=== PATIENT | male | born 1950 | race African-American/Black ===

== ENCOUNTER 2020-04-18 11:19 | Outpatient (REF) | payer OTHER, SELFPAY ==
[2020-04-19 11:19] LABS: Urine Cytology See Pathology rpt
== END 2020-04-18 11:20 | disposition home or self-care (01) ==
LOC: HO.LNP 11:19
PROVIDERS: PCP Internal Medicine; Visit Provider Urology
DX: N40.1 Benign prostatic hyperplasia with lower urinary tract symptoms (principal); R31.0 Gross hematuria
CPT/HCPCS: 88112; 99214

== ENCOUNTER 2020-05-23 11:06 | Emergency (ER) | payer OTHER, SELFPAY ==
[2020-05-23 12:23] VITALS: BP 135/67; PULSE 57; RESP 18; TEMP 37.2; O2SAT 98; BMI 31.9
--- NOTE | 2020-05-23 13:52 | CT_ITS ---
EXAMINATION: CT ABDOMEN AND PELVIS WITHOUT CONTRAST CLINICAL INFORMATION: Hematuria COMPARISON: None TECHNIQUE: Multidetector volumetric imaging was performed from the superior aspect of the liver through the pubic symphysis. Sagittal and coronal reformatted images were obtained on the technologist's workstation. This CT examination was performed using dose optimization techniques as appropriate, variously including the following: *Automated exposure control *Adjustment of mA and/or kV according to patient size (this includes techniques or standardized protocols for targeted exams where dose is matched to indication/reason for exam; i.e. extremities or head) *Use of iterative reconstruction technique DLP: 822 mGy-cm FINDINGS: LUNG BASES: Minor subpleural scarring left lateral base adjacent to old posttraumatic rib changes. No airspace consolidation or effusion. LIVER, GALLBLADDER, AND BILIARY TREE: The liver is normal in size, shape, and attenuation. No focal hepatic lesion or biliary ductal dilatation is present. The gallbladder is unremarkable with no evidence of radiopaque gallstones, gallbladder wall thickening, or obvious pericholecystic inflammatory changes. PANCREAS: Unremarkable. SPLEEN: Unremarkable. ADRENAL GLANDS: Unremarkable. KIDNEYS AND URETERS: There is no right kidney demonstrated. No right ptotic or pelvic kidney. No surgical clips retroperitoneum. Clinically correlate. The left kidney measures approximately 13 cm in length and shows normal parenchymal thickness. There is no hydronephrosis, hydroureter, or perinephric stranding. No urinary tract calculi. BLADDER: Unremarkable. GASTROINTESTINAL TRACT: No bowel obstruction or inflammatory changes in the bowel mesentery. Normal appendix. No ascites or fluid collection. ABDOMINAL WALL: Small ringlike tacks lower anterior abdomen, with prior hernia repair. No ventral hernia. Small bilateral fat-containing inguinal hernias, slightly greater on left. LYMPH NODES: No lymphadenopathy. VASCULAR: Coronary artery atherosclerotic calcifications. 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 Remainder abdominal aorta unremarkable. PELVIC VISCERA: Mild prostatic enlargement. Seminal vesicles symmetric. OSSEOUS STRUCTURES: Old left rib fractures. Degenerative changes lower thoracic and lumbar spine. No visible acute bony abnormality. CT/CT abdomen pelvis wo con IMPRESSION: 1. Solitary left kidney. No hydronephrosis, calculi, or perinephric stranding. 2. 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 3. Mild prostatic enlargement. 4. No bowel obstruction or inflammatory changes. Normal appendix.
[2020-05-23 14:00] VITALS: BP 157/79; PULSE 54; RESP 15; TEMP 37.1; O2SAT 95
--- NOTE | 2020-05-23 14:01 | ED_ITS ---
HPI - Male Genitourinary General Chief complaint: Urogenital-Male Stated complaint: blood in urine Time Seen by Provider: 05/23/20 11:44 Source: patient Mode of arrival: ambulatory Limitations: no limitations History of Present Illness HPI Narrative: hematuria x 3 months, no AC therapy, on baby ASPIRIN Complaint: other (hematuria) Onset (ago): month(s) (3) Duration: intermittent Radiation: penis Severity: mild Relieving factors: none Exacerbating factors: urination Context: other (has been seen by Urology pending US and cystoscopy) Related Data Home Medications Medication Instructions Recorded Confirmed amlodipine 10 mg tablet 10 mg PO DAILY 04/18/20 04/18/20 aspirin 81 mg tablet,delayed 81 mg PO DAILY 04/18/20 04/18/20 release atorvastatin 80 mg tablet 80 mg PO DAILY 04/18/20 04/18/20 carvedilol 25 mg tablet 25 mg PO BID 04/18/20 04/18/20 insulin aspart U-100 100 unit/mL unit SUBCUT 04/18/20 04/18/20 (3 mL) subcutaneous pen insulin glargine 100 unit/mL (3 unit SUBCUT 04/18/20 04/18/20 mL) subcutaneous pen lisinopril 40 mg tablet 40 mg PO DAILY 04/18/20 04/18/20 omeprazole 20 mg capsule,delayed 20 mg PO DAILY 04/18/20 04/18/20 release pen needle, diabetic 31 gauge x #1200 ea 04/18/20 04/18/20 5/16 spironolactone 25 mg tablet 25 mg PO DAILY 04/18/20 04/18/20 tramadol 50 mg tablet 0 mg PO 04/18/20 04/18/20 Previous Rx's Medication Instructions Recorded cefuroxime axetil 250 mg PO BID 7 Days #14 tab 05/23/20 Allergies Allergy/AdvReac Type Severity Reaction Status Date / Time No Known Allergies Allergy Verified 05/23/20 11:08 Review of Systems Review of Systems: Constitutional : No Fever, No Chills ENT/Mouth : No sore throat Eyes: No Eye Pain, No Swelling, No Redness Cardiovascular : No Chest Pain, No SOB Respiratory : No Cough, No Sputum, No Wheezing Gastrointestinal : no Nausea, no Vomiting, No Diarrhea, no abdominal pain Genitourinary : no Dysuria, no urinary frequency, positive Hematuria, no Flank Pain, no hesitancy Musculoskeletal : No joint pain, No Myalgias Skin : No Skin Lesions, No rash Neuro : No Weakness, No Numbness, No Headache Psych : No Anxiety/Panic, No Depression Heme/Lymph: No Bruising, No Lymphadenopathy Endocrine : No Polyuria, No Polydipsia All other systems reviewed and are negative COUNT INCLUDES THE [facility] Past Medical History Attestation statement: The following information was validated with the patient. Social History Social History Alcohol intake: never Smoking Status: Never smoker Smoked in Last 30 Days: No Use of substances other than those prescribed or required for medical reasons: No Advance Directives: No Advance Directives Information Provided: Yes Physical Exam Vital Signs: Vital Signs: Last Vital Signs Temp 98.7 F 05/23/20 14:00 Pulse 54 05/23/20 14:00 Resp 15 05/23/20 14:00 BP 157/79 H 05/23/20 14:00 Pulse Ox 95 05/23/20 14:00 Body Mass Index 31.9 Appearance: Alert. Oriented X3. No acute distress. Eyes: Pupils equal, round and reactive to light. ENT: Pharynx normal. Neck: Normal inspection. Neck supple. CVS: Normal heart rate and rhythm. Pulses normal. Respiratory: No respiratory distress. Breath sounds normal. Abdomen: Soft and non-tender. Skin: Skin warm and dry. Normal skin color. Normal skin turgor. Extremities: No lower extremity edema. No calf ttp Neuro: Oriented X 3. No motor deficit. No sensory deficit. Course Course Course Narrative: discussed with Dr. Leiva - will follow up, has not had kidney function checked in years - no baseline, will have outpatient urology close follow up MDM - Male Genitourinary MDM Narrative Medical decision making narrative: 70 yo male with hematuria for 3 months who has seen Urology pending US and cystoscopy at this time will obtain labs, UA, CT scan dispo per results and findings, could be mass Lab Data Result diagrams: 05/23/20 14:23 05/23/20 14:23 Labs: Lab Results 05/23/20 05/23/20 05/23/20 Range/Units 14:23 14:23 14:23 WBC 7.9 (4.8-10.8) X10*3/uL RBC 4.70 (4.60-5.80) X10*6/uL Hgb 14.1 (14.0-18.0) g/dl Hct 42.9 (42-52) % MCV 91.3 (80-98) fL MCH 30.0 (27.0-33.0) pg MCHC 32.9 (31.0-36.0) g/dl RDW 12.5 (11.0-16.0) % Plt Count 206 (160-400) X10*3/uL MPV 10.4 (9.4-12.4) fL Immature Gran % (Auto) 0.4 (0.0-0.4) % Neut % (Auto) 52.0 (45-73) % Lymph % (Auto) 32.4 (20-40) % [place] % (Auto) 10.2 (2-11) % Eos % (Auto) 4.6 H (0-4) % Baso % (Auto) 0.4 (0-2) % Lymph # (Auto) 2.6 (1.2-4.9) X10*3/uL [place] # (Auto) 0.8 (0.1-1.2) X10*3/uL Eos # (Auto) 0.4 (0.0-0.4) X10*3/uL Baso # (Auto) 0.0 (0.0-0.2) X10*3/uL Abs Immat Gran (auto) 0.03 (0.00-0.03) X10*3/uL Absolute Neuts (auto) 4.1 (2.0-8.3) X10*3/uL Absolute Nucleated RBC 0.000 (0.0-0.012) X10*3/uL Nucleated RBC % (auto) 0.0 (0.0-0.2) /100WBC PT 11.6 (10.8-13.0) SEC INR 1.0 (0.9-1.1) APTT 34.9 (24.1-38.0) SEC Sodium 137 (135-145) mmol/L Potassium 4.4 (3.3-5.1) mmol/l Chloride 103 (96-108) mmol/L Carbon Dioxide 26 (22-29) mmol/L Anion Gap 12 (12-20) BUN 14 (9-16) mg/dL Creatinine 1.86 H (0.5-1.4) mg/dL Estim Creat Clear Calc 40.1 Estimated GFR 36 Random Glucose 318 H (60-115) mg/dL Calcium 9.0 (8.4-10.2) mg/dL Urine Color Urine Appearance Urine pH (5.0-8.0) Ur Specific [place] (1.005-1.025) Urine Protein (NEG-TRACE) MG/DL Urine Glucose (UA) (NEG) MG/DL Urine Ketones (NEG) MG/DL Urine Blood (NEG) Urine Nitrite (NEG) Ur Leukocyte Esterase (NEG) Urine RBC (0) /HPF Urine WBC (0-4) /HPF Ur Squamous Epith Cells /LPF Urine Bacteria /LPF 05/23/ Range/Units 14:25 WBC (4.8-10.8) X10*3/uL RBC (4.60-5.80) X10*6/uL Hgb (14.0-18.0) g/dl Hct (42-52) % MCV (80-98) fL MCH (27.0-33.0) pg MCHC (31.0-36.0) g/dl RDW (11.0-16.0) % Plt Count (160-400) X10*3/uL MPV (9.4-12.4) fL Immature Gran % (Auto) (0.0-0.4) % Neut % (Auto) (45-73) % Lymph % (Auto) (20-40) % [place] % (Auto) (2-11) % Eos % (Auto) (0-4) % Baso % (Auto) (0-2) % Lymph # (Auto) (1.2-4.9) X10*3/uL [place] # (Auto) (0.1-1.2) X10*3/uL Eos # (Auto) (0.0-0.4) X10*3/uL Baso # (Auto) (0.0-0.2) X10*3/uL Abs Immat Gran (auto) (0.00-0.03) X10*3/uL Absolute Neuts (auto) (2.0-8.3) X10*3/uL Absolute Nucleated RBC (0.0-0.012) X10*3/uL Nucleated RBC % (auto) (0.0-0.2) /100WBC PT (10.8-13.0) SEC INR (0.9-1.1) APTT (24.1-38.0) SEC Sodium (135-145) mmol/L Potassium (3.3-5.1) mmol/l Chloride (96-108) mmol/L Carbon Dioxide (22-29) mmol/L Anion Gap (12-20) BUN (9-16) mg/dL Creatinine (0.5-1.4) mg/dL Estim Creat Clear Calc Estimated GFR Random Glucose (60-115) mg/dL Calcium (8.4-10.2) mg/dL Urine Color YELLOW Urine Appearance HAZY Urine pH 6.0 (5.0-8.0) Ur Specific [place] 1.020 (1.005-1.025) Urine Protein TRACE (NEG-TRACE) MG/DL Urine Glucose (UA) >=1000 H (NEG) MG/DL Urine Ketones NEG (NEG) MG/DL Urine Blood 2+ H (NEG) Urine Nitrite NEG (NEG) Ur Leukocyte Esterase NEG (NEG) Urine RBC 76-150 H (0) /HPF Urine WBC 10-14 H (0-4) /HPF Ur Squamous Epith Cells NONE /LPF Urine Bacteria NONE /LPF Discharge Plan Discharge Clinical Impression: Gross hematuria Patient Disposition: Home, Self-Care Instructions: Hematuria (ED) Additional Instructions: return to ED for any worsening symptoms or concerns Dr. Leiva's office will see you soon, you need to have your kidney function rechecked in 5 days Prescriptions: New cefuroxime axetil 250 mg tablet 250 mg PO BID 7 Days Qty: 14 RF: 0 No Action (DME) pen needle, diabetic 31 gauge x 5/16 needle See Rx Instructions ea .ROUTE QID Qty: 1200 RF: 0 Lantus Solostar U-100 Insulin 100 unit/mL (3 mL) insulin pen subcut RF: 0 insulin aspart U-100 100 unit/mL (3 mL) insulin pen subcut RF: 0 omeprazole 20 mg capsule,delayed release(DR/EC) 20 mg PO DAILY RF: 0 tramadol 50 mg tablet 0 mg PO RF: 0 carvedilol 25 mg tablet 25 mg PO BID RF: 0 lisinopril 40 mg tablet 40 mg PO DAILY RF: 0 amlodipine 10 mg tablet 10 mg PO DAILY RF: 0 spironolactone 25 mg tablet 25 mg PO DAILY RF: 0 atorvastatin 80 mg tablet 80 mg PO DAILY RF: 0 aspirin 81 mg tablet,delayed release (DR/EC) 81 mg PO DAILY RF: 0 Referrals: Danny Leiva MD [Physician] - 2 days
[2020-05-23 14:36] LABS: MANUAL DIFF FLAG NO
[2020-05-23 14:38] LABS: Basophils Percent Auto 0.4 % (0-2); Eosinophils Absolute Auto 0.4 X10*3/uL (0.0-0.4); Eosinophils Percent Auto 4.6 % (0-4); Hematocrit 42.9 % (42-52); Hemoglobin 14.1 g/dl (14.0-18.0); Imm Gran Abs Auto 0.03 X10*3/uL (0.00-0.03); Imm Gran Pct Auto 0.4 % (0.0-0.4); Lymphocytes Absolute Auto 2.6 X10*3/uL (1.2-4.9); Lymphocytes Percent Auto 32.4 % (20-40); Mean Corpuscular HGB Conc 32.9 g/dl (31.0-36.0); Mean Corpuscular Volume 91.3 fL (80-98); Mean Platelet Volume 10.4 fL (9.4-12.4); Monocytes Absolute Auto 0.8 X10*3/uL (0.1-1.2); Monocytes Percent Auto 10.2 % (2-11); Neutrophils Absolute Auto 4.1 X10*3/uL (2.0-8.3); Platelet Count 206 X10*3/uL (160-400); Red Cell Distribution Width 12.5 % (11.0-16.0); White Blood Count 7.9 X10*3/uL (4.8-10.8)
[2020-05-23 14:44] LABS: Prothrombin Time 11.6 SEC (10.8-13.0)
[2020-05-23 14:45] LABS: Glucose Urine UA >=1000 MG/DL (NEG); Leukocyte Esterase Urine NEG (NEG); Nitrite Urine NEG (NEG); Urine Blood 2+ (NEG); Urine Ketones NEG (NEG); Urine Protein TRACE MG/DL (NEG-TRACE)
[2020-05-23 14:46] LABS: Partial Thromboplastin Time 34.9 SEC (24.1-38.0)
[2020-05-23 14:52] LABS: Appearance Urine HAZY; Color Urine YELLOW
[2020-05-23 15:06] LABS: Anion Gap 12 (12-20); Blood Urea Nitrogen 14 mg/dL (9-16); Carbon Dioxide 26 mmol/L (22-29); Chloride 103 mmol/L (96-108); Creatinine Clr Calc Pharmacy 40.1; Estimated Glomerular Filt Rate 36; Glucose Random 318 mg/dL (60-115); Potassium 4.4 mmol/l (3.3-5.1); Sodium 137 mmol/L (135-145)
[2020-05-23 15:08] LABS: UACC CULT YES
--- NOTE | 2020-05-23 15:39 | PC.NURSE ---
awaiting for [facility]. pt aware and agreeable
[2020-05-23 16:33] LABS: Alanine Aminotransferase 26 U/L (0-40); Albumin Level 4.2 g/dL (3.5-5.0); Alkaline Phosphatase 123 U/L (39-117); Aspartate Amino Transferase 16 U/L (5-37); Bilirubin Direct 0.3 mg/dL (0.0-0.5); Bilirubin Total 0.7 mg/dL (0.0-1.0); Magnesium 1.8 mg/dL (1.6-2.6); Total Protein 6.8 g/dL (6.5-8.0)
== END 2020-05-23 15:52 | disposition home or self-care (01) ==
PROVIDERS: Emergency Provider Emergency Medicine
DX: R31.0 Gross hematuria (principal); R10.9 Unspecified abdominal pain; Z79.899 Other long term (current) drug therapy
CPT/HCPCS: 36415; 74176; 80048; 80076; 81001; 83735; 85025; 85610; 85730; 87086; 99284

== ENCOUNTER → 2020-05-25 14:48 | Outpatient (BNVA) | payer OTHER, SELFPAY | PROVIDERS: Visit Provider Urology | DX: C67.9 Malignant neoplasm of bladder, unspecified (principal) | CPT/HCPCS: 52000; 81002; Q3014 ==

== ENCOUNTER 2020-05-30 11:06 | Inpatient (IN) | payer OTHER, SELFPAY ==
[2020-05-30] VITALS (7 sets, daily range): BP systolic 134–164; BP diastolic 73–89; PULSE 56–70; RESP 18–19; TEMP 36.1–37; O2SAT 93–99; BMI 33.4
--- NOTE | 2020-05-30 11:38 | CT_ITS ---
EXAMINATION: CT ABDOMEN AND PELVIS WITHOUT CONTRAST CLINICAL INFORMATION: Hematuria. One kidney. COMPARISON: Previous CT of the abdomen and pelvis 05/23/2020 TECHNIQUE: Multidetector volumetric imaging was performed from the superior aspect of the liver through the pubic symphysis. Sagittal and coronal reformatted images were obtained on the technologist's workstation. This CT examination was performed using dose optimization techniques as appropriate, variously including the following: *Automated exposure control *Adjustment of mA and/or kV according to patient size (this includes techniques or standardized protocols for targeted exams where dose is matched to indication/reason for exam; i.e. extremities or head) *Use of iterative reconstruction technique DLP: 855 mGy-cm FINDINGS: LUNG BASES: There is scarring or atelectasis at the left lung base. This is probably related to old left rib fractures. The lungs the heart may be enlarged. LIVER, GALLBLADDER, AND BILIARY TREE: The liver is normal in size, shape, and attenuation. No focal hepatic lesion or biliary ductal dilatation is present. The gallbladder is unremarkable with no evidence of radiopaque gallstones, gallbladder wall thickening, or obvious pericholecystic inflammatory changes. PANCREAS: Unremarkable. SPLEEN: Unremarkable. ADRENAL GLANDS: There is a slight nodular contour to the left adrenal gland. The right adrenal gland is unremarkable. KIDNEYS AND URETERS: The right kidney is not identified. The left kidney is normal appearing. BLADDER: The bladder is not optimally distended. There is increased seen at the base of the bladder questionable for a bladder mass. It is difficult to separate the base of the bladder from the prostate gland. There is also question shaped higher attenuation questionable for blood for example axial image 83 series 3 GASTROINTESTINAL TRACT: There is diverticulosis of the colon. Small and large bowel is otherwise unremarkable. The appendix is unremarkable. The stomach is unremarkable. ABDOMINAL WALL: There is a left internal hernia containing fat. There is evidence of old suprapubic hernia repair with mesh. LYMPH NODES: There are enlarged retroperitoneal lymph nodes in the pelvis measuring 1.6 cm adjacent to the left common iliac artery and vein axial image 63, 1.9 x 3.6 cm the right iliac bifurcation axial image 74 series 3, measuring 1.7 x 2.1 cm adjacent to the right pelvic sidewall axial image 79 series 3 and measuring 1 cm adjacent to the left iliac vessels axial image 80 series 3. These lymph nodes are similar to previous exam from 05/23/2020. VASCULAR: There is a small right-sided saccular aneurysm of the mid right abdominal aorta measuring 1.5 cm. Again, this is in the expected location of the right renal artery. There is evidence of atherosclerotic disease. PELVIC VISCERA: The prostate gland is enlarged and may protrude into the base of the bladder. OSSEOUS STRUCTURES: There are degenerative changes of the spine. There are degenerative changes at the hip joints, left greater than right. There are old left-sided rib fractures. CT/CT abdomen pelvis wo con IMPRESSION: Solitary left kidney. Abnormal soft tissue at the base of the bladder questionable for bladder mass versus prostate mass. The prostate gland is enlarged and may protrude into the base of the bladder. Correlation with urinalysis and urine cytology and PSA level and urology consultation recommended. There is new small crescent-shaped high attenuation in the bladder questionable for blood. Enlarged lymph nodes in the pelvis questionable for metastatic disease. 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 Diverticulosis.
[2020-05-30] MEDS: 0.9 % Sodium Chloride 1,000 ML 999 ML IVCONT ×2 (11:47→14:20)
--- NOTE | 2020-05-30 11:48 | PC.NURSE ---
patient a&ox3, iv inserted, labs drawn, urine obtained, pt now states that he has seen dr. fountain for past hematuria and that he was supposed to have surgery sometime next week-patient is unsure what kind of surgery he is supposed to be having. Pt states a few days ago he began calling dr. chappell office due to the hematuria but was unable to get ahold of anybody, this morning he patient went to dr. chappell office and they advised him to come to the ed.
[2020-05-30 11:49] LABS: Basophils Percent Auto 0.4 % (0-2); Eosinophils Absolute Auto 0.3 X10*3/uL (0.0-0.4); Eosinophils Percent Auto 4.1 % (0-4); Hemoglobin 15.1 g/dl (14.0-18.0); Imm Gran Abs Auto 0.04 X10*3/uL (0.00-0.03); Imm Gran Pct Auto 0.5 % (0.0-0.4); Lymphocytes Absolute Auto 3.1 X10*3/uL (1.2-4.9); Lymphocytes Percent Auto 38.1 % (20-40); MANUAL DIFF FLAG NO; Mean Corpuscular HGB Conc 34.3 g/dl (31.0-36.0); Mean Corpuscular Hemoglobin 30.6 pg (27.0-33.0); Mean Corpuscular Volume 89.2 fL (80-98); Mean Platelet Volume 10.4 fL (9.4-12.4); Monocytes Absolute Auto 0.8 X10*3/uL (0.1-1.2); Monocytes Percent Auto 10.3 % (2-11); Neutrophils Absolute Auto 3.8 X10*3/uL (2.0-8.3); Neutrophils Percent Auto 46.6 % (45-73); Platelet Count 223 X10*3/uL (160-400); Red Blood Count 4.93 X10*6/uL (4.60-5.80); Red Cell Distribution Width 12.8 % (11.0-16.0)
[2020-05-30 11:58] LABS: Glucose Urine UA 250 MG/DL (NEG); INTERNATIONAL NORM RATIO 0.9 (0.9-1.1); Nitrite Urine NEG (NEG); Prothrombin Time 11.2 SEC (10.8-13.0); Urine Blood 3+ (NEG); Urine Ketones NEG (NEG)
[2020-05-30 12:04] LABS: Appearance Urine TURBID; Color Urine RED
[2020-05-30 12:08] LABS: Leukocyte Esterase Urine NEG (NEG)
[2020-05-30 12:09] LABS: RBC Urine TNTC /HPF (0); WBC Urine 0-2 /HPF (0-4)
[2020-05-30 12:16] LABS: Alanine Aminotransferase 30 U/L (0-40); Albumin Level 4.2 g/dL (3.5-5.0); Alkaline Phosphatase 129 U/L (39-117); Anion Gap 13 (12-20); Aspartate Amino Transferase 17 U/L (5-37); Bilirubin Direct 0.3 mg/dL (0.0-0.5); Bilirubin Total 0.7 mg/dL (0.0-1.0); Blood Urea Nitrogen 29 mg/dL (9-16); Calcium 9.2 mg/dL (8.4-10.2); Carbon Dioxide 25 mmol/L (22-29); Chloride 101 mmol/L (96-108); Creatinine Clr Calc Pharmacy 33.2; Estimated Glomerular Filt Rate 28; Glucose Random 287 mg/dL (60-115); Potassium 4.3 mmol/l (3.3-5.1); Sodium 135 mmol/L (135-145)
--- NOTE | 2020-05-30 12:58 | ED_ITS ---
HPI - Male Genitourinary General Chief complaint: Urogenital-Male Stated complaint: blood in urine Time Seen by Provider: 05/30/20 11:37 Source: patient Mode of arrival: ambulatory Limitations: no limitations History of Present Illness HPI Narrative: 70yoM c PMHx of bladder cancer, BPH with urinary obstruction /LUTS, only 1 kidney on the left side, right-sided kidney was donated to son, HTN, HLD and DM presenting to the ED c c/o gross hematuria x 3 months worse within the past week was seen here on 05/23/2020 for same complaint had a CT scan of abd/pelvis then followed up c Dr. Leiva and had a cystoscope and has a scheduled Transurethral Resection of Bladder Tumor (TURBT) for Thursday due to a tumor was found on cystoscope Patient denies any fevers, nausea / vomiting, chest pain, shortness of breath, abdominal pain, dysuria, constipation or diarrhea or any other symptoms complaints or concerns at this time.. Related Data Home Medications Medication Instructions Recorded Confirmed amlodipine 10 mg tablet 10 mg PO DAILY 04/18/20 04/18/20 aspirin 81 mg tablet,delayed 81 mg PO DAILY 04/18/20 04/18/20 release atorvastatin 80 mg tablet 80 mg PO DAILY 04/18/20 04/18/20 carvedilol 25 mg tablet 25 mg PO BID 04/18/20 04/18/20 insulin aspart U-100 100 unit/mL unit SUBCUT 04/18/20 04/18/20 (3 mL) subcutaneous pen insulin glargine 100 unit/mL (3 unit SUBCUT 04/18/20 04/18/20 mL) subcutaneous pen lisinopril 40 mg tablet 40 mg PO DAILY 04/18/20 04/18/20 omeprazole 20 mg capsule,delayed 20 mg PO DAILY 04/18/20 04/18/20 release pen needle, diabetic 31 gauge x #1200 ea 04/18/20 04/18/2011/18 spironolactone 25 mg tablet 25 mg PO DAILY 04/18/20 04/18/20 tramadol 50 mg tablet 0 mg PO 04/18/20 04/18/20 Previous Rx's Medication Instructions Recorded cefuroxime axetil 250 mg PO BID 7 Days #14 tab 05/23/20 Allergies Allergy/AdvReac Type Severity Reaction Status Date / Time No Known Allergies Allergy Verified 05/23/20 11:08 Review of Systems Review of Systems: Constitutional : No Fever, No Chills Cardiovascular : No Chest Pain, No SOB Respiratory : No Cough, No Sputum Gastrointestinal : No Nausea, No Vomiting, No Diarrhea, No abdominal Pain, No Hematochezia, No Melena Genitourinary : No Dysuria, No Urinary Frequency, + Gross Hematuria, No Urinary Incontinence, No Urgency, No Flank Pain Musculoskeletal : No joint pain, No Myalgias, No Joint Swelling Skin : No Skin Lesions, No rash Neuro : No Weakness, No Numbness, No Paresthesias, No Dizziness, No Headache Heme/Lymph: No Lymphadenopathy Endocrine : No Polyuria, No Polydipsia Yes all other systems are reviewed and are negative [facility] Past Medical History Attestation statement: The following information was validated with the patient. Medical History Diabetes Hematuria High cholesterol HTN (hypertension) Kidney stone on right side Malignant neoplasm Surgical History H/O cystoscopy History of nephrectomy, left Social History Social History Alcohol intake: current Alcohol intake frequency: holidays/special occasions only Smoking Status: Never smoker Smoked in Last 30 Days: No Second Hand Smoke Exposure: No Use of substances other than those prescribed or required for medical reasons: No Advance Directives: No Advance Directives Information Provided: Yes Physical Exam Vital Signs: Vital Signs: Last Vital Signs Temp 98.6 F 05/30/20 11:15 Pulse 62 05/30/20 11:15 Resp 18 05/30/20 11:15 BP 140/82 H 05/30/20 11:15 Pulse Ox 93 05/30/20 11:15 Body Mass Index 33.4 vital signs have been reviewed as normal and appeared to be correct. Blood pressure normal. Heart rate normal. Respiration rate normal. Temperature normal. Oxygen saturation normal. Appearance: Alert. Oriented X3. No acute distress. Head: Normal external exam. Normocephalic. Atraumatic. Eyes: PERRLA. EOMI. Conjunctiva and sclera normal. Eyelids normal. ENT: Pharynx normal. Uvula midline. Moist mucous membranes. Neck: Normal inspection. Neck supple. FROM. No adenopathy. No meningeal signs. CVS: Normal heart rate and rhythm. Heart sound normal. No murmurs noted. Pulses normal throughout. Respiratory: No respiratory distress. Painless inspiration. Breath sounds normal. No wheezes/rales/rhonchi noted. Chest nontender. No accessory muscle usage noted or decreased air movement noted. Abdomen: Soft and nontender. Bowel sounds normal in all 4 quadrants. No organomegaly noted. No visible injury noted. Back: No CVA tenderness. Full range of motion noted. Skin: Skin warm and dry. Normal skin color. Normal skin turgor. No rashes/l esions/lacerations noted. Extremities: Extremities exhibit normal range of motion. Extremities nontender. Neuro: Oriented X 3. No motor deficit. No sensory deficit. Reflexes normal. Course Course Course Narrative: 11:40AM - 70yoM c PMHx of bladder cancer, BPH with urinary obstruction /LUTS, only one kidney on the left side, right-sided kidney was donated to son, HTN, HLD and DM presenting to the ED c c/o gross hematuria x 3 months worse within the past week was seen here on 05/23/2020 for same complaint had a CT scan of abd/pelvis then followed up c Dr. Leiva and had a cystoscope and has a scheduled Transurethral Resection of Bladder Tumor (TURBT) for Thursday due to a tumor was found on cystoscope - will obtain labs, UA and a CT scan without contrast due to the patient's kidney function provide 1 L of IV fluids and re-evaluate. Reevaluation(s) Reevaluation #1: - BUN/ creatinine at 29/2.3 on 05/23/2020 BUN was 14 creatinine was 1.86. Mild elevation and alkaline phosphate. Otherwise all other labs are WNL. CT scan of abdomen pelvis consistent with what was seen on cystoscope and similar when compared to prior CT scan although noted to have blood in the bladder. I consulted with Dr. Leiva who recommended continuous bladder irrigation. - therefore bladder irrigation ordered and started at this time. Another L of IV fluids ordered at this time. - Will plan to admit for gross hematuria with renal failure. Patient understands agrees with this plan. Time: 13:21 MDM - Male Genitourinary Medical Records Attestation: I reviewed the patient's medical records. Lab Data Attestation: I reviewed the patient's lab results. Result diagrams: 05/30/20 11:43 05/30/20 11:43 Labs: Lab Results 05/30/20 05/30/20 05/30/20 Range/Units 11:43 11:43 11:43 WBC 8.0 (4.8-10.8) X10*3/uL RBC 4.93 (4.60-5.80) X10*6/uL Hgb 15.1 (14.0-18.0) g/dl Hct 44.0 (42-52) % MCV 89.2 (80-98) fL MCH 30.6 (27.0-33.0) pg MCHC 34.3 (31.0-36.0) g/dl RDW 12.8 (11.0-16.0) % Plt Count 223 (160-400) X10*3/uL MPV 10.4 (9.4-12.4) fL Immature Gran % (Auto) 0.5 H (0.0-0.4) % Neut % (Auto) 46.6 (45-73) % Lymph % (Auto) 38.1 (20-40) % [place] % (Auto) 10.3 (2-11) % Eos % (Auto) 4.1 H (0-4) % Baso % (Auto) 0.4 (0-2) % Lymph # (Auto) 3.1 (1.2-4.9) X10*3/uL [place] # (Auto) 0.8 (0.1-1.2) X10*3/uL Eos # (Auto) 0.3 (0.0-0.4) X10*3/uL Baso # (Auto) 0.0 (0.0-0.2) X10*3/uL Abs Immat Gran (auto) 0.04 H (0.00-0.03) X10*3/uL Absolute Neuts (auto) 3.8 (2.0-8.3) X10*3/uL Absolute Nucleated RBC 0.000 (0.0-0.012) X10*3/uL Nucleated RBC % (auto) 0.0 (0.0-0.2) /100WBC Hold Purple Top PT 11.2 (10.8-13.0) SEC INR 0.9 (0.9-1.1) Sodium 135 (135-145) mmol/L Potassium 4.3 (3.3-5.1) mmol/l Chloride 101 (96-108) mmol/L Carbon Dioxide 25 (22-29) mmol/L Anion Gap 13 (12-20) BUN 29 H D (9-16) mg/dL Creatinine 2.30 H (0.5-1.4) mg/dL Estim Creat Clear Calc 33.2 Estimated GFR 28 Random Glucose 287 H (60-115) mg/dL Calcium 9.2 (8.4-10.2) mg/dL Magnesium 2.0 (1.6-2.6) mg/dL Total Bilirubin 0.7 (0.0-1.0) mg/dL Direct Bilirubin 0.3 (0.0-0.5) mg/dL AST 17 (5-37) U/L ALT 30 (0-40) U/L Alkaline Phosphatase 129 H (39-117) U/L Total Protein 7.0 (6.5-8.0) g/dL Albumin 4.2 (3.5-5.0) g/dL Urine Color Urine Appearance Urine pH (5.0-8.0) Ur Specific [place] (1.005-1.025) Urine Protein Urine Glucose (UA) (NEG) MG/DL Urine Ketones (NEG) MG/DL Urine Blood (NEG) Urine Nitrite (NEG) Ur Leukocyte Esterase (NEG) Urine RBC (0) /HPF Urine WBC (0-4) /HPF Ur Squamous Epith Cells /LPF Urine Bacteria /LPF 05/30/20 05/30/20 Range/Units 11:43 11:43 WBC (4.8-10.8) X10*3/uL RBC (4.60-5.80) X10*6/uL Hgb (14.0-18.0) g/dl Hct (42-52) % MCV (80-98) fL MCH (27.0-33.0) pg MCHC (31.0-36.0) g/dl RDW (11.0-16.0) % Plt Count (160-400) X10*3/uL MPV (9.4-12.4) fL Immature Gran % (Auto) (0.0-0.4) % Neut % (Auto) (45-73) % Lymph % (Auto) (20-40) % [place] % (Auto) (2-11) % Eos % (Auto) (0-4) % Baso % (Auto) (0-2) % Lymph # (Auto) (1.2-4.9) X10*3/uL [place] # (Auto) (0.1-1.2) X10*3/uL Eos # (Auto) (0.0-0.4) X10*3/uL Baso # (Auto) (0.0-0.2) X10*3/uL Abs Immat Gran (auto) (0.00-0.03) X10*3/uL Absolute Neuts (auto) (2.0-8.3) X10*3/uL Absolute Nucleated RBC (0.0-0.012) X10*3/uL Nucleated RBC % (auto) (0.0-0.2) /100WBC Hold Purple Top SEE NOTE PT (10.8-13.0) SEC INR (0.9-1.1) Sodium (135-145) mmol/L Potassium (3.3-5.1) mmol/l Chloride (96-108) mmol/L Carbon Dioxide (22-29) mmol/L Anion Gap (12-20) BUN (9-16) mg/dL Creatinine (0.5-1.4) mg/dL Estim Creat Clear Calc Estimated GFR Random Glucose (60-115) mg/dL Calcium (8.4-10.2) mg/dL Magnesium (1.6-2.6) mg/dL Total Bilirubin (0.0-1.0) mg/dL Direct Bilirubin (0.0-0.5) mg/dL AST (5-37) U/L ALT (0-40) U/L Alkaline Phosphatase (39-117) U/L Total Protein (6.5-8.0) g/dL Albumin (3.5-5.0) g/dL Urine Color RED Urine Appearance TURBID Urine pH 6.0 (5.0-8.0) Ur Specific [place] 1.020 (1.005-1.025) Urine Protein TNP Urine Glucose (UA) 250 H (NEG) MG/DL Urine Ketones NEG (NEG) MG/DL Urine Blood 3+ H (NEG) Urine Nitrite NEG (NEG) Ur Leukocyte Esterase NEG (NEG) Urine RBC TNTC H (0) /HPF Urine WBC 0-2 (0-4) /HPF Ur Squamous Epith Cells NONE /LPF Urine Bacteria NONE /LPF Imaging Data CT scan - abdomen: Attestation: I personally reviewed and interpreted this imaging study as follows: Radiologist's impression: IMPRESSION: Solitary left kidney. Abnormal soft tissue at the base of the bladder questionable for bladder mass versus prostate mass. The prostate gland is enlarged and may protrude into the base of the bladder. Correlation with urinalysis and urine cytology and PSA level and urology consultation recommended. There is new small crescent-shaped high attenuation in the bladder questionable for blood. Enlarged lymph nodes in the pelvis questionable for metastatic disease. 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 Diverticulosis. Critical Care Time Critical Care Time Critical Care Time: Yes Total Critical Care Time: 60 Attestation: I personally attest to this time spent taking care of the patient Discharge Plan Discharge Clinical Impression: Gross hematuria, BPH w urinary obs/LUTS, Bladder cancer, Renal failure Patient Disposition: Admitted As Inpatient Prescriptions: No Action cefuroxime axetil 250 mg tablet 250 mg PO BID 7 Days Qty: 14 RF: 0 (DME) pen needle, diabetic 31 gauge x 5/16 needle See Rx Instructions ea .ROUTE QID Qty: 1200 RF: 0 Lantus Solostar U-100 Insulin 100 unit/mL (3 mL) insulin pen subcut RF: 0 insulin aspart U-100 100 unit/mL (3 mL) insulin pen subcut RF: 0 omeprazole 20 mg capsule,delayed release(DR/EC) 20 mg PO DAILY RF: 0 tramadol 50 mg tablet 0 mg PO RF: 0 carvedilol 25 mg tablet 25 mg PO BID RF: 0 lisinopril 40 mg tablet 40 mg PO DAILY RF: 0 amlodipine 10 mg tablet 10 mg PO DAILY RF: 0 spironolactone 25 mg tablet 25 mg PO DAILY RF: 0 atorvastatin 80 mg tablet 80 mg PO DAILY RF: 0 aspirin 81 mg tablet,delayed release (DR/EC) 81 mg PO DAILY RF: 0
--- NOTE | 2020-05-30 14:11 | P.HPHOSP_ITS ---
History of Present Illness Date of Service: 05/30/20 Chief Complaint: Gross Hematuria 70 year male with BPH, Diabetes, HTN, HLD, s/p right nephrectomy 22 year ago as donnor for his son,CKD baseline Cr of 1.6. He comes with gross hematuria. He has been experiencing hematuria for nearly 3 months now and was last seen in ED on 05/23/[address] Leiva for cystoscopy and confirmed to have bladder cancer and is planned to have TURB on Thursday06/04/20. He has had hematuria for 3 days and associated right sided pain. He is noted to have mild renal insufficiency. A CBI is initiated with tea color urine. Review of Systems Review of Systems: Gen: no fever Resp: no sob, no cough CV: no chest, no BOATENG, no leg edema GI/: No n/v, no abd pain, blood in urine Neuro: No confusion Yes all other systems are reviewed and are negative [facility] Medical History (Updated 05/30/20 @ 14:16 by Ellis Huerta MD) BPH (benign prostatic hyperplasia) Bunion of great toe CKD (chronic kidney disease) stage 2, GFR 60-89 ml/min Diabetes Diabetic neuropathy Diabetic retinopathy GERD (gastroesophageal reflux disease) Hematuria High cholesterol History of nephrectomy, unilateral HTN (hypertension) Kidney stone on right side Malignant neoplasm JUAN MANUEL (obstructive sleep apnea) Plantar fasciitis, bilateral Surgical History H/O cystoscopy History of nephrectomy, left Social History Alcohol intake: current Alcohol intake frequency: holidays/special occasions only Smoking Status: Never smoker Smoked in Last 30 Days: No Second Hand Smoke Exposure: No Use of substances other than those prescribed or required for medical reasons: No Advance Directives: No Advance Directives Information Provided: Yes Meds Allergies Allergy/AdvReac Type Severity Reaction Status Date / Time No Known Allergies Allergy Verified 05/23/20 11:08 Home Medications Medication Instructions Recorded Confirmed Type amlodipine 10 mg tablet 10 mg PO DAILY 04/18/20 05/30/20 History atorvastatin 80 mg tablet 80 mg PO BEDTIME 04/18/20 05/30/20 History carvedilol 25 mg tablet 25 mg PO BID 04/18/20 05/30/20 History insulin glargine 100 unit/mL (3 86 unit SUBCUT DAILY 04/18/20 05/30/20 History mL) subcutaneous pen lisinopril 40 mg tablet 40 mg PO DAILY 04/18/20 05/30/20 History omeprazole 20 mg capsule,delayed 20 mg PO DAILY@0630 04/18/20 05/30/20 History release pen needle, diabetic 31 gauge x #1200 ea 04/18/20 04/18/20 History 5/16 spironolactone 25 mg tablet 25 mg PO DAILY 04/18/20 05/30/20 History tramadol 50 mg tablet 100 mg PO Q12H PRN 04/18/20 05/30/20 History insulin aspart U-100 [Novolog See Protocol SUBCUT TIDAC 05/30/20 05/30/20 History Flexpen U-100 Insulin] [id number]-lutein 1 tab PO DAILY 05/30/20 05/30/20 History [Centrum Silver Men] Physical Exam Vital Signs and Narrative: Vital Signs: Last Vital Signs Temp 98.6 F 05/30/20 11:15 Pulse 62 05/30/20 11:15 Resp 18 05/30/20 11:15 BP 140/82 H 05/30/20 11:15 Pulse Ox 93 05/30/20 11:15 Body Mass Index 33.4 General: AO X 3, no acute distress Resp: CTA bilateral CVS: S1,S2,RRR GI: +BS, NT, no distention Skin: No rash Neuro: motor grossly intact Psych: appropriate affect Results Labs CBC and Chem 7: 05/30/20 11:43 05/30/20 11:43 Imaging Radiologist's Impressions: Impressions Abdomen/Pelvis CT 05/30/20 11:38 IMPRESSION: Solitary left kidney. Abnormal soft tissue at the base of the bladder questionable for bladder mass versus prostate mass. The prostate gland is enlarged and may protrude into the base of the bladder. Correlation with urinalysis and urine cytology and PSA level and urology consultation recommended. There is new small crescent-shaped high attenuation in the bladder questionable for blood. Enlarged lymph nodes in the pelvis questionable for metastatic disease. 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 Diverticulosis. Assessment and Plan (1) Gross hematuria: Status: Acute (2) Renal failure: Qualifiers: Acute renal failure type: unspecified Renal failure chronicity: acute Qualified Code(s): N17.9 - Acute kidney failure, unspecified Status: Acute 70/m recently diagnosed with ballder cancer and awaiting TURB is here with hamturia and mild renal insuficiency 1. Heamturia d/t bladder cancer.. avoid ASA, anticoagulant -continue CBI -Urology consult -if bleeding resolves by tomorrow, he can go home and return on Thursday as scheduled for TURB 2. ADELA--there is no obstruction, hydrate and repeat lab in the [facility] 3. HTN--continue Norvasc, , Coreg and Aldactone. Hold Lisinopril 4. HLD--Lipitor 5. Diabetes--takes 86 units of lantus, reduce to 40 and monitor, SSI with meals, ADA diet 6. DVT prophylaxis--compression device, no heparin or ASA
--- NOTE | 2020-05-30 14:23 | PC.NURSE ---
white/continuous bladder inserted by caridad jaramillo not used during insertion.
[2020-05-30 14:36] LABS: COVID-19 Test Negative (Negative); IDNOW Serial# 9DD0AD1C
--- NOTE | 2020-05-30 15:07 | PC.NURSE ---
patient a&ox3, patient continuous bladder irrigation- hematuria noted, pt tolerating irrigation well, c/o pain will continue to monitor.
--- NOTE | 2020-05-30 16:08 | PC.NURSE ---
report called to floor
[2020-05-30 17:19] LABS: Glucose, Whole Blood 93 mg/dL (60-115)
[2020-05-30] MEDS: Dextrose 5 % and 0.45 % NaCl 1,000 ML 100 ML IVCONT (17:24)
[2020-05-30] MEDS: Atorvastatin Calcium 80 MG TABLET PO (20:31)
[2020-05-30] MEDS: carvediloL 25 MG TABLET PO (20:31)
[2020-05-30 21:20] LABS: Glucose, Whole Blood 163 mg/dL (60-115)
[2020-05-30] MEDS: Insulin Lispro 100 UNIT/ML 3 ML VIAL SUBCUT (21:42)
[2020-05-31] MEDS: Dextrose 5 % and 0.45 % NaCl 1,000 ML 100 ML IVCONT ×2 (03:59→12:35)
[2020-05-31 04:53] LABS: Glucose, Whole Blood 148 mg/dL (60-115)
[2020-05-31] MEDS: Omeprazole 20 MG CAPSULE.DR PO (05:24)
[2020-05-31] MEDS: Insulin Lispro 100 UNIT/ML 3 ML VIAL SUBCUT ×2 (05:25→12:34)
[2020-05-31 08:00] VITALS: BP 145/79; PULSE 56; RESP 18; TEMP 36.8; O2SAT 94
[2020-05-31 08:09] LABS: Hematocrit 43.6 % (42-52); Hemoglobin 14.4 g/dl (14.0-18.0); Mean Corpuscular Volume 90.8 fL (80-98); Mean Platelet Volume 10.6 fL (9.4-12.4); Platelet Count 202 X10*3/uL (160-400); Red Cell Distribution Width 12.8 % (11.0-16.0); White Blood Count 11.5 X10*3/uL (4.8-10.8)
[2020-05-31 08:38] LABS: Anion Gap 13 (12-20); Blood Urea Nitrogen 19 mg/dL (9-16); Carbon Dioxide 26 mmol/L (22-29); Chloride 105 mmol/L (96-108); Creatinine Clr Calc Pharmacy 47.7; Estimated Glomerular Filt Rate 43; Glucose Random 151 mg/dL (60-115); Potassium 4.5 mmol/l (3.3-5.1); Sodium 139 mmol/L (135-145)
[2020-05-31 08:51] LABS: Calcium 8.8 mg/dL (8.4-10.2)
[2020-05-31 08:56] VITALS: BP 145/79; PULSE 56
[2020-05-31] MEDS: amLODIPine Besylate 10 MG TABLET PO (08:56)
[2020-05-31 08:57] VITALS: BP 145/79; PULSE 56
[2020-05-31] MEDS: Spironolactone 25 MG TABLET PO (08:57)
[2020-05-31 08:58] VITALS: BP 145/79; PULSE 56
[2020-05-31] MEDS: Insulin Glargine,Hum.rec.anlog 100 UNIT/ML 10 ML VIAL 40 UNIT SUBCUT (08:58)
--- NOTE | 2020-05-31 11:05 | PM.UROCN ---
History of Present Illness Consult details Consult date: 05/31/20 Narrative: 70-year-old male solitary right kidney Initial evaluation for hematuria as outpatient in approximately 3 weeks ago Diagnosed with bladder cancer after cystoscopy in office Presents to hospital with hematuria Responding well to irrigation Has plan for TURBT upcoming in 3 days Review of Systems Review of Systems: Yes all other systems are reviewed and are negative PMFSH Past Medical History Medical History (Updated 05/30/20 @ 14:16 by Ellis Huerta MD) BPH (benign prostatic hyperplasia) Bunion of great toe CKD (chronic kidney disease) stage 2, GFR 60-89 ml/min Diabetes Diabetic neuropathy Diabetic retinopathy GERD (gastroesophageal reflux disease) Hematuria High cholesterol History of nephrectomy, unilateral HTN (hypertension) Kidney stone on right side Malignant neoplasm JUAN MANUEL (obstructive sleep apnea) Plantar fasciitis, bilateral Surgical History Surgical History H/O cystoscopy History of nephrectomy, left Social History Social History Household Members: None Housing: Apartment Do you presently have visiting nurse or other home services: No Alcohol intake: current Alcohol intake frequency: holidays/special occasions only Smoking Status: Never smoker Smoked in Last 30 Days: No Second Hand Smoke Exposure: No Use of substances other than those prescribed or required for medical reasons: No Substance Use Frequency: Monthly Currently Displaying Signs/Symptoms of Drug Intoxication Withdrawal: No Any prior treatment program specific to substance use: No Have you been hit, kicked, punched, or otherwise hurt by someone within the past year? If so, by whom?: No Do you feel safe in your current relationship?: No Current Relationship Is there a partner from a previous relationship who is making you feel unsafe now?: No Are you made to feel afraid or neglected: No Advance Directives: No Advance Directives Information Provided: Yes Do you have thoughts of harming others: None Do you have a plan to hurt others: No Plan Recently lost weight without trying: No Meds Allergies Allergy/AdvReac Type Severity Reaction Status Date / Time No Known Allergies Allergy Verified 05/23/20 11:08 Home Medications Medication Instructions Recorded Confirmed Type amlodipine 10 mg tablet 10 mg PO DAILY 04/18/20 05/30/20 History atorvastatin 80 mg tablet 80 mg PO BEDTIME 04/18/20 05/30/20 History carvedilol 25 mg tablet 25 mg PO BID 04/18/20 05/30/20 History insulin glargine 100 unit/mL (3 86 unit SUBCUT DAILY 04/18/20 05/30/20 History mL) subcutaneous pen lisinopril 40 mg tablet 40 mg PO DAILY 04/18/20 05/30/20 History omeprazole 20 mg capsule,delayed 20 mg PO DAILY@0630 04/18/20 05/30/20 History release pen needle, diabetic 31 gauge x #1200 ea 04/18/20 04/18/20 History 5/16 spironolactone 25 mg tablet 25 mg PO DAILY 04/18/20 05/30/20 History tramadol 50 mg tablet 100 mg PO Q12H PRN 04/18/20 05/30/20 History insulin aspart U-100 [Novolog See Protocol SUBCUT TIDAC 05/30/20 05/30/20 History Flexpen U-100 Insulin] [id number]-OH-lycopen-lutein 1 tab PO DAILY 05/30/20 05/30/20 History [Centrum Silver Men] Physical Exam Vital Signs: Vital Signs: Last Vital Signs Temp 98.2 F 05/31/20 08:00 Pulse 56 05/31/20 08:58 Resp 18 05/31/20 08:00 BP 145/79 H 05/31/20 08:58 Pulse Ox 94 05/31/20 08:00 Body Mass Index 33.4 Const: General: cooperative, healthy appearing, comfortable and no acute distress Nutritional Appearance: average body habitus Orientation/consciousness: oriented to person, oriented to place and oriented to time Eyes: General: appearance normal, both eyes and all related structures Chest: Chest palpation & inspection: normal inspection of the chest Resp: Effort & Inspection: normal respiratory effort Cardio: Rate: regular rate GI: Inspection: Yes normal to inspection Skin: Hair: normal Neuro: General: oriented to person, oriented to place and oriented to time Extrem: General: Yes normal to inspection Results Labs Result diagrams: 05/31/20 07:14 05/31/20 07:14 Labs: Abnormal lab results 05/30/20 05/30/20 05/30/20 Range/Units 11:43 11:43 11:43 WBC (4.8-10.8) X10*3/uL Immature Gran % (Auto) 0.5 H (0.0-0.4) % Eos % (Auto) 4.1 H (0-4) % Abs Immat Gran (auto) 0.04 H (0.00-0.03) X10*3/uL BUN 29 H D (9-16) mg/dL Creatinine 2.30 H (0.5-1.4) mg/dL POC Glucose (60-115) mg/dL Random Glucose 287 H (60-115) mg/dL Alkaline Phosphatase 129 H (39-117) U/L Urine Glucose (UA) 250 H (NEG) MG/DL Urine Blood 3+ H (NEG) Urine RBC TNTC H (0) /HPF 05/30/20 05/31/20 05/31/20 Range/Units 20:47 04:49 07:14 WBC (4.8-10.8) X10*3/uL Immature Gran % (Auto) (0.0-0.4) % Eos % (Auto) (0-4) % Abs Immat Gran (auto) (0.00-0.03) X10*3/uL BUN 19 H (9-16) mg/dL Creatinine 1.60 H (0.5-1.4) mg/dL POC Glucose 163 H 148 H (60-115) mg/dL Random Glucose 151 H D (60-115) mg/dL Alkaline Phosphatase (39-117) U/L Urine Glucose (UA) (NEG) MG/DL Urine Blood (NEG) Urine RBC (0) /HPF 05/31/20 Range/Units 07:14 WBC 11.5 H (4.8-10.8) X10*3/uL Immature Gran % (Auto) (0.0-0.4) % Eos % (Auto) (0-4) % Abs Immat Gran (auto) (0.00-0.03) X10*3/uL BUN (9-16) mg/dL Creatinine (0.5-1.4) mg/dL POC Glucose (60-115) mg/dL Random Glucose (60-115) mg/dL Alkaline Phosphatase (39-117) U/L Urine Glucose (UA) (NEG) MG/DL Urine Blood (NEG) Urine RBC (0) /HPF Short CBC 05/30/20 05/31/20 Range/Units 11:43 07:14 WBC 8.0 11.5 H (4.8-10.8) X10*3/uL Hgb 15.1 14.4 (14.0-18.0) g/dl Hct 44.0 43.6 (42-52) % Plt Count 223 202 (160-400) X10*3/uL BMP 05/30/20 05/31/20 11:43 07:14 Sodium 135 139 Potassium 4.3 4.5 Chloride 101 105 Carbon Dioxide 25 26 BUN 29 H D 19 H Creatinine 2.30 H 1.60 H Calcium 9.2 8.8 Liver Function 05/30/20 Range/Units 11:43 Total Bilirubin 0.7 (0.0-1.0) mg/dL Direct Bilirubin 0.3 (0.0-0.5) mg/dL AST 17 (5-37) U/L ALT 30 (0-40) U/L Alkaline Phosphatase 129 H (39-117) U/L Albumin 4.2 (3.5-5.0) g/dL Urine 05/30/20 Range/Units 11:43 Urine Color RED Urine Appearance TURBID Urine pH 6.0 (5.0-8.0) Ur Specific [place] 1.020 (1.005-1.025) Urine Protein TNP Urine Glucose (UA) 250 H (NEG) MG/DL All other labs normal. Assessment and Plan (1) Bladder cancer: Status: Acute (2) Gross hematuria: Status: Acute plan for TURBT in 3 days Responding well to CBI irrigation If CBI irrigation remains clear could be discharged
[2020-05-31 12:28] LABS: Glucose, Whole Blood 287 mg/dL (60-115)
--- NOTE | 2020-05-31 13:39 | MHC.CM.PN ---
PT REPORTS HE LIVES ALONE AND HAS NO SERVICES OR DME, PT IS FULLY INDEPENDENT. PT REPORTS HE HAS A HCP NAMING HIS DEMETRI KIRBY HIS AGENT AND SAYS HE DOES NOT KNOW THE NAME OF HIS PCP BUT GOES TO [facility]. PTS CURRENT DC PLAN IS HOME WITH NO SERVICES HIS CAR IS IN LOT
[2020-05-31 15:18] VITALS: BP 152/76; PULSE 59; RESP 18; TEMP 37.1; O2SAT 94
[2020-05-31 16:33] LABS: Glucose, Whole Blood 365 mg/dL (60-115)
--- NOTE | 2020-05-31 18:24 | P.PNIM_ITS ---
Subjective Subjective Date of Service: 05/31/20 Interval History: patient offers no complaints of abdominal pain , nausea, vomiting, no headache, CBI showing light pink urine, no acute issues overnight. Review of Systems General no headache, no dizziness, no fever chills. CVS no chest pain, no palpitation. Respiratory no cough, no shortness of breath. Gastrointestinal no nausea, no vomiting, no abdominal pain Physical Exam Vital Signs: Vital Signs: Last Vital Signs Temp 98.7 F 05/31/20 15:18 Pulse 59 05/31/20 15:18 Resp 18 05/31/20 15:18 BP 152/76 H 05/31/20 15:18 Pulse Ox 94 05/31/20 15:18 Body Mass Index 33.4 General no acute distress, very pleasant. Neck is supple no JVD. CVS regular rate rhythm, Respiratory lungs clear to auscultation, no respiratory distress, no wheeze, no rhonchi. Gastrointestinal abdomen soft, nontender, bowel sounds audible. Extremities no clubbing, cyanosis or edema. Neuro nonfocal Skin no rash CBI with light pink urine Objective Data Current Medications Generic Name Dose Route Start Last Admin Trade Name Freq PRN Reason Stop Dose Admin Amlodipine Besylate 10 mg 05/31/20 09:00 05/31/20 08:56 Amlodipine Besylate 10 Mg Tablet PO 10 mg DAILY BLAZE Administration Protocol Atorvastatin Calcium 80 mg 05/30/20 21:00 05/30/20 20:31 Atorvastatin Calcium 80 Mg Tablet PO 80 mg BEDTIME BLAZE Administration Carvedilol 25 mg 05/30/20 21:00 05/31/20 08:58 Carvedilol 25 Mg Tablet PO Not Given BID BLAZE Protocol Dextrose/Sodium Chloride 1,000 mls @ 100 mls/hr 05/30/20 16:53 05/31/20 12:35 D51/2ns IVCONT 100 mls/hr .Q10H BLAZE Administration Insulin Glargine 40 unit 05/31/20 09:00 05/31/20 08:58 Insulin Glargine,Hum.Rec.Anlog 100 Unit/Ml 10 Ml Vial SUBCUT 40 unit DAILY BLAZE Administration Multivitamins/Minerals 1 tab 05/31/20 09:00 05/31/20 08:57 Multivitamin With Minerals Tablet PO 1 tab DAILY BLAZE Administration Omeprazole 20 mg 05/31/20 06:30 05/31/20 05:24 Omeprazole 20 Mg Capsule. PO 20 mg DAILY@0630 [facility] Administration Pharmacy Consult 1 each 05/30/20 13:48 Consult Rx Perform Med Rec MISCELLANE ONCE PRN Consult order Sodium Chloride 3 ml 05/30/20 16:53 05/31/20 16:37 0.9 % Sodium Chloride Flush 3 Ml Syringe IVFLUSH Not Given QSHIFT [facility] Spironolactone 25 mg 05/31/20 09:00 05/31/20 08:57 Spironolactone 25 Mg Tablet PO 25 mg DAILY [facility] Administration Protocol Tramadol HCl 100 mg 05/30/20 17:01 Tramadol Hcl 50 Mg Tablet PO Q12H PRN Pain (Scale Score 4-6) Labs CBC & Chem 7: 05/31/20 07:14 05/31/20 07:14 Assessment and Plan (1) Gross hematuria: Status: Acute (2) BPH w urinary obs/LUTS: Status: Acute (3) Bladder cancer: Status: Acute (4) Renal failure: Status: Acute (5) HTN (hypertension): Status: Acute (6) High cholesterol: Status: Acute (7) Diabetes: Status: Acute Assessment and Plan: 70/m recently diagnosed with bladder cancer and awaiting TURBT is scheduled for Thursday, presented to emergency room with hamturia and mild renal insu ficiency 1. Heamturia d/t bladder cancer. patient placed on CBI this am noticed to have clear urine evaluated by Dr. Leiva he clamped the CBI after clamping urine remained clear therefore Elizabeth catheter removed and plan was for patient to be discharged home but after removing Elizabeth, patient noted to passing clots and blood again, therefore patient will be monitored for the next 24. avoid ASA, a nticoagulant, will resume CBI if hematuria persist, follow CBC,if bleeding resolves by tomorrow, he can go home and return on Thursday as scheduled for TURB otherwise will re-consult Urology. 2. ADELA-- Creatinine improved with IV hydration, will DC IV fluid patient is tolerating by mouth well, lisinopril held on admission creatinine 2.3 on admission improved to 1.6, most recent creatinine from 05/23 was 1.8 3. HTN--continue Norvasc, , Coreg and Aldactone. Hold Lisinopril BP borderline elevated will resume lisinopril if renal function remains stable 4. HLD--Lipitor 5. Diabetes--takes 86 units of lantus, reduce to 40 on admission but noted to have elevated blood sugar therefore will bump dose to 60 units and monitor, continue SSI with meals, ADA diet 6. DVT prophylaxis--compression device, no heparin or ASA
[2020-05-31] MEDS: Insulin Glargine,Hum.rec.anlog 100 UNIT/ML 10 ML VIAL 50 UNIT SUBCUT (19:11)
[2020-05-31 20:59] LABS: Glucose, Whole Blood 290 mg/dL (60-115)
[2020-05-31] MEDS: Atorvastatin Calcium 80 MG TABLET PO (22:20)
[2020-05-31] MEDS: carvediloL 25 MG TABLET PO (22:20)
[2020-05-31 23:22] VITALS: BP 156/84; PULSE 72; RESP 18; TEMP 37.1; O2SAT 95
[2020-06-01] MEDS: 0.9 % Sodium Chloride Flush 3 ML SYRINGE IVFLUSH ×2 (00:31→07:29)
[2020-06-01 04:15] LABS: Glucose, Whole Blood 189 mg/dL (60-115)
[2020-06-01 06:29] LABS: MANUAL DIFF FLAG NO
[2020-06-01] MEDS: Omeprazole 20 MG CAPSULE.DR PO (07:00)
[2020-06-01 07:18] LABS: Basophils Percent Auto 0.3 % (0-2); Eosinophils Absolute Auto 0.3 X10*3/uL (0.0-0.4); Eosinophils Percent Auto 3.8 % (0-4); Hematocrit 41.3 % (42-52); Hemoglobin 13.7 g/dl (14.0-18.0); Imm Gran Abs Auto 0.02 X10*3/uL (0.00-0.03); Imm Gran Pct Auto 0.2 % (0.0-0.4); Lymphocytes Absolute Auto 2.6 X10*3/uL (1.2-4.9); Lymphocytes Percent Auto 29.6 % (20-40); Mean Corpuscular HGB Conc 33.2 g/dl (31.0-36.0); Mean Corpuscular Volume 90.4 fL (80-98); Mean Platelet Volume 10.6 fL (9.4-12.4); Monocytes Absolute Auto 1.4 X10*3/uL (0.1-1.2); Monocytes Percent Auto 15.9 % (2-11); Neutrophils Absolute Auto 4.4 X10*3/uL (2.0-8.3); Neutrophils Percent Auto 50.2 % (45-73); Platelet Count 184 X10*3/uL (160-400); Red Blood Count 4.57 X10*6/uL (4.60-5.80); Red Cell Distribution Width 12.8 % (11.0-16.0); White Blood Count 8.7 X10*3/uL (4.8-10.8)
[2020-06-01 08:00] VITALS: BP 146/75; PULSE 64; RESP 18; TEMP 36.6; O2SAT 94
[2020-06-01 08:00] LABS: Anion Gap 13 (12-20); Blood Urea Nitrogen 17 mg/dL (9-16); Calcium 8.3 mg/dL (8.4-10.2); Carbon Dioxide 24 mmol/L (22-29); Chloride 104 mmol/L (96-108); Creatinine Clr Calc Pharmacy 48.7; Estimated Glomerular Filt Rate 44; Glucose Random 173 mg/dL (60-115); Potassium 4.2 mmol/l (3.3-5.1); Sodium 137 mmol/L (135-145)
[2020-06-01 08:20] LABS: Glucose, Whole Blood 187 mg/dL (60-115)
[2020-06-01] MEDS: amLODIPine Besylate 10 MG TABLET PO (08:30)
[2020-06-01] MEDS: Spironolactone 25 MG TABLET PO (08:31)
[2020-06-01] MEDS: carvediloL 25 MG TABLET PO (08:31)
[2020-06-01] MEDS: Insulin Glargine,Hum.rec.anlog 100 UNIT/ML 10 ML VIAL 50 UNIT SUBCUT (08:33)
--- NOTE | 2020-06-01 10:20 | P.DS_ITS ---
DS: Providers Provider Date of admission: 05/30/20 14:51 Primary care physician: Unknown Physician Consults: 05/30/20 16:53 Consult to Urology Routine Consulting Provider: Sherry Tobias Reason for consultation: Gross hematuria Has provider been notified: No DS: Diagnosis Discharge Diagnosis (1) Gross hematuria: Status: Resolved (2) BPH w urinary obs/LUTS: Status: Acute (3) Bladder cancer: Status: Acute (4) Renal failure: Status: Resolved (5) HTN (hypertension): (6) High cholesterol: (7) Diabetes: DS: Medications Discharge Medications Home Medications: Home Medications Medication Instructions Recorded Confirmed amlodipine 10 mg tablet 10 mg PO DAILY 04/18/20 05/30/20 atorvastatin 80 mg tablet 80 mg PO BEDTIME 04/18/20 05/30/20 carvedilol 25 mg tablet 25 mg PO BID 04/18/20 05/30/20 insulin glargine 100 unit/mL (3 86 unit SUBCUT DAILY 04/18/20 05/30/20 mL) subcutaneous pen lisinopril 40 mg tablet 40 mg PO DAILY 04/18/20 05/30/20 omeprazole 20 mg capsule,delayed 20 mg PO DAILY@0630 04/18/20 05/30/20 release pen needle, diabetic 31 gauge x #1200 ea 04/18/20 04/18/2011/18 spironolactone 25 mg tablet 25 mg PO DAILY 04/18/20 05/30/20 tramadol 50 mg tablet 100 mg PO Q12H PRN 04/18/20 05/30/20 insulin aspart U-100 [Novolog See Protocol SUBCUT TIDAC 05/30/20 05/30/20 Flexpen U-100 Insulin] [id number]-TL-lycopen-lutein 1 tab PO DAILY 05/30/20 05/30/20 [Centrum Silver Men] DS: Summary Hospital Course Hospital Course: 70 year male with BPH, Diabetes, HTN, HLD, s/p right nephrectomy 22 year ago as donnor for his son,CKD baseline Cr of 1.6. He comes with gross hematuria. He has been experiencing hematuria for nearly 3 months now and was last seen in ED on 05/23/[address] Leiva for cystoscopy and confirmed to have bladder cancer and is planned to have TURB on Thursday06/04/20. He has had hematuria for 3 days and associated right sided pain. He is noted to have mild renal insufficiency. A CBI is initiated with tea color urine. Hospital course: patient was admitted due to hematuria from known bladder cancer. Hematuria ultimately resolved with CBI and urine remains clear at this point. He was seen by Dr. Leiva and is planned to have TURB on Thursday06/04/2020, that is 3 days from now. Since there is no further bleeding and no significant drop in blood count, will discharge home per Uro advise and patient to have procedure as schedule on Thursday. Of note he had Mild ADELA which whcin has resolved. Creatinine was 2.3 and 1.5 which well within his baseline CKD, also we are advising that he reduces Lantus to 75 unis to prevent HypOglycemia. Preveiously was on 86 Time Spent with Patient Time attestation: Total time spent providing and/or coordinating discharge services: Discharge coordination time: Greater than 30 minutes Physical Exam Vital Signs: Vital Signs: Last Vital Signs Temp 97.8 F 06/01/20 08:00 Pulse 64 06/01/20 08:00 Resp 18 06/01/20 08:00 BP 146/75 H 06/01/20 08:00 Pulse Ox 94 06/01/20 08:00 Body Mass Index 33.4 General: AO X 3, no acute distress Resp: CTA bilateral CVS: S1,S2,RRR GI: +BS, NT, no distention : no hematuria Skin: No rash Neuro: motor grossly intact Psych: appropriate affect DS: Data Data Completed and Pending Labs on day of discharge: 05/30/20 11:37 0.9 % Sodium Chloride [Ns] 1,000 ml IVCONT 999 mls/hr 05/30/20 11:38 CT abdomen pelvis wo con Stat 05/30/20 11:43 Basic Metabolic Panel Stat Complete Blood Count Auto Diff Stat Hold Lav - Possible Hematology Stat Liver Panel Stat Magnesium Stat Prothrombin Time INR Stat 05/30/20 13:22 Lidocaine HCl 2 % Urojet [Xylocaine 2 % Urojet] 10 ml TOPICAL ONCE ONE 05/30/20 13:42 0.9 % Sodium Chloride [Ns] 1,000 ml IVCONT 999 mls/hr 05/30/20 14:07 COVID-19 ID NOW (Melchor) Stat 05/30/20 14:44 Transfer Order Routine 05/30/20 16:53 Dextrose 5 % and 0.45 % NaCl [D51/2Ns] 1,000 ml IVCONT 100 mls/hr 05/30/20 17:15 Glucose, Whole Blood Routine Insulin Lispro [Humalog] See Protocol SUBCUT Q6H 05/30/20 20:47 Glucose, Whole Blood Routine 05/31/20 04:49 Glucose, Whole Blood Routine 05/31/20 07:14 Basic Metabolic Panel DAILY@0600 Complete Blood Count no Diff DAILY@0600 05/31/20 09:00 Insulin Glargine,Hum.rec.anlog [Lantus] 40 unit SUBCUT DAILY 05/31/20 12:25 Glucose, Whole Blood Routine 05/31/20 16:25 Glucose, Whole Blood Routine 05/31/20 20:54 Glucose, Whole Blood Routine 06/01/20 04:11 Glucose, Whole Blood Routine 06/01/20 06:11 Basic Metabolic Panel Routine 06/01/20 06:12 Complete Blood Count Auto Diff Routine 06/01/20 08:06 Glucose, Whole Blood Routine Laboratory Last Values WBC 8.7 X10*3/uL (4.8-10.8) 06/01/20 06:12 RBC 4.57 X10*6/uL (4.60-5.80) L 06/01/20 06:12 Hgb 13.7 g/dl (14.0-18.0) L 06/01/20 06:12 Hct 41.3 % (42-52) L 06/01/20 06:12 MCV 90.4 fL (80-98) 06/01/20 06:12 MCH 30.0 pg (27.0-33.0) 06/01/20 06:12 MCHC 33.2 g/dl (31.0-36.0) 06/01/20 06:12 RDW 12.8 % (11.0-16.0) 06/01/20 06:12 Plt Count 184 X10*3/uL (160-400) 06/01/20 06:12 MPV 10.6 fL (9.4-12.4) 06/01/20 06:12 Immature Gran % (Auto) 0.2 % (0.0-0.4) 06/01/20 06:12 Neut % (Auto) 50.2 % (45-73) 06/01/20 06:12 Lymph % (Auto) 29.6 % (20-40) 06/01/20 06:12 [place] % (Auto) 15.9 % (2-11) H 06/01/20 06:12 Eos % (Auto) 3.8 % (0-4) 06/01/20 06:12 Baso % (Auto) 0.3 % (0-2) 06/01/20 06:12 Lymph # (Auto) 2.6 X10*3/uL (1.2-4.9) 06/01/20 06:12 [place] # (Auto) 1.4 X10*3/uL (0.1-1.2) H 06/01/20 06:12 Eos # (Auto) 0.3 X10*3/uL (0.0-0.4) 06/01/20 06:12 Baso # (Auto) 0.0 X10*3/uL (0.0-0.2) 06/01/20 06:12 Abs Immat Gran (auto) 0.02 X10*3/uL (0.00-0.03) 06/01/20 06:12 Absolute Neuts (auto) 4.4 X10*3/uL (2.0-8.3) 06/01/20 06:12 Absolute Nucleated RBC 0.000 X10*3/uL (0.0-0.012) 06/01/20 06:12 Nucleated RBC % (auto) 0.0 /100WBC (0.0-0.2) 06/01/20 06:12 Hold Purple Top SEE NOTE 05/30/20 11:43 PT 11.2 SEC (10.8-13.0) 05/30/20 11:43 INR 0.9 (0.9-1.1) 05/30/20 11:43 Sodium 137 mmol/L (135-145) 06/01/20 06:11 Potassium 4.2 mmol/l (3.3-5.1) 06/01/20 06:11 Chloride 104 mmol/L (96-108) 06/01/20 06:11 Carbon Dioxide 24 mmol/L (22-29) 06/01/20 06:11 Anion Gap 13 (12-20) 06/01/20 06:11 BUN 17 mg/dL (9-16) H 06/01/20 06:11 Creatinine 1.57 mg/dL (0.5-1.4) H 06/01/20 06:11 Estim Creat Clear Calc 48.7 06/01/20 06:11 Estimated GFR 44 06/01/20 06:11 POC Glucose 187 mg/dL (60-115) H 06/01/20 08:06 Random Glucose 173 mg/dL (60-115) H 06/01/20 06:11 Calcium 8.3 mg/dL (8.4-10.2) L 06/01/20 06:11 Magnesium 2.0 mg/dL (1.6-2.6) 05/30/20 11:43 Total Bilirubin 0.7 mg/dL (0.0-1.0) 05/30/20 11:43 Direct Bilirubin 0.3 mg/dL (0.0-0.5) 05/30/20 11:43 AST 17 U/L (5-37) 05/30/20 11:43 ALT 30 U/L (0-40) 05/30/20 11:43 Alkaline Phosphatase 129 U/L (39-117) H 05/30/20 11:43 Total Protein 7.0 g/dL (6.5-8.0) 05/30/20 11:43 Albumin 4.2 g/dL (3.5-5.0) 05/30/20 11:43 Urine Color RED 05/30/20 11:43 Urine Appearance TURBID 05/30/20 11:43 Urine pH 6.0 (5.0-8.0) 05/30/20 11:43 Ur Specific [place] 1.020 (1.005-1.025) 05/30/20 11:43 Urine Protein TNP 05/30/20 11:43 Urine Glucose (UA) 250 MG/DL (NEG) H 05/30/20 11:43 Urine Ketones NEG MG/DL (NEG) 05/30/20 11:43 Urine Blood 3+ (NEG) H 05/30/20 11:43 Urine Nitrite NEG (NEG) 05/30/20 11:43 Ur Leukocyte Esterase NEG (NEG) 05/30/20 11:43 Urine RBC TNTC /HPF (0) H 05/30/20 11:43 Urine WBC 0-2 /HPF (0-4) 05/30/20 11:43 Ur Squamous Epith Cells NONE /LPF 05/30/20 11:43 Urine Bacteria NONE /LPF 05/30/20 11:43 COVID-19 (LISHA) Negative (Negative) 05/30/20 14:07 COVID-19 Clin Com See Note 05/30/20 14:07 Discharge Plan Discharge Patient Disposition: Home, Self-Care Referrals: Physician,Unknown [Primary Care Provider] - Discharge Medications: Continued insulin aspart U-100 [Novolog Flexpen U-100 Insulin] 100 unit/mL (3 mL) Insulin Pen See Protocol unit SUBCUT TIDAC RF: 0 Centrum Silver Men 300-600-300 mcg Tablet 1 tab PO DAILY RF: 0 (DME) pen needle, diabetic 31 gauge x 5/16 needle See Rx Instructions ea .ROUTE QID Qty: 1200 RF: 0 omeprazole 20 mg capsule,delayed release(DR/EC) 20 mg PO DAILY@0630 RF: 0 tramadol 50 mg tablet 100 mg PO Q12H PRN (Reason: Pain (Scale Score 4-6)) RF: 0 carvedilol 25 mg tablet 25 mg PO BID RF: 0 lisinopril 40 mg tablet 40 mg PO DAILY RF: 0 amlodipine 10 mg tablet 10 mg PO DAILY RF: 0 spironolactone 25 mg tablet 25 mg PO DAILY RF: 0 atorvastatin 80 mg tablet 80 mg PO BEDTIME RF: 0 Changed insulin glargine 100 unit/mL (3 mL) insulin pen 75 unit subcut DAILY Qty: 0 RF: 0 Discharge Orders: Discharge Order (Routine); Ordered 06/01/20 Ordered By: Ellis Huerta Diet: diabetic diet and low fat, low cholesterol Activity on Discharge: As tolerated Discharge Date/Time: 06/01/20 11:53 Visit Report Forms: Patient Portal Discharge page Care Plan Goals: follow diabetic diet, dose of Lantus reduced to 75 units at night follow blood sugar closely. Health Concerns: Continue all home medications as prescribed. Plan of Treatment: Outpatient follow-up with Dr. Leiva and primary care keep schedule appointment with Dr. Leiva for Thursday procedure.
--- NOTE | 2020-06-01 10:42 | MHC.CM.PN ---
Addendum entered by Angélica Galicia 06/01/20 11:07: IMM 05/31 IN CHART. Original Note: PATIENT IS DISCHARGED HOME - SELF CARE. RN AWARE OF PLAN.
== END 2020-06-01 11:53 | disposition home or self-care (01) | DRG 687 ==
LOC: HO.ED 13:56 → HO.S3 15:54
PROVIDERS: Hospitalist; Physician Assistant Medical; Admitting Provider Internal Medicine; Emergency Provider Internal Medicine; Visit Provider Internal Medicine
DX: C67.9 Malignant neoplasm of bladder, unspecified (principal); N13.8 Other obstructive and reflux uropathy; N17.9 Acute kidney failure, unspecified; K21.9 Gastro-esophageal reflux disease without esophagitis; N40.1 Benign prostatic hyperplasia with lower urinary tract symptoms; I12.9 Hypertensive chronic kidney disease with stage 1 through stage 4 chronic kidney disease, or unspecified chronic kidney disease; E11.22 Type 2 diabetes mellitus with diabetic chronic kidney disease; N18.2 Chronic kidney disease, stage 2 (mild); E11.65 Type 2 diabetes mellitus with hyperglycemia; E78.5 Hyperlipidemia, unspecified; Z90.5 Acquired absence of kidney; Z20.828 Contact with and (suspected) exposure to other viral communicable diseases; Z79.4 Long term (current) use of insulin; Z79.891 Long term (current) use of opiate analgesic; Z79.899 Other long term (current) drug therapy
CPT/HCPCS: 36415; 74176; 80048; 80076; 81001; 81003; 82947; 83735; 85025; 85027; 85610; 87635; 96360; 96361; 99285; 99291

== ENCOUNTER 2020-06-04 16:21 | Inpatient (IN) | payer OTHER, SELFPAY ==
[2020-05-30 10:23] VITALS: BMI 31.9
[2020-06-04] VITALS (21 sets, daily range): BP systolic 129–212; BP diastolic 83–114; PULSE 55–90; RESP 14–20; TEMP 36.3–36.8; O2SAT 91–100
[2020-06-04] MEDS: levoFLOXacin 500 MG TABLET PO (08:49)
[2020-06-04 09:06] LABS: Glucose, Whole Blood 243 mg/dL (60-115)
--- NOTE | 2020-06-04 10:38 | HO.ANESPROP2 ---
[facility] Past Medical History Medical History BPH (benign prostatic hyperplasia) Bunion of great toe CKD (chronic kidney disease) stage 2, GFR 60-89 ml/min Diabetes Diabetic neuropathy Diabetic retinopathy GERD (gastroesophageal reflux disease) Hematuria High cholesterol History of nephrectomy, unilateral HTN (hypertension) Kidney stone on right side Malignant neoplasm JUAN MANUEL (obstructive sleep apnea) Plantar fasciitis, bilateral Surgical History Surgical History H/O cystoscopy History of nephrectomy, left Social History Social History Household Members: None Housing: Apartment Alcohol intake: current Alcohol intake frequency: holidays/special occasions only Smoking Status: Never smoker Second Hand Smoke Exposure: No Use of substances other than those prescribed or required for medical reasons: No Advance Directives: No Advance Directives Information Provided: No Advance Directives on File: No service: No Current occupational status: unemployed and disabled Meds Allergies Allergy/AdvReac Type Severity Reaction Status Date / Time No Known Allergies Allergy Verified 05/23/20 11:08 Home Medications Medication Instructions Recorded Confirmed Type amlodipine 10 mg tablet 10 mg PO DAILY 04/18/20 05/30/20 History atorvastatin 80 mg tablet 80 mg PO BEDTIME 04/18/20 05/30/20 History carvedilol 25 mg tablet 25 mg PO BID 04/18/20 05/30/20 History lisinopril 40 mg tablet 40 mg PO DAILY 04/18/20 05/30/20 History omeprazole 20 mg capsule,delayed 20 mg PO DAILY@0630 04/18/20 05/30/20 History release pen needle, diabetic 31 gauge x #1200 ea 04/18/20 04/18/20 History 5/16 spironolactone 25 mg tablet 25 mg PO DAILY 04/18/20 05/30/20 History tramadol 50 mg tablet 100 mg PO Q12H PRN 04/18/20 05/30/20 History Centrum Silver Men 1 tab PO DAILY 05/30/20 05/30/20 History insulin aspart U-100 [Novolog See Protocol SUBCUT TIDAC 05/30/20 05/30/20 History Flexpen U-100 Insulin] Exam Exam Date and Time: June 04, 2020 1038 Height,Weight and Vital Signs: Height 5 ft 8 in Weight 95.254 kg Last Vital Signs Temp 97.5 F 06/04/20 08:58 Pulse 57 06/04/20 08:58 Resp 16 06/04/20 08:58 BP 129/89 06/04/20 08:58 Pulse Ox 98 06/04/20 08:58 Pertinent Lab Results Pertinent Lab Results: Laboratory Tests 06/04/20 08:58 POC Glucose 243 H
--- NOTE | 2020-06-04 12:20 | MHC.SHP ---
Pre-Procedural Eval Section A The patient is an INPATIENT: No Changes since office visit: Yes New Medical Problems; No Cold of Flu in the past 2 weeks, No Changes in Medication and No Patient answered all questions The History & Physical has been completed within 30 days and I have reviewed it.: Yes Section B Chief Complaint: malignant neoplasm of bladder Allergies: Allergies Allergy/AdvReac Type Severity Reaction Status Date / Time No Known Allergies Allergy Verified 05/23/20 11:08 Plan Patient has been examined and remains a candidate for the planned procedure
--- NOTE | 2020-06-04 13:11 | P.CONAN_ITS ---
[facility] Past Medical History Medical History BPH (benign prostatic hyperplasia) Bunion of great toe CKD (chronic kidney disease) stage 2, GFR 60-89 ml/min Diabetes Diabetic neuropathy Diabetic retinopathy GERD (gastroesophageal reflux disease) Hematuria High cholesterol History of nephrectomy, unilateral HTN (hypertension) Kidney stone on right side Malignant neoplasm JUAN MANUEL (obstructive sleep apnea) Plantar fasciitis, bilateral Surgical History Surgical History H/O cystoscopy History of nephrectomy, left Social History Social History Household Members: None Housing: Apartment Alcohol intake: current Alcohol intake frequency: holidays/special occasions only Smoking Status: Never smoker Second Hand Smoke Exposure: No Use of substances other than those prescribed or required for medical reasons: No Advance Directives: No Advance Directives Information Provided: No Advance Directives on File: No service: No Current occupational status: unemployed and disabled Meds Allergies Allergy/AdvReac Type Severity Reaction Status Date / Time No Known Allergies Allergy Verified 05/23/20 11:08 Home Medications Medication Instructions Recorded Confirmed Type amlodipine 10 mg tablet 10 mg PO DAILY 04/18/20 05/30/20 History atorvastatin 80 mg tablet 80 mg PO BEDTIME 04/18/20 05/30/20 History carvedilol 25 mg tablet 25 mg PO BID 04/18/20 05/30/20 History lisinopril 40 mg tablet 40 mg PO DAILY 04/18/20 05/30/20 History omeprazole 20 mg capsule,delayed 20 mg PO DAILY@0630 04/18/20 05/30/20 History release pen needle, diabetic 31 gauge x #1200 ea 04/18/20 04/18/20 History 5/16 spironolactone 25 mg tablet 25 mg PO DAILY 04/18/20 05/30/20 History tramadol 50 mg tablet 100 mg PO Q12H PRN 04/18/20 05/30/20 History Centrum Silver Men 1 tab PO DAILY 05/30/20 05/30/20 History insulin aspart U-100 [Novolog See Protocol SUBCUT TIDAC 05/30/20 05/30/20 History Flexpen U-100 Insulin] Exam Exam Date and Time: June 04, 2020 1311 Height,Weight and Vital Signs: Height 5 ft 8 in Weight 95.254 kg Last Vital Signs Temp 97.5 F 06/04/20 08:58 Pulse 57 06/04/20 08:58 Resp 16 06/04/20 08:58 BP 129/89 06/04/20 08:58 Pulse Ox 98 06/04/20 08:58 Pertinent Lab Results Pertinent Lab Results: Laboratory Tests 06/04/20 08:58 POC Glucose 243 H Airway Mallampati Class: II TM Dist: >3cm Neck ROM: Limited Denture: Upper and Lower Assessment and Plan Assessment Anesthesia Assessment: Anesthesia Plan Discussed and Chart Reviewed Final Anesthetic Review NPO: Yes ASA Class: III Final Preanesthetic Review: No Changes in Pt Med Stat, Meds/Allgs Chart Reviewed, Consent Obtained/Reviewed and Anes Risks/Benef Reviewed Patient Risk: Intermediate Procedure Risk: Low Assessment/Block/Sedation in SS: Assess/Block/Sedation-SS Anesthetic Plan Anesthetic Plan: GA Disposition: Standard PACU
--- NOTE | 2020-06-04 13:34 | FL_ITS ---
EXAMINATION: XR FLUOROSCOPY WITH IMAGES CLINICAL INFORMATION: Hematuria, enlarged prostate. Adenopathy. COMPARISON: CT abdomen and pelvis 05/30/2020 TECHNIQUE: Fluoroscopy performed by Dr. Danny Leiva. Fluoroscopy time: 0.4 minutes DAP: 4.55 mGycm2 Images: 4 FINDINGS: There is contrast in the left collecting system and ureter. No hydronephrosis or hydroureter. Ureteral stent placed. FL/FL guidance in OR IMPRESSION: Fluoroscopy for urologic procedures.
--- NOTE | 2020-06-04 14:04 | PM.OP ---
Brief Operative Note Date of Service: 06/04/20 Pre-op diagnosis: bladder cancer Post-op diagnosis: same Procedure: transurethral incision of bladder tumor large left retrograde stent placement Implants: left stent 6 [place] by 24 cm double-J Surgeon: Danny Leiva MD Anesthesia: GLMA Estimated blood loss (mL): 0 Pathology: other ( bladder tumor and prostate) Condition: stable Disposition: same day
--- NOTE | 2020-06-04 14:06 | P.OP_ITS ---
Operative Note Operative Note Date of Service: 06/04/20 Narrative: PreOperative Diagnosis: bladder cancer Post Operative Diagnosis: 1. Bladder cancer locally advanced 2. left hydroureteronephrosis Procedure: 1. TURBT large, 2. resection of left ureteric orifice 3. left retrograde and left stent placement Surgeon: Dr Danny Leiva Anesthesia: general Indications for procedure: this is a 70-year-old male. Was evaluated in the office approximately 4 weeks ago for hematuria. Imaging was performed. Cystoscopy performed in the office showed a mass protruding into the prosthetic fossa. Was admitted with hematuria to the hospital approximately 4 days ago. Discharged home. Returns again for definitive procedure. Is aware the risks and benefits particularly related to infection, bleeding, need for secondary procedures. Procedure: After informed consent was verified the patient was brought to the operating room and placed in a supine position. Anesthesia was administered per protocol. Patient was placed in modified dorsal lithotomy position and prepped and draped in sterile fashion. Safety pause time-out was performed. Antib iotics being given. Twenty-three Swazi cystoscope inserted per urethra. No abnormality noted in the anterior posterior urethra. There was a bladder mass arising from the right prostatic fossa running across the right floor of the bladder. This obliterated the urethra distal to the anatomy. Was difficult to enter the bladder however we were able to enter. The large mass was off to mostly right-hand side. At this point the cystoscope was removed. A resectoscope was placed. We started to resect this mass running from the midline to the right side. Running from the bladder neck position across and then down into the urethra. He had appeared to have a previous TURP. This mass was arising from the sidewall at the junction between the prostatic fossa and the bladder on the right side. Was difficult to tell whether this was bladder or mucinous adenocarcinoma arising from the prostate. Due to the large amount of lesion within the bladder space this would be the likely origin. Once we had resected the floor free and resected within the TUR fossa we slowly started how way up the bladder neck sidewall. The mass riding around bladder neck opening. We are able to resect up to the 12 o'clock position from the 6 o'clock position on the right side. On the left side the bladder neck was involved with the mass however the left ureteric orifice had edema and appeared to be inflamed. This was resected back. The left ureteric orifice opening was resected and we continued our resection. We were unable to resect all of the mass that was in the anterior aspect of the bladder wall. Every time we tried to band the cystoscopic we would lose image as the coronal was too tight to navigate. At this point we removed all the tissue from the bladder. There was a significant volume in this was sent for pathology. We then tried find ureteric orifice on the left side. We were unable to get this with a regular cystoscope. Using the flexible cystoscope we were able to place a wire and an open-ended catheter into the left ureteric orifice. Retrograde examination was performed to confirm location. The wire was placed up to the level renal pelvis. The 4 Swazi ureteric catheter was removed. With the wire in place we were able to back load a regular cystoscope and a 6 Swazi by 24 cm double-J stent was placed with good coil seen in the renal pelvis and in the bladder. A 3 way Elizabeth catheter - 24 Swazi with a 30 cc catheter balloon was placed without difficulty. Good for efflux was obtained. Minimal hematuria. A belladonna and opiate suppository was placed for postprocedure pain management He tolerated the procedure well was extubated in the operating room transferred in stable condition to the recovery area. Pathology: Resected mass from junction bladder and prostate Drains: 1. 6 Swazi by 24 cm double-J ureteric catheter on left side. 2. three-way Elizabeth hematuria catheter
[2020-06-04] MEDS: Acetaminophen 325 MG TABLET 650 MG PO (14:15)
[2020-06-04] MEDS: oxyCODONE HCl Immed Release 5 MG TABLET PO (14:16)
[2020-06-04] MEDS: fentaNYL citrate/PF 100 MCG/2 ML VIAL 50 MCG IVPUSH ×2 (14:24→15:00)
[2020-06-04] MEDS: lisinopriL 40 MG TABLET PO (14:30)
[2020-06-04] MEDS: amLODIPine Besylate 10 MG TABLET PO (18:06)
[2020-06-04 18:31] LABS: Glucose, Whole Blood 219 mg/dL (60-115)
[2020-06-04 18:48] LABS: Prostate Specific Antigen 29.16 ng/mL (<0.05-4.0)
[2020-06-04] MEDS: Atorvastatin Calcium 80 MG TABLET PO (21:21)
[2020-06-04] MEDS: carvediloL 25 MG TABLET PO (21:21)
[2020-06-05 04:00] VITALS: BP 149/75; PULSE 94; RESP 20; TEMP 36.7; O2SAT 98
[2020-06-05] MEDS: traMADoL HCL 50 MG TABLET PO (05:17)
--- NOTE | 2020-06-05 05:49 | PC.NURSE ---
Addendum entered by Mirella Martell RN 06/05/20 08:32: nurses note wrote on wrong patient Original Note: patient is a 42 year old male being treated with antibiotics for left forearm abscess, and smaller one to right wrist. patient refuses to have ordered ivf as ordered, hospitalist on duty was made aware and stated keep trying and okay if patient unwilling as cannot force them. patient gets oob and randomly will be found in the shower, despite numerous conversations about safety, alerting staff to needs, and the need to cover his iv site, however, noncompliant. He also refused his lovenox, but did allow the antibiotics... only if you bring my pain meds too Will continue to attempt teaching and plan of care.
[2020-06-05] MEDS: Omeprazole 20 MG CAPSULE.DR PO (06:20)
[2020-06-05 07:15] VITALS: BP 149/85; PULSE 58; RESP 19; TEMP 36.4; O2SAT 95
--- NOTE | 2020-06-05 07:44 | HO.POSTANES ---
Post Anesthesia Evaluation Post Anesthesia Evaluation Vital Signs: Vital Signs Temp Pulse Resp BP Pulse Ox 06/05/20 07:15 97.6 F 58 19 149/85 H 95 06/05/20 04:00 98.0 F 94 20 149/75 H 98 06/04/20 23:24 98.3 F 78 19 153/84 H 98 06/04/20 21:21 65 163/86 H Anesthesia: General Mental Status: Awake Pain Control: Satisfactory Nausea/Vomiting: None Hydration: Adequate Anesthesia-Related Issues: No Anes. Related Issues
[2020-06-05 08:01] VITALS: BP 149/85; PULSE 58
[2020-06-05 08:01] LABS: Glucose, Whole Blood 270 mg/dL (60-115)
[2020-06-05] MEDS: amLODIPine Besylate 10 MG TABLET PO (08:01)
[2020-06-05] MEDS: lisinopriL 40 MG TABLET PO (08:01)
[2020-06-05] MEDS: Spironolactone 25 MG TABLET PO (08:01)
[2020-06-05] MEDS: carvediloL 25 MG TABLET PO (08:01)
[2020-06-05] MEDS: Insulin Lispro 100 UNIT/ML 3 ML VIAL 10 UNIT SUBCUT (08:02)
--- NOTE | 2020-06-05 09:01 | MHC.CM.PN ---
PATIENT IS INDEPENDENT WITH HIS ADLS. HE FEELS THATR HE DOES NOT NEED A VNA UPON DISCHARGE. ALTHOUGH [facility] OFFERS PATIENT ASSISTANCE IN THE HOME, HE DENIES THE NEED. PCP IS AT [facility] ([phone]). PATIENT BELIEVES MD NAME IS KAMALJIT THRASHER IMM 06/05 IN CHART.
[2020-06-05 11:15] VITALS: BP 126/70; PULSE 60; RESP 19; TEMP 36.4; O2SAT 94
--- NOTE | 2020-06-05 11:55 | PM.UROPN ---
Subjective Subjective Date of Service: 06/05/20 Interval history: TURBT performed yesterday Pain decrease hematuria decrease CBC stopped Can DC home with leg band in follow-up later this week for Elizabeth removal PSA came back at 30 Physical Exam Vital Signs: Vital Signs: Last Vital Signs Temp 97.5 F 06/05/20 11:15 Pulse 60 06/05/20 11:15 Resp 19 06/05/20 11:15 BP 126/70 06/05/20 11:15 Pulse Ox 94 06/05/20 11:15 Body Mass Index 31.9 Const: General: cooperative, healthy appearing, comfortable and no acute distress Nutritional Appearance: average body habitus Orientation/consciousness: oriented to person, oriented to place and oriented to time Eyes: General: appearance normal, both eyes and all related structures Chest: Chest palpation & inspection: normal inspection of the chest Resp: Effort & Inspection: normal respiratory effort Cardio: Rate: regular rate GI: Inspection: Yes normal to inspection Skin: Hair: normal Neuro: General: oriented to person, oriented to place and oriented to time Extrem: General: Yes normal to inspection Progress Note: A&P Assessment and plan (1) Bladder cancer: Status: Acute (2) Elevated PSA: Status: Acute (3) Prostate cancer: Status: Acute Assessment and Plan: Underwent TURBT yesterday. 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 PSA [address] Will remove later this week Fall Risk Details Current Medications: Current Medications Generic Name Dose Route Start Last Admin Trade Name Freq PRN Reason Stop Dose Admin Amlodipine Besylate 10 mg 06/04/20 17:45 06/05/20 08:01 Amlodipine Besylate 10 Mg Tablet PO 10 mg DAILY BLAZE Administration Protocol Atorvastatin Calcium 80 mg 06/04/20 21:00 06/04/20 21:21 Atorvastatin Calcium 80 Mg Tablet PO 80 mg BEDTIME BLAZE Administration Carvedilol 25 mg 06/04/20 21:00 06/05/20 08:01 Carvedilol 25 Mg Tablet PO 25 mg BID BLAZE Administration Protocol Insulin Human Lispro 10 unit 06/05/20 07:30 06/05/20 08:02 Insulin Lispro 100 Unit/Ml 3 Ml Vial SUBCUT 10 unit TIDAC BLAZE Administration Lisinopril 40 mg 06/04/20 18:00 06/05/20 08:01 Lisinopril 40 Mg Tablet PO 40 mg DAILY BLAZE Administration Protocol Multivitamins/Minerals 1 tab 06/05/20 09:00 06/05/20 08:01 Multivitamin With Minerals Tablet PO 1 tab DAILY BLAZE Administration Omeprazole 20 mg 06/05/20 06:30 06/05/20 06:20 Omeprazole 20 Mg Capsule. PO 20 mg DAILY@0630 BLAZE Administration Spironolactone 25 mg 06/05/20 09:00 06/05/20 08:01 Spironolactone 25 Mg Tablet PO 25 mg DAILY BLAZE Administration Protocol Time Spent With Patient Time: Total time spent is greater than 50% in coordination of care (as documented) at patient's floor/unit and/or counseling patient: Time with patient: 15 - 24 minutes
[2020-06-05 12:09] LABS: Glucose, Whole Blood 227 mg/dL (60-115)
--- NOTE | 2020-08-14 09:19 | PM.DS ---
DS: Providers Provider Date of Service: 08/14/20 Date of admission: 06/04/20 16:21 Primary care physician: Unknown Physician DS: Diagnosis Discharge Diagnosis (1) Bladder cancer: Status: Acute Problem details: Stable (2) Elevated PSA: Status: Acute Problem details: Stable (3) Prostate cancer: Status: Acute Problem details: Underwent TURBT and had bleeding postprocedure so kept overnight in hospital. DS: Medications Discharge Medications Home Medications: Home Medications Medication Instructions Recorded Confirmed amlodipine 10 mg tablet 10 mg PO DAILY 04/18/20 08/02/20 atorvastatin 80 mg tablet 80 mg PO BEDTIME 04/18/20 08/02/20 carvedilol 25 mg tablet 25 mg PO BID 04/18/20 08/02/20 lisinopril 40 mg tablet 40 mg PO DAILY 04/18/20 08/02/20 omeprazole 20 mg capsule,delayed 20 mg PO DAILY@0630 04/18/20 08/02/20 release pen needle, diabetic 31 gauge x #1200 ea 04/18/20 04/18/2011/18 spironolactone 25 mg tablet 25 mg PO DAILY 04/18/20 08/02/20 tramadol 50 mg tablet 100 mg PO Q12H PRN 04/18/20 08/02/20 Centrum Silver Men 1 tab PO DAILY 05/30/20 08/02/20 insulin aspart U-100 [Novolog See Protocol SUBCUT TIDAC 05/30/20 08/02/20 Flexpen U-100 Insulin] lancets 33 gauge #100 ea 06/08/20 insulin glargine 80 unit SUBCUT DAILY 08/02/20 08/02/20 Previous Rx's Medication Instructions Recorded bicalutamide 50 mg tablet 50 mg PO TID 30 Days #90 tab 06/08/20 ondansetron HCl [Zofran] 4 mg PO Q6H PRN #30 tab 07/17/20 dexamethasone 4 mg PO BID #60 tab 07/25/20 nystatin 500,000 unit PO QID #20 tab 08/05/20 DS: Summary Hospital Course Time spent discussing smoking cessation with patient: 3 to 10 minutes Status at Discharge Functional status at discharge: independent ambulation Time Spent with Patient Time attestation: Total time spent providing and/or coordinating discharge services: Discharge coordination time: Less than 30 minutes Quality: AMI Clinical Trial Participant: No Physical Exam Vital Signs: Vital Signs: Last Vital Signs Temp 97.5 F 06/05/20 11:15 Pulse 60 06/05/20 11:15 Resp 19 06/05/20 11:15 BP 126/70 06/05/20 11:15 Pulse Ox 94 06/05/20 11:15 Body Mass Index 31.9 DS: Data Data Completed and Pending Completed studies during hospitalization [Text1]: Pending at discharge 06/04/20 13:17 Surgical [PTH] Routine Procedures Dilation of Left Ureter with Intraluminal Device, Via Natural or Artificial Opening Endoscopic (06/04/20) Excision of Bladder, Via Natural or Artificial Opening Endoscopic (06/04/20) Fluoroscopy of Right Kidney, Ureter and Bladder (06/04/20) Labs on day of discharge: Laboratory Tests 06/04/20 06/04/20 06/04/20 08:58 17:11 18:23 POC Glucose 243 H 219 H Prostate Specific Ag 29.16 H 06/05/20 06/05/20 07:58 11:14 POC Glucose 270 H 227 H Prostate Specific Ag Discharge Plan Discharge Patient Disposition: Home, Self-Care Referrals: [facility] [Other] (PCP OFFICE) Danny Leiva MD [Physician] - 3-5 Days (Thursday for catheter removal) Physician,Unknown [Primary Care Provider] - Discharge Medications: Continued insulin aspart U-100 [Novolog Flexpen U-100 Insulin] 100 unit/mL (3 mL) Insulin Pen See Protocol unit SUBCUT TIDAC RF: 0 Centrum Silver Men 300-600-300 mcg Tablet 1 tab PO DAILY RF: 0 (DME) pen needle, diabetic 31 gauge x 5/16 needle See Rx Instructions ea .ROUTE QID Qty: 1200 RF: 0 omeprazole 20 mg capsule,delayed release(DR/EC) 20 mg PO DAILY@0630 RF: 0 tramadol 50 mg tablet 100 mg PO Q12H PRN (Reason: Pain (Scale Score 4-6)) RF: 0 carvedilol 25 mg tablet 25 mg PO BID RF: 0 lisinopril 40 mg tablet 40 mg PO DAILY RF: 0 Hold Instructions: Resume on 08/07/20. amlodipine 10 mg tablet 10 mg PO DAILY RF: 0 spironolactone 25 mg tablet 25 mg PO DAILY RF: 0 atorvastatin 80 mg tablet 80 mg PO BEDTIME RF: 0 No Action ondansetron HCl [Zofran] 4 mg Tablet 4 mg PO Q6H PRN (Reason: Nausea) Qty: 30 RF: 0 dexamethasone 4 mg Tablet 4 mg PO BID Qty: 60 RF: 3 insulin glargine 100 unit/mL (3 mL) insulin pen 80 unit subcut DAILY RF: 0 nystatin 500,000 unit tablet 500,000 unit PO QID Qty: 20 RF: 0 (DME) lancets 33 gauge misc See Rx Instructions ea Not Applicable TID Qty: 100 RF: 0 bicalutamide 50 mg tablet 50 mg PO TID 30 Days Qty: 90 RF: 0 Discharge Orders: Discharge Order (Routine); Ordered 06/04/20 Ordered By: Danny Leiva Diet: advance to usual diet Activity on Discharge: As tolerated Care Plan Goals: Bladder mass Health Concerns: Bladder mass Plan of Treatment: Follow-up for catheter a Patient Instructions: Transurethral Resection of Bladder Tumors (DC) Discharge Date/Time: 06/05/20 13:50
== END 2020-06-05 13:50 | disposition home or self-care (01) | DRG 657 ==
LOC: HO.S3 16:36
PROVIDERS: Admitting Provider Urology; Visit Provider Urology
PROC: 0TBB8ZZ Excision of Bladder, Via Natural or Artificial Opening Endoscopic (ICD-10-PCS; principal; 2020-06-04 10:00)
DX: C67.9 Malignant neoplasm of bladder, unspecified (principal); N13.1 Hydronephrosis with ureteral stricture, not elsewhere classified; N40.0 Benign prostatic hyperplasia without lower urinary tract symptoms; G47.33 Obstructive sleep apnea (adult) (pediatric); Z79.4 Long term (current) use of insulin; Z79.891 Long term (current) use of opiate analgesic; Z79.899 Other long term (current) drug therapy
CPT/HCPCS: 82947; 84153; 88307; 88341; 88342; C1758; C1769; C2617; J2405; J3010; Q9967

== ENCOUNTER → 2020-06-08 09:12 | Outpatient (BNVA) | payer OTHER, SELFPAY | PROVIDERS: Visit Provider Urology | DX: Z46.6 Encounter for fitting and adjustment of urinary device (principal) | CPT/HCPCS: 51700; 51798; 99212 ==

== ENCOUNTER → 2020-06-22 13:16 | Outpatient (BNVA) | payer OTHER, SELFPAY | PROVIDERS: PCP Internal Medicine; Visit Provider Urology | DX: N13.30 Unspecified hydronephrosis (principal); C61 Malignant neoplasm of prostate | CPT/HCPCS: 96402; 99212; J9217 ==

== ENCOUNTER 2020-06-25 10:00 | Outpatient (REF) | payer OTHER, SELFPAY ==
[2020-06-25 11:10] LABS: Blood Urea Nitrogen 13 mg/dL (9-16); Estimated Glomerular Filt Rate 38
[2020-06-25 11:36] LABS: Prostate Specific Antigen 10.26 ng/mL (<0.05-4.0)
== END 2020-06-25 10:01 | disposition home or self-care (01) ==
LOC: HO.LAB 10:00
PROVIDERS: Visit Provider Urology
DX: C61 Malignant neoplasm of prostate (principal); N26.1 Atrophy of kidney (terminal)
CPT/HCPCS: 82565; 84153; 84520

== ENCOUNTER → 2020-07-23 09:46 | Outpatient (REF) | payer OTHER, SELFPAY ==
--- NOTE | 2020-07-23 09:49 | NM_ITS ---
EXAMINATION: NM BONE SCAN OF THE WHOLE BODY CLINICAL INFORMATION: Malignant neoplasm of prostate. COMPARISON: CT abdomen and pelvis 05/30/2020. TECHNIQUE: Multiple gamma scintillation camera images of the whole body were performed 3 hours following the intravenous administration of 33 mCi Tc-99m MDP. FINDINGS: In the head, no abnormal activity. In the thoracic cage and upper extremities, there is punctate activity seen along the right anterior 8th costochondral junction and 12th anterior rib. In the spine, nonspecific mild activity seen along the mid dorsal spine. No abnormal activity seen in the cervical or lumbar spine. In the pelvis, no abnormal activity seen. In the lower extremities, moderate increased activity seen in the left midtarsal regions and likely tarsometatarsal joints related to arthritis. Milder activity seen in the right foot. No other definite bony abnormalities are noted. The urinary bladder and faint visualization of both kidneys are noted. NM/NM bone scan whole body IMPRESSION: No abnormal metabolic activity seen to suspect any evidence of metastatic disease. Focal activity right anterior 8th costal cartilage and right anterior 12th rib likely traumatic.
== END ==
LOC: HO.NUCMED 09:46
PROVIDERS: Visit Provider Urology
DX: C61 Malignant neoplasm of prostate (principal); C79.51 Secondary malignant neoplasm of bone
CPT/HCPCS: 78306; A9503

== ENCOUNTER 2020-07-31 09:45 | Outpatient (REF) | payer OTHER, SELFPAY | END 2020-07-31 09:46 | disposition home or self-care (01) | LOC: HO.PET 09:45 | PROVIDERS: Visit Provider Internal Medicine | DX: Z13.89 Encounter for screening for other disorder (principal) ==

== ENCOUNTER 2020-08-02 12:17 | Outpatient (REF) | payer OTHER, SELFPAY ==
[2020-08-02 12:59] LABS: Hematocrit 43.6 % (42-52); Hemoglobin 14.6 g/dl (14.0-18.0); Mean Corpuscular HGB Conc 33.5 g/dl (31.0-36.0); Mean Corpuscular Hemoglobin 29.9 pg (27.0-33.0); Mean Corpuscular Volume 89.2 fL (80-98); Platelet Count 145 X10*3/uL (160-400); Red Blood Count 4.89 X10*6/uL (4.60-5.80); Red Cell Distribution Width 13.1 % (11.0-16.0)
[2020-08-02 13:02] LABS: WBC ABN SCTR FOR CBC 1
[2020-08-02 13:12] LABS: White Blood Count 39.5 X10*3/uL (4.8-10.8)
[2020-08-02 13:51] LABS: Band Neutrophils Percent 4 % (3-5); Lymphocytes Absolute Manual 4.3 X10*3/uL (0.6-4.8); Lymphocytes Percent Manual 11 % (20-40); Metamyelocytes Absolute 0.8 X10*3/uL; Metamyelocytes Percent 2 %; Monocytes Absolute Manual 4.7 X10*3/uL (0.0-1.2); Monocytes Percent Manual 12 % (2-11); Myelocytes Absolute 1.6 X10*/uL; Myelocytes Percent 4 %; Neutrophils Absolute Manual 27.3 X10*3/uL (2.2-7.9); Neutrophils Percent Manual 65 % (45-73); Promyelocytes Absolute 0.8 X10*3/uL; Promyelocytes Percent 2 %
[2020-08-02 13:53] LABS: RBC Morphology NOTED
[2020-08-02 13:55] LABS: Ovalocytes 1+; Toxic Granulation PRESENT; Toxic Vacuolation PRESENT
[2020-08-02 13:56] LABS: Acanthocytes 1+; Platelet Estimate SLIGHTLY DECREASED (NORMAL); Platelet Morphology Comment NORMAL
[2020-08-02 14:10] LABS: Alanine Aminotransferase 30 U/L (0-40); Albumin Level 3.6 g/dL (3.5-5.0); Alkaline Phosphatase 180 U/L (39-117); Anion Gap 20 (12-20); Aspartate Amino Transferase 21 U/L (5-37); Bilirubin Total 0.9 mg/dL (0.0-1.0); Blood Urea Nitrogen 93 mg/dL (9-16); Calcium 8.3 mg/dL (8.4-10.2); Carbon Dioxide 23 mmol/L (22-29); Chloride 98 mmol/L (96-108); Estimated Glomerular Filt Rate 14; Glucose Random 219 mg/dL (60-115); Potassium 4.8 mmol/l (3.3-5.1); Sodium 136 mmol/L (135-145)
== END 2020-08-02 12:18 | disposition home or self-care (01) ==
LOC: HO.LAB 12:17
PROVIDERS: PCP Urology; Visit Provider Internal Medicine
DX: Z13.89 Encounter for screening for other disorder (principal)
CPT/HCPCS: 36415; 80053; 82550; 85007; 85025; 85027

== ENCOUNTER 2020-08-02 14:33 | Inpatient (IN) | payer OTHER, SELFPAY ==
[2020-08-02] VITALS (7 sets, daily range): BP systolic 87–114; BP diastolic 41–88; PULSE 62–68; RESP 16–20; TEMP 36.5–37.1; O2SAT 92–95; BMI 31.9
--- NOTE | 2020-08-02 15:18 | ECG_ITS ---
Test Reason : DIZZINESS Blood Pressure : / mmHG Vent. Rate : 064 BPM Atrial Rate : 064 BPM P-R Int : 144 ms QRS Dur : 076 ms QT Int : 408 ms P-R-T Axes : 048 062 -85 degrees QTc Int : 420 ms Sinus rhythm with Premature atrial complexes ST & T wave abnormality, consider inferolateral ischemia Abnormal ECG No previous ECGs available Referred By: Bharath Deluca Electronically Signed By:Chon Malloy
--- NOTE | 2020-08-02 15:18 | CT_ITS ---
EXAMINATION: CT CHEST WITHOUT CONTRAST CT ABDOMEN AND PELVIS WITHOUT CONTRAST CLINICAL INFORMATION: Weakness. Fall. Acute renal failure. Prostate cancer with metastatic disease. On chemotherapy. COMPARISON: Bone scan 07/23/2020. CT 05/30/2020. TECHNIQUE: Multidetector volumetric imaging was performed through the chest, abdomen and pelvis without contrast. Sagittal and coronal reformatted images were obtained on the technologist's workstation. Axial MIP volume rendering provided. This CT examination was performed using dose optimization techniques as appropriate, variously including the following: *Automated exposure control *Adjustment of mA and/or kV according to patient size (this includes techniques or standardized protocols for targeted exams where dose is matched to indication/reason for exam; i.e. extremities or head) *Use of iterative reconstruction technique DLP: 1238 mGy-cm. FINDINGS: CHEST: Lungs: The central airways are patent. There is bibasilar atelectasis. No dense consolidation. No pleural effusion or pneumothorax. No suspicious pulmonary nodule. Mediastinum: The heart is of normal size. There is no pericardial effusion. Coronary artery calcifications are present. No hilar or mediastinal lymphadenopathy. Chest Wall/Axilla: No lymphadenopathy. No chest wall mass. ABDOMEN/PELVIS: Liver, Gallbladder, Biliary Tree: The liver is normal in size, shape, and attenuation. No focal hepatic lesion or biliary ductal dilatation is present. The gallbladder is unremarkable with no evidence of radiopaque gallstones, gallbladder wall thickening, or pericholecystic inflammatory changes. Pancreas: Unremarkable. Spleen: Unremarkable. Adrenal Glands: Unremarkable. Kidneys and Ureters: Solitary left kidney. Mild left perinephric stranding is similar to prior. No renal mass. No hydronephrosis or nephrolithiasis. A ureteral stent is in place extending from the renal pelvis into the bladder. Bladder: The bladder is partially distended without wall thickening. Gastrointestinal Tract: The stomach is unremarkable. Normal caliber small bowel. There is no obstruction. No colonic wall thickening or acute inflammatory change. No free air. No free fluid. The appendix is unremarkable. Abdominal Wall: Fat-containing bilateral inguinal hernias, left greater than right. Lymphovascular Structures: Lymph nodes: There is a left iliac chain node which measures 1.3 cm on series 11 image 83. This is unchanged from prior. Significant decrease in prominence of multiple right pelvic nodes. For instance, there is a node measuring 1.6 cm on series 11 image 80 which previously measured decrease in size of a left iliac node, currently measuring 1.1 cm on image 67, previously measuring 1.7 cm. Vascular: Normal caliber aorta with moderate atherosclerotic calcification. 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 This extends to the right of midline and measures 1.5 cm, unchanged. This is at the expected location of the right renal artery. Pelvic Viscera: Normal size of the prostate with decreased prominence from prior. The seminal vesicles are unremarkable. OSSEOUS STRUCTURES: Multilevel degenerative changes are seen throughout the spine. Multilevel vacuum disc phenomenon. Vertebral body heights are maintained. The sternum is intact. No acute rib fracture. There are multiple healed posterior and lateral left-sided rib fractures noted. Chronic irregularity of the anterior right eighth costochondral junction. Partial fusion of the sacroiliac joints. No pelvic fracture. Degenerative changes noted in the hips. No suspicious osseous lesions. CT/CT chest wo con IMPRESSION: 1. No acute traumatic finding of the chest, abdomen, or pelvis. 2. Decreased prominence of the prostate when compared to prior. 3. Multiple pelvic lymph nodes are decreased in size when compared to prior. 4. Left ureteral stent in place. 5. No suspicious findings within the chest.
--- NOTE | 2020-08-02 15:21 | ED_ITS ---
HPI - General Adult General Chief complaint: Recheck/Abnormal Lab/Rx Stated complaint: abnormal labs Time Seen by Provider: 08/02/20 14:58 Source: patient Mode of arrival: ambulatory Limitations: no limitations History of Present Illness HPI narrative: Mr. Santa is a pleasant but unfortunate 70-year-old male who a pparently has history of prostate/bladder CA with Mets according to the patient to the gallbladder as well as history of BPH, diabetes, hypertension, hyperlipidemia whom has a single kidney because of right nephrectomy 22 years ago or so to donate to his son who has since , history of mild kidney disease at baseline and gross hematuria who has been seen by Oncology as well as Urology for his cancer he saw Dr. Leiva in late May had confirmed Ca subsequently started on chemo in mid June also Neulasta and over past 5 days or so has been feeling generalized weakness no energy mild GI symptoms of some nausea vomiting and loose stools. States he has had no energy and no appetite. He had labs done due to his symptoms on an outpatient basis this morning and was subsequently called to come to the emergency room for abnormalities in his blood test. He is not exactly sure what these abnormalities were. Upon review of the chart it looks like he has new leukocytosis of 39.5 his previous from July 25 was 7.9, his BUN creatinine at baseline are 1.8 and today 4.. He reports he is still making urine. Aside from the above symptoms no recent travel, cough or runny nose or congestion or fever. Again he reports overall generalized weakness but no pain or discomfort. Onset (ago): day(s) Severity: moderate Relieving factors: none Associated symptoms: denies other symptoms Treatments prior to arrival: none Related Data Home Medications Medication Instructions Recorded Confirmed amlodipine 10 mg tablet 10 mg PO DAILY 04/18/20 08/02/20 atorvastatin 80 mg tablet 80 mg PO BEDTIME 04/18/20 08/02/20 carvedilol 25 mg tablet 25 mg PO BID 04/18/20 08/02/20 lisinopril 40 mg tablet 40 mg PO DAILY 04/18/20 08/02/20 omeprazole 20 mg capsule,delayed 20 mg PO DAILY@0630 04/18/20 08/02/20 release pen needle, diabetic 31 gauge x #1200 ea 10/14/20 10/14/20 5/16 spironolactone 25 mg tablet 25 mg PO DAILY 04/18/20 08/02/20 tramadol 50 mg tablet 100 mg PO Q12H PRN 04/18/20 08/02/20 Centrum Silver Men 1 tab PO DAILY 05/30/20 08/02/20 insulin aspart U-100 [Novolog See Protocol SUBCUT TIDAC 05/30/20 08/02/20 Flexpen U-100 Insulin] lancets 33 gauge #100 ea 06/08/20 insulin glargine 80 unit SUBCUT DAILY 08/02/20 08/02/20 Previous Rx's Medication Instructions Recorded bicalutamide 50 mg tablet 50 mg PO TID 30 Days #90 tab 06/08/20 ondansetron HCl [Zofran] 4 mg PO Q6H PRN #30 tab 07/17/20 dexamethasone 4 mg PO BID #60 tab 07/25/20 Allergies Allergy/AdvReac Type Severity Reaction Status Date / Time No Known Allergies Allergy Verified 05/23/20 11:08 Review of Systems Review of Systems: Constitutional: No Weight loss, No Fever, No Chills, No Night Sweats ENT/Mouth: No Hearing loss, No Ear Pain, No Nasal Congestion, No Sinus Pain, No Hoarseness, No sore throat, No Rhinorrhea, No Swallowing Difficulty Eyes: No Eye Pain, No Swelling, No Redness, No Foreign Body, No Discharge, No Vision Changes Cardiovascular: No Chest Pain, No SOB, No Dyspnea on Exertion, No Orthopnea, No Edema, No Palpitations Respiratory: No Cough, No Sputum, No Wheezing, No Smoke Exposure, No Dyspnea Gastrointestinal: As noted in HPI, No abdominal Pain, No Hematochezia, No Melena Genitourinary:No Dysuria, No Urinary Frequency, No Hematuria, No Urinary Incontinence, No Urgency, No Flank Pain, No Urinary Flow Changes, No Hesitancy Musculoskeletal: No joint pain, No Myalgias, No Joint Swelling Skin: No Skin Lesions, No rash Neuro: + Weakness, No Numbness, No Paresthesias, No Loss of Consciousness, No Dizziness, No Headache Psych: No Anxiety/Panic, No Depression, No SI/HI/AH/VH, No Social Issues Heme/Lymph: No Bruising, No Bleeding,No Lymphadenopathy Endocrine: No Polyuria, No Polydipsia, No Temperature Intolerance Yes all other systems are reviewed and are negative [facility] Past Medical History Medical History BPH (benign prostatic hyperplasia) Bunion of great toe CKD (chronic kidney disease) stage 2, GFR 60-89 ml/min Diabetes Diabetic neuropathy Diabetic retinopathy GERD (gastroesophageal reflux disease) Hematuria High cholesterol History of nephrectomy, unilateral HTN (hypertension) Kidney stone on right side Malignant neoplasm JUAN MANUEL (obstructive sleep apnea) Plantar fasciitis, bilateral Prostate CA Surgical History H/O cystoscopy History of nephrectomy, left Family History Family History Mother Breast cancer Sister Breast cancer Father Prostate cancer Heart disease Sister Diabetes Brother Heart disease Brother Heart disease Social History Social History Household Members: None Housing: Apartment Alcohol intake: never Smoking Status: Never smoker Second Hand Smoke Exposure: No Substance Use Type: Crack/Cocaine and Former Substance User Advance Directives: No Advance Directives Information Provided: No service: No Current occupational status: unemployed and disabled Physical Exam Vital Signs: Vital Signs: Last Vital Signs Temp 98.7 F 08/03/20 06:13 Pulse 60 08/03/20 06:13 Resp 13 08/03/20 06:13 BP 112/58 L 08/03/20 06:13 Pulse Ox 91 L 08/03/20 06:13 Body Mass Index 31.9 Course Course Course Narrative: Confirmatory labs significant leukocytosis likely secondary to chemo drug/Neulasta CKD with super infuse ADELA secondary to poor p.o. intake/dehydration and as well as being on BASSEM-inhibitor and spironolactone. F oley catheter place with 100 cc urine output given 2.5 L of normal saline clinically very dry. Case discussed with oncology as well as hospitalist for admission/further management. Medical Decision Making Lab Data Result diagrams: 08/02/20 15:40 08/02/20 15:40 Labs: Lab Results 08/02/20 08/02/20 08/02/20 Range/Units 15:40 15:40 15:40 WBC 41.3 H* (4.8-10.8) X10*3/uL RBC 4.89 (4.60-5.80) X10*6/uL Hgb 14.6 (14.0-18.0) g/dl Hct 43.6 (42-52) % MCV 89.2 (80-98) fL MCH 29.9 (27.0-33.0) pg MCHC 33.5 (31.0-36.0) g/dl RDW 13.0 (11.0-16.0) % Plt Count 134 L (160-400) X10*3/uL MPV 12.2 (9.4-12.4) fL Immature Gran % (Auto) Cancelled Neut % (Auto) Cancelled Lymph % (Auto) Cancelled [place] % (Auto) Cancelled Eos % (Auto) Cancelled Baso % (Auto) Cancelled Lymph # (Auto) Cancelled [place] # (Auto) Cancelled Eos # (Auto) Cancelled Baso # (Auto) Cancelled Abs Immat Gran (auto) Cancelled Absolute Neuts (auto) Cancelled Absolute Nucleated RBC 0.000 (0.0-0.012) X10*3/uL Nucleated RBC % (auto) 0.0 (0.0-0.2) /100WBC Neutrophils % (Manual) 70 (45-73) % Band Neutrophils % 12 H (3-5) % Lymphocytes % (Manual) 7 L (20-40) % Monocytes % (Manual) 2 (2-11) % Metamyelocytes % 6 % Myelocytes % 2 % Promyelocytes % 1 % Abs Neuts (Manual) 33.9 H (2.2-7.9) X10*3/uL Lymphocytes # (Manual) 2.9 (0.6-4.8) X10*3/uL Monocytes # (Manual) 0.8 (0.0-1.2) X10*3/uL Metamyelocytes # 2.5 X10*3/uL Myelocytes # 0.8 X10*/uL Promyelocytes # 0.4 X10*3/uL Toxic Granulation PRESENT Toxic Vacuolation PRESENT Platelet Estimate SLIGHTLY DECREASED (NORMAL) Plt Morphology Comment NORMAL RBC Morphology NOTED Ovalocytes 1+ Acanthocytes (Spur) 1+ PT 11.8 (10.8-13.0) SEC INR 1.0 (0.9-1.1) APTT 26.8 D (24.1-38.0) SEC Sodium 134 L (135-145) mmol/L Potassium 5.1 (3.3-5.1) mmol/l Chloride 98 (96-108) mmol/L Carbon Dioxide 22 (22-29) mmol/L Anion Gap 19 (12-20) BUN 97 H* (9-16) mg/dL Creatinine 4.44 H* (0.5-1.4) mg/dL Estim Creat Clear Calc 16.8 Estimated GFR 13 Random Glucose 193 H (60-115) mg/dL Lactic Acid (0.5-2.0) mmol/L Calcium 8.2 L (8.4-10.2) mg/dL Total Bilirubin 1.0 (0.0-1.0) mg/dL AST 26 (5-37) U/L ALT 29 (0-40) U/L Alkaline Phosphatase 214 H (39-117) U/L Total Creatine Kinase 418 H (38-174) U/L Troponin I High Sens (<3.5-35.0) ng/L Total Protein 5.9 L (6.5-8.0) g/dL Albumin 3.6 (3.5-5.0) g/dL Urine Color Urine Appearance Urine pH (5.0-8.0) Ur Specific [place] (1.005-1.025) Urine Protein (NEG-TRACE) MG/DL Urine Glucose (UA) (NEG) MG/DL Urine Ketones (NEG) MG/DL Urine Blood (NEG) Urine Nitrite (NEG) Ur Leukocyte Esterase (NEG) Urine RBC (0) /HPF Urine WBC (0-4) /HPF Ur Squamous Epith Cells /LPF Urine Bacteria /LPF Urine Osmolality (373-1093) mosm/kg Ur Random Sodium mmol/L Urine Creatinine mg/dL 08/02/20 08/02/20 08/02/20 Range/Units 15:53 17:12 17:12 WBC (4.8-10.8) X10*3/uL RBC (4.60-5.80) X10*6/uL Hgb (14.0-18.0) g/dl Hct (42-52) % MCV (80-98) fL MCH (27.0-33.0) pg MCHC (31.0-36.0) g/dl RDW (11.0-16.0) % Plt Count (160-400) X10*3/uL MPV (9.4-12.4) fL Immature Gran % (Auto) Neut % (Auto) Lymph % (Auto) [place] % (Auto) Eos % (Auto) Baso % (Auto) Lymph # (Auto) [place] # (Auto) Eos # (Auto) Baso # (Auto) Abs Immat Gran (auto) Absolute Neuts (auto) Absolute Nucleated RBC (0.0-0.012) X10*3/uL Nucleated RBC % (auto) (0.0-0.2) /100WBC Neutrophils % (Manual) (45-73) % Band Neutrophils % (3-5) % Lymphocytes % (Manual) (20-40) % Monocytes % (Manual) (2-11) % Metamyelocytes % % Myelocytes % % Promyelocytes % % Abs Neuts (Manual) (2.2-7.9) X10*3/uL Lymphocytes # (Manual) (0.6-4.8) X10*3/uL Monocytes # (Manual) (0.0-1.2) X10*3/uL Metamyelocytes # X10*3/uL Myelocytes # X10*/uL Promyelocytes # X10*3/uL Toxic Granulation Toxic Vacuolation Platelet Estimate (NORMAL) Plt Morphology Comment RBC Morphology Ovalocytes Acanthocytes (Spur) PT (10.8-13.0) SEC INR (0.9-1.1) APTT (24.1-38.0) SEC Sodium (135-145) mmol/L Potassium (3.3-5.1) mmol/l Chloride (96-108) mmol/L Carbon Dioxide (22-29) mmol/L Anion Gap (12-20) BUN (9-16) mg/dL Creatinine (0.5-1.4) mg/dL Estim Creat Clear Calc Estimated GFR Random Glucose (60-115) mg/dL Lactic Acid 1.0 (0.5-2.0) mmol/L Calcium (8.4-10.2) mg/dL Total Bilirubin (0.0-1.0) mg/dL AST (5-37) U/L ALT (0-40) U/L Alkaline Phosphatase (39-117) U/L Total Creatine Kinase (38-174) U/L Troponin I High Sens 15.8 16.0 (<3.5-35.0) ng/L Total Protein (6.5-8.0) g/dL Albumin (3.5-5.0) g/dL Urine Color Urine Appearance Urine pH (5.0-8.0) Ur Specific [place] (1.005-1.025) Urine Protein (NEG-TRACE) MG/DL Urine Glucose (UA) (NEG) MG/DL Urine Ketones (NEG) MG/DL Urine Blood (NEG) Urine Nitrite (NEG) Ur Leukocyte Esterase (NEG) Urine RBC (0) /HPF Urine WBC (0-4) /HPF Ur Squamous Epith Cells /LPF Urine Bacteria /LPF Urine Osmolality (373-1093) mosm/kg Ur Random Sodium mmol/L Urine Creatinine mg/dL 08/02/20 08/02/20 08/02/20 Range/Units 18:01 18:01 18:01 WBC (4.8-10.8) X10*3/uL RBC (4.60-5.80) X10*6/uL Hgb (14.0-18.0) g/dl Hct (42-52) % MCV (80-98) fL MCH (27.0-33.0) pg MCHC (31.0-36.0) g/dl RDW (11.0-16.0) % Plt Count (160-400) X10*3/uL MPV (9.4-12.4) fL Immature Gran % (Auto) Neut % (Auto) Lymph % (Auto) [place] % (Auto) Eos % (Auto) Baso % (Auto) Lymph # (Auto) [place] # (Auto) Eos # (Auto) Baso # (Auto) Abs Immat Gran (auto) Absolute Neuts (auto) Absolute Nucleated RBC (0.0-0.012) X10*3/uL Nucleated RBC % (auto) (0.0-0.2) /100WBC Neutrophils % (Manual) (45-73) % Band Neutrophils % (3-5) % Lymphocytes % (Manual) (20-40) % Monocytes % (Manual) (2-11) % Metamyelocytes % % Myelocytes % % Promyelocytes % % Abs Neuts (Manual) (2.2-7.9) X10*3/uL Lymphocytes # (Manual) (0.6-4.8) X10*3/uL Monocytes # (Manual) (0.0-1.2) X10*3/uL Metamyelocytes # X10*3/uL Myelocytes # X10*/uL Promyelocytes # X10*3/uL Toxic Granulation Toxic Vacuolation Platelet Estimate (NORMAL) Plt Morphology Comment RBC Morphology Ovalocytes Acanthocytes (Spur) PT (10.8-13.0) SEC INR (0.9-1.1) APTT (24.1-38.0) SEC Sodium (135-145) mmol/L Potassium (3.3-5.1) mmol/l Chloride (96-108) mmol/L Carbon Dioxide (22-29) mmol/L Anion Gap (12-20) BUN (9-16) mg/dL Creatinine (0.5-1.4) mg/dL Estim Creat Clear Calc Estimated GFR Random Glucose (60-115) mg/dL Lactic Acid (0.5-2.0) mmol/L Calcium (8.4-10.2) mg/dL Total Bilirubin (0.0-1.0) mg/dL AST (5-37) U/L ALT (0-40) U/L Alkaline Phosphatase (39-117) U/L Total Creatine Kinase (38-174) U/L Troponin I High Sens (<3.5-35.0) ng/L Total Protein (6.5-8.0) g/dL Albumin (3.5-5.0) g/dL Urine Color YELLOW Urine Appearance CLEAR Urine pH 5.5 (5.0-8.0) Ur Specific [place] 1.020 (1.005-1.025) Urine Protein TRACE (NEG-TRACE) MG/DL Urine Glucose (UA) NEG (NEG) MG/DL Urine Ketones NEG (NEG) MG/DL Urine Blood 2+ H (NEG) Urine Nitrite NEG (NEG) Ur Leukocyte Esterase NEG (NEG) Urine RBC 1-4 (0) /HPF Urine WBC 1-4 (0-4) /HPF Ur Squamous Epith Cells TRACE /LPF Urine Bacteria NONE /LPF Urine Osmolality (373-1093) mosm/kg Ur Random Sodium 57.0 mmol/L Urine Creatinine 170.80 mg/dL 08/02/20 Range/Units 18:01 WBC (4.8-10.8) X10*3/uL RBC (4.60-5.80) X10*6/uL Hgb (14.0-18.0) g/dl Hct (42-52) % MCV (80-98) fL MCH (27.0-33.0) pg MCHC (31.0-36.0) g/dl RDW (11.0-16.0) % Plt Count (160-400) X10*3/uL MPV (9.4-12.4) fL Immature Gran % (Auto) Neut % (Auto) Lymph % (Auto) [place] % (Auto) Eos % (Auto) Baso % (Auto) Lymph # (Auto) [place] # (Auto) Eos # (Auto) Baso # (Auto) Abs Immat Gran (auto) Absolute Neuts (auto) Absolute Nucleated RBC (0.0-0.012) X10*3/uL Nucleated RBC % (auto) (0.0-0.2) /100WBC Neutrophils % (Manual) (45-73) % Band Neutrophils % (3-5) % Lymphocytes % (Manual) (20-40) % Monocytes % (Manual) (2-11) % Metamyelocytes % % Myelocytes % % Promyelocytes % % Abs Neuts (Manual) (2.2-7.9) X10*3/uL Lymphocytes # (Manual) (0.6-4.8) X10*3/uL Monocytes # (Manual) (0.0-1.2) X10*3/uL Metamyelocytes # X10*3/uL Myelocytes # X10*/uL Promyelocytes # X10*3/uL Toxic Granulation Toxic Vacuolation Platelet Estimate (NORMAL) Plt Morphology Comment RBC Morphology Ovalocytes Acanthocytes (Spur) PT (10.8-13.0) SEC INR (0.9-1.1) APTT (24.1-38.0) SEC Sodium (135-145) mmol/L Potassium (3.3-5.1) mmol/l Chloride (96-108) mmol/L Carbon Dioxide (22-29) mmol/L Anion Gap (12-20) BUN (9-16) mg/dL Creatinine (0.5-1.4) mg/dL Estim Creat Clear Calc Estimated GFR Random Glucose (60-115) mg/dL Lactic Acid (0.5-2.0) mmol/L Calcium (8.4-10.2) mg/dL Total Bilirubin (0.0-1.0) mg/dL AST (5-37) U/L ALT (0-40) U/L Alkaline Phosphatase (39-117) U/L Total Creatine Kinase (38-174) U/L Troponin I High Sens (<3.5-35.0) ng/L Total Protein (6.5-8.0) g/dL Albumin (3.5-5.0) g/dL Urine Color Urine Appearance Urine pH (5.0-8.0) Ur Specific [place] (1.005-1.025) Urine Protein (NEG-TRACE) MG/DL Urine Glucose (UA) (NEG) MG/DL Urine Ketones (NEG) MG/DL Urine Blood (NEG) Urine Nitrite (NEG) Ur Leukocyte Esterase (NEG) Urine RBC (0) /HPF Urine WBC (0-4) /HPF Ur Squamous Epith Cells /LPF Urine Bacteria /LPF Urine Osmolality 448 (373-1093) mosm/kg Ur Random Sodium mmol/L Urine Creatinine mg/dL Imaging Data Head CT: Radiologist's impression: [address] Scan ReportSigned Patient: Chong SantaMR#: [id number]: 8Acct:[id number]/Sex: 70 / MADM Date: 08/02/20Loc: [address] Dr: Ordering Physician: Bharath Deluca NP Date of Service: 08/02/20 Procedure(s): CT head/brain wo con Accession Number(s): [id number] cc: Bharath Deluca [employer]STRUCTOR~ EXAMINATION: CT HEAD WITHOUT CONTRAST CLINICAL INFORMATION: Weakness. History prostate cancer. Fall, trauma. COMPARISON: Radionuclide whole body bone scan 07/23/2020 TECHNIQUE: Contiguous axial imaging was performed from the skull base to vertex without intravenous administration of contrast. This CT examination was performed using dose optimization techniques as appropriate, variously including the following: *Automated exposure control *Adjustment of mA and/or kV according to patient size (this includes techniques or standardized protocols for targeted exams where dose is matched to indication/reason for exam; i.e. extremities or head) *Use of iterative reconstruction technique DLP: 770 mGy-cm FINDINGS: There is no intracranial hemorrhage, hematoma, or extra-axial fluid collection. The ventricles are normal in size. There is no hydrocephalus, edema, or mass effect. The blum-white matter differentiation appears symmetric. There is no visible acute territorial infarct or mass lesion. The calvarium appears intact. No calvarial sclerotic lesion or destructive process. There is no pneumocephalus or orbital emphysema. There are no air-fluid levels in the sinuses, middle ears, or pneumatized mastoid air cells. Small polyp or retention cyst present left maxillary sinus. CT/CT head/brain wo con IMPRESSION: No acute intracranial abnormality. Dictated By:WILBER MUNOZ MDSigned By:<Electronically signed by WILBER MUNOZ MD in [place]>08/02/20 1651 DD/ 1519TD/TT: Manager Language: CLUVER Chest/abdomen pelvis CT: Radiologist's impression: [address] [id number] Scan ReportSigned Patient: Chong SantaMR#: [id number]: 8Acct:[id number]/Sex: 70 / MADM Date: 08/02/20Loc: [facility].EDAttending Dr: Ordering Physician: Bharath Deluca NP Date of Service: 08/02/20 Procedure(s): CT abdomen pelvis wo con Accession Number(s): [id number] cc: Bharath Deluca [employer] BUSINESS [employer]STRUCTOR~ EXAMINATION: CT CHEST WITHOUT CONTRAST CT ABDOMEN AND PELVIS WITHOUT CONTRAST CLINICAL INFORMATION: Weakness. Fall. Acute renal failure. Prostate cancer with metastatic disease. On chemotherapy. COMPARISON: Bone scan 07/23/2020. CT 05/30/2020. TECHNIQUE: Multidetector volumetric imaging was performed through the chest, abdomen and pelvis without contrast. Sagittal and coronal reformatted images were obtained on the technologist's workstation. Axial MIP volume rendering provided. This CT examination was performed using dose optimization techniques as appropriate, variously including the following: *Automated exposure control *Adjustment of mA and/or kV according to patient size (this includes techniques or standardized protocols for targeted exams where dose is matched to indication/reason for exam; i.e. extremities or head) *Use of iterative reconstruction technique DLP: 1238 mGy-cm. FINDINGS: CHEST: Lungs: The central airways are patent. There is bibasilar atelectasis. No dense consolidation. No pleural effusion or pneumothorax. No suspicious pulmonary nodule. Mediastinum: The heart is of normal size. There is no pericardial effusion. Coronary artery calcifications are present. No hilar or mediastinal lymphadenopathy. Chest Wall/Axilla: No lymphadenopathy. No chest wall mass. ABDOMEN/PELVIS: Liver, Gallbladder, Biliary Tree: The liver is normal in size, shape, and attenuation. No focal hepatic lesion or biliary ductal dilatation is present. The gallbladder is unremarkable with no evidence of radiopaque gallstones, gallbladder wall thickening, or pericholecystic inflammatory changes. Pancreas: Unremarkable. Spleen: Unremarkable. Adrenal Glands: Unremarkable. Kidneys and Ureters: Solitary left kidney. Mild left perinephric stranding is similar to prior. No renal mass. No hydronephrosis or nephrolithiasis. A ureteral stent is in place extending from the renal pelvis into the bladder. Bladder: The bladder is partially distended without wall thickening. Gastrointestinal Tract: The stomach is unremarkable. Normal caliber small bowel. There is no obstruction. No colonic wall thickening or acute inflammatory change. No free air. No free fluid. The appendix is unremarkable. Abdominal Wall: Fat-containing bilateral inguinal hernias, left greater than right. Lymphovascular Structures: Lymph nodes: There is a left iliac chain node which measures 1.3 cm on series 11 image 83. This is unchanged from prior. Significant decrease in prominence of multiple right pelvic nodes. For instance, there is a node measuring 1.6 cm on series 11 image 80 which previously measured decrease in size of a left iliac node, currently measuring 1.1 cm on image 67, previously measuring 1.7 cm. Vascular: Normal caliber aorta with moderate atherosclerotic calcification. 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 This extends to the right of midline and measures 1.5 cm, unchanged. This is at the expected location of the right renal artery. Pelvic Viscera: Normal size of the prostate with decreased prominence from prior. The seminal vesicles are unremarkable. OSSEOUS STRUCTURES: Multilevel degenerative changes are seen throughout the spine. Multilevel vacuum disc phenomenon. Vertebral body heights are maintained. The sternum is intact. No acute rib fracture. There are multiple healed posterior and lateral left-sided rib fractures noted. Chronic irregularity of the anterior right eighth costochondral junction. Partial fusion of the sacroiliac joints. No pelvic fracture. Degenerative changes noted in the hips. No suspicious osseous lesions. CT/CT abdomen pelvis wo con IMPRESSION: 1. No acute traumatic finding of the chest, abdomen, or pelvis. 2. Decreased prominence of the prostate when compared to prior. 3. Multiple pelvic lymph nodes are decreased in size when compared to prior. 4. Left ureteral stent in place. 5. No suspicious findings within the chest. Dictated By:SUSHMA DUPREE MDSigned By:<Electronically signed by SUSHMA DUPREE MD in [place]>08/02/20 1654 DD/ 1519TD/TT: Manager Language: EN[place] ECG Data Interpretation: Sinus rhythm with Premature atrial complexes ST & T wave abnormality, consider inferolateral ischemia Abnormal ECG No previous ECGs available Discharge Plan Discharge Clinical Impression: Leucocytosis, ADELA (acute kidney injury) Patient Disposition: Admitted As Inpatient
[2020-08-02 15:58] LABS: Hematocrit 43.6 % (42-52); Hemoglobin 14.6 g/dl (14.0-18.0); Mean Corpuscular HGB Conc 33.5 g/dl (31.0-36.0); Mean Corpuscular Hemoglobin 29.9 pg (27.0-33.0); Mean Corpuscular Volume 89.2 fL (80-98); Mean Platelet Volume 12.2 fL (9.4-12.4); Platelet Count 134 X10*3/uL (160-400); Red Blood Count 4.89 X10*6/uL (4.60-5.80)
[2020-08-02 16:04] LABS: Prothrombin Time 11.8 SEC (10.8-13.0)
[2020-08-02 16:06] LABS: WBC ABN SCTR FOR CBC 1
[2020-08-02 16:07] LABS: Partial Thromboplastin Time 26.8 SEC (24.1-38.0)
[2020-08-02 16:08] LABS: White Blood Count 41.3 X10*3/uL (4.8-10.8)
[2020-08-02 16:24] LABS: Band Neutrophils Percent 12 % (3-5); Lymphocytes Absolute Manual 2.9 X10*3/uL (0.6-4.8); Lymphocytes Percent Manual 7 % (20-40); Metamyelocytes Absolute 2.5 X10*3/uL; Metamyelocytes Percent 6 %; Monocytes Absolute Manual 0.8 X10*3/uL (0.0-1.2); Monocytes Percent Manual 2 % (2-11); Myelocytes Absolute 0.8 X10*/uL; Myelocytes Percent 2 %; Neutrophils Absolute Manual 33.9 X10*3/uL (2.2-7.9); Neutrophils Percent Manual 70 % (45-73); Promyelocytes Absolute 0.4 X10*3/uL; Promyelocytes Percent 1 %
[2020-08-02 16:25] LABS: Platelet Estimate SLIGHTLY DECREASED (NORMAL); Platelet Morphology Comment NORMAL
[2020-08-02 16:26] LABS: Acanthocytes 1+; RBC Morphology NOTED; Toxic Granulation PRESENT; Toxic Vacuolation PRESENT
[2020-08-02 16:27] LABS: Ovalocytes 1+
[2020-08-02 16:29] LABS: Troponin-I High Sensitivity 15.8 ng/L (<3.5-35.0)
[2020-08-02] MEDS: 0.9 % Sodium Chloride 500 ML IV (16:32)
[2020-08-02 16:44] LABS: Alanine Aminotransferase 29 U/L (0-40); Albumin Level 3.6 g/dL (3.5-5.0); Alkaline Phosphatase 214 U/L (39-117); Anion Gap 19 (12-20); Aspartate Amino Transferase 26 U/L (5-37); Blood Urea Nitrogen 97 mg/dL (9-16); Calcium 8.2 mg/dL (8.4-10.2); Carbon Dioxide 22 mmol/L (22-29); Chloride 98 mmol/L (96-108); Creatinine Clr Calc Pharmacy 16.8; Estimated Glomerular Filt Rate 13; Glucose Random 193 mg/dL (60-115); Potassium 5.1 mmol/l (3.3-5.1); Sodium 134 mmol/L (135-145); Total Protein 5.9 g/dL (6.5-8.0)
[2020-08-02] MEDS: 0.9 % Sodium Chloride 1,000 ML 999 ML IV ×2 (17:06→17:47)
[2020-08-02] MEDS: Piperacillin Sodium/Tazobactam 3.375 GM in 0.9 % Sodium Chloride 50 ML IV (17:06)
[2020-08-02 18:12] LABS: Glucose Urine UA NEG (NEG); Leukocyte Esterase Urine NEG (NEG); Nitrite Urine NEG (NEG); PH 5.5 (5.0-8.0); Urine Blood 2+ (NEG); Urine Ketones NEG (NEG); Urine Protein TRACE MG/DL (NEG-TRACE)
--- NOTE | 2020-08-02 18:13 | PM.IMHP ---
History of Present Illness Date of Service: 08/02/20 Chief Complaint: Poor oral intake, throat pain. 70 year male with BPH, bladder cancer, Diabetes, HTN, HLD, s/p right nephrectomy 22 year ago as donnor for his son,CKD baseline Cr of 1.6. He follows up with Dr. Alvarez for bladder cancer and had chemo on 07/17/20, afterwards also received Neulasta: Subsequently patient came to the hospital because he was feeling generalized weak, decreased p.o. intake, nausea or vomiting, and some loose stools for 2-3 days duration as per the patient, he said he was generally weak and not eating well . He also also complaining of some throat pain. Accept from that denies any new abdominal pain or any urinary complaints or fever or chills or shortness of breath or cough or headache or any new weakness or numbness. Review of Systems Review of Systems: Accept from that denies any new abdominal pain or any urinary complaints or fever or chills or shortness of breath or cough or headache or any new weakness or numbness. Has throat pain Nausea and vomiting, also loose stools. Norm pains or any rashes. [facility] Medical History BPH (benign prostatic hyperplasia) Bunion of great toe CKD (chronic kidney disease) stage 2, GFR 60-89 ml/min Diabetes Diabetic neuropathy Diabetic retinopathy GERD (gastroesophageal reflux disease) Hematuria High cholesterol History of nephrectomy, unilateral HTN (hypertension) Kidney stone on right side Malignant neoplasm JUAN MANUEL (obstructive sleep apnea) Plantar fasciitis, bilateral Prostate CA Family History Mother Breast cancer Sister Breast cancer Father Prostate cancer Heart disease Sister Diabetes Brother Heart disease Brother Heart disease Surgical History H/O cystoscopy History of nephrectomy, left Social History Household Members: None Housing: Apartment Do you presently have visiting nurse or other home services: No Alcohol intake: never Smoking Status: Never smoker Second Hand Smoke Exposure: No Use of substances other than those prescribed or required for medical reasons: No Substance Use Type: Crack/Cocaine and Former Substance User Currently Displaying Signs/Symptoms of Drug Intoxication Withdrawal: No Have you been hit, kicked, punched, or otherwise hurt by someone within the past year? If so, by whom?: No Do you feel safe in your current relationship?: Yes Is there a partner from a previous relationship who is making you feel unsafe now?: No Are you made to feel afraid or neglected: No Advance Directives: No Advance Directives Information Provided: No Do you have thoughts of harming others: None Do you have a plan to hurt others: No Plan Recently lost weight without trying: No service: No Current occupational status: unemployed and disabled Meds Allergies Allergy/AdvReac Type Severity Reaction Status Date / Time No Known Allergies Allergy Verified 05/23/20 11:08 Home Medications Medication Instructions Recorded Confirmed Type amlodipine 10 mg tablet 10 mg PO DAILY 04/18/20 08/02/20 History atorvastatin 80 mg tablet 80 mg PO BEDTIME 04/18/20 08/02/20 History carvedilol 25 mg tablet 25 mg PO BID 04/18/20 08/02/20 History lisinopril 40 mg tablet 40 mg PO DAILY 04/18/20 08/02/20 History omeprazole 20 mg capsule,delayed 20 mg PO DAILY@0630 04/18/20 08/02/20 History release pen needle, diabetic 31 gauge x #1200 ea 04/18/20 04/18/20 History /16 spironolactone 25 mg tablet 25 mg PO DAILY 04/18/20 08/02/20 History tramadol 50 mg tablet 100 mg PO Q12H PRN 04/18/20 08/02/20 History Centrum Silver Men 1 tab PO DAILY 05/30/20 08/02/20 History insulin aspart U-100 [Novolog See Protocol SUBCUT TIDAC 05/30/20 08/02/20 History Flexpen U-100 Insulin] lancets 33 gauge #100 ea 06/08/20 History insulin glargine 80 unit SUBCUT DAILY 08/02/20 08/02/20 History Physical Exam Vital Signs and Narrative: Vital Signs: Last Vital Signs Temp 97.7 F 08/02/20 16:29 Pulse 64 08/02/20 16:29 Resp 16 08/02/20 16:29 BP 104/63 08/02/20 16:29 Pulse Ox 94 08/02/20 16:29 Body Mass Index 31.9 Physical exam: Constitutional: Noted acute distress, feels weak, somewhat anxious also. HEENT: Eye: Eyes anicteric, no discharge Neck supple mouth: has oral thursh. Cvs: rrr, [id number] , no murmur res: clear to auscultation ,no rhonchii or wheezing abd: no rebound or guarding ,nt, bs present. ext pulses present , no cyanosis neuro: axo3 , nonfocal. Results Labs CBC and Chem 7: 08/03/20 09:15 08/04/20 07:59 Labs: Laboratory Results - last 24 hr 08/02/20 08/02/20 08/02/20 15:40 15:40 15:40 MCV 89.2 MCH 29.9 MCHC 33.5 RDW 13.0 Plt Count 134 L MPV 12.2 Immature Gran % (Auto) Cancelled Neut % (Auto) Cancelled Lymph % (Auto) Cancelled [place] % (Auto) Cancelled Eos % (Auto) Cancelled Baso % (Auto) Cancelled Lymph # (Auto) Cancelled [place] # (Auto) Cancelled Eos # (Auto) Cancelled Baso # (Auto) Cancelled Abs Immat Gran (auto) Cancelled Absolute Neuts (auto) Cancelled Absolute Nucleated RBC 0.000 Nucleated RBC % (auto) 0.0 Neutrophils % (Manual) 70 Band Neutrophils % 12 H Lymphocytes % (Manual) 7 L Monocytes % (Manual) 2 Metamyelocytes % 6 Myelocytes % 2 Promyelocytes % 1 Abs Neuts (Manual) 33.9 H Lymphocytes # (Manual) 2.9 Monocytes # (Manual) 0.8 Metamyelocytes # 2.5 Myelocytes # 0.8 Promyelocytes # 0.4 Toxic Granulation PRESENT Toxic Vacuolation PRESENT Platelet Estimate SLIGHTLY DECREASED Plt Morphology Comment NORMAL RBC Morphology NOTED Ovalocytes 1+ Acanthocytes (Spur) 1+ PT 11.8 INR 1.0 APTT 26.8 D Anion Gap 19 Estim Creat Clear Calc 16.8 Estimated GFR 13 Random Glucose 193 H Lactic Acid Calcium 8.2 L Total Bilirubin 1.0 AST 26 ALT 29 Alkaline Phosphatase 214 H Total Creatine Kinase 418 H Troponin I High Sens Total Protein 5.9 L Albumin 3.6 08/02/20 08/02/20 08/02/20 15:53 17:12 17:12 MCV MCH MCHC RDW Plt Count MPV Immature Gran % (Auto) Neut % (Auto) Lymph % (Auto) [place] % (Auto) Eos % (Auto) Baso % (Auto) Lymph # (Auto) [place] # (Auto) Eos # (Auto) Baso # (Auto) Abs Immat Gran (auto) Absolute Neuts (auto) Absolute Nucleated RBC Nucleated RBC % (auto) Neutrophils % (Manual) Band Neutrophils % Lymphocytes % (Manual) Monocytes % (Manual) Metamyelocytes % Myelocytes % Promyelocytes % Abs Neuts (Manual) Lymphocytes # (Manual) Monocytes # (Manual) Metamyelocytes # Myelocytes # Promyelocytes # Toxic Granulation Toxic Vacuolation Platelet Estimate Plt Morphology Comment RBC Morphology Ovalocytes Acanthocytes (Spur) PT INR APTT Anion Gap Estim Creat Clear Calc Estimated GFR Random Glucose Lactic Acid 1.0 Calcium Total Bilirubin AST ALT Alkaline Phosphatase Total Creatine Kinase Troponin I High Sens 15.8 16.0 Total Protein Albumin Imaging Radiologist's Impressions: Impressions Chest CT 08/02/20 15:18 IMPRESSION: 1. No acute traumatic finding of the chest, abdomen, or pelvis. 2. Decreased prominence of the prostate when compared to prior. 3. Multiple pelvic lymph nodes are decreased in size when compared to prior. 4. Left ureteral stent in place. 5. No suspicious findings within the chest. Abdomen/Pelvis CT 08/02/20 15:19 IMPRESSION: 1. No acute traumatic finding of the chest, abdomen, or pelvis. 2. Decreased prominence of the prostate when compared to prior. 3. Multiple pelvic lymph nodes are decreased in size when compared to prior. 4. Left ureteral stent in place. 5. No suspicious findings within the chest. Head CT 08/02/20 15:19 IMPRESSION: No acute intracranial abnormality. Assessment and Plan (1) ADELA (acute kidney injury): Status: Acute (2) Leucocytosis: Status: Acute 1. ADELA: ADELA probably related to poor oral intake, throat pain as well as blood pressure medications Started on Magic mouthwash, nystatin swish and swallow, received 2.5 liter fluids Blood pressure still on the softer side probably related to dehydration and blood pressure medications. 2.htn: Hold are blood pressure medication for today Hydrate IV fluid 3. dm: Sugars are in 190s range Due to poor oral intake will hold Lantus Continue fingerstick with sliding scale coverage. Hold coverage below 200 mg/dL. 4. Leukocytosis: Probably related to Neulasta No fever But will check UA, blood culture, stool studies. Also added nystatin for oral thrush. dvt prophylax
[2020-08-02 18:15] LABS: Appearance Urine CLEAR; Color Urine YELLOW
[2020-08-02 18:33] LABS: Osmolality Urine 448 mosm/kg (373-1093)
[2020-08-02 18:39] LABS: Squamous Epithelial Cell Urine TRACE /LPF
[2020-08-02] MEDS: Mag&Al/Sim/Diphenhyd/Lidocaine 10 ML ORAL.SUSP PO (18:41)
[2020-08-02 18:54] LABS: Osmolality, Serum 312 mosm/kg (281-305)
[2020-08-02] MEDS: 0.9 % Sodium Chloride 1,000 ML 80 ML IVCONT (19:29)
[2020-08-02] MEDS: Heparin Sodium,Porcine 5,000 UNIT/ML VIAL 5000 UNIT SUBCUT (19:33)
[2020-08-02] MEDS: Nystatin Oral Susp 500,000 UNIT/5 ML ORAL.SUSP 500000 UNIT PO (19:35)
[2020-08-02 22:02] LABS: Glucose, Whole Blood 94 mg/dL (60-115)
[2020-08-02] MEDS: Famotidine/PF 20 MG/2 ML VIAL IVPUSH (22:42)
[2020-08-02 23:34] LABS: COVID-19 Test Negative (Negative); IDNOW Serial# 9DD0AD1C
[2020-08-03] VITALS (8 sets, daily range): BP systolic 103–139; BP diastolic 50–73; PULSE 60–67; RESP 13–18; TEMP 36.2–37.1; O2SAT 91–95
[2020-08-03] MEDS: 0.9 % Sodium Chloride Flush 3 ML SYRINGE IVFLUSH (03:07)
[2020-08-03] MEDS: Nystatin Oral Susp 500,000 UNIT/5 ML ORAL.SUSP 500000 UNIT PO ×3 (06:10→17:59)
[2020-08-03] MEDS: Mag&Al/Sim/Diphenhyd/Lidocaine 10 ML ORAL.SUSP PO ×3 (06:10→17:59)
[2020-08-03] MEDS: 0.9 % Sodium Chloride 1,000 ML 80 ML IVCONT ×2 (08:00→19:25)
[2020-08-03 08:55] LABS: Glucose, Whole Blood 117 mg/dL (60-115)
[2020-08-03] MEDS: Famotidine/PF 20 MG/2 ML VIAL IVPUSH ×2 (09:06→21:04)
[2020-08-03 09:44] LABS: Hematocrit 40.9 % (42-52); Hemoglobin 13.5 g/dl (14.0-18.0); Mean Corpuscular Hemoglobin 30.1 pg (27.0-33.0); Mean Corpuscular Volume 91.1 fL (80-98); Mean Platelet Volume 11.8 fL (9.4-12.4); NRBC Pct Auto 0.1 /100WBC (0.0-0.2); Platelet Count 135 X10*3/uL (160-400); Red Blood Count 4.49 X10*6/uL (4.60-5.80); Red Cell Distribution Width 13.2 % (11.0-16.0)
[2020-08-03 09:49] LABS: White Blood Count 38.5 X10*3/uL (4.8-10.8)
[2020-08-03 10:06] LABS: Anion Gap 14 (12-20); Blood Urea Nitrogen 72 mg/dL (9-16); Carbon Dioxide 22 mmol/L (22-29); Chloride 107 mmol/L (96-108); Creatinine Clr Calc Pharmacy 27.1; Estimated Glomerular Filt Rate 23; Glucose Random 124 mg/dL (60-115); Potassium 4.5 mmol/l (3.3-5.1); Sodium 138 mmol/L (135-145)
[2020-08-03] MEDS: Heparin Sodium,Porcine 5,000 UNIT/ML VIAL 5000 UNIT SUBCUT ×2 (10:11→17:59)
[2020-08-03 10:14] LABS: Calcium 7.9 mg/dL (8.4-10.2)
--- NOTE | 2020-08-03 10:38 | PM.CNNEP ---
History of Present Illness Reason for Consult Consult date: 08/02/20 Chief Complaint Chief complaint: ADELA History of Present Illness Narrative: 70 y/o adm dehydration/por po intake recently started chemo for prostate CA w metxz to GBladder and now notted ADELA on CKD hence the current consnsultation. He dneius GH/dysuria. Feels gen weak and decr UOP past several dyas. POor po intajke and GI sxms past several days. Reagarding renal history s/p L Neprhrectomy over 20 yrs ago as donation to his his son with ESRD; CKD 3 ( SCr 1.5-2.0) prostate CA with lorna to GB got 1st round chemo this month, s/p stnet in L ureter per PT approx 1 moth ago ( Dr Leiva) and unclear what issue was at that time. CT today shows no hydro but stent in L ureter n0oted. Review of Systems Review of Systems Constitutional: No Weight loss, No Fever, No Chills, No Night Sweats ENT/Mouth: No Hearing loss, No Ear Pain, No Nasal Congestion, No Sinus Pain, No Hoarseness, No sore throat, No Rhinorrhea, No Swallowing Difficulty Eyes: No Eye Pain, No Swelling, No Redness, No Foreign Body, No Discharge, No Vision Changes Cardiovascular: No Chest Pain, No SOB, No Dyspnea on Exertion, No Orthopnea, No Edema, No Palpitations Respiratory: No Cough, No Sputum, No Wheezing, No Smoke Exposure, No Dyspnea Gastrointestinal: As noted in HPI, No abdominal Pain, No Hematochezia, No Melena Genitourinary:No Dysuria, No Urinary Frequency, No Hematuria, No Urinary Incontinence, No Urgency, No Flank Pain, No Urinary Flow Changes, No Hesitancy Musculoskeletal: No joint pain, No Myalgias, No Joint Swelling Skin: No Skin Lesions, No rash Neuro: + Weakness, No Numbness, No Paresthesias, No Loss of Consciousness, No Dizziness, No Headache Psych: No Anxiety/Panic, No Depression, No SI/HI/AH/VH, No Social Issues Heme/Lymph: No Bruising, No Bleeding,No Lymphadenopathy Endocrine: No Polyuria, No Polydipsia, No Temperature Intolerance Yes all other systems are reviewed and are negative PMFSH Past Medical History Medical History BPH (benign prostatic hyperplasia) Bunion of great toe CKD (chronic kidney disease) stage 2, GFR 60-89 ml/min Diabetes Diabetic neuropathy Diabetic retinopathy GERD (gastroesophageal reflux disease) Hematuria High cholesterol History of nephrectomy, unilateral HTN (hypertension) Kidney stone on right side Malignant neoplasm JUAN MANUEL (obstructive sleep apnea) Plantar fasciitis, bilateral Prostate CA Family History Family History Mother Breast cancer Sister Breast cancer Father Prostate cancer Heart disease Sister Diabetes Brother Heart disease Brother Heart disease Surgical History Surgical History H/O cystoscopy History of nephrectomy, left Social History Social History Household Members: None Housing: Apartment Alcohol intake: never Smoking Status: Never smoker Second Hand Smoke Exposure: No Substance Use Type: Crack/Cocaine and Former Substance User Advance Directives: No Advance Directives Information Provided: No service: No Current occupational status: unemployed and disabled Meds Allergies Allergy/AdvReac Type Severity Reaction Status Date / Time No Known Allergies Allergy Verified 05/23/20 11:08 Home Medications Medication Instructions Recorded Confirmed Type amlodipine 10 mg tablet 10 mg PO DAILY 04/18/20 08/02/20 History atorvastatin 80 mg tablet 80 mg PO BEDTIME 04/18/20 08/02/20 History carvedilol 25 mg tablet 25 mg PO BID 04/18/20 08/02/20 History lisinopril 40 mg tablet 40 mg PO DAILY 04/18/20 08/02/20 History omeprazole 20 mg capsule,delayed 20 mg PO DAILY@0630 04/18/20 08/02/20 History release pen needle, diabetic 31 gauge x #1200 ea 04/18/20 04/18/20 History 5/16 spironolactone 25 mg tablet 25 mg PO DAILY 04/18/20 08/02/20 History tramadol 50 mg tablet 100 mg PO Q12H PRN 04/18/20 08/02/20 History Centrum Silver Men 1 tab PO DAILY 05/30/20 08/02/20 History insulin aspart U-100 [Novolog See Protocol SUBCUT TIDAC 05/30/20 08/02/20 History Flexpen U-100 Insulin] lancets 33 gauge #100 ea 06/08/20 History insulin glargine 80 unit SUBCUT DAILY 08/02/20 08/02/20 History Physical Exam Vital Signs: Last Vital Signs Temp 98.7 F 08/03/20 06:13 Pulse 60 08/03/20 06:13 Resp 13 08/03/20 06:13 BP 112/58 L 08/03/20 06:13 Pulse Ox 91 L 08/03/20 06:13 Body Mass Index 31.9 Const General: cooperative Neck Neck: Yes no JVD Extrem General: Yes no pedal edema Results Lab Results Result Diagrams: 08/03/20 09:15 08/03/20 09:15 Lab results: Chemistry 08/02/20 08/03/20 15:40 09:15 Sodium 134 L 138 Potassium 5.1 4.5 Carbon Dioxide 22 22 BUN 97 H* 72 H Creatinine 4.44 H* 2.75 H Calcium 8.2 L 7.9 L Hematology 08/02/20 08/03/20 15:40 09:15 WBC 41.3 H* 38.5 H* Hgb 14.6 13.5 L Plt Count 134 L 135 L Urinalysis 08/02/20 18:01 Urine Color YELLOW Urine Appearance CLEAR Urine pH 5.5 Ur Specific [place] 1.020 Urine Protein TRACE Urine Glucose (UA) NEG Urine Ketones NEG Urine Blood 2+ H Urine Nitrite NEG Ur Leukocyte Esterase NEG Urine RBC 1-4 Urine WBC 1-4 Ur Squamous Epith Cells TRACE Urine Studies 08/02/20 08/02/20 18:01 18:01 Urine Osmolality 448 Urine Creatinine 170.80 Assessment and Plan (1) ADELA (acute kidney injury): Status: Acute (2) Leucocytosis: Status: Acute 1. ADELA: most c/w renal hypoperfsuion from dehydration and be9ing on BASSEM-I; with IVF suspect grad renal improvement; check FENa and urine studies and if angeloyuliana hilljd does no t imorve w IVF and hopding asce-i then furhter eval sero/urine studies and urol eval fo r possibl Obs of solitarty kindey despite lavck o f hydro on CT.....he does have stent in L uretier ( per PT pplaced approx 1 month ago...? resasons) 2. CKD 3: bsl SCr 1.5-2.0; suspect related to having 1 kidney and hyperfiltration over the past 20+ years; Obs uropathy from prostate CA in past 3, SOlitary kidney and Obs requiring white....? etiol 4. Prostate CA with Lorna: now on chemo REC: IVF, urine studies and repeat renal labs on am; additional testin gi f SCr does imporve ovenrite
--- NOTE | 2020-08-03 11:07 | P.PNNP_ITS ---
Subjective Subjective Date of Service: 08/03/20 Principal diagnosis: ADELA Interval history: Seen and exmained. Events noted Overall feelng better UOP 850 past 12hrs with white Physical Exam Vital Signs: Vital Signs: Last Vital Signs Temp 98.7 F 08/03/20 06:13 Pulse 64 08/03/20 10:57 Resp 18 08/03/20 10:57 BP 110/50 L 08/03/20 10:57 Pulse Ox 91 L 08/03/20 06:13 Body Mass Index 31.9 Const: General: cooperative Neck: Neck: Yes no JVD Extrem: General: Yes no pedal edema Objective Data Labs CBC & Chem 7: 08/03/20 09:15 08/03/20 09:15 Labs: Laboratory Results - last 24 hr 08/02/20 08/02/20 08/02/20 15:40 15:40 15:40 WBC 41.3 H* RBC 4.89 Hgb 14.6 Hct 43.6 MCV 89.2 MCH 29.9 MCHC 33.5 RDW 13.0 Plt Count 134 L MPV 12.2 Immature Gran % (Auto) Cancelled Neut % (Auto) Cancelled Lymph % (Auto) Cancelled [place] % (Auto) Cancelled Eos % (Auto) Cancelled Baso % (Auto) Cancelled Lymph # (Auto) Cancelled [place] # (Auto) Cancelled Eos # (Auto) Cancelled Baso # (Auto) Cancelled Abs Immat Gran (auto) Cancelled Absolute Neuts (auto) Cancelled Absolute Nucleated RBC 0.000 Nucleated RBC % (auto) 0.0 Neutrophils % (Manual) 70 Band Neutrophils % 12 H Lymphocytes % (Manual) 7 L Monocytes % (Manual) 2 Metamyelocytes % 6 Myelocytes % 2 Promyelocytes % 1 Abs Neuts (Manual) 33.9 H Lymphocytes # (Manual) 2.9 Monocytes # (Manual) 0.8 Metamyelocytes # 2.5 Myelocytes # 0.8 Promyelocytes # 0.4 Toxic Granulation PRESENT Toxic Vacuolation PRESENT Platelet Estimate SLIGHTLY DECREASED Plt Morphology Comment NORMAL RBC Morphology NOTED Ovalocytes 1+ Acanthocytes (Spur) 1+ PT 11.8 INR 1.0 APTT 26.8 D Sodium 134 L Potassium 5.1 Chloride 98 Carbon Dioxide 22 Anion Gap 19 BUN 97 H* Creatinine 4.44 H* Estim Creat Clear Calc 16.8 Estimated GFR 13 POC Glucose Random Glucose 193 H Osmolality Lactic Acid Calcium 8.2 L Total Bilirubin 1.0 AST 26 ALT 29 Alkaline Phosphatase 214 H Total Creatine Kinase 418 H Troponin I High Sens Total Protein 5.9 L Albumin 3.6 Urine Color Urine Appearance Urine pH Ur Specific [place] Urine Protein Urine Glucose (UA) Urine Ketones Urine Blood Urine Nitrite Ur Leukocyte Esterase Urine RBC Urine WBC Ur Squamous Epith Cells Urine Bacteria Urine Osmolality Ur Random Sodium Urine Creatinine COVID-19 (LISHA) COVID-19 [employer] 08/02/20 08/02/20 08/02/20 15:53 17:12 17:12 WBC RBC Hgb Hct MCV MCH MCHC RDW Plt Count MPV Immature Gran % (Auto) Neut % (Auto) Lymph % (Auto) [place] % (Auto) Eos % (Auto) Baso % (Auto) Lymph # (Auto) [place] # (Auto) Eos # (Auto) Baso # (Auto) Abs Immat Gran (auto) Absolute Neuts (auto) Absolute Nucleated RBC Nucleated RBC % (auto) Neutrophils % (Manual) Band Neutrophils % Lymphocytes % (Manual) Monocytes % (Manual) Metamyelocytes % Myelocytes % Promyelocytes % Abs Neuts (Manual) Lymphocytes # (Manual) Monocytes # (Manual) Metamyelocytes # Myelocytes # Promyelocytes # Toxic Granulation Toxic Vacuolation Platelet Estimate Plt Morphology Comment RBC Morphology Ovalocytes Acanthocytes (Spur) PT INR APTT Sodium Potassium Chloride Carbon Dioxide Anion Gap BUN Creatinine Estim Creat Clear Calc Estimated GFR POC Glucose Random Glucose Osmolality Lactic Acid 1.0 Calcium Total Bilirubin AST ALT Alkaline Phosphatase Total Creatine Kinase Troponin I High Sens 15.8 16.0 Total Protein Albumin Urine Color Urine Appearance Urine pH Ur Specific [place] Urine Protein Urine Glucose (UA) Urine Ketones Urine Blood Urine Nitrite Ur Leukocyte Esterase Urine RBC Urine WBC Ur Squamous Epith Cells Urine Bacteria Urine Osmolality Ur Random Sodium Urine Creatinine COVID-19 (LISHA) COVID-19 [employer] 08/02/20 08/02/20 08/02/20 18:01 18:01 18:01 WBC RBC Hgb Hct MCV MCH MCHC RDW Plt Count MPV Immature Gran % (Auto) Neut % (Auto) Lymph % (Auto) [place] % (Auto) Eos % (Auto) Baso % (Auto) Lymph # (Auto) [place] # (Auto) Eos # (Auto) Baso # (Auto) Abs Immat Gran (auto) Absolute Neuts (auto) Absolute Nucleated RBC Nucleated RBC % (auto) Neutrophils % (Manual) Band Neutrophils % Lymphocytes % (Manual) Monocytes % (Manual) Metamyelocytes % Myelocytes % Promyelocytes % Abs Neuts (Manual) Lymphocytes # (Manual) Monocytes # (Manual) Metamyelocytes # Myelocytes # Promyelocytes # Toxic Granulation Toxic Vacuolation Platelet Estimate Plt Morphology Comment RBC Morphology Ovalocytes Acanthocytes (Spur) PT INR APTT Sodium Potassium Chloride Carbon Dioxide Anion Gap BUN Creatinine Estim Creat Clear Calc Estimated GFR POC Glucose Random Glucose Osmolality Lactic Acid Calcium Total Bilirubin AST ALT Alkaline Phosphatase Total Creatine Kinase Troponin I High Sens Total Protein Albumin Urine Color YELLOW Urine Appearance CLEAR Urine pH 5.5 Ur Specific [place] 1.020 Urine Protein TRACE Urine Glucose (UA) NEG Urine Ketones NEG Urine Blood 2+ H Urine Nitrite NEG Ur Leukocyte Esterase NEG Urine RBC 1-4 Urine WBC 1-4 Ur Squamous Epith Cells TRACE Urine Bacteria NONE Urine Osmolality Ur Random Sodium 57.0 Urine Creatinine 170.80 COVID-19 ([facility]ISHA) COVID-19 Clin Com 08/02/20 08/02/20 08/02/20 18:01 18:20 18:49 WBC RBC Hgb Hct MCV MCH MCHC RDW Plt Count MPV Immature Gran % (Auto) Neut % (Auto) Lymph % (Auto) [place] % (Auto) Eos % (Auto) Baso % (Auto) Lymph # (Auto) [place] # (Auto) Eos # (Auto) Baso # (Auto) Abs Immat Gran (auto) Absolute Neuts (auto) Absolute Nucleated RBC Nucleated RBC % (auto) Neutrophils % (Manual) Band Neutrophils % Lymphocytes % (Manual) Monocytes % (Manual) Metamyelocytes % Myelocytes % Promyelocytes % Abs Neuts (Manual) Lymphocytes # (Manual) Monocytes # (Manual) Metamyelocytes # Myelocytes # Promyelocytes # Toxic Granulation Toxic Vacuolation Platelet Estimate Plt Morphology Comment RBC Morphology Ovalocytes Acanthocytes (Spur) PT INR APTT Sodium Potassium Chloride Carbon Dioxide Anion Gap BUN Creatinine Estim Creat Clear Calc Estimated GFR POC Glucose Random Glucose Osmolality 312 H Lactic Acid Calcium Total Bilirubin AST ALT Alkaline Phosphatase Total Creatine Kinase Troponin I High Sens Total Protein Albumin Urine Color Urine Appearance Urine pH Ur Specific [place] Urine Protein Urine Glucose (UA) Urine Ketones Urine Blood Urine Nitrite Ur Leukocyte Esterase Urine RBC Urine WBC Ur Squamous Epith Cells Urine Bacteria Urine Osmolality 448 Ur Random Sodium Urine Creatinine COVID-19 (LISHA) Negative COVID-19 Clin Com See Note 08/02/20 08/03/20 08/03/20 21:57 08:51 09:15 WBC 38.5 H* RBC 4.49 L Hgb 13.5 L Hct 40.9 L MCV 91.1 MCH 30.1 MCHC 33.0 RDW 13.2 Plt Count 135 L MPV 11.8 Immature Gran % (Auto) Neut % (Auto) Lymph % (Auto) [place] % (Auto) Eos % (Auto) Baso % (Auto) Lymph # (Auto) [place] # (Auto) Eos # (Auto) Baso # (Auto) Abs Immat Gran (auto) Absolute Neuts (auto) Absolute Nucleated RBC 0.020 H Nucleated RBC % (auto) 0.1 Neutrophils % (Manual) Band Neutrophils % Lymphocytes % (Manual) Monocytes % (Manual) Metamyelocytes % Myelocytes % Promyelocytes % Abs Neuts (Manual) Lymphocytes # (Manual) Monocytes # (Manual) Metamyelocytes # Myelocytes # Promyelocytes # Toxic Granulation Toxic Vacuolation Platelet Estimate Plt Morphology Comment RBC Morphology Ovalocytes Acanthocytes (Spur) PT INR APTT Sodium Potassium Chloride Carbon Dioxide Anion Gap BUN Creatinine Estim Creat Clear Calc Estimated GFR POC Glucose 94 117 H Random Glucose Osmolality Lactic Acid Calcium Total Bilirubin AST ALT Alkaline Phosphatase Total Creatine Kinase Troponin I High Sens Total Protein Albumin Urine Color Urine Appearance Urine pH Ur Specific [place] Urine Protein Urine Glucose (UA) Urine Ketones Urine Blood Urine Nitrite Ur Leukocyte Esterase Urine RBC Urine WBC Ur Squamous Epith Cells Urine Bacteria Urine Osmolality Ur Random Sodium Urine Creatinine COVID-19 (LISHA) COVID-19 Clin Com 08/03/20 09:15 WBC RBC Hgb Hct MCV MCH MCHC RDW Plt Count MPV Immature Gran % (Auto) Neut % (Auto) Lymph % (Auto) [place] % (Auto) Eos % (Auto) Baso % (Auto) Lymph # (Auto) [place] # (Auto) Eos # (Auto) Baso # (Auto) Abs Immat Gran (auto) Absolute Neuts (auto) Absolute Nucleated RBC Nucleated RBC % (auto) Neutrophils % (Manual) Band Neutrophils % Lymphocytes % (Manual) Monocytes % (Manual) Metamyelocytes % Myelocytes % Promyelocytes % Abs Neuts (Manual) Lymphocytes # (Manual) Monocytes # (Manual) Metamyelocytes # Myelocytes # Promyelocytes # Toxic Granulation Toxic Vacuolation Platelet Estimate Plt Morphology Comment RBC Morphology Ovalocytes Acanthocytes (Spur) PT INR APTT Sodium 138 Potassium 4.5 Chloride 107 Carbon Dioxide 22 Anion Gap 14 BUN 72 H Creatinine 2.75 H Estim Creat Clear Calc 27.1 Estimated GFR 23 POC Glucose Random Glucose 124 H D Osmolality Lactic Acid Calcium 7.9 L Total Bilirubin AST ALT Alkaline Phosphatase Total Creatine Kinase Troponin I High Sens Total Protein Albumin Urine Color Urine Appearance Urine pH Ur Specific [place] Urine Protein Urine Glucose (UA) Urine Ketones Urine Blood Urine Nitrite Ur Leukocyte Esterase Urine RBC Urine WBC Ur Squamous Epith Cells Urine Bacteria Urine Osmolality Ur Random Sodium Urine Creatinine COVID-19 ([facility]IS[facility]) COVID-19 Clin Com Assessment & Plan Assessment and plan (1) ADELA (acute kidney injury): Status: Acute (2) Leucocytosis: Status: Acute Assessment and Plan: 1. ADELA: decr SCr with IVF c/w renal hypoperfsuioon from dehydration and BASSEM-I vs RICHARDSON ( as he he has white) 2. 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 etiol 4. Prostate CA with [place]: now on chemo REC: cont IVF, track renal func; d/c white today unless urol feels differently; hold BASSEM-I Time Spent With Patient Time: Total time spent is greater than 50% in coordination of care (as documented) at patient's floor/unit and/or counseling patient:
[2020-08-03 11:32] LABS: Glucose, Whole Blood 111 mg/dL (60-115)
--- NOTE | 2020-08-03 12:41 | P.CNHO_ITS ---
Subjective - Subjective Chief complaint: Generalized weakness, mouth sores and diarrhea Patient: known to practice within the last 3 years Consult date: 08/03/20 Requesting Physician: Dr. Ibanez Primary Care Provider: Malgorzata Diallo MD Medical Summary: Diagnosis: Adenocarcinoma of prostate Patient presented with hematuria, CT abdomen/pelvis in May 2020 showed solitary left kidney, abnormal soft tissue at the base of the bladder, questionable for bladder mass versus prostate mass. Prostate gland is enlarged and protruding into base of bladder, enlarged lymph nodes in pelvis. Bulky right iliac lymph node approximately 2.1x 3.5 cm and left iliac node 1.6 cm. The prostate nodular and the seminal vesicles plump. On 06/04/2020 patient underwent TURBT, resection of left ureteric orifice, left retrograde and left stent placement. Pathology-Adenocarcinoma of the prostate (T3 N0 M0, [place] score 4+5, Grade Group 5, PSA at Diagnosis 30) Procedure: Transurethral resection Tumor site: Not specified. Histologic type: High-grade prostatic adenocarcinoma with neuroendocrine differe ntiation. Histologic grade: Adrian score 5+4=9 (Grade group 5) Muscularis propria: Present. Extent of invasion: Tumor invades muscularis propria. Lymphovascular invasion: Not identified. TNM Classification of Malignant Tumours (TNM) - T3a. 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 He started chemotherapy recently. He is also on endocrine therapy. He developed symptoms of weakness, nausea, diarrhea 2 days after he received treatment. He did not call the office although this was told to him multiple times. His girlfriend call when he fell a couple of times on the day of admission. He says he got dizzy and weak. He has not been eating or drinking much in the last several days. He denied fever or chills. No cough or shortness of breath. No abdominal pain. No hematochezi a/ melena. Review of Systems - Constitutional Reports as per HPI, Reports no additional constitutional complaints - ENT Reports dysphagia, Reports mouth lesions - Cardiovascular Reports no additional cardiovascular complaints PMFSH Medical History: Medical History (Last Reviewed 08/02/20 @ 18:19 by Ingrid Ibanez MD) BPH (benign prostatic hyperplasia) Bunion of great toe CKD (chronic kidney disease) stage 2, GFR 60-89 ml/min Diabetes Diabetic neuropathy Diabetic retinopathy GERD (gastroesophageal reflux disease) Hematuria High cholesterol History of nephrectomy, unilateral HTN (hypertension) Kidney stone on right side Malignant neoplasm JUAN MANUEL (obstructive sleep apnea) Plantar fasciitis, bilateral Prostate CA Family History: Family History (Last Reviewed 08/02/20 @ 18:19 by Ingrid Ibanez MD) Mother Breast cancer Sister Breast cancer Father Prostate cancer Heart disease Sister Diabetes Brother Heart disease Brother Heart disease Surgical History: Surgical History (Last Reviewed 08/02/20 @ 18:19 by Ingrid Ibanez MD) H/O cystoscopy History of nephrectomy, left Social History: Social History (Last Reviewed 08/02/20 @ 18:19 by Ingrid Ibanez MD) Living Situation History: Household Members: None Housing: Apartment Do you presently have visiting nurse or other home services: No Alcohol History: Alcohol intake: never Alcohol History Details: Alcohol intake frequency: a few times a week Alcohol type: beer Tobacco History: Smoking Status: Never smoker Second Hand Smoke Exposure: No Substance Use History: Use of substances other than those prescribed or required for medical reasons : No Substance Use Type: Crack/Cocaine Substance Use Type: Former Substance User Domestic Abuse History: Have you been hit, kicked, punched, or otherwise hurt by someone within the past year? If so, by whom?: No Do you feel safe in your current relationship?: Yes Is there a partner from a previous relationship who is making you feel unsafe now?: No Are you made to feel afraid or neglected: No Advance Directives: Advance Directives: No Advance Directives Information Provided: No Homicidal Assessment: Do you have thoughts of harming others: None Do you have a plan to hurt others: No Plan Nutrition Assessment: Recently lost weight without trying: No Eating poorly because of decreased appetite: No Nutrition Risks: Difficulty swallowing Poor oral hygiene: No Poor oral hygiene comment: oral thrush r/t chemo Occupation Assessmet: service: No Current occupational status: unemployed Current occupational status: disabled Smoking status: Never smoker Home Medications and Allergies Current Medications: Current Medications Generic Name Dose Route Start Last Admin Trade Name Freq PRN Reason Stop Dose Admin Famotidine 20 mg 08/02/20 21:00 08/03/20 09:06 Famotidine/Pf 20 Mg/2 Ml Vial IVPUSH 20 mg BID BLAZE Administration Heparin Sodium (Porcine) 5,000 unit 08/02/20 18:45 08/03/20 10:11 Heparin Sodium,Porcine 5,000 Unit/Ml Vial SUBCUT 5,000 unit Q8H BLAZE Administration Sodium Chloride 1,000 mls @ 80 mls/hr 08/02/20 18:15 08/03/20 08:00 Ns IVCONT 80 mls/hr .[id number] BLAZE Administration Insulin Human Lispro 0 unit 08/02/20 21:00 08/03/20 09:00 Insulin Lispro 100 Unit/Ml 3 Ml Vial SUBCUT Not Given QIDACHS [facility] Protocol Lidocaine/Diphenhydr/Alum/Mg/Simeth 10 ml 08/02/20 18:15 08/03/20 12:24 Mag&Al/Sim/Diphenhyd/Lidocaine 10 Ml Oral.Susp PO 10 ml Q6H [facility] Administration Protocol Nystatin 500,000 unit 08/02/20 18:15 08/03/20 12:24 Nystatin Oral Susp 500,000 Unit/5 Ml Oral.Susp PO 500,000 unit Q6H [facility] Administration Protocol Pharmacy Consult 1 each 08/02/20 16:43 Consult Rx Perform Med Rec MISCELLANE ONCE PRN Consult order Sodium Chloride 3 ml 08/03/20 00:00 08/03/20 09:16 0.9 % Sodium Chloride Flush 3 Ml Syringe IVFLUSH Not Given QSHIFT [facility] Home Medications Medication Instructions Recorded Confirmed Type amlodipine 10 mg tablet 10 mg PO DAILY 04/18/20 08/02/20 History atorvastatin 80 mg tablet 80 mg PO BEDTIME 04/18/20 08/02/20 History carvedilol 25 mg tablet 25 mg PO BID 04/18/20 08/02/20 History lisinopril 40 mg tablet 40 mg PO DAILY 04/18/20 08/02/20 History omeprazole 20 mg capsule,delayed 20 mg PO DAILY@0630 04/18/20 08/02/20 History release pen needle, diabetic 31 gauge x #1200 ea 04/18/20 04/18/20 History 11/18 spironolactone 25 mg tablet 25 mg PO DAILY 04/18/20 08/02/20 History tramadol 50 mg tablet 100 mg PO Q12H PRN 04/18/20 08/02/20 History Centrum Silver Men 1 tab PO DAILY 05/30/20 08/02/20 History insulin aspart U-100 [Novolog See Protocol SUBCUT TIDAC 05/30/20 08/02/20 History Flexpen U-100 Insulin] lancets 33 gauge #100 ea 06/08/20 History insulin glargine 80 unit SUBCUT DAILY 08/02/20 08/02/20 History Allergies Allergy/AdvReac Type Severity Reaction Status Date / Time No Known Allergies Allergy Verified 05/23/20 11:08 Physical Exam Vital signs: Vital Signs Temp 97.8 F 08/03/20 12:00 Pulse 62 08/03/20 12:00 Resp 18 08/03/20 12:00 BP 118/62 08/03/20 12:00 Pulse Ox 95 08/03/20 12:00 Intake & Output 08/02/20 08/03/20 08/03/20 18:59 06:59 18:59 Intake Total 1550 / 2630 1080 / 2630 1000 / 1000 Output Total 850 / 850 Balance 1550 / 1780 230 / 1780 1000 / 1000 Urine Output (Average ml/kg/hr) 0.74 0.74 Intake: Intake, Oral Amount 80 / 80 Intake, IV Amount 1550 / 2550 1000 / 2550 1000 / 1000 0.9 % Sodium Chloride 1,000 ml 1000 / 2000 1000 / 2000 @ 999 mls/hr IV .Q1H1M ONE Rx#: [id number] 0.9 % Sodium Chloride 500 ml @ 500 / 500 500 mls/hr IV .Q1H STA Rx#: [id number] Piperacillin Sodium/Tazobactam 50 / 50 3.375 gm In 0.9 % Sodium Chloride 50 ml @ 100 mls/hr IV ONCE ONE Rx#:[id number] 0.9 % Sodium Chloride 1,000 ml 1000 / 1000 @ 80 mls/hr IVCONT .[id number] BLAZE Rx#:[id number] Output: Output, Urine Amount (Catheter) 850 / 850 Coude 850 / 850 Other: Diabetic Snack % Eaten 100 Weight 95.254 kg Weight 95.254 kg - Constitutional Present: no acute distress, obese - Routine HEENT Exam Head: Present: normal inspection Eye: Present: EOMI, PERRL - Detailed ENT Exam Oropharynx: Present: lesions, white patches - Routine Neck Exam Present: supple. Absent: lymphadenopathy - Routine Respiratory Exam Present: CTAB - Routine Cardiovascular Exam Cardiovascular: Present: S1, S2 - Routine Abdominal Exam Present: normal bowel sounds, soft - Routine Extremities Exam Absent: calf tenderness, pedal edema - Routine Neurological Exam Present: alert - Routine Psychiatric Exam Present: normal affect Hem/Onc Consult Result - Labs CBC & Chem 7: 08/03/20 09:15 08/03/20 09:15 Labs: Short CBC 08/02/20 08/03/20 Range/Units 15:40 09:15 WBC 41.3 H* 38.5 H* (4.8-10.8) X10*3/uL Hgb 14.6 13.5 L (14.0-18.0) g/dl Hct 43.6 40.9 L (42-52) % Plt Count 134 L 135 L (160-400) X10*3/uL BMP 08/02/20 08/03/20 15:40 09:15 Sodium 134 L 138 Potassium 5.1 4.5 Chloride 98 107 Carbon Dioxide 22 22 BUN 97 H* 72 H Creatinine 4.44 H* 2.75 H Calcium 8.2 L 7.9 L Cardiac Enzymes 08/02/20 Range/Units 15:40 Total Creatine Kinase 418 H (38-174) U/L Liver Function 08/02/20 Range/Units 15:40 Total Bilirubin 1.0 (0.0-1.0) mg/dL AST 26 (5-37) U/L ALT 29 (0-40) U/L Alkaline Phosphatase 214 H (39-117) U/L Albumin 3.6 (3.5-5.0) g/dL Urine 08/02/20 Range/Units 18:01 Urine Color YELLOW Urine Appearance CLEAR Urine pH 5.5 (5.0-8.0) Ur Specific [place] 1.020 (1.005-1.025) Urine Protein TRACE (NEG-TRACE) MG/DL Urine Glucose (UA) NEG (NEG) MG/DL - Imaging CT scan - abdomen Radiologist's impression: ITS Impressions Chest CT 08/02/20 15:18 IMPRESSION: 1. No acute traumatic finding of the chest, abdomen, or pelvis. 2. Decreased prominence of the prostate when compared to prior. 3. Multiple pelvic lymph nodes are decreased in size when compared to prior. 4. Left ureteral stent in place. 5. No suspicious findings within the chest. Abdomen/Pelvis CT 08/02/20 15:19 IMPRESSION: 1. No acute traumatic finding of the chest, abdomen, or pelvis. 2. Decreased prominence of the prostate when compared to prior. 3. Multiple pelvic lymph nodes are decreased in size when compared to prior. 4. Left ureteral stent in place. 5. No suspicious findings within the chest. Head CT 08/02/20 15:19 IMPRESSION: No acute intracranial abnormality. Assessment and Plan (1) Prostate cancer Status: Acute This is a 70-year-old male with take adenocarcinoma with focal neuroendocrine differentiation. He underwent TURBT on 05/18/2020 and stent placement for solitary left kidney with hydronephrosis. Patient received his 1st dose of chemotherapy with Taxotere on 07/25/2020. A few days later he developed nausea, mouth sores and diarrhea. He was not able to eat or drink much. He did not call the office until his significant other called our office yesterday. He was found to be in acute renal insufficiency and referred to the emergency department for further evaluation and management. He has developed mild mucositis, agree with Magic mouthwash and nystatin. His leukocytosis is secondary to Neulasta. He is not febrile and does not give symptoms of infection. His kidney functions are improving with IV hydration. Appreciate input from Nephrology and hospitalist. Thank you.
--- NOTE | 2020-08-03 13:10 | HO.PM.IMPN ---
Subjective Subjective Date of Service: 08/03/20 Interval History: adela, leukocytosis. Review of Systems Patient feeling slightly better -denies any chest pain or shortness of breath or abdominal pain or fever or chills or any urinary complaints. Physical Exam Vital Signs: Vital Signs: Last Vital Signs Temp 97.8 F 08/03/20 12:00 Pulse 62 08/03/20 12:00 Resp 18 08/03/20 12:00 BP 118/62 08/03/20 12:00 Pulse Ox 95 08/03/20 12:00 Body Mass Index 31.9 Physical exam: Constitutional: Not in acute distress. HEENT: Eyes: No discharge , anicteric. Cvs: [id number], [id number] , no murmur res: clear to auscultation ,no rhonchii or wheezing abd: no rebound or guarding ,nt, bs present. ext pulses present , no cyanosis neuro: axo3 , nonfocal. Objective Data Current Medications Generic Name Dose Route Start Last Admin Trade Name Freq PRN Reason Stop Dose Admin Famotidine 20 mg 08/02/20 21:00 08/03/20 09:06 Famotidine/Pf 20 Mg/2 Ml Vial IVPUSH 20 mg BID BLAZE Administration Heparin Sodium (Porcine) 5,000 unit 08/02/20 18:45 08/03/20 10:11 Heparin Sodium,Porcine 5,000 Unit/Ml Vial SUBCUT 5,000 unit Q8H BLAZE Administration Sodium Chloride 1,000 mls @ 80 mls/hr 08/02/20 18:15 08/03/20 08:00 Ns IVCONT 80 mls/hr .[id number] BLAZE Administration Insulin Human Lispro 0 unit 08/02/20 21:00 08/03/20 12:53 Insulin Lispro 100 Unit/Ml 3 Ml Vial SUBCUT Not Given QIDACHS [facility] Protocol Lidocaine/Diphenhydr/Alum/Mg/Simeth 10 ml 08/02/20 18:15 08/03/20 12:24 Mag&Al/Sim/Diphenhyd/Lidocaine 10 Ml Oral.Susp PO 10 ml Q6H BLAZE Administration Protocol Nystatin 500,000 unit 08/02/20 18:15 08/03/20 12:24 Nystatin Oral Susp 500,000 Unit/5 Ml Oral.Susp PO 500,000 unit Q6H BLAZE Administration Protocol Pharmacy Consult 1 each 08/02/20 16:43 Consult Rx Perform Med Rec MISCELLANE ONCE PRN Consult order Sodium Chloride 3 ml 08/03/20 00:00 08/03/20 09:16 0.9 % Sodium Chloride Flush 3 Ml Syringe IVFLUSH Not Given QSHIFT [facility] Labs CBC & Chem 7: 08/03/20 09:15 08/03/20 09:15 Assessment and Plan (1) Leucocytosis: Status: Acute (2) ADELA (acute kidney injury): Status: Acute (3) Gross hematuria: Status: Resolved (4) BPH w urinary obs/LUTS: Status: Acute (5) Bladder cancer: Status: Acute (6) Renal failure: Status: Resolved Assessment and Plan: 1. ADELA: ADELA probably related to poor oral intake, throat pain as well as blood pressure medications Started on Magic mouthwash, nystatin swish and swallow, received 2.5 liter fluidsin ed Creatinine improving slowly to 2.75 Urology evaluation considering patient has solitary kidney and stent Nephro evaluation pending 2.htn: Hold are blood pressure medication for today Hydrate IV fluid ns@80 ml/hr 3. dm: Sugars are in 110s range Due to poor oral intake will hold Lantus Continue fingerstick with adjusted sliding scale coverage. Hold coverage below 200 mg/dL. 4. Leukocytosis:improving Probably related to Neulasta No fever UA neg, blood culture, stool studies still needs to send once stool available. nystatin/magic mouthwash for oral thrush.
[2020-08-03 16:40] LABS: Glucose, Whole Blood 212 mg/dL (60-115)
[2020-08-03] MEDS: Insulin Lispro 100 UNIT/ML 3 ML VIAL SUBCUT ×2 (16:47→21:05)
[2020-08-03 18:59] LABS: CDIFF Ag Negative (Negative); CDIFF Internal ctrl Dots and bkg OK (V); CDiff Toxin Negative (Negative)
[2020-08-03 19:18] LABS: Leukocytes Stool Qualitative NEGATIVE (NEGATIVE)
[2020-08-03 20:36] LABS: Glucose, Whole Blood 234 mg/dL (60-115)
[2020-08-04] MEDS: Mag&Al/Sim/Diphenhyd/Lidocaine 10 ML ORAL.SUSP PO ×5 (00:10→23:41)
[2020-08-04] MEDS: Nystatin Oral Susp 500,000 UNIT/5 ML ORAL.SUSP 500000 UNIT PO ×5 (00:10→23:40)
[2020-08-04] MEDS: Heparin Sodium,Porcine 5,000 UNIT/ML VIAL 5000 UNIT SUBCUT ×3 (03:18→18:08)
[2020-08-04 04:00] VITALS: BP 135/62; PULSE 60; RESP 18; TEMP 36.2; O2SAT 93
[2020-08-04 08:00] VITALS: BP 156/80; PULSE 62; RESP 17; TEMP 36; O2SAT 95
[2020-08-04 08:31] LABS: Glucose, Whole Blood 137 mg/dL (60-115)
[2020-08-04 08:38] LABS: Anion Gap 13 (12-20); Blood Urea Nitrogen 44 mg/dL (9-16); Calcium 7.7 mg/dL (8.4-10.2); Carbon Dioxide 21 mmol/L (22-29); Chloride 112 mmol/L (96-108); Creatinine Clr Calc Pharmacy 41.2; Estimated Glomerular Filt Rate 37; Glucose Random 141 mg/dL (60-115); Potassium 4.7 mmol/L (3.3-5.1); Sodium 141 mmol/L (135-145)
--- NOTE | 2020-08-04 09:45 | PM.PNNEP ---
Subjective Subjective Date of Service: 08/04/20 Principal diagnosis: ADELA Interval history: seen and examined no complaints Physical Exam Vital Signs: Vital Signs: Last Vital Signs Temp 96.8 F 08/04/20 08:00 Pulse 62 08/04/20 08:00 Resp 17 08/04/20 08:00 BP 156/80 H 08/04/20 08:00 Pulse Ox 95 08/04/20 08:00 Body Mass Index 31.9 Const: General: no acute distress HENMT: Head: Yes normocephalic and Yes atraumatic Neck: Neck: Yes supple Resp: Auscultation: diminished lung sounds Cardio: Heart sounds: S1 normal heart sound present and S2 normal heart sound present GI: Palpation (GI): Soft to palpation and nontender Extrem: General: No edema Objective Data Labs CBC & Chem 7: 08/03/20 09:15 08/04/20 07:59 Labs: Laboratory Results - last 24 hr 08/03/20 08/03/20 08/03/20 09:15 09:15 11:08 WBC 38.5 H* RBC 4.49 L Hgb 13.5 L Hct 40.9 L MCV 91.1 MCH 30.1 MCHC 33.0 RDW 13.2 Plt Count 135 L MPV 11.8 Absolute Nucleated RBC 0.020 H Nucleated RBC % (auto) 0.1 Sodium 138 Potassium 4.5 Chloride 107 Carbon Dioxide 22 Anion Gap 14 BUN 72 H Creatinine 2.75 H Estim Creat Clear Calc 27.1 Estimated GFR 23 POC Glucose 111 Random Glucose 124 H D Calcium 7.9 L Stool Leukocytes, Qual C. difficile Toxin A&B C. difficile Antigen C. difficile Interpret 08/03/20 08/03/20 08/03/20 16:27 17:57 17:57 WBC RBC Hgb Hct MCV MCH MCHC RDW Plt Count MPV Absolute Nucleated RBC Nucleated RBC % (auto) Sodium Potassium Chloride Carbon Dioxide Anion Gap BUN Creatinine Estim Creat Clear Calc Estimated GFR POC Glucose 212 H Random Glucose Calcium Stool Leukocytes, Qual NEGATIVE C. difficile Toxin A&B Negative C. difficile Antigen Negative C. difficile Interpret SEE NOTE 08/03/20 08/04/20 08/04/20 20:32 07:59 08:22 WBC RBC Hgb Hct MCV MCH MCHC RDW Plt Count MPV Absolute Nucleated RBC Nucleated RBC % (auto) Sodium 141 Potassium 4.7 Chloride 112 H Carbon Dioxide 21 L Anion Gap 13 BUN 44 H Creatinine 1.81 H Estim Creat Clear Calc 41.2 Estimated GFR 37 POC Glucose 234 H 137 H Random Glucose 141 H Calcium 7.7 L Stool Leukocytes, Qual C. difficile Toxin A&B C. difficile Antigen C. difficile Interpret Microbiology Microbiology Results: Microbiology 08/02/20 15:53 Blood - Venous Blood Culture - Preliminary No growth after 24 hours. 08/03/20 17:57 Stool Stool Culture - Preliminary Normal so far. 08/02/20 15:40 Blood - Venous Blood Culture - Preliminary No growth after 24 hours. Assessment & Plan Assessment and plan (1) ADELA (acute kidney injury): Status: Acute (2) Solitary kidney: Status: Acute Assessment and Plan: Scr better ADELA due to renal hypoperfusion dehydration and BASSEM-I disrupted autoregulation of kidneys against the back drop of solitary kidney suspect underlying CKD due to nephron loss and hyperfitration stress baseline serum creatinine 1.5-2.0 mg/dl REC IVF will need to resume ACEi eventually follow kidney function and electrolytes Time Spent With Patient Time: Total time spent is greater than 50% in coordination of care (as documented) at patient's floor/unit and/or counseling patient:
[2020-08-04] MEDS: Famotidine/PF 20 MG/2 ML VIAL IVPUSH ×2 (11:04→21:05)
[2020-08-04 11:44] LABS: Glucose, Whole Blood 205 mg/dL (60-115)
[2020-08-04] MEDS: Insulin Lispro 100 UNIT/ML 3 ML VIAL SUBCUT ×3 (12:47→21:05)
--- NOTE | 2020-08-04 13:35 | P.PNIM_ITS ---
Subjective Subjective Date of Service: 08/04/20 Interval History: adela , leucocytosis Review of Systems Patient denies any chest pain or abdominal pain or fever or chills or nausea or vomiting or any urinary complaint Oral intake slowly improving he said he could able to eat this morning. Physical Exam Vital Signs: Vital Signs: Last Vital Signs Temp 96.8 F 08/04/20 08:00 Pulse 62 08/04/20 08:00 Resp 17 08/04/20 08:00 BP 156/80 H 08/04/20 08:00 Pulse Ox 95 08/04/20 08:00 Body Mass Index 31.9 Physical exam: Constitutional: Not in acute distress Eyes: Anicteric, no discharge Neck is supple Cvs: [id number], [id number] , no murmur res: clear to auscultation ,no rhonchii or wheezing abd: no rebound or guarding ,nt, bs present. ext pulses present , no cyanosis neuro: axo3 , nonfocal. Objective Data Current Medications Generic Name Dose Route Start Last Admin Trade Name Ephraimq PRN Reason Stop Dose Admin Famotidine 20 mg 08/02/20 21:00 08/04/20 11:04 Famotidine/Pf 20 Mg/2 Ml Vial IVPUSH 20 mg BID BLAZE Administration Heparin Sodium (Porcine) 5,000 unit 08/02/20 18:45 08/04/20 11:04 Heparin Sodium,Porcine 5,000 Unit/Ml Vial SUBCUT 5,000 unit Q8H BLAZE Administration Sodium Chloride 1,000 mls @ 80 mls/hr 08/02/20 18:15 08/04/20 11:07 Ns IVCONT Infused .[id number] BLAZE Infusion Insulin Human Lispro 0 unit 08/02/20 21:00 08/04/20 12:47 Insulin Lispro 100 Unit/Ml 3 Ml Vial SUBCUT 2 unit QIDACHS BLAZE Administration Protocol Lidocaine/Diphenhydr/Alum/Mg/Simeth 10 ml 08/02/20 18:15 08/04/20 12:47 Mag&Al/Sim/Diphenhyd/Lidocaine 10 Ml Oral.Susp PO 10 ml Q6H BLAZE Administration Protocol Nystatin 500,000 unit 08/02/20 18:15 08/04/20 12:47 Nystatin Oral Susp 500,000 Unit/5 Ml Oral.Susp PO 500,000 unit Q6H BLAZE Administration Protocol Pharmacy Consult 1 each 08/02/20 16:43 Consult Rx Perform Med Rec MISCELLANE ONCE PRN Consult order Sodium Chloride 3 ml 08/03/20 00:00 08/04/20 11:04 0.9 % Sodium Chloride Flush 3 Ml Syringe IVFLUSH Not Given QSHIFT [facility] Labs CBC & Chem 7: 08/03/20 09:15 08/04/20 07:59 Microbiology Microbiology Results: Microbiology 08/02/20 15:53 Blood - Venous Blood Culture - Preliminary No growth after 24 hours. 08/03/20 17:57 Stool Stool Culture - Preliminary Normal so far. 08/02/20 15:40 Blood - Venous Blood Culture - Preliminary No growth after 24 hours. Assessment and Plan (1) ADELA (acute kidney injury): Status: Acute Assessment and Plan: 1. ADELA: ADELA probably related to poor oral intake, throat pain as well as blood pressure medications cr seems near baseline range -1.8 nephro -may need add back losartan. 2.htn: Hold are blood pressure medication for today stop fluids 3. dm: fs 110-200's range . Due to poor oral intake will hold Lantus Continue fingerstick with adjusted sliding scale coverage. Hold coverage below 200 mg/dL. 4. Leukocytosis:improving Probably related to Neulasta No fever UA neg, blood culture@neg 24hr , stool studies : wbc , c diff neg . nystatin/magic mouthwash for oral thrush.
--- NOTE | 2020-08-04 14:26 | P.CNHO_ITS ---
Subjective - Subjective Chief complaint: dehydratin and acute renal failure Consult date: 08/04/20 Primary Care Provider: Malgorzata Diallo MD HPI - Consult Narrative Narrative: He is feeling better and the B UN is much better at 44. Review of Systems - Constitutional Reports anorexia, Reports fever(s) - ENT Reports other - Cardiovascular Reports excessive sweating - Respiratory Reports cough - Gastrointestinal Reports bloating - Genitourinary Genitourinary: Reports other - Musculoskeletal Reports body aches - Integumentary/Breasts Skin/Breast: Reports other - Neurologic Reports system reviewed and no additional complaints, except as documented - Psychiatric Reports change in appetite - Endocrine Reports other Oncology Screenings - ECOG Performance Status ECOG Performance Status: 3 - G8 Geriatric Assessment Change in food intake over past 3 months: Severe decrease in food intake Weight loss during the last 3 months: Does not know Mobility: Bed or chair bound Neuropsychological problems: No psychological problems Body Mass Index: 23 or greater Patient takes > 3 prescription drugs per day: Yes Patient's assessment of health status compared to others: Not as good Patient age: < 80 G8 Score: 8 G8 Risk Level: High risk for early functional decline and reduced survival. - Khorana VTE Risk Cancer Type: Other Pre-chemo platelet count >= 350,000/uL: Yes Hemoglobin level <10 g/dL or using RBC growth factors: No Pre-chemo leukocyte count > 11,000/uL: No BMI >=35: No VTE Risk Score:: 1 [place] VTE Risk: Intermediate VTE Risk [facility], [facility] Medical History: Medical History (Last Reviewed 08/02/20 @ 18:19 by Ingrid Ibanez MD) BPH (benign prostatic hyperplasia) Bunion of great toe CKD (chronic kidney disease) stage 2, GFR 60-89 ml/min Diabetes Diabetic neuropathy Diabetic retinopathy GERD (gastroesophageal reflux disease) Hematuria High cholesterol History of nephrectomy, unilateral HTN (hypertension) Kidney stone on right side Malignant neoplasm JUAN MANUEL (obstructive sleep apnea) Plantar fasciitis, bilateral Prostate CA Family History: Family History (Last Reviewed 08/02/20 @ 18:19 by Ingrid Ibanez MD) Mother Breast cancer Sister Breast cancer Father Prostate cancer Heart disease Sister Diabetes Brother Heart disease Brother Heart disease Surgical History: Surgical History (Last Reviewed 08/02/20 @ 18:19 by Ingrid Ibanez MD) H/O cystoscopy History of nephrectomy, left Social History: Social History (Last Reviewed 08/02/20 @ 18:19 by Ingrid Ibanez MD) Living Situation History: Household Members: None Housing: Apartment Do you presently have visiting nurse or other home services: No Alcohol History: Alcohol intake: never Alcohol History Details: Alcohol intake frequency: a few times a week Alcohol type: beer Tobacco History: Smoking Status: Never smoker Second Hand Smoke Exposure: No Substance Use History: Use of substances other than those prescribed or required for medical reasons : No Substance Use Type: Crack/Cocaine Substance Use Type: Former Substance User Currently Displaying Signs/Symptoms of Drug Intoxication Withdrawal: No Domestic Abuse History: Have you been hit, kicked, punched, or otherwise hurt by someone within the past year? If so, by whom?: No Do you feel safe in your current relationship?: Yes Is there a partner from a previous relationship who is making you feel unsafe now?: No Are you made to feel afraid or neglected: No Advance Directives: Advance Directives: No Advance Directives Information Provided: No Homicidal Assessment: Do you have thoughts of harming others: None Do you have a plan to hurt others: No Plan Nutrition Assessment: Recently lost weight without trying: No Eating poorly because of decreased appetite: No Nutrition Risks: Difficulty swallowing Poor oral hygiene: No Poor oral hygiene comment: oral thrush r/t chemo Occupation Assessmet: service: No Current occupational status: unemployed Current occupational status: disabled Smoking status: Never smoker Home Medications and Allergies Current Medications: Current Medications Generic Name Dose Route Start Last Admin Trade Name Freq PRN Reason Stop Dose Admin Famotidine 20 mg 08/02/20 21:00 08/04/20 11:04 Famotidine/Pf 20 Mg/2 Ml Vial IVPUSH 20 mg BID BLAZE Administration Heparin Sodium (Porcine) 5,000 unit 08/02/20 18:45 08/04/20 11:04 Heparin Sodium,Porcine 5,000 Unit/Ml Vial SUBCUT 5,000 unit Q8H BLAZE Administration Insulin Human Lispro 0 unit 08/02/20 21:00 08/04/20 12:47 Insulin Lispro 100 Unit/Ml 3 Ml Vial SUBCUT 2 unit QIDACHS BLAZE Administration Protocol Lidocaine/Diphenhydr/Alum/Mg/Simeth 10 ml 08/02/20 18:15 08/04/20 12:47 Mag&Al/Sim/Diphenhyd/Lidocaine 10 Ml Oral.Susp PO 10 ml Q6H [facility] Administration Protocol Nystatin 500,000 unit 08/02/20 18:15 08/04/20 12:47 Nystatin Oral Susp 500,000 Unit/5 Ml Oral.Susp PO 500,000 unit Q6H [facility]1983 Administration Protocol Pharmacy Consult 1 each 08/02/20 16:43 Consult Rx Perform Med Rec MISCELLANE ONCE PRN Consult order Sodium Chloride 3 ml 08/03/20 00:00 08/04/20 11:04 0.9 % Sodium Chloride Flush 3 Ml Syringe IVFLUSH Not Given QSHIFT [facility]1983 Home Medications Medication Instructions Recorded Confirmed Type amlodipine 10 mg tablet 10 mg PO DAILY 04/18/20 08/02/20 History atorvastatin 80 mg tablet 80 mg PO BEDTIME 04/18/20 08/02/20 History carvedilol 25 mg tablet 25 mg PO BID 04/18/20 08/02/20 History lisinopril 40 mg tablet 40 mg PO DAILY 04/18/20 08/02/20 History omeprazole 20 mg capsule,delayed 20 mg PO DAILY@0630 04/18/20 08/02/20 History release pen needle, diabetic 31 gauge x #1200 ea 04/18/20 04/18/20 History 5/16 spironolactone 25 mg tablet 25 mg PO DAILY 04/18/20 08/02/20 History tramadol 50 mg tablet 100 mg PO Q12H PRN 04/18/20 08/02/20 History Centrum Silver Men 1 tab PO DAILY 05/30/20 08/02/20 History insulin aspart U-100 [Novolog See Protocol SUBCUT TIDAC 05/30/20 08/02/20 History Flexpen U-100 Insulin] lancets 33 gauge #100 ea 06/08/20 History insulin glargine 80 unit SUBCUT DAILY 08/02/20 08/02/20 History Allergies Allergy/AdvReac Type Severity Reaction Status Date / Time No Known Allergies Allergy Verified 05/23/20 11:08 Physical Exam Vital signs: Vital Signs Temp 96.8 F 08/04/20 08:00 Pulse 62 08/04/20 08:00 Resp 17 08/04/20 08:00 BP 156/80 H 08/04/20 08:00 Pulse Ox 95 08/04/20 08:00 Intake & Output 08/03/20 08/04/20 08/04/20 18:59 06:59 18:59 Intake Total 1480 / 3113.333 1633.333 / 3113.333 1000 / 1000 Output Total 3375 / 3375 Balance 1480 / -261.667 -1741.667 / -648.334 1893 / 1000 Urine Output (Average ml/kg/hr) 2.95 2.95 Intake: Intake, Oral Amount 480 / 1200 720 / 1200 Intake, IV Amount 1000 / 1913.333 913.333 / 2819.130 0709 / 1000 0.9 % Sodium Chloride 1,000 ml 1000 / 1913.333 913.333 / 3845.373 5818 / 1000 @ 80 mls/hr IVCONT .[id number] BLAZE Rx#:[id number] Output: Output, Urine Amount 2074 / 2074 Output, Urine Amount (Catheter) 1300 / 1300 Coude 1300 / 1300 Other: Lunch % Eaten 100% 25% Urine catheter Urine Color Yellow Last Bowel Movement 08/03/20 08/03/20 Weight 95.254 kg - Constitutional Present: no acute distress - Routine Neck Exam Present: supple - Routine Chest/Breast/Axilla Exam Chest wall: Present: tenderness - Routine Respiratory Exam Present: decreased breath sounds - Routine Cardiovascular Exam Cardiovascular: Present: RRR - Routine Abdominal Exam Present: diminished bowel sounds - Routine Rectal Exam Patient deferred: visual exam - Routine Exam Patient deferred: penile exam, testicular exam - Routine Neurological Exam Present: alert, oriented X3 - Detailed Neurological Exam: Coma Scale Eye Opening: Spontaneous (4) Hem/Onc Consult Result - Labs CBC & Chem 7: 08/03/20 09:15 08/04/20 07:59 Labs: BMP 08/04/20 07:59 Sodium 141 Potassium 4.7 Chloride 112 H Carbon Dioxide 21 L BUN 44 H Creatinine 1.81 H Calcium 7.7 L Assessment and Plan (1) Leucocytosis Status: Acute He is improved and doing well. jWill continue therapies after antibiotics. (2) Bladder cancer Status: Acute
[2020-08-04 16:00] VITALS: BP 150/77; PULSE 63; RESP 17; TEMP 37.1; O2SAT 95
--- NOTE | 2020-08-04 16:03 | MHC.CM.PN ---
PATIENT LIVES ALONE. HE SUES NO DME OR VNA SERVICES. HE DOES HAVE RN VISITS [id number] FOR REVIEW OF NEEDS. FAMILY PROVIDES TRANSPORT WHERE NEEDED. HE IS HOPING TO RETURN HOME WITH NO SERVICES. CASE MANAGEMENT FOLLOWING. CM IS UNABLE TO ACCESS HISTORICAL VISITS PORTION OF EXPANSE ON THIS PATIENT IN ORDER TO SEEK HCP ON FILE. IMM 08/04 IN CHART
[2020-08-04] MEDS: 0.9 % Sodium Chloride Flush 3 ML SYRINGE IVFLUSH ×2 (16:59→23:41)
[2020-08-04 17:05] LABS: Glucose, Whole Blood 239 mg/dL (60-115)
[2020-08-04 20:00] VITALS: BP 148/77; PULSE 70; RESP 20; TEMP 36.6; O2SAT 96
[2020-08-04 20:37] LABS: Glucose, Whole Blood 265 mg/dL (60-115)
[2020-08-05] VITALS: BP 120/74; PULSE 62; RESP 16; TEMP 37.1; O2SAT 99
[2020-08-05] MEDS: Heparin Sodium,Porcine 5,000 UNIT/ML VIAL 5000 UNIT SUBCUT ×2 (03:47→09:47)
[2020-08-05 04:00] VITALS: BP 146/66; PULSE 58; RESP 16; TEMP 36.9; O2SAT 99
[2020-08-05] MEDS: Nystatin Oral Susp 500,000 UNIT/5 ML ORAL.SUSP 500000 UNIT PO ×3 (06:25→17:23)
[2020-08-05] MEDS: Mag&Al/Sim/Diphenhyd/Lidocaine 10 ML ORAL.SUSP PO ×3 (06:25→17:23)
[2020-08-05 07:10] VITALS: BP 146/80; PULSE 62; RESP 16; TEMP 36.1; O2SAT 94
[2020-08-05 07:17] LABS: Anion Gap 14 (12-20); Blood Urea Nitrogen 27 mg/dL (9-16); Calcium 8.1 mg/dL (8.4-10.2); Carbon Dioxide 21 mmol/L (22-29); Chloride 111 mmol/L (96-108); Creatinine Clr Calc Pharmacy 46.4; Estimated Glomerular Filt Rate 42; Glucose Random 187 mg/dL (60-115); Potassium 4.7 mmol/L (3.3-5.1); Sodium 141 mmol/L (135-145)
[2020-08-05 07:30] LABS: Glucose, Whole Blood 198 mg/dL (60-115)
--- NOTE | 2020-08-05 08:14 | PM.UROCN ---
History of Present Illness Consult details Consult date: 08/04/20 Narrative: Question of blocked ureteric catheter Known to urology Has solitary kidney Locally advanced prostate cancer Stent in place Admitting Cr 4 Current 1.6 (Which is his baseline) No acute urologic issue Stent change planned in future [facility] Past Medical History Medical History BPH (benign prostatic hyperplasia) Bunion of great toe CKD (chronic kidney disease) stage 2, GFR 60-89 ml/min Diabetes Diabetic neuropathy Diabetic retinopathy GERD (gastroesophageal reflux disease) Hematuria High cholesterol History of nephrectomy, unilateral HTN (hypertension) Kidney stone on right side Malignant neoplasm JUAN MANUEL (obstructive sleep apnea) Plantar fasciitis, bilateral Prostate CA Family History Family History Mother Breast cancer Sister Breast cancer Father Prostate cancer Heart disease Sister Diabetes Brother Heart disease Brother Heart disease Surgical History Surgical History H/O cystoscopy History of nephrectomy, left Social History Social History Household Members: None Housing: Apartment Do you presently have visiting nurse or other home services: No Alcohol intake: never Smoking Status: Never smoker Second Hand Smoke Exposure: No Use of substances other than those prescribed or required for medical reasons: No Substance Use Type: Crack/Cocaine and Former Substance User Currently Displaying Signs/Symptoms of Drug Intoxication Withdrawal: No Have you been hit, kicked, punched, or otherwise hurt by someone within the past year? If so, by whom?: No Do you feel safe in your current relationship?: Yes Is there a partner from a previous relationship who is making you feel unsafe now?: No Are you made to feel afraid or neglected: No Advance Directives: No Advance Directives Information Provided: No Do you have thoughts of harming others: None Do you have a plan to hurt others: No Plan Recently lost weight without trying: No service: No Current occupational status: unemployed and disabled Meds Allergies Allergy/AdvReac Type Severity Reaction Status Date / Time No Known Allergies Allergy Verified 05/23/20 11:08 Home Medications Medication Instructions Recorded Confirmed Type amlodipine 10 mg tablet 10 mg PO DAILY 04/18/20 08/02/20 History atorvastatin 80 mg tablet 80 mg PO BEDTIME 04/18/20 08/02/20 History carvedilol 25 mg tablet 25 mg PO BID 04/18/20 08/02/20 History lisinopril 40 mg tablet 40 mg PO DAILY 04/18/20 08/02/20 History omeprazole 20 mg capsule,delayed 20 mg PO DAILY@0630 04/18/20 08/02/20 History release pen needle, diabetic 31 gauge x #1200 ea 04/18/20 04/18/20 History /16 spironolactone 25 mg tablet 25 mg PO DAILY 04/18/20 08/02/20 History tramadol 50 mg tablet 100 mg PO Q12H PRN 04/18/20 08/02/20 History Centrum Silver Men 1 tab PO DAILY 05/30/20 08/02/20 History insulin aspart U-100 [Novolog See Protocol SUBCUT TIDAC 05/30/20 08/02/20 History Flexpen U-100 Insulin] lancets 33 gauge #100 ea 06/08/20 History insulin glargine 80 unit SUBCUT DAILY 08/02/20 08/02/20 History Physical Exam Vital Signs: Vital Signs: Last Vital Signs Temp 97 F 08/05/20 07:10 Pulse 62 08/05/20 07:10 Resp 16 08/05/20 07:10 BP 146/80 H 08/05/20 07:10 Pulse Ox 94 08/05/20 07:10 Body Mass Index 31.9 Const: General: cooperative, healthy appearing, comfortable and no acute distress Nutritional Appearance: average body habitus Orientation/consciousness: oriented to person, oriented to place and oriented to time Eyes: General: appearance normal, both eyes and all related structures Chest: Chest palpation & inspection: normal inspection of the chest Resp: Effort & Inspection: normal respiratory effort Cardio: Rate: regular rate GI: Inspection: Yes normal to inspection Skin: Hair: normal Neuro: General: oriented to person, oriented to place and oriented to time Extrem: General: Yes normal to inspection Results Labs Result diagrams: 08/03/20 09:15 08/05/20 06:15 Labs: Abnormal lab results 08/04/20 08/04/20 08/04/20 Range/Units 07:59 08:22 11:40 Chloride 112 H (96-108) mmol/L Carbon Dioxide 21 L (22-29) mmol/L BUN 44 H (9-16) mg/dL Creatinine 1.81 H (0.5-1.4) mg/dL POC Glucose 137 H 205 H (60-115) mg/dL Random Glucose 141 H (60-115) mg/dL Calcium 7.7 L (8.4-10.2) mg/dL 08/04/20 08/04/20 08/05/20 Range/Units 16:47 20:34 06:15 Chloride 111 H (96-108) mmol/L Carbon Dioxide 21 L (22-29) mmol/L BUN 27 H (9-16) mg/dL Creatinine 1.61 H (0.5-1.4) mg/dL POC Glucose 239 H 265 H (60-115) mg/dL Random Glucose 187 H (60-115) mg/dL Calcium 8.1 L (8.4-10.2) mg/dL 08/05/20 Range/Units 07:12 Chloride (96-108) mmol/L Carbon Dioxide (22-29) mmol/L BUN (9-16) mg/dL Creatinine (0.5-1.4) mg/dL POC Glucose 198 H (60-115) mg/dL Random Glucose (60-115) mg/dL Calcium (8.4-10.2) mg/dL BMP 08/04/20 08/05/20 07:59 06:15 Sodium 141 141 Potassium 4.7 4.7 Chloride 112 H 111 H Carbon Dioxide 21 L 21 L BUN 44 H 27 H Creatinine 1.81 H 1.61 H Calcium 7.7 L 8.1 L Urine 08/02/20 Range/Units 18:01 Urine Color YELLOW Urine Appearance CLEAR Urine pH 5.5 (5.0-8.0) Ur Specific [place] 1.020 (1.005-1.025) Urine Protein TRACE (NEG-TRACE) MG/DL Urine Glucose (UA) NEG (NEG) MG/DL All other labs normal. Assessment and Plan (1) Solitary kidney: Status: Acute (2) BPH w urinary obs/LUTS: Status: Acute Hydrate
--- NOTE | 2020-08-05 08:45 | PM.PNNEP ---
Subjective Subjective Date of Service: 08/05/20 Principal diagnosis: ADELA Interval history: seen and examined no complains this morning Physical Exam Vital Signs: Vital Signs: Last Vital Signs Temp 97 F 08/05/20 07:10 Pulse 62 08/05/20 07:10 Resp 16 08/05/20 07:10 BP 146/80 H 08/05/20 07:10 Pulse Ox 94 08/05/20 07:10 Body Mass Index 31.9 Const: General: no acute distress HENMT: Head: Yes normocephalic and Yes atraumatic Neck: Neck: Yes supple Resp: Auscultation: diminished lung sounds Cardio: Heart sounds: S1 normal heart sound present and S2 normal heart sound present GI: Palpation (GI): Soft to palpation and nontender Extrem: General: No edema Objective Data Labs CBC & Chem 7: 08/03/20 09:15 08/05/20 06:15 Labs: Laboratory Results - last 24 hr 08/04/20 08/04/20 08/04/20 11:40 16:47 20:34 Sodium Potassium Chloride Carbon Dioxide Anion Gap BUN Creatinine Estim Creat Clear Calc Estimated GFR POC Glucose 205 H 239 H 265 H Random Glucose Calcium 08/05/20 08/05/20 06:15 07:12 Sodium 141 Potassium 4.7 Chloride 111 H Carbon Dioxide 21 L Anion Gap 14 BUN 27 H Creatinine 1.61 H Estim Creat Clear Calc 46.4 Estimated GFR 42 POC Glucose 198 H Random Glucose 187 H Calcium 8.1 L Microbiology Microbiology Results: Microbiology 08/03/20 17:57 Stool Stool Culture - Preliminary Normal so far. 08/02/20 15:53 Blood - Venous Blood Culture - Preliminary No growth after 48 hours. 08/02/20 15:40 Blood - Venous Blood Culture - Preliminary No growth after 48 hours. Assessment & Plan Assessment and plan (1) ADELA (acute kidney injury): Status: Acute (2) Solitary kidney: Status: Acute Assessment and Plan: kidney function continues to improve now at baseline ADELA due to renal hypoperfusion dehydration and BASSEM-I disrupted autoregulation of kidneys against the back drop of solitary kidney suspect underlying CKD due to nephron loss and hyperfitration stress will need ACEi baseline serum creatinine 1.5-2.0 mg/dl REC discontinue Elizabeth no need for further IVF can resume low dose ACEi follow kidney function and electrolytes Time Spent With Patient Time: Total time spent is greater than 50% in coordination of care (as documented) at patient's floor/unit and/or counseling patient:
[2020-08-05 09:03] LABS: Hematocrit 39.6 % (42-52); Hemoglobin 12.9 g/dl (14.0-18.0); Mean Corpuscular HGB Conc 32.6 g/dl (31.0-36.0); Mean Corpuscular Hemoglobin 30.1 pg (27.0-33.0); Mean Corpuscular Volume 92.5 fL (80-98); Mean Platelet Volume 12.1 fL (9.4-12.4); NRBC Pct Auto 0.3 /100WBC (0.0-0.2); Platelet Count 114 X10*3/uL (160-400); Red Blood Count 4.28 X10*6/uL (4.60-5.80); Red Cell Distribution Width 13.5 % (11.0-16.0); White Blood Count 29.1 X10*3/uL (4.8-10.8)
[2020-08-05] MEDS: Famotidine/PF 20 MG/2 ML VIAL IVPUSH (09:47)
[2020-08-05] MEDS: 0.9 % Sodium Chloride Flush 3 ML SYRINGE IVFLUSH ×2 (09:47→17:22)
[2020-08-05 11:37] LABS: Glucose, Whole Blood 229 mg/dL (60-115)
[2020-08-05] MEDS: Insulin Lispro 100 UNIT/ML 3 ML VIAL SUBCUT ×2 (11:59→17:22)
[2020-08-05 12:00] VITALS: BP 162/82; PULSE 71; RESP 18; TEMP 36.4; O2SAT 97
--- NOTE | 2020-08-05 14:14 | P.PNHO_ITS ---
Medical Summary - Medical Summary Date of Service: 08/05/20 Medical Summary: Diagnosis: Adenocarcinoma of prostate Patient presented with hematuria, CT abdomen/pelvis in May 2020 showed radha tary left kidney, abnormal soft tissue at the base of the bladder, questionable for bladder mass versus prostate mass. Prostate gland is enlarged and protruding into base of bladder, enlarged lymph nodes in pelvis. Bulky right iliac lymph node approximately 2.1x 3.5 cm and left iliac node 1.6 cm. The prostate nodular and the seminal vesicles plump. On 06/04/2020 patient underwent TURBT, resection of left ureteric orifice, left retrograde and left stent placement. Pathology-Adenocarcinoma of the prostate (T3 N0 M0, [place] score 4+5, Grade Group 5, PSA at Diagnosis 30) Procedure: Transurethral resection Tumor site: Not specified. Histologic type: High-grade prostatic adenocarcinoma with neuroendocrine differentiation. Histologic grade: Adrian score 5+4=9 (Grade group 5) Muscularis propria: Present. Extent of invasion: Tumor invades muscularis propria. Lymphovascular invasion: Not identified. TNM Classification of Malignant Tumours (TNM) - T3a. Review of Systems - Neurologic Reports system reviewed and no additional complaints, except as documented [facility] Medical History: Medical History (Last Reviewed 08/02/20 @ 18:19 by Ingrid Ibanez MD) BPH (benign prostatic hyperplasia) Bunion of great toe CKD (chronic kidney disease) stage 2, GFR 60-89 ml/min Diabetes Diabetic neuropathy Diabetic retinopathy GERD (gastroesophageal reflux disease) Hematuria High cholesterol History of nephrectomy, unilateral HTN (hypertension) Kidney stone on right side Malignant neoplasm JUAN MANUEL (obstructive sleep apnea) Plantar fasciitis, bilateral Prostate CA Family History: Family History (Last Reviewed 08/02/20 @ 18:19 by Ingrid Ibanez MD) Mother Breast cancer Sister Breast cancer Father Prostate cancer Heart disease Sister Diabetes Brother Heart disease Brother Heart disease Surgical History: Surgical History (Last Reviewed 08/02/20 @ 18:19 by Ingrid Ibanez MD) H/O cystoscopy History of nephrectomy, left Social History: Social History (Last Reviewed 08/02/20 @ 18:19 by Ingrid Ibanez MD) Living Situation History: Household Members: None Housing: Apartment Do you presently have visiting nurse or other home services: No Alcohol History: Alcohol intake: never Alcohol History Details: Alcohol intake frequency: a few times a week Alcohol type: beer Tobacco History: Smoking Status: Never smoker Second Hand Smoke Exposure: No Substance Use History: Use of substances other than those prescribed or required for medical reasons : No Substance Use Type: Crack/Cocaine Substance Use Type: Former Substance User Currently Displaying Signs/Symptoms of Drug Intoxication Withdrawal: No Domestic Abuse History: Have you been hit, kicked, punched, or otherwise hurt by someone within the past year? If so, by whom?: No Do you feel safe in your current relationship?: Yes Is there a partner from a previous relationship who is making you feel unsafe now?: No Are you made to feel afraid or neglected: No Advance Directives: Advance Directives: No Advance Directives Information Provided: No Homicidal Assessment: Do you have thoughts of harming others: None Do you have a plan to hurt others: No Plan Nutrition Assessment: Recently lost weight without trying: No Eating poorly because of decreased appetite: No Nutrition Risks: Difficulty swallowing Poor oral hygiene: No Poor oral hygiene comment: oral thrush r/t chemo Occupation Assessmet: service: No Current occupational status: unemployed Current occupational status: disabled Smoking status: Never smoker Home Medications and Allergies Current Medications: Current Medications Generic Name Dose Route Start Last Admin Trade Name Freq PRN Reason Stop Dose Admin Famotidine 20 mg 08/02/20 21:00 08/05/20 09:47 Famotidine/Pf 20 Mg/2 Ml Vial IVPUSH 20 mg BID BLAZE Administration Heparin Sodium (Porcine) 5,000 unit 08/02/20 18:45 08/05/20 09:47 Heparin Sodium,Porcine 5,000 Unit/Ml Vial SUBCUT 5,000 unit Q8H BLAZE Administration Insulin Human Lispro 0 unit 08/02/20 21:00 08/05/20 11:59 Insulin Lispro 100 Unit/Ml 3 Ml Vial SUBCUT 2 unit QIDACHS BLAZE Administration Protocol Lidocaine/Diphenhydr/Alum/Mg/Simeth 10 ml 08/02/20 18:15 08/05/20 12:00 Mag&Al/Sim/Diphenhyd/Lidocaine 10 Ml Oral.Susp PO 10 ml Q6H BLAZE Administration Protocol Nystatin 500,000 unit 08/02/20 18:15 08/05/20 12:00 Nystatin Oral Susp 500,000 Unit/5 Ml Oral.Susp PO 500,000 unit Q6H BLAZE Administration Protocol Pharmacy Consult 1 each 08/02/20 16:43 Consult Rx Perform Med Rec MISCELLANE ONCE PRN Consult order Sodium Chloride 3 ml 08/03/20 00:00 08/05/20 09:47 0.9 % Sodium Chloride Flush 3 Ml Syringe IVFLUSH 3 ml QSHIFT [facility] Administration Home Medications Medication Instructions Recorded Confirmed Type amlodipine 10 mg tablet 10 mg PO DAILY 04/18/20 08/02/20 History atorvastatin 80 mg tablet 80 mg PO BEDTIME 04/18/20 08/02/20 History carvedilol 25 mg tablet 25 mg PO BID 04/18/20 08/02/20 History lisinopril 40 mg tablet 40 mg PO DAILY 04/18/20 08/02/20 History omeprazole 20 mg capsule,delayed 20 mg PO DAILY@0630 04/18/20 08/02/20 History release pen needle, diabetic 31 gauge x #1200 ea 04/18/20 04/18/20 History 5/16 spironolactone 25 mg tablet 25 mg PO DAILY 04/18/20 08/02/20 History tramadol 50 mg tablet 100 mg PO Q12H PRN 04/18/20 08/02/20 History Centrum Silver Men 1 tab PO DAILY 05/30/20 08/02/20 History insulin aspart U-100 [Novolog See Protocol SUBCUT TIDAC 05/30/20 08/02/20 History Flexpen U-100 Insulin] lancets 33 gauge #100 ea 06/08/20 History insulin glargine 80 unit SUBCUT DAILY 08/02/20 08/02/20 History Allergies Allergy/AdvReac Type Severity Reaction Status Date / Time No Known Allergies Allergy Verified 05/23/20 11:08 Exam Vital signs: Vital Signs Temp 97.5 F 08/05/20 12:00 Pulse 71 08/05/20 12:00 Resp 18 08/05/20 12:00 BP 162/82 H 08/05/20 12:00 Pulse Ox 97 08/05/20 12:00 Intake & Output 08/04/20 08/05/20 08/05/20 18:59 06:59 18:59 Intake Total 1000 / 1240 240 / 1240 Output Total 1400 / 2300 900 / 2300 Balance -400 / -1060 -660 / -1060 Urine Output (Average ml/kg/hr) 1.22 0.79 0.79 Intake: Intake, Oral Amount 240 / 240 Intake, IV Amount 1000 / 1000 0.9 % Sodium Chloride 1,000 ml 1000 / 1000 @ 80 mls/hr IVCONT .[id number] [facility] Rx#:[id number] Output: Output, Urine Amount (Catheter) 1400 / 2300 900 / 2300 [place] 1400 / 2300 900 / 2300 Other: Lunch % Eaten 25% Dinner % Eaten 100% Urine Color Yellow Last Bowel Movement 08/04/20 08/04/20 08/04/20 Weight 95.254 kg Body Mass Index 31.9 - Constitutional Present: no acute distress - Routine HEENT Exam Head: Present: normal inspection - Routine Chest/Breast/Axilla Exam Chest wall: Present: tenderness - Routine Respiratory Exam Present: decreased breath sounds - Routine Cardiovascular Exam Cardiovascular: Present: RRR - Routine Abdominal Exam Present: diminished bowel sounds - Routine Extremities Exam Absent: calf tenderness, pedal edema - Routine Neurological Exam Present: alert, oriented X3 - Detailed Neurological Exam: Coma Scale Eye Opening: Spontaneous (4) Data - Labs CBC & Chem 7: 08/05/20 06:15 08/05/20 06:15 Labs: 08/02/20 15:18 ECG 12 lead EKG Stat EKG Documentation DIRECTED CT chest wo con Stat 0.9 % Sodium Chloride [Ns] 500 ml IV 500 mls/hr 08/02/20 15:19 CT abdomen pelvis wo con Stat CT head/brain wo con Stat 08/02/20 15:40 Complete Blood Count Man Dif Stat Comprehensive Met. Panel Stat Creatine Kinase Total Stat Partial Thromboplastin Time Stat Prothrombin Time INR Stat 08/02/20 15:53 Troponin-I High Sensitivity Stat 08/02/20 16:48 0.9 % Sodium Chloride [Ns] 1,000 ml IV 999 mls/hr 0.9 % Sodium Chloride [Ns] 1,000 ml IV 999 mls/hr 08/02/20 16:54 Piperacillin Sodium/Tazobactam [Zosyn] 3.375 gm 0.9 % Sodium Chloride [Ns] 50 ml IV ONCE 08/02/20 17:01 Piperacillin Sodium/Tazobactam [Zosyn] 3.375 gm IV .STK-MED ONE 08/02/20 17:12 Lactic Acid Stat Troponin-I High Sensitivity Stat 08/02/20 17:31 Add Laboratory Test Stat 08/02/20 18:01 Creatinine Urine Stat Osmolality Urine Stat Sodium Urine Random Stat Transfer Order Routine 08/02/20 18:15 0.9 % Sodium Chloride [Ns] 1,000 ml IVCONT 80 mls/hr 08/02/20 18:20 Osmolality, Serum Stat 08/02/20 18:27 CDiff with Reflex to PCR Stat Leukocytes Stool Qualitative Stat 08/02/20 18:49 COVID-19 ID NOW ([place]) Stat 08/02/20 21:57 Glucose, Whole Blood Routine 08/03/20 08:51 Glucose, Whole Blood Routine 08/03/20 09:15 Basic Metabolic Panel Urgent Complete Blood Count no Diff Urgent 08/03/20 11:08 Glucose, Whole Blood Routine 08/03/20 16:27 Glucose, Whole Blood Routine 08/03/20 20:32 Glucose, Whole Blood Routine 08/04/20 07:59 Basic Metabolic Panel Urgent 08/04/20 08:22 Glucose, Whole Blood Routine 08/04/20 11:40 Glucose, Whole Blood Routine 08/04/20 16:47 Glucose, Whole Blood Routine 08/04/20 20:34 Glucose, Whole Blood Routine 08/05/20 06:15 Basic Metabolic Panel DAILY@0600 Complete Blood Count no Diff Urgent 08/05/20 07:12 Glucose, Whole Blood Routine 08/05/20 11:32 Glucose, Whole Blood Routine Laboratory Last Values WBC 29.1 X10*3/uL (4.8-10.8) H 08/05/20 06:15 RBC 4.28 X10*6/uL (4.60-5.80) L 08/05/20 06:15 Hgb 12.9 g/dl (14.0-18.0) L 08/05/20 06:15 Hct 39.6 % (42-52) L 08/05/20 06:15 MCV 92.5 fL (80-98) 08/05/20 06:15 MCH 30.1 pg (27.0-33.0) 08/05/20 06:15 MCHC 32.6 g/dl (31.0-36.0) 08/05/20 06:15 RDW 13.5 % (11.0-16.0) 08/05/20 06:15 Plt Count 114 X10*3/uL (160-400) L 08/05/20 06:15 MPV 12.1 fL (9.4-12.4) 08/05/20 06:15 Immature Gran % (Auto) Cancelled 08/02/20 15:40 Neut % (Auto) Cancelled 08/02/20 15:40 Lymph % (Auto) Cancelled 08/02/20 15:40 [place] % (Auto) Cancelled 08/02/20 15:40 Eos % (Auto) Cancelled 08/02/20 15:40 Baso % (Auto) Cancelled 08/02/20 15:40 Lymph # (Auto) Cancelled 08/02/20 15:40 [place] # (Auto) Cancelled 08/02/20 15:40 Eos # (Auto) Cancelled 08/02/20 15:40 Baso # (Auto) Cancelled 08/02/20 15:40 Abs Immat Gran (auto) Cancelled 08/02/20 15:40 Absolute Neuts (auto) Cancelled 08/02/20 15:40 Absolute Nucleated RBC 0.100 X10*3/uL (0.0-0.012) H 08/05/20 06:15 Nucleated RBC % (auto) 0.3 /100WBC (0.0-0.2) H 08/05/20 06:15 Neutrophils % (Manual) 70 % (45-73) 08/02/20 15:40 Band Neutrophils % 12 % (3-5) H 08/02/20 15:40 Lymphocytes % (Manual) 7 % (20-40) L 08/02/20 15:40 Monocytes % (Manual) 2 % (2-11) 08/02/20 15:40 Metamyelocytes % 6 % 08/02/20 15:40 Myelocytes % 2 % 08/02/20 15:40 Promyelocytes % 1 % 08/02/20 15:40 Abs Neuts (Manual) 33.9 X10*3/uL (2.2-7.9) H 08/02/20 15:40 Lymphocytes # (Manual) 2.9 X10*3/uL (0.6-4.8) 08/02/20 15:40 Monocytes # (Manual) 0.8 X10*3/uL (0.0-1.2) 08/02/20 15:40 Metamyelocytes # 2.5 X10*3/uL 08/02/20 15:40 Myelocytes # 0.8 X10*/uL 08/02/20 15:40 Promyelocytes # 0.4 X10*3/uL 08/02/20 15:40 Toxic Granulation PRESENT 08/02/20 15:40 Toxic Vacuolation PRESENT 08/02/20 15:40 Platelet Estimate SLIGHTLY DECREASED (NORMAL) 08/02/20 15:40 Plt Morphology Comment NORMAL 08/02/20 15:40 RBC Morphology NOTED 08/02/20 15:40 Ovalocytes 1+ 08/02/20 15:40 Acanthocytes (Spur) 1+ 08/02/20 15:40 PT 11.8 SEC (10.8-13.0) 08/02/20 15:40 INR 1.0 (0.9-1.1) 08/02/20 15:40 APTT 26.8 SEC (24.1-38.0) D 08/02/20 15:40 Sodium 141 mmol/L (135-145) 08/05/20 06:15 Potassium 4.7 mmol/L (3.3-5.1) 08/05/20 06:15 Chloride 111 mmol/L (96-108) H 08/05/20 06:15 Carbon Dioxide 21 mmol/L (22-29) L 08/05/20 06:15 Anion Gap 14 (12-20) 08/05/20 06:15 BUN 27 mg/dL (9-16) H 08/05/20 06:15 Creatinine 1.61 mg/dL (0.5-1.4) H 08/05/20 06:15 Estim Creat Clear Calc 46.4 08/05/20 06:15 Estimated GFR 42 08/05/20 06:15 POC Glucose 229 mg/dL (60-115) H 08/05/20 11:32 Random Glucose 187 mg/dL (60-115) H 08/05/20 06:15 Osmolality 312 mosm/kg (281-305) H 08/02/20 18:20 Lactic Acid 1.0 mmol/L (0.5-2.0) 08/02/20 17:12 Calcium 8.1 mg/dL (8.4-10.2) L 08/05/20 06:15 Total Bilirubin 1.0 mg/dL (0.0-1.0) 08/02/20 15:40 AST 26 U/L (5-37) 08/02/20 15:40 ALT 29 U/L (0-40) 08/02/20 15:40 Alkaline Phosphatase 214 U/L (39-117) H 08/02/20 15:40 Total Creatine Kinase 418 U/L (38-174) H 08/02/20 15:40 Troponin I High Sens 16.0 ng/L (<3.5-35.0) 08/02/20 17:12 Total Protein 5.9 g/dL (6.5-8.0) L 08/02/20 15:40 Albumin 3.6 g/dL (3.5-5.0) 08/02/20 15:40 Urine Color YELLOW 08/02/20 18:01 Urine Appearance CLEAR 08/02/20 18:01 Urine pH 5.5 (5.0-8.0) 08/02/20 18:01 Ur Specific [place] 1.020 (1.005-1.025) 08/02/20 18:01 Urine Protein TRACE MG/DL (NEG-TRACE) 08/02/20 18:01 Urine Glucose (UA) NEG MG/DL (NEG) 08/02/20 18:01 Urine Ketones NEG MG/DL (NEG) 08/02/20 18:01 Urine Blood 2+ (NEG) H 08/02/20 18:01 Urine Nitrite NEG (NEG) 08/02/20 18:01 Ur Leukocyte Esterase NEG (NEG) 08/02/20 18:01 Urine RBC 1-4 /HPF (0) 08/02/20 18:01 Urine WBC 1-4 /HPF (0-4) 08/02/20 18:01 Ur Squamous Epith Cells TRACE /LPF 08/02/20 18:01 Urine Bacteria NONE /LPF 08/02/20 18:01 Urine Osmolality 448 mosm/kg (373-1093) 08/02/20 18:01 Ur Random Sodium 57.0 mmol/L 08/02/20 18:01 Urine Creatinine 170.80 mg/dL 08/02/20 18:01 Stool Leukocytes, Qual NEGATIVE (NEGATIVE) 08/03/20 17:57 C. difficile Toxin A&B Negative (Negative) 08/03/20 17:57 C. difficile Antigen Negative (Negative) 08/03/20 17:57 C. difficile Interpret SEE NOTE 08/03/20 17:57 COVID-19 (LISHA) Negative (Negative) 08/02/20 18:49 COVID-19 Clin Com See Note 08/02/20 18:49 - Imaging Radiologist's impression: ITS Impressions Chest CT 08/02/20 15:18 IMPRESSION: 1. No acute traumatic finding of the chest, abdomen, or pelvis. 2. Decreased prominence of the prostate when compared to prior. 3. Multiple pelvic lymph nodes are decreased in size when compared to prior. 4. Left ureteral stent in place. 5. No suspicious findings within the chest. Abdomen/Pelvis CT 08/02/20 15:19 IMPRESSION: 1. No acute traumatic finding of the chest, abdomen, or pelvis. 2. Decreased prominence of the prostate when compared to prior. 3. Multiple pelvic lymph nodes are decreased in size when compared to prior. 4. Left ureteral stent in place. 5. No suspicious findings within the chest. Head CT 08/02/20 15:19 IMPRESSION: No acute intracranial abnormality. Progress Note: A/P (1) Leucocytosis Start date: 08/05/20 (The WBC has dropped to 29,000. He seems stable.) Status: Acute (2) Bladder cancer Status: Acute - Time Spent With Patient Total time spent is greater than 50% in coordination of care (as documented) at patient's floor/unit and/or counseling patient: 15 - 24 minutes
--- NOTE | 2020-08-05 14:30 | P.PNIM_ITS ---
Subjective Subjective Date of Service: 08/05/20 Physical Exam Vital Signs: Vital Signs: Last Vital Signs Temp 97.5 F 08/05/20 12:00 Pulse 71 08/05/20 12:00 Resp 18 08/05/20 12:00 BP 162/82 H 08/05/20 12:00 Pulse Ox 97 08/05/20 12:00 Body Mass Index 31.9 Objective Data Current Medications Generic Name Dose Route Start Last Admin Trade Name Freq PRN Reason Stop Dose Admin Famotidine 20 mg 08/02/20 21:00 08/05/20 09:47 Famotidine/Pf 20 Mg/2 Ml Vial IVPUSH 20 mg BID BLAZE Administration Heparin Sodium (Porcine) 5,000 unit 08/02/20 18:45 08/05/20 09:47 Heparin Sodium,Porcine 5,000 Unit/Ml Vial SUBCUT 5,000 unit Q8H BLAZE Administration Insulin Human Lispro 0 unit 08/02/20 21:00 08/05/20 11:59 Insulin Lispro 100 Unit/Ml 3 Ml Vial SUBCUT 2 unit QIDACHS BLAZE Administration Protocol Lidocaine/Diphenhydr/Alum/Mg/Simeth 10 ml 08/02/20 18:15 08/05/20 12:00 Mag&Al/Sim/Diphenhyd/Lidocaine 10 Ml Oral.Susp PO 10 ml Q6H [facility] Administration Protocol Nystatin 500,000 unit 08/02/20 18:15 08/05/20 12:00 Nystatin Oral Susp 500,000 Unit/5 Ml Oral.Susp PO 500,000 unit Q6H BLAZE Administration Protocol Pharmacy Consult 1 each 08/02/20 16:43 Consult Rx Perform Med Rec MISCELLANE ONCE PRN Consult order Sodium Chloride 3 ml 08/03/20 00:00 08/05/20 09:47 0.9 % Sodium Chloride Flush 3 Ml Syringe IVFLUSH 3 ml QSHIFT [facility] Administration Labs CBC & Chem 7: 08/05/20 06:15 08/05/20 06:15 Microbiology Microbiology Results: Microbiology 08/03/20 17:57 Stool Stool Culture - Preliminary Normal so far. 08/02/20 15:53 Blood - Venous Blood Culture - Preliminary No growth after 48 hours. 08/02/20 15:40 Blood - Venous Blood Culture - Preliminary No growth after 48 hours. Assessment and Plan (1) ADELA (acute kidney injury): Status: Acute
--- NOTE | 2020-08-05 15:06 | MHC.CM.PN ---
PATIENT IS DISCHARGED HOME WITH NO NEED FOR SERVICES. PATIENT DOES NOT FEEL THE NEED FOR VNA. HE IS AWARE THAT [facility] MAY HAVE A FOLLOW UP VISIT OR CALL WITHIN 48 HOURS OF DISCHARGE.
[2020-08-05 15:27] VITALS: BP 158/70; PULSE 65; RESP 18; TEMP 36.5; O2SAT 95
--- NOTE | 2020-08-05 15:45 | PM.DS ---
DS: Providers Provider Date of Service: 08/05/20 Date of admission: 08/02/20 18:12 Primary care physician: Malgorzata Diallo MD Consults: 08/02/20 18:12 Consult to Hematology / Oncology Routine Consulting Provider: Ana Alvarez Reason for consultation: Bladder cancer, ADELA Consult to Nephrology Routine Consulting Provider: Umer Gary Reason for consultation: adela Has provider been notified: No 08/03/20 10:31 Consult to Urology Routine Consulting Provider: Danny Leiva Reason for consultation: adela/solitary kidney with ureteral stent Has provider been notified: No 08/03/20 12:33 Consult Respiratory Therapy Routine Reason for consultation: Sleep apnea wear CPAP at home DS: Diagnosis Discharge Diagnosis (1) ADELA (acute kidney injury): Status: Acute DS: Medications Discharge Medications Home Medications: Home Medications Medication Instructions Recorded Confirmed amlodipine 10 mg tablet 10 mg PO DAILY 04/18/20 08/02/20 atorvastatin 80 mg tablet 80 mg PO BEDTIME 04/18/20 08/02/20 carvedilol 25 mg tablet 25 mg PO BID 04/18/20 08/02/20 lisinopril 40 mg tablet 40 mg PO DAILY 04/18/20 08/02/20 omeprazole 20 mg capsule,delayed 20 mg PO DAILY@0630 04/18/20 08/02/20 release pen needle, diabetic 31 gauge x #1200 ea 04/18/20 04/18/2011/18 spironolactone 25 mg tablet 25 mg PO DAILY 04/18/20 08/02/20 tramadol 50 mg tablet 100 mg PO Q12H PRN 04/18/20 08/02/20 Centrum Silver Men 1 tab PO DAILY 05/30/20 08/02/20 insulin aspart U-100 [Novolog See Protocol SUBCUT TIDAC 05/30/20 08/02/20 Flexpen U-100 Insulin] lancets 33 gauge #100 ea 06/08/20 insulin glargine 80 unit SUBCUT DAILY 08/02/20 08/02/20 Previous Rx's Medication Instructions Recorded bicalutamide 50 mg tablet 50 mg PO TID 30 Days #90 tab 06/08/20 ondansetron HCl [Zofran] 4 mg PO Q6H PRN #30 tab 07/17/20 dexamethasone 4 mg PO BID #60 tab 07/25/20 DS: Summary Hospital Course Hospital Course: 70 year male with BPH, bladder cancer, Diabetes, HTN, HLD, s/p right nephrectomy 22 year ago as donnor for his son,CKD baseline Cr of 1.6. He follows up with Dr. Alvarez for bladder cancer and had chemo on 07/17/20, afterwards also received Neulasta: Subsequently patient came to the hospital because he was feeling generalized weak, decreased p.o. intake, nausea or vomiting, and some loose stools for 2-3 days duration as per the patient, he said he was generally weak and not eating well . He also also complaining of some throat pain. denies any new abdominal pain or any urinary complaints or fever or chills or shortness of breath or cough or headache or any new weakness or numbness. Hospital Course problem clements section: Patient was admitted due to adela on CKD probably related to dehydration: Started on IV fluids and we hold the lisinopril and spironolactone: Subsequently ADELA improved. hold lisinopril for 2 days and monitor BMP out patiently with PCP and and lisinopril can slowly added back if renal function stays near baseline as per PCP. Follow-up with the Nephrology outpatient. Elizabeth was initially placed which is removed after the renal function came to the baseline, patient is urinating well and not retaining as per bladder scan. Leukocytosis: Probably related to naulasta. Blood culture and urine culture negative UA negative no fevers, patient is asymptomatic. Oral thrush clements: We added nystatin upon discharge. Above management discussed with the patient in detail length he understand and in agreement with the above plan, time spent 50 minutes and 50% time spent on counseling. Significant findings: As above. Procedures performed: None. Treatment and response: As above. Complications: None. My Time Spent with Patient Time attestation: Total time spent providing and/or coordinating discharge services: Discharge coordination time: Greater than 30 minutes Physical Exam Vital Signs: Vital Signs: Last Vital Signs Temp 97.7 F 08/05/20 15:27 Pulse 65 08/05/20 15:27 Resp 18 08/05/20 15:27 BP 158/70 H 08/05/20 15:27 Pulse Ox 95 08/05/20 15:27 Body Mass Index 31.9 Physical exam: Constitutional: Not in acute distress, feeling better be General: no acute distress HEENT:Head: Yes normocephalic and Yes atraumatic Neck: Yes supple Cvs: rrr, [id number] , no murmur res: clear to auscultation ,no rhonchii or wheezing abd: no rebound or guarding ,nt, bs present. ext pulses present , no cyanosis neuro: axo3 , nonfocal. DS: Data Data Completed and Pending Completed studies during hospitalization [Text1]: Procedures Dilation of Left Ureter with Intraluminal Device, Via Natural or Artificial Opening Endoscopic (06/04/20) Excision of Bladder, Via Natural or Artificial Opening Endoscopic (06/04/20) Fluoroscopy of Right Kidney, Ureter and Bladder (06/04/20) Labs on day of discharge: Laboratory Tests 08/02/20 08/02/20 08/02/20 15:40 15:40 15:40 WBC 41.3 H* RBC 4.89 Hgb 14.6 Hct 43.6 MCV 89.2 MCH 29.9 MCHC 33.5 RDW 13.0 Plt Count 134 L MPV 12.2 Immature Gran % (Auto) Cancelled Neut % (Auto) Cancelled Lymph % (Auto) Cancelled [place] % (Auto) Cancelled Eos % (Auto) Cancelled Baso % (Auto) Cancelled Lymph # (Auto) Cancelled [place] # (Auto) Cancelled Eos # (Auto) Cancelled Baso # (Auto) Cancelled Abs Immat Gran (auto) Cancelled Absolute Neuts (auto) Cancelled Absolute Nucleated RBC 0.000 Nucleated RBC % (auto) 0.0 Neutrophils % (Manual) 70 Band Neutrophils % 12 H Lymphocytes % (Manual) 7 L Monocytes % (Manual) 2 Metamyelocytes % 6 Myelocytes % 2 Promyelocytes % 1 Abs Neuts (Manual) 33.9 H Lymphocytes # (Manual) 2.9 Monocytes # (Manual) 0.8 Metamyelocytes # 2.5 Myelocytes # 0.8 Promyelocytes # 0.4 Toxic Granulation PRESENT Toxic Vacuolation PRESENT Platelet Estimate SLIGHTLY DECREASED Plt Morphology Comment NORMAL RBC Morphology NOTED Ovalocytes 1+ Acanthocytes (Spur) 1+ PT 11.8 INR 1.0 APTT 26.8 D Sodium 134 L Potassium 5.1 Chloride 98 Carbon Dioxide 22 Anion Gap 19 BUN 97 H* Creatinine 4.44 H* Estim Creat Clear Calc 16.8 Estimated GFR 13 POC Glucose Random Glucose 193 H Osmolality Lactic Acid Calcium 8.2 L Total Bilirubin 1.0 AST 26 ALT 29 Alkaline Phosphatase 214 H Total Creatine Kinase 418 H Troponin I High Sens Total Protein 5.9 L Albumin 3.6 Urine Color Urine Appearance Urine pH Ur Specific [place] Urine Protein Urine Glucose (UA) Urine Ketones Urine Blood Urine Nitrite Ur Leukocyte Esterase Urine RBC Urine WBC Ur Squamous Epith Cells Urine Bacteria Urine Osmolality Ur Random Sodium Urine Creatinine Stool Leukocytes, Qual C. difficile Toxin A&B C. difficile Antigen C. difficile Interpret COVID-19 ([facility]) COVID-19 [facility] Com 08/02/20 08/02/20 08/02/20 15:53 17:12 17:12 WBC RBC Hgb Hct MCV MCH MCHC RDW Plt Count MPV Immature Gran % (Auto) Neut % (Auto) Lymph % (Auto) [place] % (Auto) Eos % (Auto) Baso % (Auto) Lymph # (Auto) [place] # (Auto) Eos # (Auto) Baso # (Auto) Abs Immat Gran (auto) Absolute Neuts (auto) Absolute Nucleated RBC Nucleated RBC % (auto) Neutrophils % (Manual) Band Neutrophils % Lymphocytes % (Manual) Monocytes % (Manual) Metamyelocytes % Myelocytes % Promyelocytes % Abs Neuts (Manual) Lymphocytes # (Manual) Monocytes # (Manual) Metamyelocytes # Myelocytes # Promyelocytes # Toxic Granulation Toxic Vacuolation Platelet Estimate Plt Morphology Comment RBC Morphology Ovalocytes Acanthocytes (Spur) PT INR APTT Sodium Potassium Chloride Carbon Dioxide Anion Gap BUN Creatinine Estim Creat Clear Calc Estimated GFR POC Glucose Random Glucose Osmolality Lactic Acid 1.0 Calcium Total Bilirubin AST ALT Alkaline Phosphatase Total Creatine Kinase Troponin I High Sens 15.8 16.0 Total Protein Albumin Urine Color Urine Appearance Urine pH Ur Specific [place] Urine Protein Urine Glucose (UA) Urine Ketones Urine Blood Urine Nitrite Ur Leukocyte Esterase Urine RBC Urine WBC Ur Squamous Epith Cells Urine Bacteria Urine Osmolality Ur Random Sodium Urine Creatinine Stool Leukocytes, Qual C. difficile Toxin A&B C. difficile Antigen C. difficile Interpret COVID-19 ([facility]) COVID-19 [facility] Com 08/02/20 08/02/20 08/02/20 18:01 18:01 18:01 WBC RBC Hgb Hct MCV MCH MCHC RDW Plt Count MPV Immature Gran % (Auto) Neut % (Auto) Lymph % (Auto) [place] % (Auto) Eos % (Auto) Baso % (Auto) Lymph # (Auto) [place] # (Auto) Eos # (Auto) Baso # (Auto) Abs Immat Gran (auto) Absolute Neuts (auto) Absolute Nucleated RBC Nucleated RBC % (auto) Neutrophils % (Manual) Band Neutrophils % Lymphocytes % (Manual) Monocytes % (Manual) Metamyelocytes % Myelocytes % Promyelocytes % Abs Neuts (Manual) Lymphocytes # (Manual) Monocytes # (Manual) Metamyelocytes # Myelocytes # Promyelocytes # Toxic Granulation Toxic Vacuolation Platelet Estimate Plt Morphology Comment RBC Morphology Ovalocytes Acanthocytes (Spur) PT INR APTT Sodium Potassium Chloride Carbon Dioxide Anion Gap BUN Creatinine Estim Creat Clear Calc Estimated GFR POC Glucose Random Glucose Osmolality Lactic Acid Calcium Total Bilirubin AST ALT Alkaline Phosphatase Total Creatine Kinase Troponin I High Sens Total Protein Albumin Urine Color YELLOW Urine Appearance CLEAR Urine pH 5.5 Ur Specific [place] 1.020 Urine Protein TRACE Urine Glucose (UA) NEG Urine Ketones NEG Urine Blood 2+ H Urine Nitrite NEG Ur Leukocyte Esterase NEG Urine RBC 1-4 Urine WBC 1-4 Ur Squamous Epith Cells TRACE Urine Bacteria NONE Urine Osmolality Ur Random Sodium 57.0 Urine Creatinine 170.80 Stool Leukocytes, Qual C. difficile Toxin A&B C. difficile Antigen C. difficile Interpret COVID-19 ([facility]) COVID-19 Clin Com 08/02/20 08/02/20 08/02/20 18:01 18:20 18:49 WBC RBC Hgb Hct MCV MCH MCHC RDW Plt Count MPV Immature Gran % (Auto) Neut % (Auto) Lymph % (Auto) [place] % (Auto) Eos % (Auto) Baso % (Auto) Lymph # (Auto) [place] # (Auto) Eos # (Auto) Baso # (Auto) Abs Immat Gran (auto) Absolute Neuts (auto) Absolute Nucleated RBC Nucleated RBC % (auto) Neutrophils % (Manual) Band Neutrophils % Lymphocytes % (Manual) Monocytes % (Manual) Metamyelocytes % Myelocytes % Promyelocytes % Abs Neuts (Manual) Lymphocytes # (Manual) Monocytes # (Manual) Metamyelocytes # Myelocytes # Promyelocytes # Toxic Granulation Toxic Vacuolation Platelet Estimate Plt Morphology Comment RBC Morphology Ovalocytes Acanthocytes (Spur) PT INR APTT Sodium Potassium Chloride Carbon Dioxide Anion Gap BUN Creatinine Estim Creat Clear Calc Estimated GFR POC Glucose Random Glucose Osmolality 312 H Lactic Acid Calcium Total Bilirubin AST ALT Alkaline Phosphatase Total Creatine Kinase Troponin I High Sens Total Protein Albumin Urine Color Urine Appearance Urine pH Ur Specific [place] Urine Protein Urine Glucose (UA) Urine Ketones Urine Blood Urine Nitrite Ur Leukocyte Esterase Urine RBC Urine WBC Ur Squamous Epith Cells Urine Bacteria Urine Osmolality 448 Ur Random Sodium Urine Creatinine Stool Leukocytes, Qual C. difficile Toxin A&B C. difficile Antigen C. difficile Interpret COVID-19 ([facility]) Negative COVID-19 Clin Com See Note 08/02/20 08/03/20 08/03/20 21:57 08:51 09:15 WBC 38.5 H* RBC 4.49 L Hgb 13.5 L Hct 40.9 L MCV 91.1 MCH 30.1 MCHC 33.0 RDW 13.2 Plt Count 135 L MPV 11.8 Immature Gran % (Auto) Neut % (Auto) Lymph % (Auto) [place] % (Auto) Eos % (Auto) Baso % (Auto) Lymph # (Auto) [place] # (Auto) Eos # (Auto) Baso # (Auto) Abs Immat Gran (auto) Absolute Neuts (auto) Absolute Nucleated RBC 0.020 H Nucleated RBC % (auto) 0.1 Neutrophils % (Manual) Band Neutrophils % Lymphocytes % (Manual) Monocytes % (Manual) Metamyelocytes % Myelocytes % Promyelocytes % Abs Neuts (Manual) Lymphocytes # (Manual) Monocytes # (Manual) Metamyelocytes # Myelocytes # Promyelocytes # Toxic Granulation Toxic Vacuolation Platelet Estimate Plt Morphology Comment RBC Morphology Ovalocytes Acanthocytes (Spur) PT INR APTT Sodium Potassium Chloride Carbon Dioxide Anion Gap BUN Creatinine Estim Creat Clear Calc Estimated GFR POC Glucose 94 117 H Random Glucose Osmolality Lactic Acid Calcium Total Bilirubin AST ALT Alkaline Phosphatase Total Creatine Kinase Troponin I High Sens Total Protein Albumin Urine Color Urine Appearance Urine pH Ur Specific [place] Urine Protein Urine Glucose (UA) Urine Ketones Urine Blood Urine Nitrite Ur Leukocyte Esterase Urine RBC Urine WBC Ur Squamous Epith Cells Urine Bacteria Urine Osmolality Ur Random Sodium Urine Creatinine Stool Leukocytes, Qual C. difficile Toxin A&B C. difficile Antigen C. difficile Interpret COVID-19 ([facility]) COVID-19 [facility] 08/03/20 08/03/20 08/03/20 09:15 11:08 16:27 WBC RBC Hgb Hct MCV MCH MCHC RDW Plt Count MPV Immature Gran % (Auto) Neut % (Auto) Lymph % (Auto) [place] % (Auto) Eos % (Auto) Baso % (Auto) Lymph # (Auto) [place] # (Auto) Eos # (Auto) Baso # (Auto) Abs Immat Gran (auto) Absolute Neuts (auto) Absolute Nucleated RBC Nucleated RBC % (auto) Neutrophils % (Manual) Band Neutrophils % Lymphocytes % (Manual) Monocytes % (Manual) Metamyelocytes % Myelocytes % Promyelocytes % Abs Neuts (Manual) Lymphocytes # (Manual) Monocytes # (Manual) Metamyelocytes # Myelocytes # Promyelocytes # Toxic Granulation Toxic Vacuolation Platelet Estimate Plt Morphology Comment RBC Morphology Ovalocytes Acanthocytes (Spur) PT INR APTT Sodium 138 Potassium 4.5 Chloride 107 Carbon Dioxide 22 Anion Gap 14 BUN 72 H Creatinine 2.75 H Estim Creat Clear Calc 27.1 Estimated GFR 23 POC Glucose 111 212 H Random Glucose 124 H D Osmolality Lactic Acid Calcium 7.9 L Total Bilirubin AST ALT Alkaline Phosphatase Total Creatine Kinase Troponin I High Sens Total Protein Albumin Urine Color Urine Appearance Urine pH Ur Specific [place] Urine Protein Urine Glucose (UA) Urine Ketones Urine Blood Urine Nitrite Ur Leukocyte Esterase Urine RBC Urine WBC Ur Squamous Epith Cells Urine Bacteria Urine Osmolality Ur Random Sodium Urine Creatinine Stool Leukocytes, Qual C. difficile Toxin A&B C. difficile Antigen C. difficile Interpret COVID-19 ([facility]) COVID-19 Clin Com 08/03/20 08/03/20 08/03/20 17:57 17:57 20:32 WBC RBC Hgb Hct MCV MCH MCHC RDW Plt Count MPV Immature Gran % (Auto) Neut % (Auto) Lymph % (Auto) [place] % (Auto) Eos % (Auto) Baso % (Auto) Lymph # (Auto) [place] # (Auto) Eos # (Auto) Baso # (Auto) Abs Immat Gran (auto) Absolute Neuts (auto) Absolute Nucleated RBC Nucleated RBC % (auto) Neutrophils % (Manual) Band Neutrophils % Lymphocytes % (Manual) Monocytes % (Manual) Metamyelocytes % Myelocytes % Promyelocytes % Abs Neuts (Manual) Lymphocytes # (Manual) Monocytes # (Manual) Metamyelocytes # Myelocytes # Promyelocytes # Toxic Granulation Toxic Vacuolation Platelet Estimate Plt Morphology Comment RBC Morphology Ovalocytes Acanthocytes (Spur) PT INR APTT Sodium Potassium Chloride Carbon Dioxide Anion Gap BUN Creatinine Estim Creat Clear Calc Estimated GFR POC Glucose 234 H Random Glucose Osmolality Lactic Acid Calcium Total Bilirubin AST ALT Alkaline Phosphatase Total Creatine Kinase Troponin I High Sens Total Protein Albumin Urine Color Urine Appearance Urine pH Ur Specific [place] Urine Protein Urine Glucose (UA) Urine Ketones Urine Blood Urine Nitrite Ur Leukocyte Esterase Urine RBC Urine WBC Ur Squamous Epith Cells Urine Bacteria Urine Osmolality Ur Random Sodium Urine Creatinine Stool Leukocytes, Qual NEGATIVE C. difficile Toxin A&B Negative C. difficile Antigen Negative C. difficile Interpret SEE NOTE COVID-19 ([facility]) COVID-19 [facility] 08/04/20 08/04/20 08/04/20 07:59 08:22 11:40 WBC RBC Hgb Hct MCV MCH MCHC RDW Plt Count MPV Immature Gran % (Auto) Neut % (Auto) Lymph % (Auto) [place] % (Auto) Eos % (Auto) Baso % (Auto) Lymph # (Auto) [place] # (Auto) Eos # (Auto) Baso # (Auto) Abs Immat Gran (auto) Absolute Neuts (auto) Absolute Nucleated RBC Nucleated RBC % (auto) Neutrophils % (Manual) Band Neutrophils % Lymphocytes % (Manual) Monocytes % (Manual) Metamyelocytes % Myelocytes % Promyelocytes % Abs Neuts (Manual) Lymphocytes # (Manual) Monocytes # (Manual) Metamyelocytes # Myelocytes # Promyelocytes # Toxic Granulation Toxic Vacuolation Platelet Estimate Plt Morphology Comment RBC Morphology Ovalocytes Acanthocytes (Spur) PT INR APTT Sodium 141 Potassium 4.7 Chloride 112 H Carbon Dioxide 21 L Anion Gap 13 BUN 44 H Creatinine 1.81 H Estim Creat Clear Calc 41.2 Estimated GFR 37 POC Glucose 137 H 205 H Random Glucose 141 H Osmolality Lactic Acid Calcium 7.7 L Total Bilirubin AST ALT Alkaline Phosphatase Total Creatine Kinase Troponin I High Sens Total Protein Albumin Urine Color Urine Appearance Urine pH Ur Specific [place] Urine Protein Urine Glucose (UA) Urine Ketones Urine Blood Urine Nitrite Ur Leukocyte Esterase Urine RBC Urine WBC Ur Squamous Epith Cells Urine Bacteria Urine Osmolality Ur Random Sodium Urine Creatinine Stool Leukocytes, Qual C. difficile Toxin A&B C. difficile Antigen C. difficile Interpret COVID-19 ([facility]) COVID-19 [facility] 08/04/20 08/04/20 08/05/20 16:47 20:34 06:15 WBC RBC Hgb Hct MCV MCH MCHC RDW Plt Count MPV Immature Gran % (Auto) Neut % (Auto) Lymph % (Auto) [place] % (Auto) Eos % (Auto) Baso % (Auto) Lymph # (Auto) [place] # (Auto) Eos # (Auto) Baso # (Auto) Abs Immat Gran (auto) Absolute Neuts (auto) Absolute Nucleated RBC Nucleated RBC % (auto) Neutrophils % (Manual) Band Neutrophils % Lymphocytes % (Manual) Monocytes % (Manual) Metamyelocytes % Myelocytes % Promyelocytes % Abs Neuts (Manual) Lymphocytes # (Manual) Monocytes # (Manual) Metamyelocytes # Myelocytes # Promyelocytes # Toxic Granulation Toxic Vacuolation Platelet Estimate Plt Morphology Comment RBC Morphology Ovalocytes Acanthocytes (Spur) PT INR APTT Sodium 141 Potassium 4.7 Chloride 111 H Carbon Dioxide 21 L Anion Gap 14 BUN 27 H Creatinine 1.61 H Estim Creat Clear Calc 46.4 Estimated GFR 42 POC Glucose 239 H 265 H Random Glucose 187 H Osmolality Lactic Acid Calcium 8.1 L Total Bilirubin AST ALT Alkaline Phosphatase Total Creatine Kinase Troponin I High Sens Total Protein Albumin Urine Color Urine Appearance Urine pH Ur Specific [place] Urine Protein Urine Glucose (UA) Urine Ketones Urine Blood Urine Nitrite Ur Leukocyte Esterase Urine RBC Urine WBC Ur Squamous Epith Cells Urine Bacteria Urine Osmolality Ur Random Sodium Urine Creatinine Stool Leukocytes, Qual C. difficile Toxin A&B C. difficile Antigen C. difficile Interpret COVID-19 ([facility]) COVID-19 Clin Com 08/05/20 08/05/20 08/05/20 06:15 07:12 11:32 WBC 29.1 H RBC 4.28 L Hgb 12.9 L Hct 39.6 L MCV 92.5 MCH 30.1 MCHC 32.6 RDW 13.5 Plt Count 114 L MPV 12.1 Immature Gran % (Auto) Neut % (Auto) Lymph % (Auto) [place] % (Auto) Eos % (Auto) Baso % (Auto) Lymph # (Auto) [place] # (Auto) Eos # (Auto) Baso # (Auto) Abs Immat Gran (auto) Absolute Neuts (auto) Absolute Nucleated RBC 0.100 H Nucleated RBC % (auto) 0.3 H Neutrophils % (Manual) Band Neutrophils % Lymphocytes % (Manual) Monocytes % (Manual) Metamyelocytes % Myelocytes % Promyelocytes % Abs Neuts (Manual) Lymphocytes # (Manual) Monocytes # (Manual) Metamyelocytes # Myelocytes # Promyelocytes # Toxic Granulation Toxic Vacuolation Platelet Estimate Plt Morphology Comment RBC Morphology Ovalocytes Acanthocytes (Spur) PT INR APTT Sodium Potassium Chloride Carbon Dioxide Anion Gap BUN Creatinine Estim Creat Clear Calc Estimated GFR POC Glucose 198 H 229 H Random Glucose Osmolality Lactic Acid Calcium Total Bilirubin AST ALT Alkaline Phosphatase Total Creatine Kinase Troponin I High Sens Total Protein Albumin Urine Color Urine Appearance Urine pH Ur Specific [place] Urine Protein Urine Glucose (UA) Urine Ketones Urine Blood Urine Nitrite Ur Leukocyte Esterase Urine RBC Urine WBC Ur Squamous Epith Cells Urine Bacteria Urine Osmolality Ur Random Sodium Urine Creatinine Stool Leukocytes, Qual C. difficile Toxin A&B C. difficile Antigen C. difficile Interpret COVID-19 ([facility]) COVID-19 Clin Com Preliminary micro results at discharge 08/03/20 17:57 Stool Culture - Preliminary Stool Normal so far. 08/02/20 15:53 Blood Culture - Preliminary Blood - Venous No growth after 48 hours. 08/02/20 15:40 Blood Culture - Preliminary Blood - Venous No growth after 48 hours. Discharge Plan Discharge Patient Disposition: Home, Self-Care Referrals: Malgorzata Diallo MD [Primary Care Provider] - 2 days Discharge Medications: New nystatin 500,000 unit tablet 500,000 unit PO QID Qty: 20 RF: 0 Continued insulin aspart U-100 [Novolog Flexpen U-100 Insulin] 100 unit/mL (3 mL) Insulin Pen See Protocol unit SUBCUT TIDAC RF: 0 Centrum Silver Men 300-600-300 mcg Tablet 1 tab PO DAILY RF: 0 ondansetron HCl [Zofran] 4 mg Tablet 4 mg PO Q6H PRN (Reason: Nausea) Qty: 30 RF: 0 dexamethasone 4 mg Tablet 4 mg PO BID Qty: 60 RF: 3 insulin glargine 100 unit/mL (3 mL) insulin pen 80 unit subcut DAILY RF: 0 (DME) lancets 33 gauge misc See Rx Instructions ea Not Applicable TID Qty: 100 RF: 0 bicalutamide 50 mg tablet 50 mg PO TID 30 Days Qty: 90 RF: 0 (DME) pen needle, diabetic 31 gauge x 5/16 needle See Rx Instructions ea .ROUTE QID Qty: 1200 RF: 0 omeprazole 20 mg capsule,delayed release(DR/EC) 20 mg PO DAILY@0630 RF: 0 tramadol 50 mg tablet 100 mg PO Q12H PRN (Reason: Pain (Scale Score 4-6)) RF: 0 carvedilol 25 mg tablet 25 mg PO BID RF: 0 amlodipine 10 mg tablet 10 mg PO DAILY RF: 0 spironolactone 25 mg tablet 25 mg PO DAILY RF: 0 atorvastatin 80 mg tablet 80 mg PO BEDTIME RF: 0 Held lisinopril 40 mg tablet 40 mg PO DAILY RF: 0 Hold Instructions: Resume on 08/07/20. Discharge Orders: Discharge Order (Routine); Ordered 08/05/20 Ordered By: Ingrid Ibanez Diet: advance to usual diet, diabetic diet, low fat, low cholesterol and low salt diet Activity on Discharge: As tolerated Stand Alone Forms: Patient Portal Discharge page Other Ambulatory Orders: Basic Metabolic Panel Fasting (Routine) Timeframe: 2 Days Facility: [facility] - Location: Laboratory Ordered By: Ingrid Ibanez Visit Report Forms: Patient Portal Discharge page Care Plan Goals: see below. Health Concerns: Patient was admitted due to adela on CKD probably related to dehydration: Started on IV fluids and we hold the lisinopril and spironolactone: Subsequently ADELA improved. hold lisinopril for 2 days and monitor BMP out patiently with PCP and and lisinopril can slowly added back if renal function stays near baseline as per PCP. Follow-up with the Nephrology outpatient. Leukocytosis: Probably related to naulasta. Blood culture and urine culture negative UA negative no fevers, patient is asymptomatic. Oral thrush clements: We added nystatin upon discharge. Plan of Treatment: As above.
[2020-08-05 16:45] LABS: Glucose, Whole Blood 263 mg/dL (60-115)
--- NOTE | 2020-08-05 18:02 | PC.NURSE ---
Pt white removed at [address] Ibanez order. Patient voided 200mL @1600. Pt bladder scan and found to be 119mL. Dr. Ibanez made aware.
== END 2020-08-05 18:30 | disposition home or self-care (01) | DRG 683 ==
LOC: HO.ED 15:10 → HO.EDOVER 18:38 → HO.S3 08-03 10:18
PROVIDERS: Nurse Practitioner Primary Care; Admitting Provider Internal Medicine; Emergency Provider Emergency Medicine; PCP Internal Medicine; Visit Provider Internal Medicine
DX: N17.9 Acute kidney failure, unspecified (principal); C78.89 Secondary malignant neoplasm of other digestive organs; N13.8 Other obstructive and reflux uropathy; B37.0 Candidal stomatitis; E11.42 Type 2 diabetes mellitus with diabetic polyneuropathy; I12.9 Hypertensive chronic kidney disease with stage 1 through stage 4 chronic kidney disease, or unspecified chronic kidney disease; D72.829 Elevated white blood cell count, unspecified; E86.0 Dehydration; C67.9 Malignant neoplasm of bladder, unspecified; N18.30 Chronic kidney disease, stage 3 unspecified; E11.22 Type 2 diabetes mellitus with diabetic chronic kidney disease; Z20.822 Contact with and (suspected) exposure to COVID-19; N40.1 Benign prostatic hyperplasia with lower urinary tract symptoms; Z90.5 Acquired absence of kidney; Z79.4 Long term (current) use of insulin; Z79.891 Long term (current) use of opiate analgesic; Z79.899 Other long term (current) drug therapy
CPT/HCPCS: 36415; 51798; 70450; 71250; 74176; 80048; 80053; 81001; 82550; 82947; 83605; 83930; 83935; 84300; 84484; 85007; 85025; 85027; 85610; 85730; 87040; 87045; 87046; 87324; 87449; 87635; 89055; 93005; 96361; 96375; 99232; 99284; 99285; J2543

== ENCOUNTER 2020-08-14 10:11 | Outpatient (REF) | payer OTHER, SELFPAY ==
--- NOTE | ~2020-08-14 | PE_ITS ---
EXAMINATION: Fluorine-18 FDG PET/CT Scan CLINICAL INDICATION: Subsequent treatment management. Prostate cancer with metastatic disease, on chemotherapy, last treatment one month ago. PROCEDURE: 74 minutes following the intravenous administration of 15.4 mCi of fluorine 18 FDG, images from the base of the skull to the mid thighs were obtained using a combined PET/CT scanner with CT scan based attenuation correction. No oral contrast was administered. No intravenous contrast was administered. Transverse, coronal, sagittal, and volume reconstruction projections were obtained. The patient's blood glucose as determined by a finger stick, was 112 mg/dl immediately prior to injection. Total CT exam dose-length product 142.45 mGy-cm * These CT images were obtained using dose optimization techniques as appropriate, variously including the following: Automated exposure control * Adjustment of mA and/or kV according to patient size (this includes techniques or standardized protocols for targeted exams where dose is matched to indication/reason for exam; i.e. extremities or head) * Use of iterative reconstruction technique COMPARISON: No previous PET/CT scan is available for comparison. The diagnostic CT scan of the chest, abdomen, and pelvis, dated 08/02/2020, is available for comparison. FINDINGS: (Slice numbers described in this report are numbered superiorly to inferiorly with slice #1 in the head) NECK AND VISUALIZED HEAD: There is a single mildly FDG avid left cervical level 2A lymph node present, SUVmax 3.3, slice 33/267 corresponding to a lymph node that measures 1.1 x 0.9 cm in largest transverse dimensions. There there is no additional cervical of adenopathy. No additional foci of abnormal FDG activity are suggested in the neck or visualized head. A small mucosal inclusion cyst in the left maxillary sinus is noted with no associated abnormal FDG activity. THORAX: No foci of abnormal FDG activity are present in the chest. No pulmonary nodules are visualized. There is no pleural or pericardial fluid, or pneumothorax. There is no mediastinal, supraclavicular, or axillary lymphadenopathy. ABDOMEN AND PELVIS: There is a focus of increased FDG activity in the midline prostate that likely represents the prostatic urethra. This is slightly hypodense on the CT images. No other foci of abnormal FDG activity are suggested in the abdomen or pelvis. The liver, gallbladder, spleen, adrenal glands and pancreas appear unremarkable. A solitary left kidney is present. There is ureteral stent in place. There is diffuse diverticulosis without evidence of diverticulitis. The hollow viscera are otherwise unremarkable. Mildly enlarged iliac lymph nodes visualized on the 08/02/2020 CT scan no longer appear enlarged and there are no foci of abnormal FDG activity in any pelvic or abdominal lymph nodes nodes. There is no retroperitoneal, mesenteric, pelvic or inguinal lymphadenopathy. MUSCULOSKELETAL: There are degenerative changes in the spine there is a Schmorl's node in the superior endplate of L2 in this shows mildly increased FDG activity. No other foci of abnormal FDG activity are present in the osseous structures. VASCULAR: Vascular calcifications including coronary are noted. PET/PET CT fusion skull to thigh IMPRESSION: 1. Mild FDG activity in an minimally enlarged left cervical level IIa lymph node is nonspecific. In the absence of other suspicious foci, this is nonspecific and probably inflammatory in etiology. 2. No additional abnormalities suspicious for metastatic or other malignant lesions are noted. 3. The right kidney is absent and there is a ureteral stent on the left. 4. Vascular calcifications including coronary.
== END 2020-08-14 10:12 | disposition home or self-care (01) ==
LOC: HO.PET 10:11
PROVIDERS: Visit Provider Internal Medicine
DX: Z13.89 Encounter for screening for other disorder (principal)

== ENCOUNTER → 2020-12-12 14:13 | Outpatient (BNVA) | payer OTHER, SELFPAY | PROVIDERS: PCP Internal Medicine; Visit Provider Urology | DX: C61 Malignant neoplasm of prostate (principal) | CPT/HCPCS: 96402; 99212; J9217 ==

== ENCOUNTER → 2020-12-18 09:49 | Outpatient (BNVA) | payer OTHER, SELFPAY | PROVIDERS: PCP Internal Medicine; Visit Provider Urology | DX: C61 Malignant neoplasm of prostate (principal); C77.5 Secondary and unspecified malignant neoplasm of intrapelvic lymph nodes | CPT/HCPCS: 52310; 99212 ==

== ENCOUNTER 2021-01-17 09:06 | Outpatient (REF) | payer OTHER, SELFPAY ==
--- NOTE | ~2021-01-17 | CT_ITS ---
EXAMINATION: CT ABDOMEN AND PELVIS WITHOUT CONTRAST CLINICAL INFORMATION: Pain. Prostate cancer with metastases. COMPARISON: Multiple priors, most recent PET/CT dated 08/24/2020. TECHNIQUE: Multidetector volumetric imaging was performed from the superior aspect of the liver through the pubic symphysis. Sagittal and coronal reformatted images were obtained on the technologist's workstation. This CT examination was performed using dose optimization techniques as appropriate, variously including the following: *Automated exposure control *Adjustment of mA and/or kV according to patient size (this includes techniques or standardized protocols for targeted exams where dose is matched to indication/reason for exam; i.e. extremities or head) *Use of iterative reconstruction technique DLP: 753 mGy-cm. FINDINGS: LUNG BASES: Minimal scarring within the left lingula, unchanged. LIVER, GALLBLADDER, AND BILIARY TREE: The liver is normal in size, shape, and attenuation. No focal hepatic lesion or biliary ductal dilatation is present. The gallbladder is unremarkable with no evidence of radiopaque gallstones, gallbladder wall thickening, or obvious pericholecystic inflammatory changes. PANCREAS: Unremarkable. SPLEEN: Unremarkable. ADRENAL GLANDS: Unremarkable. KIDNEYS AND URETERS: Redemonstration of a solitary left kidney which is normal in size and contour. Nonspecific left perinephric stranding is unchanged. No renal or ureteral stone. No hydronephrosis or hydroureter. BLADDER: Distended and unremarkable. GASTROINTESTINAL TRACT: No bowel wall thickening or associated inflammatory change. No small or large bowel obstruction. Unremarkable appendix. PERITONEAL CAVITY: No intra-abdominal free air or free fluid. No large intra-abdominal mass or organized fluid collection/abscess formation. ABDOMINAL WALL: Fat-containing bilateral inguinal hernias are unchanged. Postsurgical change along the anterior pelvis consistent with prior hernia repair. LYMPH NODES: Previously seen pelvic lymph nodes have significantly decreased in size when compared to the prior examination. For example, a right iliac lymph node now measures 1.4 x 0.7 cm (previously 1.9 x 1.3 cm on a similar axial image). A left iliac lymph node now measures 0.8 x 0.7 cm (previously 1.5 x 1.1 cm on a similar axial image). No new or increasing lymphadenopathy. VASCULAR: Redemonstration of right saccular aneurysmal dilatation measuring 1.5 cm at the level of the left kidney, unchanged. No new abdominal aortic dilatation. Scattered atherosclerotic calcifications. Unremarkable IVC. PELVIC VISCERA: The prostate and seminal vesicles are unremarkable. OSSEOUS STRUCTURES: No new lytic or blastic osseous lesion. Chronic rib fractures are redemonstrated. Degenerative disc disease is again noted. CT/CT abdomen pelvis wo con IMPRESSION: 1. No acute intra-abdominal or intrapelvic findings. 2. Interval decrease in previously seen pelvic lymphadenopathy. No new or increasing lymphadenopathy. 3. No new intra-abdominal mass or ascites. 4. Chronic findings are unchanged.
== END 2021-01-17 09:07 | disposition home or self-care (01) ==
LOC: HO.CT 09:06
PROVIDERS: Visit Provider Urology
DX: G89.3 Neoplasm related pain (acute) (chronic) (principal); C61 Malignant neoplasm of prostate; C79.51 Secondary malignant neoplasm of bone
CPT/HCPCS: 74176

== ENCOUNTER 2021-02-18 10:24 | Emergency (ER) | payer OTHER, SELFPAY ==
[2021-02-18 11:27] VITALS: BP 168/99; PULSE 63; RESP 16; TEMP 37.1; O2SAT 97; BMI 33.4
--- NOTE | 2021-02-18 11:55 | ED.MALEGU ---
HPI - Male Genitourinary General Chief complaint: Urogenital-Male Stated complaint: urination problemd Time Seen by Provider: 02/18/21 11:53 Source: patient Mode of arrival: ambulatory Limitations: no limitations History of Present Illness HPI Narrative: 71-year-old male came in for evaluation of urinary retention. 71-year-old male known history of prostate cancer he follow up with Dr. Leiva/Dr. Arias, patient is been having intermittent urinary retention unable to fully urinate fully, with urinary frequency. Related Data Home Medications Medication Instructions Recorded Confirmed amlodipine 10 mg tablet 10 mg PO DAILY 04/18/20 08/02/20 atorvastatin 80 mg tablet 80 mg PO BEDTIME 04/18/20 08/02/20 carvedilol 25 mg tablet 25 mg PO BID 04/18/20 08/02/20 lisinopril 40 mg tablet 40 mg PO DAILY 04/18/20 08/02/20 omeprazole 20 mg capsule,delayed 20 mg PO DAILY@0630 04/18/20 08/02/20 release pen needle, diabetic 31 gauge x #1200 ea 04/18/20 09/26/2011/18 spironolactone 25 mg tablet 25 mg PO DAILY 04/18/20 08/02/20 tramadol 50 mg tablet 100 mg PO Q12H PRN 04/18/20 08/02/20 insulin aspart U-100 100 unit/mL See Protocol SUBCUT TIDAC 05/30/20 08/02/20 (3 mL) subcutaneous pen (Novolog Flexpen U-100 Insulin aspart) dfexjnul-dem-tlszs acid 300 1 tab PO DAILY 05/30/20 08/02/20 mcg-lycopene 600 mcg-lutein 300 mcg tablet (Centrum Silver Men) lancets 33 gauge #100 ea 06/08/20 09/26/20 insulin glargine 100 unit/mL (3 80 unit SUBCUT DAILY 08/02/20 09/26/20 mL) subcutaneous pen eucalyptol-methyl 1 ea MUCOUS MEMBRANE DAILY 08/15/20 09/26/20 bdihtuxxve-iozuqrg-iigpll mouthwash oxycodone 10 mg tablet 10 mg PO BID PRN 12/18/20 12/21/20 Previous Rx's Medication Instructions Recorded ondansetron HCl 4 mg tablet 4 mg PO Q6H PRN #30 tab 07/17/20 (Zofran) dexamethasone 4 mg tablet 4 mg PO BID #60 tab 07/25/20 enzalutamide 40 mg capsule (Xtandi) 160 mg PO Q24H #120 cap 11/23/20 Allergies Allergy/AdvReac Type Severity Reaction Status Date / Time No Known Allergies Allergy Verified 05/23/20 11:08 Review of Systems Review of Systems: All other systems are reviewed and are negative Constitutional: Reports as per HPI and Reports no additional constitutional complaints Eyes: Reports as per HPI and Reports no additional eye complaints Reports system reviewed and no additional complaints, except as documented Cardiovascular: Reports as per HPI and Reports no additional cardiovascular complaints Respiratory: Reports as per HPI and Reports no additional respiratory complaints Gastrointestinal: Reports as per HPI and Reports no additional gastrointestinal complaints Genitourinary: Reports no additional female genitourinary complaints Musculoskeletal: Reports no additional musculoskeletal complaints Skin/Breast: Reports system reviewed and no additional complaints, except as docu Psychiatric: Reports no additional psychiatric complaints Endocrine: Reports no additional endocrine complaints Hematologic/Lymphatic: Reports no additional hematologic/lymphatic complaints Allergic/Immunologic: Reports no additional allergic/immunologic complaints Reports system reviewed and no additional complaints, except as documented and Reports Abnormal speech present [facility] Past Medical History Medical History BPH (benign prostatic hyperplasia) Bunion of great toe CKD (chronic kidney disease) stage 2, GFR 60-89 ml/min Diabetes Diabetic neuropathy Diabetic retinopathy GERD (gastroesophageal reflux disease) Hematuria High cholesterol History of nephrectomy, unilateral HTN (hypertension) Kidney stone on right side Malignant neoplasm JUAN MANUEL (obstructive sleep apnea) Plantar fasciitis, bilateral Prostate CA Prostate cancer Surgical History H/O cystoscopy History of nephrectomy, left Family History Family History Mother Breast cancer Sister Breast cancer Father Prostate cancer Heart disease Sister Diabetes Brother Heart disease Brother Heart disease Social History Social History Household Members: None Housing: Apartment Are you a primary ambulatory care to a significant other at home: No Do you presently have visiting nurse or other home services: No Alcohol intake: never Patient Tobacco Use Status: Never used Tobacco Second Hand Smoke Exposure: No Use of substances other than those prescribed or required for medical reasons: No Substance Use Type: Crack/Cocaine and Former Substance User Advance Directives: No Advance Directives Information Provided: No service: No Current occupational status: unemployed and disabled Physical Exam Vital Signs: Vital Signs: Last Vital Signs Temp 98.8 F 02/18/21 11:27 Pulse 62 02/18/21 12:06 Resp 16 02/18/21 11:27 BP 169/93 H 02/18/21 12:06 Pulse Ox 98 02/18/21 12:06 Body Mass Index 33.4 Vital signs have been reviewed as appeared to be correct. Blood pressure normal. Heart rate normal. Respiration rate normal. Temperature normal. Oxygen saturation normal. Appearance: Alert. Oriented X3. No acute distress. Head: Normal external exam. Normocephalic. Atraumatic. No Srivastava signs noted. No raccoon eyes noted Eyes: PERRLA. EOMI. Conjunctiva and sclera normal. Eyelids normal. ENT: TM's Normal. Pharynx normal. Uvula midline. Moist mucous membranes. No trismus noted. No drooling noted. No muffled voice noted. Neck: Normal inspection. Neck supple. FROM. No adenopathy. Thyroid Normal. No meningeal signs. No neck mass noted. CVS: Normal heart rate and rhythm. Heart sound normal. No murmurs noted. Pulses normal throughout. Respiratory: No respiratory distress. Painless inspiration. Breath sounds normal. No wheezes/rales/rhonchi noted. Chest nontender. No accessory muscle usage noted or decreased air movement noted. Abdomen: Soft and nontender. Bowel sounds normal in all 4 quadrants. No distention noted. No organomegaly noted. No visible injury noted. Back: No CVA tenderness. Full range of motion noted. Skin: Skin warm and dry. Normal skin color. Normal skin turgor. No rashes/lesions/lacerations noted. Extremities: No lower extremity edema. Extremities exhibit normal range of motion. Extremities nontender. Neuro: Oriented X 3. Cranial nerve exam: II-XII are grossly intact No motor deficit. No sensory deficit. Reflexes normal. Course Course Course Narrative: 71-year-old male with history of prostatic cancer came with urine retention, patient had Elizabeth catheter placed in the emergency department with almost a L of urine drained. Will discharge the patient with Elizabeth catheter after leg bag training and follow-up with Dr. Leiva. Blood in the urine likely from placing the Elizabeth catheter but no obvious infection in the urine, will not start on the antibiotic. MDM - Male Genitourinary Lab Data Labs: Lab Results 02/18/21 Range/Units 13:42 Urine Color RED Urine Appearance CLOUDY Urine pH 6.5 (5.0-8.0) Ur Specific [place] 1.015 (1.005-1.025) Urine Protein 2+ H (NEG-TRACE) MG/DL Urine Glucose (UA) 500 H (NEG) MG/DL Urine Ketones NEG (NEG) MG/DL Urine Blood 3+ H (NEG) Urine Nitrite NEG (NEG) Ur Leukocyte Esterase NEG (NEG) Urine RBC TNTC H (0) /HPF Urine WBC 5-9 H (0-4) /HPF Ur Squamous Epith Cells TRACE /LPF Urine Bacteria TRACE /LPF Discharge Plan Discharge Clinical Impression: Prostate cancer, Acute retention of urine Patient Disposition: Home, Self-Care Instructions: Elizabeth Catheter Placement and Care (ED) Prescriptions: No Action insulin aspart U-100 [Novolog Flexpen U-100 Insulin] 100 unit/mL (3 mL) Insulin Pen See Protocol unit SUBCUT TIDAC RF: 0 Centrum Silver Men 300-600-300 mcg Tablet 1 tab PO DAILY RF: 0 ondansetron HCl [Zofran] 4 mg Tablet 4 mg PO Q6H PRN (Reason: Nausea) Qty: 30 RF: 0 dexamethasone 4 mg Tablet 4 mg PO BID Qty: 60 RF: 3 Mouthrinse Mouthwash 1 ea MUCOUS MEMBRANE DAILY RF: 0 Xtandi 40 mg Capsule 160 mg PO Q24H Qty: 120 RF: 6 insulin glargine 100 unit/mL (3 mL) insulin pen 80 unit subcut DAILY RF: 0 (DME) lancets 33 gauge misc See Rx Instructions ea Not Applicable TID Qty: 100 RF: 0 (DME) pen needle, diabetic 31 gauge x 5/16 needle See Rx Instructions ea .ROUTE QID Qty: 1200 RF: 0 omeprazole 20 mg capsule,delayed release(DR/EC) 20 mg PO DAILY@0630 RF: 0 tramadol 50 mg tablet 100 mg PO Q12H PRN (Reason: Pain (Scale Score 4-6)) RF: 0 carvedilol 25 mg tablet 25 mg PO BID RF: 0 lisinopril 40 mg tablet 40 mg PO DAILY RF: 0 Hold Instructions: Resume on 08/07/20. amlodipine 10 mg tablet 10 mg PO DAILY RF: 0 spironolactone 25 mg tablet 25 mg PO DAILY RF: 0 atorvastatin 80 mg tablet 80 mg PO BEDTIME RF: 0 Referrals: Danny Leiva MD [Physician] - 2 days
[2021-02-18 12:06] VITALS: BP 169/93; PULSE 62; O2SAT 98
[2021-02-18] MEDS: Lidocaine HCl 2 % Urojet 10 ML JEL.PF.APP TOPICAL (13:18)
[2021-02-18 13:54] LABS: Glucose Urine UA 500 MG/DL (NEG); Leukocyte Esterase Urine NEG (NEG); Nitrite Urine NEG (NEG); PH 6.5 (5.0-8.0); Specific Gravity - Urine 1.015 (1.005-1.025); UACC Culture Trigger NO; Urine Blood 3+ (NEG); Urine Ketones NEG (NEG); Urine Protein 2+ MG/DL (NEG-TRACE)
[2021-02-18 14:06] LABS: Appearance Urine CLOUDY; Color Urine RED
[2021-02-18 14:30] LABS: Bacteria Urine TRACE /LPF; RBC Urine TNTC /HPF (0); Squamous Epithelial Cell Urine TRACE /LPF; UACC CULT YES
== END 2021-02-18 15:41 | disposition home or self-care (01) ==
PROVIDERS: Emergency Provider Emergency Medicine; PCP Internal Medicine
DX: R33.9 Retention of urine, unspecified (principal); C61 Malignant neoplasm of prostate; E11.22 Type 2 diabetes mellitus with diabetic chronic kidney disease; I12.9 Hypertensive chronic kidney disease with stage 1 through stage 4 chronic kidney disease, or unspecified chronic kidney disease; N18.2 Chronic kidney disease, stage 2 (mild); Z79.4 Long term (current) use of insulin; Z79.02 Long term (current) use of antithrombotics/antiplatelets; Z79.899 Other long term (current) drug therapy; Z90.5 Acquired absence of kidney
CPT/HCPCS: 51702; 81001; 81003; 87086; 99284

== ENCOUNTER → 2021-03-07 13:35 | Outpatient (BNVA) | payer OTHER, SELFPAY | PROVIDERS: PCP Internal Medicine; Visit Provider Urology | DX: C61 Malignant neoplasm of prostate (principal); C77.5 Secondary and unspecified malignant neoplasm of intrapelvic lymph nodes; R33.9 Retention of urine, unspecified | CPT/HCPCS: 51700; 51798; 99212 ==

== ENCOUNTER → 2021-03-22 13:59 | Outpatient (BNVA) | payer OTHER, SELFPAY | PROVIDERS: PCP Internal Medicine; Visit Provider Urology | DX: N17.9 Acute kidney failure, unspecified (principal); C61 Malignant neoplasm of prostate; C77.5 Secondary and unspecified malignant neoplasm of intrapelvic lymph nodes | CPT/HCPCS: 52000; 99212 ==

== ENCOUNTER 2021-03-25 12:00 | Day surgery (SDC) | payer OTHER, SELFPAY ==
[2021-03-25] VITALS (21 sets, daily range): BP systolic 118–170; BP diastolic 71–103; PULSE 58–70; RESP 12–20; TEMP 36.4–36.7; O2SAT 93–97; BMI 34.9
[2021-03-25 12:35] LABS: Glucose, Whole Blood 192 mg/dL (60-115)
[2021-03-25] MEDS: Lactated Ringers 1,000 ML 100 ML IVCONT (13:23)
[2021-03-25] MEDS: levoFLOXacin/D5W 500 MG/100 ML PIGGYBACK 100 MG IV (13:38)
--- NOTE | 2021-03-25 13:46 | MHC.SHP ---
Pre-Procedural Eval Section A Date of Service: 03/25/21 Section B Chief Complaint: bladder neck contracture Details of Present Illness: Difficulty with urination when seen in the office on Thursday. Persistent hematuria over the weekend. Difficulty with urinating. Cystoscopy had shown narrowing of bladder neck. Prior resection which had come back with advanced prostate cancer. Relevant Family History (Specify if Yes): No Present Medications: see Short Stay Collaborative assessment Medical History: Significant History History of Previous Operations: Relevant previous surgery/procedure and date(s) Allergies: Allergies Allergy/AdvReac Type Severity Reaction Status Date / Time enzalutamide [From Xtandi] Allergy Severe Rash Verified 03/25/21 12:15 Review of Systems Sugical H&P ROS: Negative: Constitution, Cardiovascular, Respiratory, Neurological, Psychiatric, Hem-Onc, Allergic/Immunologic, Gastrointestinal, Genitourinary, Musculoskeletal, Integumentary, Endocrine and Eyes/Ears/Nose/Throat Exam Surgical H&P Exam: Normal: HEENT, Normal: Heart, Normal: Lungs, Normal: Extremities, Normal: Abdomen, Normal: Skin and Normal: Neurological Plan Diagnosis/Plan: Unchanged (TUR bladder neck) I have reviewed the history and physical and performed a pertinent physical examination on my patient. No changes have occurred unless specified.
--- NOTE | 2021-03-25 14:23 | P.OP_ITS ---
Operative Note Operative Note Date of Service: 03/25/21 Narrative: PreOperative Diagnosis: Prosthetic regrowth of bladder neck contracture Post Operative Diagnosis: Prostate cancer regrowth with bladder neck contracture Procedure: TURP of prostate cancer regrowth Surgeon: Dr Danny Leiva Anesthesia: General Indications for procedure: This is a 71-year-old male. Prior diagnosis of grade 5 invasive prostate cancer. Presented to office with hematuria and difficulty with urination. Unable to fully perform cystoscopy in office. Continued bleeding during the weekend. Recommendation for urgent operative intervention. He understands the exact procedure will be indeterminate until surgery. Procedure: After informed consent was verified the patient was brought to the operating room and placed in a supine position. Anesthesia was administered per protocol. Patient was placed in modified dorsal lithotomy position and prepped and draped in a sterile fashion. Safety pause time-out was performed. Antibiotics have been given. A resectoscope was placed per urethra. No abnormality noted the anterior posterior urethra. The bladder apex there appeared to be recurrent ingrowth of prostate cancer into the urethral channel. We were able to navigate around this regrowth which was coming from the left lateral side and carefully into the bladder through a small opening to the right of this regrowth. There was significant regrowth of prostate cancer on the base of the bladder this was also causing obstruction with the ball valve effect. The 1st step was to resect across the trigone of the bladder the ball valve prostate cancer that had been growing up through the mucosa. Mucinous material was expressed from tissue during this resection consistent with high-grade prostate cancer. Resection was performed with a an Olympus bipolar resectoscope. Second step was to complete the bladder neck within incision in the midline in order to allow the bladder neck to remain open. That stent was Re resection of prostate neoplasm regrowth on the left lateral lobe. We could see the edges of our prior resection and use these as landmarks to remove the regrowth of the prostate cancer tissue. Patient understands that this is not meant is a curative procedure and is really designed to allow him to empty his bladder moving forward. He remains on oral medications plus GNRH administration. At the completion of procedure a 22 [place] 30 cc balloon Elizabeth catheter was placed using a stylet. This was irrigated clear. On rectal exam he is felt to have a hard prostate. He tolerated the procedure well was extubated in the operating room transferred in stable condition to the recovery area. Pathology: Prostate cancer Drains: Elizabeth catheter
[2021-03-25] MEDS: fentaNYL citrate/PF 100 MCG/2 ML VIAL 25 MCG IVPUSH ×8 (15:01→16:11)
[2021-03-25] MEDS: Acetaminophen 325 MG TABLET 650 MG PO (15:03)
[2021-03-25] MEDS: oxyCODONE HCl Immed Release 5 MG TABLET PO (15:04)
[2021-03-25] MEDS: Phenazopyridine HCL 100 MG TABLET PO (16:09)
== END 2021-03-25 16:22 | disposition home or self-care (01) ==
PROVIDERS: PCP Internal Medicine; Visit Provider Urology
PROC: 0T9C8ZZ Drainage of Bladder Neck, Via Natural or Artificial Opening Endoscopic (ICD-10-PCS; CPT 52630; principal; 2021-03-25 13:30)
DX: N32.0 Bladder-neck obstruction (principal); C61 Malignant neoplasm of prostate; I12.9 Hypertensive chronic kidney disease with stage 1 through stage 4 chronic kidney disease, or unspecified chronic kidney disease; E11.22 Type 2 diabetes mellitus with diabetic chronic kidney disease; N18.2 Chronic kidney disease, stage 2 (mild); Z90.5 Acquired absence of kidney
CPT/HCPCS: 52630; 82947; 88305; 88341; 88342; J1100; J1956; J2250; J2405; J3010

== ENCOUNTER → 2021-03-28 09:39 | Outpatient (BNVA) | payer OTHER, SELFPAY | PROVIDERS: PCP Internal Medicine; Visit Provider Urology | DX: D3A.8 Other benign neuroendocrine tumors (principal); C61 Malignant neoplasm of prostate; C77.5 Secondary and unspecified malignant neoplasm of intrapelvic lymph nodes; R33.9 Retention of urine, unspecified | CPT/HCPCS: 51700; 51798; 99212 ==

== ENCOUNTER 2021-04-12 07:59 | Outpatient (REF) | payer OTHER, SELFPAY ==
--- NOTE | ~2021-04-12 | CT_ITS ---
EXAMINATION: CT CHEST WITHOUT CONTRAST CLINICAL INFORMATION: Staging. Neuroendocrine tumor. History of prostate cancer. COMPARISON: Previous chest CT July 2020 TECHNIQUE: Multidetector volumetric CT imaging of the chest was done. Axial MIP volume rendering provided. Sagittal and coronal reformatted images were obtained. This CT examination was performed using dose optimization techniques as appropriate, variously including the following: *Automated exposure control *Adjustment of mA and/or kV according to patient size (this includes techniques or standardized protocols for targeted exams where dose is matched to indication/reason for exam; i.e. extremities or head) *Use of iterative reconstruction technique DLP: 239 mGy-cm FINDINGS: LUNGS: There is a 3 mm peripheral or subpleural triangular-shaped right lower lobe nodule adjacent to the major fissure axial image 320 series 7 likely representing a subpleural lymph node. There is a 4 mm peripheral or subpleural left lower lobe nodule axial image 480 series 7. This may represent a subpleural lymph node, as well. There is scarring or subsegmental atelectasis at the lung bases, left greater than right. The lungs are otherwise clear. MEDIASTINUM: The heart does not appear enlarged. There is coronary artery calcification. There is no pericardial effusion. The thoracic aorta is normal in caliber. No enlarged hilar or mediastinal lymph nodes. PLEURA: There is no pleural effusion. No pleural mass or thickening. AXILLA: There is asymmetric increase in size in the soft tissues along the left lateral chest wall and stranding of the adjacent fat, for example axial image 31 series 3. This does not appear appreciably changed from prior exam. This may be related to old trauma. There are small axillary lymph nodes. No enlarged lymph nodes are seen. UPPER ABDOMEN: Unremarkable. OSSEOUS STRUCTURES: There are posttraumatic changes to multiple left ribs. This appears unchanged from previous chest CT scan. There are degenerative changes of the spine. CT/CT chest wo con IMPRESSION: Small stable pulmonary nodules. Subsegmental atelectasis or scarring at the lung bases, left greater than right. Left-sided rib fractures. Coronary artery calcification.
--- NOTE | ~2021-04-12 | CT_ITS ---
EXAMINATION: CT ABDOMEN AND PELVIS WITHOUT CONTRAST CLINICAL INFORMATION: Neuroendocrine tumor. Staging. History of prostate cancer. COMPARISON: Previous abdominal and pelvic CT January 2021 TECHNIQUE: Multidetector volumetric imaging was performed from the superior aspect of the liver through the pubic symphysis. Sagittal and coronal reformatted images were obtained on the technologist's workstation. This CT examination was performed using dose optimization techniques as appropriate, variously including the following: *Automated exposure control *Adjustment of mA and/or kV according to patient size (this includes techniques or standardized protocols for targeted exams where dose is matched to indication/reason for exam; i.e. extremities or head) *Use of iterative reconstruction technique DLP: 698 mGy-cm FINDINGS: LIVER, GALLBLADDER, AND BILIARY TREE: There are multiple new low-attenuation liver lesions. The largest lesions measure 1.5 cm in the liver in the medial segment of the left lobe axial image and lateral segment of the left lobe axial image 24 series 3 and 1.8 cm high in the posterior segment of the right lobe axial image 21 series 3. PANCREAS: Unremarkable. SPLEEN: Unremarkable. ADRENAL GLANDS: Unremarkable. KIDNEYS AND URETERS: There is left hydronephrosis and ureteral dilatation down to the bladder. This is increased from previous exam. The right kidney has been removed. BLADDER: Unremarkable. GASTROINTESTINAL TRACT: The small and large bowel are unremarkable. The appendix is unremarkable. ABDOMINAL WALL: No significant hernia is appreciated. There is evidence of previous suprapubic hernia repair. LYMPH NODES: There is increasing lymphadenopathy in the pelvis. There is a new lymph node in the right presacral space that measures 1.2 cm axial image 83 series 4. There is a right iliac lymph node measuring 2 x 2.4 cm axial image 79 series 3 compared to 9 mm January 2021 exam. There is a left common iliac lymph node measuring 1 x 1.2 cm axial image 65 series 3 compared to 7 mm on previous exam. There are smaller left periaortic 8 mm lymph node axial image 56 series 3 and left periaortic 5 x 10 mm retroperitoneal lymph node axial image 46 series 3 that appear increased. VASCULAR: Unremarkable. PELVIC VISCERA: The prostate gland is enlarged. The prostate gland is irregularly shaped and protrudes into the base of the bladder. There is abnormal soft tissue seen in the periprostatic fat questionable for local invasion. This appears increased from January 2021 exam. OSSEOUS STRUCTURES: There are degenerative changes of the spine and hip joints. CT/CT abdomen pelvis wo con IMPRESSION: New low-attenuation liver lesions. New left hydronephrosis and left ureteral dilatation down to the bladder. Increasing retroperitoneal lymphadenopathy in the lower abdomen and pelvis. Increasing size of the prostate gland and extension into the base of the bladder and soft tissues in the pelvis.
== END 2021-04-12 08:00 | disposition home or self-care (01) ==
LOC: HO.CT 07:59
PROVIDERS: Visit Provider Internal Medicine
DX: D3A.8 Other benign neuroendocrine tumors (principal)
CPT/HCPCS: 71250; 74176

== ENCOUNTER 2021-06-04 11:05 | Outpatient (REF) | payer OTHER, SELFPAY ==
[2021-06-04 11:21] LABS: MANUAL DIFF FLAG NO
[2021-06-04 11:45] LABS: Hemoglobin 11.5 g/dl (14.0-18.0); Imm Gran Abs Auto 0.09 X10*3/uL (0.00-0.03); Lymphocytes Percent Auto 10.8 % (20-40); Mean Corpuscular HGB Conc 32.9 g/dl (31.0-36.0); Mean Corpuscular Hemoglobin 30.4 pg (27.0-33.0); Mean Corpuscular Volume 92.6 fL (80.0-98.0); Mean Platelet Volume 9.9 fL (9.4-12.4); Monocytes Absolute Auto 0.7 X10*3/uL (0.1-1.2); Monocytes Percent Auto 7.8 % (2-11); Neutrophils Absolute Auto 7.6 x10*3/uL (2.0-8.3); Neutrophils Percent Auto 80.4 % (45-73); Platelet Count 159 X10*3/uL (160-400); Red Blood Count 3.78 X10*6/uL (4.60-5.80); Red Cell Distribution Width 15.9 % (11.0-16.0); White Blood Count 9.4 X10*3/uL (4.8-10.8)
[2021-06-04 12:27] LABS: Alanine Aminotransferase 67 U/L (0-40); Albumin Level 4.2 g/dL (3.5-5.0); Alkaline Phosphatase 187 U/L (39-117); Anion Gap 17 (12-20); Aspartate Amino Transferase 53 U/L (5-37); Bilirubin Total 0.5 mg/dL (0.0-1.0); Blood Urea Nitrogen 21 mg/dL (9-16); Calcium 9.4 mg/dL (8.4-10.2); Carbon Dioxide 22 mmol/L (22-29); Chloride 104 mmol/L (96-108); Estimated Glomerular Filt Rate 38; Glucose Random 367 mg/dL (60-115); Magnesium 1.5 mg/dL (1.6-2.6); Potassium 5.1 mmol/L (3.3-5.1); Sodium 138 mmol/L (135-145); Total Protein 6.7 g/dL (6.5-8.0)
[2021-06-04 12:32] LABS: HBS Num1 52.14 mIU/mL (0-7.99); ~Hepatitis B Surface Antibody REACTIVE (Nonreactive)
[2021-06-04 12:37] LABS: HBc Num1 8.16 S/CO (0.00-0.79); HBsAGNum1 0.19 S/CO (0.00-0.99); Hepatitis B Surface Antigen Negative (Negative)
[2021-06-04 12:42] LABS: Prostate Specific Antigen < 0.05 ng/mL (<0.05-4.0)
[2021-06-10 11:52] LABS: Testosterone, Total <1 ng/dL (250-1100)
== END 2021-06-04 11:06 | disposition home or self-care (01) ==
LOC: HO.LAB 11:05
PROVIDERS: Internal Medicine; Visit Provider Urology
DX: Z12.5 Encounter for screening for malignant neoplasm of prostate (principal); C61 Malignant neoplasm of prostate; C77.5 Secondary and unspecified malignant neoplasm of intrapelvic lymph nodes
CPT/HCPCS: 36415; 80053; 83735; 84153; 84403; 85025; 86704; 86706; 87340

== ENCOUNTER 2021-06-06 09:07 | Emergency (ER) | payer OTHER, SELFPAY ==
[2021-06-06 09:51] VITALS: BP 162/85; PULSE 80; RESP 20; TEMP 36.6; O2SAT 99; BMI 30.4
--- NOTE | 2021-06-06 10:13 | ED_ITS ---
HPI - Male Genitourinary General Chief complaint: Urogenital-Male Stated complaint: UNABLE TO URINATE PROSPATE ISSUES Time Seen by Provider: 06/06/21 10:09 Source: patient and family () Mode of arrival: ambulatory Limitations: no limitations History of Present Illness HPI Narrative: 71 years old male history of high grade prostate cancer came in for possible urinary retention. Came in with abdominal pain and suprapubic distension, patient otherwise decline nausea or vomiting or diarrhea or fever. Patient had similar symptoms in the past due to urinary retention required Elizabeth catheter. Patient follow-up with Dr. Leiva from urology and has an appointment and 4 days. Related Data Home Medications Medication Instructions Recorded Confirmed amlodipine 10 mg tablet 10 mg PO DAILY 04/18/20 03/22/21 atorvastatin 80 mg tablet 80 mg PO BEDTIME 04/18/20 03/22/21 carvedilol 25 mg tablet 25 mg PO BID 04/18/20 03/22/21 lisinopril 40 mg tablet 40 mg PO DAILY 04/18/20 03/22/21 omeprazole 20 mg capsule,delayed 20 mg PO DAILY@0630 04/18/20 03/22/21 release pen needle, diabetic 31 gauge x #1200 ea 04/18/20 03/22/2111/18 spironolactone 25 mg tablet 25 mg PO DAILY 04/18/20 03/22/21 insulin aspart U-100 100 unit/mL See Protocol SUBCUT TIDAC 05/30/20 03/22/21 (3 mL) subcutaneous pen (Novolog Flexpen U-100 Insulin aspart) juibofig-ymx-tgljp acid 300 1 tab PO DAILY 05/30/20 03/22/21 mcg-lycopene 600 mcg-lutein 300 mcg tablet (Centrum Silver Men) lancets 33 gauge #100 ea 06/08/20 03/22/21 insulin glargine 100 unit/mL (3 80 unit SUBCUT DAILY 08/02/20 03/22/21 mL) subcutaneous pen eucalyptol-methyl 1 ea MUCOUS MEMBRANE DAILY 08/15/20 03/22/21 mvmirneart-zlgabzb-cybnxj mouthwash oxycodone 5 mg tablet 5 mg PO BID PRN 03/07/21 03/22/21 Previous Rx's Medication Instructions Recorded ondansetron HCl 4 mg tablet 4 mg PO Q6H PRN #30 tab 07/17/20 (Zofran) prednisone 5 mg tablet 5 mg PO DAILY #30 tab 02/20/21 abiraterone 250 mg tablet 1,000 mg PO DAILY #120 tab 02/25/21 hydrocodone 5 mg-acetaminophen 325 1 tab PO Q4H PRN 7 Days #14 tab 03/25/21 mg tablet magnesium oxide 400 mg PO DAILY #30 tab 05/27/21 cefuroxime axetil 500 mg tablet 500 mg PO BID #20 tab 06/06/21 Allergies Allergy/AdvReac Type Severity Reaction Status Date / Time enzalutamide [From Xtandi] Allergy Severe Rash Verified 03/28/21 09:44 abiraterone Allergy Rash Verified 04/19/21 16:08 Review of Systems Review of Systems: All other systems are reviewed and are negative Constitutional: Reports as per HPI and Reports no additional constitutional complaints Eyes: Reports as per HPI and Reports no additional eye complaints Reports system reviewed and no additional complaints, except as documented Cardiovascular: Reports as per HPI and Reports no additional cardiovascular complaints Respiratory: Reports as per HPI and Reports no additional respiratory complaints Gastrointestinal: Reports as per HPI and Reports no additional gastrointestinal complaints Genitourinary: Reports no additional female genitourinary complaints Musculoskeletal: Reports no additional musculoskeletal complaints Skin/Breast: Reports system reviewed and no additional complaints, except as docu Psychiatric: Reports no additional psychiatric complaints Endocrine: Reports no additional endocrine complaints Hematologic/Lymphatic: Reports no additional hematologic/lymphatic complaints Allergic/Immunologic: Reports no additional allergic/immunologic complaints Reports system reviewed and no additional complaints, except as documented and Reports Abnormal speech present [facility] Past Medical History Medical History BPH (benign prostatic hyperplasia) Bunion of great toe CKD (chronic kidney disease) stage 2, GFR 60-89 ml/min Diabetes Diabetic neuropathy Diabetic retinopathy GERD (gastroesophageal reflux disease) Hematuria High cholesterol History of nephrectomy, unilateral HTN (hypertension) Kidney stone on right side Malignant neoplasm JUAN MANUEL (obstructive sleep apnea) Plantar fasciitis, bilateral Prostate CA Surgical History H/O cystoscopy History of nephrectomy, left Family History Family History Mother Breast cancer Sister Breast cancer Father Prostate cancer Heart disease Sister Diabetes Brother Heart disease Brother Heart disease Social History Social History Household Members: None Housing: Apartment Are you a primary pulmonary care nurse to a significant other at home: No Do you presently have visiting nurse or other home services: No Alcohol intake: never Patient Tobacco Use Status: Never used Tobacco Second Hand Smoke Exposure: No Substance Use Type: Crack/Cocaine and Former Substance User Advance Directives: Yes Advance Directives on File: Yes Advance Directives Date on File: 09/05/20 service: No Current occupational status: unemployed and disabled Physical Exam Vital Signs: Vital Signs: Last Vital Signs Temp 97.5 F 06/06/21 11:15 Pulse 78 06/06/21 11:15 Resp 18 06/06/21 11:15 BP 138/61 06/06/21 11:15 Pulse Ox 92 06/06/21 11:15 BMI result Body Mass Index 30.4 Vital signs have been reviewed as appeared to be correct. Blood pressure normal. Heart rate normal. Respiration rate normal. Temperature normal. Oxygen saturation normal. Appearance: Alert. Oriented X3. No acute distress. Head: Normal external exam. Normocephalic. Atraumatic. No Srivastava signs noted. No raccoon eyes noted Eyes: PERRLA. EOMI. Conjunctiva and sclera normal. Eyelids normal. ENT: TM's Normal. Pharynx normal. Uvula midline. Moist mucous membranes. No trismus noted. No drooling noted. No muffled voice noted. Neck: Normal inspection. Neck supple. FROM. No adenopathy. Thyroid Normal. No meningeal signs. No neck mass noted. CVS: Normal heart rate and rhythm. Heart sound normal. No murmurs noted. Pulses normal throughout. Respiratory: No respiratory distress. Painless inspiration. Breath sounds normal. No wheezes/rales/rhonchi noted. Chest nontender. No accessory muscle usage noted or decreased air movement noted. Abdomen: Suprapubic distension with tenderness, no rebound tenderness, no guarding. Bowel sounds normal in all 4 quadrants. No distention noted. No organomegaly noted. No visible injury noted. Back: No CVA tenderness. Full range of motion noted. Skin: Skin warm and dry. Normal skin color. Normal skin turgor. No rashes/lesions/lacerations noted. Extremities: No lower extremity edema. Extremities exhibit normal range of motion. Extremities nontender. Neuro: Oriented X 3. Cranial nerve exam: II-XII are grossly intact No motor deficit. No sensory deficit. Reflexes normal. Course Course Course Narrative: Assessment and plan. 71 years old now history of breast cancer and recurrent history of urine retention required Elizabeth placement several times, patient has an appointment with Dr. Leiva next week, Elizabeth catheter was placed about 1200 cc of urine came out, after placing the catheter patient been having bleeding around the catheter and passing blood clots around the catheter. Patient was observed in the emergency department for 2 hours, bleeding is slowing down, no more blood clots coming from around the catheter and urine is clearing. Will start the patient on antibiotic for 1 week and patient was instructed to return if the bleeding reoccurred otherwise follow-up with Dr. Leiva as scheduled next week. MDM - Male Genitourinary Medical Records Attestation: I reviewed the patient's medical records. Lab Data Attestation: I reviewed the patient's lab results. Labs: Lab Results 06/06/21 Range/Units 10:21 Urine Color YELLOW Urine Appearance CLOUDY Urine pH 6.0 (5.0-8.0) Ur Specific [place] 1.010 (1.005-1.025) Urine Protein 2+ H (NEG-TRACE) MG/DL Urine Glucose (UA) NEG (NEG) MG/DL Urine Ketones NEG (NEG) MG/DL Urine Blood 3+ H (NEG) Urine Nitrite NEG (NEG) Ur Leukocyte Esterase 3+ H (NEG) Urine RBC 15-29 H (0) /HPF Urine WBC TNTC H (0-4) /HPF Ur Squamous Epith Cells TRACE /LPF Urine Bacteria 3+ /LPF Urine Mucus 1+ /LPF Discharge Plan Discharge Clinical Impression: Acute retention of urine Urinary tract infection Qualifiers: Urinary tract infection type: acute cystitis Hematuria presence: with hematuria Qualified Code(s): N30.01 - Acute cystitis with hematuria Patient Disposition: Home, Self-Care Instructions: Elizabeth Catheter Placement and Care (ED) Prescriptions: New cefuroxime axetil 500 mg tablet 500 mg PO BID Qty: 20 RF: 0 No Action insulin aspart U-100 [Novolog Flexpen U-100 Insulin] 100 unit/mL (3 mL) Insulin Pen See Protocol unit SUBCUT TIDAC RF: 0 Centrum Silver Men 300-600-300 mcg Tablet 1 tab PO DAILY RF: 0 ondansetron HCl [Zofran] 4 mg Tablet 4 mg PO Q6H PRN (Reason: Nausea) Qty: 30 RF: 0 Mouthrinse Mouthwash 1 ea MUCOUS MEMBRANE DAILY RF: 0 prednisone 5 mg Tablet 5 mg PO DAILY Qty: 30 RF: 3 abiraterone 250 mg Tablet 1,000 mg PO DAILY Qty: 120 RF: 3 magnesium oxide 400 mg magnesium Tablet 400 mg PO DAILY Qty: 30 RF: 0 insulin glargine 100 unit/mL (3 mL) insulin pen 80 unit subcut DAILY RF: 0 hydrocodone-acetaminophen 5-325 mg tablet 1 tab PO Q4H PRN (Reason: pain) 7 Days Qty: 14 RF: 0 (DME) lancets 33 gauge misc See Rx Instructions ea Not Applicable TID Qty: 100 RF: 0 (DME) pen needle, diabetic 31 gauge x 5/16 needle See Rx Instructions ea .ROUTE QID Qty: 1200 RF: 0 omeprazole 20 mg capsule,delayed release(DR/EC) 20 mg PO DAILY@0630 RF: 0 carvedilol 25 mg tablet 25 mg PO BID RF: 0 lisinopril 40 mg tablet 40 mg PO DAILY RF: 0 Hold Instructions: Resume on 08/07/20. amlodipine 10 mg tablet 10 mg PO DAILY RF: 0 spironolactone 25 mg tablet 25 mg PO DAILY RF: 0 atorvastatin 80 mg tablet 80 mg PO BEDTIME RF: 0 oxycodone 5 mg tablet 5 mg PO BID PRN (Reason: Pain) RF: 0 Referrals: Malgorzata Diallo MD [Primary Care Provider] - 2 days Danny Leiva MD [Physician] - 1 week
[2021-06-06 10:31] LABS: Appearance Urine CLOUDY; Color Urine YELLOW; Glucose Urine UA NEG (NEG); Leukocyte Esterase Urine 3+ (NEG); Nitrite Urine NEG (NEG); UACC Culture Trigger YES; Urine Blood 3+ (NEG); Urine Ketones NEG (NEG); Urine Protein 2+ MG/DL (NEG-TRACE)
[2021-06-06 10:51] LABS: WBC Urine TNTC /HPF (0-4)
[2021-06-06 10:52] LABS: Bacteria Urine 3+ /LPF; Mucus Urine 1+ /LPF; Squamous Epithelial Cell Urine TRACE /LPF
--- NOTE | 2021-06-06 10:52 | PC.NURSE ---
PT DESAT INTO THE HIGH 70S. PT STATES HE HAS SLEEP APNEA AND WEARS A CPAP AT HOME, NO O2. HE RECOVERED INTO LOW 90'S . NO RESP DISTRESS NOTED
[2021-06-06 11:09] VITALS: BP 140/70; PULSE 90; O2SAT 90
[2021-06-06 11:15] VITALS: BP 138/61; PULSE 78; RESP 18; TEMP 36.4; O2SAT 92
[2021-06-06 13:47] VITALS: PULSE 87; O2SAT 93
== END 2021-06-06 13:55 | disposition home or self-care (01) ==
PROVIDERS: Emergency Provider Emergency Medicine; PCP Internal Medicine
DX: R33.9 Retention of urine, unspecified (principal); N30.01 Acute cystitis with hematuria; E11.22 Type 2 diabetes mellitus with diabetic chronic kidney disease; I12.9 Hypertensive chronic kidney disease with stage 1 through stage 4 chronic kidney disease, or unspecified chronic kidney disease; N18.2 Chronic kidney disease, stage 2 (mild); Z85.46 Personal history of malignant neoplasm of prostate; Z79.02 Long term (current) use of antithrombotics/antiplatelets; Z79.4 Long term (current) use of insulin; Z79.899 Other long term (current) drug therapy
CPT/HCPCS: 51702; 81001; 87086; 87088; 87186; 99283; 99284

== ENCOUNTER → 2021-06-12 08:49 | Outpatient (BNVA) | payer OTHER, SELFPAY | PROVIDERS: PCP Internal Medicine; Visit Provider Urology | DX: D3A.8 Other benign neuroendocrine tumors (principal); C61 Malignant neoplasm of prostate; C77.5 Secondary and unspecified malignant neoplasm of intrapelvic lymph nodes; R33.9 Retention of urine, unspecified | CPT/HCPCS: 96402; 99212; J9217 ==

== ENCOUNTER → 2021-06-13 09:14 | Outpatient (BNVA) | payer OTHER, SELFPAY | PROVIDERS: PCP Internal Medicine; Visit Provider Urology | DX: R33.9 Retention of urine, unspecified (principal) | CPT/HCPCS: 51701; 51702; 51798 ==

== ENCOUNTER → 2021-07-11 09:55 | Outpatient (BNVA) | payer OTHER, SELFPAY | PROVIDERS: PCP Internal Medicine; Visit Provider Urology | DX: R33.9 Retention of urine, unspecified (principal) | CPT/HCPCS: 51701; 51702 ==

== ENCOUNTER 2021-07-16 07:27 | Outpatient (REF) | payer OTHER, SELFPAY ==
--- NOTE | ~2021-07-16 | CT_ITS ---
EXAMINATION: CT ABDOMEN AND PELVIS WITHOUT CONTRAST CLINICAL INFORMATION: Prostate cancer. COMPARISON: Previous CT of the abdomen and pelvis, most recent April 2021. TECHNIQUE: Multidetector volumetric imaging was performed from the superior aspect of the liver through the pubic symphysis. Sagittal and coronal reformatted images were obtained on the technologist's workstation. This CT examination was performed using dose optimization techniques as appropriate, variously including the following: *Automated exposure control *Adjustment of mA and/or kV according to patient size (this includes techniques or standardized protocols for targeted exams where dose is matched to indication/reason for exam; i.e. extremities or head) *Use of iterative reconstruction technique DLP: 831 mGy-cm FINDINGS: LUNG BASES: There is a new 7 mm right lower lobe nodule axial image 12 series 3. There is scarring or subsegmental atelectasis in the left lower lobe. LIVER, GALLBLADDER, AND BILIARY TREE: The liver is enlarged. There are innumerable low-attenuation liver lesions suggestive of metastatic disease appear increased in size and number compared to April 2021 exam. Largest lesion measures 6 m in the central right lobe of the liver axial image 17 series 3. The gallbladder is contracted. There may be small gallstones. There is no biliary duct dilatation. PANCREAS: There is a 1 cm low-attenuation cystic lesion body of the pancreas axial image 25 series 3. The pancreas is otherwise unremarkable. SPLEEN: Unremarkable. ADRENAL GLANDS: Unremarkable. KIDNEYS AND URETERS: The right kidney is been removed. There is severe left hydronephrosis and left ureteral dilatation to the bladder. This does not appear appreciably changed from prior exam. BLADDER: The prostate gland is enlarged and protrudes into the base of the bladder. There is a Elizabeth catheter in the bladder. GASTROINTESTINAL TRACT: The small and large bowel are unremarkable. The appendix is unremarkable. ABDOMINAL WALL: There is a left inguinal hernia containing fat. There are postsurgical changes from suprapubic hernia repair. There is stranding of the subcutaneous fat in the anterior abdominal wall likely related to injection sites. LYMPH NODES: There are enlarged lymph nodes in the lower abdomen and pelvis. These have increased in size and number compared to prior exams. There is an enlarged lymph node in the right presacral space. Largest lymph node is a right iliac bifurcation lymph node measuring 2.5 x 3.1 cm compared to 1.9 x 2.2 cm April 2021. There are new enlarged periportal lymph nodes. VASCULAR: Unremarkable. PELVIC VISCERA: The prostate gland is enlarged and irregularly shaped. The prostate gland protrudes into the base of the bladder and extend into the surrounding soft tissues in the pelvis. This appears increased from previous exam. There is stranding of the fat surrounding the prostate gland. Findings are suggestive of local invasion in the pelvis. This does not appear to be a fairly fat plane between the prostate gland and the rectum. OSSEOUS STRUCTURES: There may be a transitional vertebral body segment or 6 lumbar-type vertebral bodies. There is question of a sclerotic lesion in the superior endplate of L2 vertebral body and a lytic lesion in the right symphysis. There are degenerative changes of the spine. There are old left lower rib fractures. CT/CT abdomen pelvis wo con IMPRESSION: Increasing size of the prostate gland and extension into the bladder and soft tissues in the pelvis. Increasing retroperitoneal lymphadenopathy in the lower abdomen and pelvis and presacral space. New periportal lymphadenopathy. Increasing size and number of liver lesions. New right lower lobe pulmonary nodule. Question bone lesions. Severe left hydronephrosis and ureteral dilatation down to the bladder is similar to April 2021 exam. Gallstones. Surgically absent right kidney. Fleischner guidelines were followed.
== END 2021-07-16 07:28 | disposition home or self-care (01) ==
LOC: HO.CT 07:27
PROVIDERS: Visit Provider Urology
DX: C61 Malignant neoplasm of prostate (principal); C77.5 Secondary and unspecified malignant neoplasm of intrapelvic lymph nodes
CPT/HCPCS: 74176

== ENCOUNTER 2021-07-22 15:46 | Inpatient (IN) | payer OTHER, SELFPAY ==
--- NOTE | 2021-07-22 | ECG_ITS ---
Test Reason : syncope Blood Pressure : / mmHG Vent. Rate : 060 BPM Atrial Rate : 060 BPM P-R Int : 130 ms QRS Dur : 094 ms QT Int : 392 ms P-R-T Axes : -22 -27 148 degrees QTc Int : 392 ms Normal sinus rhythm Nonspecific T wave abnormality Abnormal ECG When compared with ECG of 02-AUG-2020 15:42, Premature atrial complexes are no longer Present QRS axis Shifted left Non-specific change in ST segment in Inferior leads T wave inversion no longer evident in Inferior leads T wave inversion no longer evident in Lateral leads Referred By: Cady Don Electronically Signed By:Chon Malloy
--- NOTE | ~2021-07-22 | IR_ITS ---
EXAMINATION: FL NEPHROSTOGRAM CLINICAL INFORMATION: Worsening renal function. Solitary left kidney. Metastatic prostate CA. COMPARISON: CT abdomen/pelvis 07/16/2021 TECHNIQUE: Following explaining ultrasound fluoroscopy-guided left nephrostomy catheter placement procedure, benefits and risk, a written consent was obtained. Patient was placed prone on fluoroscopy table, and low back area was cleaned and draped in the usual sterile manner. Preliminary ultrasound imaging was performed, and an optimal site was selected and injected 1% lidocaine. A long 22-gauge thin needle was inserted under sterile ultrasound guidance into the left pelvis. After successful attempts and a lateral positioning of the needle, access to the left renal pelvis was obtained. A thin guidewire was inserted through the needle under fluoroscopy and the needle withdrawn. A 5-[place] dilator sheath was advanced over the thin guidewire and placed within the left proximal ureter. The 0.125 inch thin guidewire was removed and a 0.03 inch J-wire was advanced and placed in the distal ureter and the sheath with dilator was removed. An 8.5-[place] APD catheter with a stiffener was inserted over the guidewire and advanced into the renal pelvis under fluoroscopy. After the catheter reaching the renal pelvis, the stiffener was withdrawn and the catheter was advanced over the guidewire. A pigtail was formed in the left renal pelvis and guidewire was removed. A single image was obtained after the exam. The catheter was then anchored to the skin with nonabsorbable 3-0 nylon sutures. The catheter was then connected to a drainage bag via a connecting cannula. Sterile dressing applied postprocedure. Conscious sedation was administered during the exam for 59 minutes. Patient tolerated the procedure extremely well. FINDINGS: On preliminary ultrasound imaging, there is a dilated left kidney pelvis. The kidney is displaced further laterally in the prone view due to patient's large abdomen and kidney being compressed and pushed laterally. The lateral positioning of the kidney resulted in several attempts in accessing the left renal pelvis. A single image obtained reveals pigtail positioned within the kidney pelvis with contrast opacifying the intrarenal parenchyma and perinephric space. There was no hemorrhage visualized within the nephrostomy catheter. FLUOROSCOPY TIME: 5.3 minutes DOSE AREA PRODUCT: 4795 uGy-m2 (microgray-meter squared) IR/IR nephrostomy IMPRESSION: Moderately dilated right kidney pelvis on ultrasound. Successful ultrasound and fluoroscopy-guided placement of an 8.5-[place] nephrostomy catheter with the pigtail within the left renal pelvis.
--- NOTE | ~2021-07-22 | US_ITS ---
EXAMINATION: LEFT RENAL ULTRASOUND. CLINICAL INFORMATION: Worsening left renal failure. COMPARISON: CT abdomen 04/12/2021 and 1121. TECHNIQUE: Limited left retroperitoneal renal ultrasound imaging was performed. FINDINGS: There is moderate to significant left hydroureteronephrosis with no obstructive echogenic stones seen in the kidney pelvis or the proximal ureter. US/US renal LT IMPRESSION: Significant left hydroureteronephrosis. No echogenic renal or pelvic calculi seen. On recent CT A/P exam 07/16/2021 severe left hydronephrosis was noted extending to the bladder.
[2021-07-22 15:53] VITALS: BP 110/57; PULSE 62; RESP 18; TEMP 36.6; O2SAT 94; BMI 31.9
--- NOTE | 2021-07-22 15:53 | ED_ITS ---
HPI - Weakness General Chief complaint: Syncope Stated complaint: hypotensive Time Seen by Provider: 07/22/21 15:49 Source: patient and old records reviewed Mode of arrival: wheelchair Limitations: no limitations History of Present Illness HPI Narrative: had CT scan on 07/16 worsening disease progression, worsening L hydronephrosis sent from oncology office - near syncope with standing, ADELA on CKD baseline 1.93 today 3.73 hemoglobin 8.3 from 9.5 (labs last checked 07/15) overall worsening progression given CT scan that shows progression of disease. Given 1L of IVF over 2 hours in clinic BP initially 80/40s now up to 110. Per Oncology notes discussed with Urology - recommends admission and renal US as well as nephrostomy tube. MD Complaint: lack of energy (weakness, worsening kidney function) Onset (ago): day(s) (few days) Duration: progressively worsening Location: generalized Migration: none Severity: moderate Relieving factors: none Exacerbating factors: none Context: other (progressing prostate cancer with mets worsening since CT scan on 07/16) Associated symptoms: loss of appetite Related Data Home Medications Medication Instructions Recorded Confirmed amlodipine 10 mg tablet 10 mg PO DAILY 04/18/20 03/22/21 atorvastatin 80 mg tablet 80 mg PO BEDTIME 04/18/20 03/22/21 carvedilol 25 mg tablet 25 mg PO BID 04/18/20 03/22/21 lisinopril 40 mg tablet 40 mg PO DAILY 04/18/20 03/22/21 omeprazole 20 mg capsule,delayed 20 mg PO DAILY@0630 04/18/20 03/22/21 release pen needle, diabetic 31 gauge x #1200 ea 04/18/20 03/22/2111/18 spironolactone 25 mg tablet 25 mg PO DAILY 04/18/20 03/22/21 insulin aspart U-100 100 unit/mL See Protocol SUBCUT TIDAC 05/30/20 03/22/21 (3 mL) subcutaneous pen (Novolog Flexpen U-100 Insulin aspart) kusmiwvp-wlp-bdrnp acid 300 1 tab PO DAILY 05/30/20 03/22/21 mcg-lycopene 600 mcg-lutein 300 mcg tablet (Centrum Silver Men) lancets 33 gauge #100 ea 06/08/20 03/22/21 insulin glargine 100 unit/mL (3 80 unit SUBCUT DAILY 08/02/20 03/22/21 mL) subcutaneous pen eucalyptol-methyl 1 ea MUCOUS MEMBRANE DAILY 08/15/20 03/22/21 lzpqzqnizc-hzpvcpf-tjblze mouthwash oxycodone 5 mg tablet 5 mg PO BID PRN 03/07/21 03/22/21 Previous Rx's Medication Instructions Recorded hydrocodone 5 mg-acetaminophen 325 1 tab PO Q4H PRN 7 Days #14 tab 03/25/21 mg tablet magnesium oxide 400 mg PO DAILY #30 tab 05/27/21 ondansetron HCl 4 mg tablet 4 mg PO Q6H PRN #30 tab 07/01/21 (Zofran) oxybutynin chloride 5 mg tablet 5 mg PO DAILY PRN 30 Days #30 tab 07/11/21 sulfamethoxazole 800 1 tab PO BID 3 Days #6 tab 07/11/21 mg-trimethoprim 160 mg tablet (Bactrim DS) Allergies Allergy/AdvReac Type Severity Reaction Status Date / Time enzalutamide [From [facility]] Allergy Severe Rash Verified 06/12/21 08:55 abiraterone Allergy Rash Verified 06/12/21 08:55 Review of Systems Review of Systems: Constitutional : No Weight loss, No Fever, No Chills, pos Fatigue, pos Malaise ENT/Mouth : No sore throat, No Rhinorrhea Eyes: No Eye Pain, No Swelling, No Redness Cardiovascular : No Chest Pain, No SOB, No Dyspnea on Exertion, No Orthopnea, No Edema, No Palpitations Respiratory : No Cough, No Sputum, No Wheezing Gastrointestinal : No Nausea, No Vomiting, No Diarrhea, No Constipation, No abdominal Pain, No Hematochezia, No Melena Genitourinary : No Dysuria, No Urinary Frequency, No Hematuria, Musculoskeletal : No joint pain, No Myalgias, No Joint Swelling Skin : No Skin Lesions, No rash Neuro : pos Weakness, No Numbness, pos Dizziness, No Headache Psych : No Anxiety/Panic, No Depression Heme/Lymph: No Bruising, No Bleeding,No Lymphadenopathy Endocrine : No Polyuria, No Polydipsia All other systems reviewed and are negative PMFSH Past Medical History Attestation statement: The following information was validated with the patient. Medical History BPH (benign prostatic hyperplasia) Bunion of great toe CKD (chronic kidney disease) stage 2, GFR 60-89 ml/min Diabetes Diabetic neuropathy Diabetic retinopathy GERD (gastroesophageal reflux disease) Hematuria High cholesterol History of nephrectomy, unilateral HTN (hypertension) Kidney stone on right side Malignant neoplasm JUAN MANUEL (obstructive sleep apnea) Plantar fasciitis, bilateral Prostate CA Surgical History H/O cystoscopy History of nephrectomy, left Family History Family History Mother Breast cancer Sister Breast cancer Father Prostate cancer Heart disease Sister Diabetes Brother Heart disease Brother Heart disease Social History Social History Household Members: None Housing: Apartment Are you a primary primary care nurse to a significant other at home: No Do you presently have visiting nurse or other home services: No Alcohol intake: never Patient Tobacco Use Status: Never used Tobacco Second Hand Smoke Exposure: No Substance Use Type: Crack/Cocaine and Former Substance User Advance Directives: Yes Advance Directives on File: Yes Advance Directives Date on File: 09/05/20 service: No Current occupational status: unemployed and disabled Physical Exam Vital Signs: Vital Signs: Last Vital Signs Temp 98.4 F 07/22/21 18:03 Pulse 60 07/22/21 18:03 Resp 15 07/22/21 18:03 BP 98/55 L 07/22/21 18:03 Pulse Ox 93 07/22/21 18:03 BMI result Body Mass Index 31.9 Appearance: Alert. Oriented X3. No acute distress. Eyes: Pupils equal, round and reactive to light. ENT: Pharynx normal. Neck: Normal inspection. Neck supple. CVS: Normal heart rate and rhythm. Pulses normal. Respiratory: No respiratory distress. Breath sounds normal. Abdomen: Soft but distended Skin: Skin warm and dry. pale skin color. poor skin turgor. Extremities: No lower extremity edema. No calf ttp Neuro: Oriented X 3. No motor deficit. No sensory deficit. Course Course Course Narrative: ADELA , pancytopenia, hypotension in oncology clinic from dehydration and not infection or severe sepsis elevated LFTs from chemo and not infection or severe sepsis IR notes procedure likely around noon tomorrow keep patient NPO at midnight given UA possible infection suspected 638pm - cultures lactic acid and IV ceftriaxone ordered. MDM - Weakness MDM Narrative Medical decision making narrative: 71 yo male with PMH of prostate cancer with mets to bones, liver, has peritoneal lymphadenopathy compressing L ureter causing severe L hydronephrosis - worsening kidney function found to be hypotensive in oncology suspect it is from dehydration and not infection or severe sepsis. At this time will obtain labs, UA, renal US, admit for possible nephrostomy tube (I did mention this to the patient so he was aware). Planned admit Lab Data Labs: Lab Results 07/22/21 07/22/21 07/22/21 Range/Units 15:55 17:07 17:08 PT (9.9-13.0) SEC INR (0.9-1.1) APTT (24.1-38.0) SEC POC Glucose 93 (60-115) mg/dL Lactic Acid 1.0 (0.5-2.0) mmol/L Magnesium (1.6-2.6) mg/dL Urine Color Urine Appearance Urine pH (5.0-8.0) Ur Specific [place] (1.005-1.025) Urine Protein (NEG-TRACE) MG/DL Urine Glucose (UA) (NEG) MG/DL Urine Ketones (NEG) MG/DL Urine Blood (NEG) Urine Nitrite (NEG) Ur Leukocyte Esterase (NEG) Urine RBC (0) /HPF Urine WBC (0-4) /HPF Ur Squamous Epith Cells /LPF Urine Bacteria /LPF COVID-19 (LISHA) (Negative) COVID-19 Clin Com Blood Type O Positive Antibody Screen NEGATIVE 07/22/21 07/22/21 07/22/21 Range/Units 17:08 17:08 18:10 PT 11.8 (9.9-13.0) SEC INR 1.0 (0.9-1.1) APTT 32.0 (24.1-38.0) SEC POC Glucose (60-115) mg/dL Lactic Acid (0.5-2.0) mmol/L Magnesium 2.3 (1.6-2.6) mg/dL Urine Color Urine Appearance Urine pH (5.0-8.0) Ur Specific [place] (1.005-1.025) Urine Protein (NEG-TRACE) MG/DL Urine Glucose (UA) (NEG) MG/DL Urine Ketones (NEG) MG/DL Urine Blood (NEG) Urine Nitrite (NEG) Ur Leukocyte Esterase (NEG) Urine RBC (0) /HPF Urine WBC (0-4) /HPF Ur Squamous Epith Cells /LPF Urine Bacteria /LPF COVID-19 (LISHA) Negative (Negative) COVID-19 Clin Com See Note Blood Type Antibody Screen 07/22/21 Range/Units 18:10 PT (9.9-13.0) SEC INR (0.9-1.1) APTT (24.1-38.0) SEC POC Glucose (60-115) mg/dL Lactic Acid (0.5-2.0) mmol/L Magnesium (1.6-2.6) mg/dL Urine Color YELLOW Urine Appearance HAZY Urine pH 5.5 (5.0-8.0) Ur Specific [place] 1.020 (1.005-1.025) Urine Protein 2+ H (NEG-TRACE) MG/DL Urine Glucose (UA) NEG (NEG) MG/DL Urine Ketones NEG (NEG) MG/DL Urine Blood 3+ H (NEG) Urine Nitrite NEG (NEG) Ur Leukocyte Esterase 2+ H (NEG) Urine RBC 50-75 H (0) /HPF Urine WBC 30-49 H (0-4) /HPF Ur Squamous Epith Cells NONE /LPF Urine Bacteria 2+ /LPF COVID-19 (LISHA) (Negative) COVID-19 Clin Com Blood Type Antibody Screen ECG Data Attestation: I personally reviewed and interpreted this ECG as follows: ECG interpretation date: 07/22/21 ECG interpretation time: 16:15 Interpretation: Rate: 60 Rhythm: NSR [place]: left Normal P waves. Normal KASHMIR. Normal QRS complex. ST T wave : inverted t waves lateral leads no ELIER qTC: normal prior studies: no acute ischemia The study has been interpreted contemporaneously by me. . Discharge Plan Discharge Clinical Impression: ADELA (acute kidney injury), Pancytopenia, Prostate cancer metastatic to intrapelvic lymph node, Acute UTI Patient Disposition: Admitted As Inpatient
[2021-07-22 15:59] LABS: Glucose, Whole Blood 93 mg/dL (60-115)
[2021-07-22 17:37] LABS: COVID-19 Test Negative (Negative); IDNOW Serial# 9DD0AD1C
[2021-07-22 17:38] LABS: Magnesium 2.3 mg/dL (1.6-2.6)
[2021-07-22 18:03] VITALS: BP 98/55; PULSE 60; RESP 15; TEMP 36.9; O2SAT 93
[2021-07-22 18:16] LABS: Appearance Urine HAZY; Color Urine YELLOW; Glucose Urine UA NEG (NEG); Leukocyte Esterase Urine 2+ (NEG); Nitrite Urine NEG (NEG); PH 5.5 (5.0-8.0); UACC Culture Trigger YES; Urine Blood 3+ (NEG); Urine Ketones NEG (NEG); Urine Protein 2+ MG/DL (NEG-TRACE)
[2021-07-22 18:29] LABS: Prothrombin Time 11.8 SEC (9.9-13.0)
[2021-07-22] MEDS: 0.9 % Sodium Chloride 500 ML IV (18:30)
[2021-07-22 18:33] LABS: Bacteria Urine 2+ /LPF; RBC Urine 50-75 /HPF (0); WBC Urine 30-49 /HPF (0-4)
[2021-07-22 18:50] VITALS: BP 112/49; PULSE 97; RESP 20; TEMP 36.8; O2SAT 93
[2021-07-22] MEDS: cefTRIAXone sodium 1 GM in 0.9 % Sodium Chloride 50 ML IV (19:12)
[2021-07-22 20:01] VITALS: BP 110/53; PULSE 66; RESP 19; TEMP 37; O2SAT 95
[2021-07-22] MEDS: 0.9 % Sodium Chloride 1,000 ML 100 ML IVCONT (20:09)
--- NOTE | 2021-07-22 20:43 | PHA.MEDREC ---
Pharmacy Consult ? Medication Reconciliation Pharmacy has completed the medication reconciliation.
--- NOTE | 2021-07-22 21:12 | PM.IMHP ---
History of Present Illness Date of Service: 07/22/21 Chief Complaint: Nausea 71-year-old male with a past medical history of hypertension, hyperlipidemia, diabetes, diabetic neuropathy, diabetic nephropathy, diabetic retinopathy, chronic kidney disease with baseline creatinine around 1.6, JUAN MANUEL, history of prostate cancer with metastasis on chemotherapy-last issue 2 weeks ago; chronic indwelling Elizabeth; transaminitis in the setting of chemotherapy; presented to the hospital with a chief complaint of lightheadedness/dizziness. Patient was sent from the Oncology Clinic as the patient had near syncopal episode; denies any LOC or fall. Blood pressure noted to be 80s over 40s and mildly tachycardic; Patient denies any abdominal discomfort, denies any urinary complaints; complains of hematuria. Denies any chest pain or palpitations Denies any fever chills cough. Review of all other systems is negative except mentioned above ER course: Patient on presentation noted to have benign examination; on labs noted to have elevated creatinine; renal ultrasound showed significant left hydronephrosis; discussed with Dr. Leiva from Urology who recommended nephrostomy tube with IR in the morning. ER team also spoke to IR who scheduled for nephrostomy tube on 07/23/2021 known time. NPO. Patient blood pressure fairly remained stable. Admitted for further management. [facility] Medical History BPH (benign prostatic hyperplasia) Bunion of great toe CKD (chronic kidney disease) stage 2, GFR 60-89 ml/min Diabetes Diabetic neuropathy Diabetic retinopathy GERD (gastroesophageal reflux disease) Hematuria High cholesterol History of nephrectomy, unilateral HTN (hypertension) Kidney stone on right side Malignant neoplasm JUAN MANUEL (obstructive sleep apnea) Plantar fasciitis, bilateral Prostate CA Family History Mother Breast cancer Sister Breast cancer Father Prostate cancer Heart disease Sister Diabetes Brother Heart disease Brother Heart disease Pertinent family history: As mentioned above Surgical History H/O cystoscopy History of nephrectomy, left Social History Household Members: None Housing: Apartment Are you a primary resident care associate to a significant other at home: No Do you presently have visiting nurse or other home services: No Alcohol intake: never Patient Tobacco Use Status: Never used Tobacco Second Hand Smoke Exposure: No Use of substances other than those prescribed or required for medical reasons: Yes Substance Use Type: Marijuana Substance Use Frequency: Occasionally Last Used Substance: Days (ago) Currently Displaying Signs/Symptoms of Drug Intoxication Withdrawal: No Any prior treatment program specific to substance use: No Have you been hit, kicked, punched, or otherwise hurt by someone within the past year? If so, by whom?: No Do you feel safe in your current relationship?: No Current Relationship Is there a partner from a previous relationship who is making you feel unsafe now?: No Are you made to feel afraid or neglected: No Advance Directives: Yes Advance Directives on File: Yes Advance Directives Date on File: 09/05/20 Do you have thoughts of harming others: None Do you have a plan to hurt others: No Plan Recently lost weight without trying: No Nutrition Risks: No Nutritional Risk Poor oral hygiene: No service: No Current occupational status: unemployed and disabled Meds Allergies Allergy/AdvReac Type Severity Reaction Status Date / Time enzalutamide [From [facility]] Allergy Severe Rash Verified 06/12/21 08:55 abiraterone Allergy Rash Verified 06/12/21 08:55 Active Medications: Current Medications Sodium Chloride (Ns) 1,000 mls @ 100 mls/hr IVCONT .Q10H [facility] Last Admin: 07/22/21 20:09 Dose: 100 mls/hr Documented by: Ceftriaxone Sodium 1 gm/ (Sodium Chloride) 50 mls @ 100 mls/hr IV Q24H [facility] Pharmacy Consult (Consult Rx Perform Med Rec) 1 each MISCELLANE ONCE PRN PRN Reason: Consult order Home Medications Medication Instructions Recorded Confirmed Last Taken Type amlodipine 10 mg tablet 10 mg PO DAILY 04/18/20 07/22/21 07/22/21 History atorvastatin 80 mg tablet 80 mg PO BEDTIME 04/18/20 07/22/21 07/21/21 History carvedilol 25 mg tablet 25 mg PO BID 04/18/20 07/22/21 07/22/21 History omeprazole 20 mg capsule,delayed 20 mg PO DAILY@0630 04/18/20 07/22/21 07/22/21 History release pen needle, diabetic 31 gauge x #1200 ea 04/18/20 07/23/21 Unknown History 11/18 spironolactone 25 mg tablet 25 mg PO DAILY 04/18/20 07/22/21 07/22/21 History vddzfndf-wkd-ksrcw acid 300 1 tab PO DAILY 05/30/20 07/22/21 07/22/21 History mcg-lycopene 600 mcg-lutein 300 mcg tablet (Centrum Silver Men) lancets 33 gauge #100 ea 06/08/20 07/23/21 Unknown History insulin glargine 100 unit/mL (3 80 unit SUBCUT BEDTIME 08/02/20 07/22/21 07/21/21 History mL) subcutaneous pen insulin aspart U-100 100 unit/mL 40 unit SUBCUT TIDWM 07/22/21 07/22/21 07/22/21 History (3 mL) subcutaneous pen (Novolog Flexpen U-100 Insulin aspart) oxycodone 10 mg tablet 1 tab PO Q8H PRN 07/22/21 07/22/21 07/22/21 History lisinopril 40 mg tablet 1 tab PO DAILY 07/23/21 07/23/21 07/22/21 History Physical Exam Vital Signs and Narrative: Vital Signs: Last Vital Signs Temp 98.6 F 07/22/21 20:01 Pulse 66 07/22/21 20:01 Resp 19 07/22/21 20:01 BP 110/53 L 07/22/21 20:01 Pulse Ox 95 07/22/21 20:01 BMI result Body Mass Index 31.9 Gen: Appears be in no acute distress HEENT: NCAT, Moist mucosa. Pulmonary: Vesicular breath sounds, fair air entry CVS: Normal S1-S2 Abdomen: BS+, Soft, Nontender; Elizabeth catheter in place; pink-tinged urine noted in the Elizabeth bag. Extremities: Warm well perfused Neuro: Alert and awake. Oriented x3 Results Labs CBC and Chem 7: 07/24/21 05:04 Labs: Laboratory Results - last 24 hr 07/22/21 07/22/21 07/22/21 15:55 17:07 17:08 PT INR APTT POC Glucose 93 Lactic Acid 1.0 Magnesium Urine Color Urine Appearance Urine pH Ur Specific [place] Urine Protein Urine Glucose (UA) Urine Ketones Urine Blood Urine Nitrite Ur Leukocyte Esterase Urine RBC Urine WBC Ur Squamous Epith Cells Urine Bacteria COVID-19 (LISHA) COVID-19 Clin Com Blood Type O Positive Antibody Screen NEGATIVE 07/22/21 07/22/21 07/22/21 17:08 17:08 18:10 PT 11.8 INR 1.0 APTT 32.0 POC Glucose Lactic Acid Magnesium 2.3 Urine Color Urine Appearance Urine pH Ur Specific [place] Urine Protein Urine Glucose (UA) Urine Ketones Urine Blood Urine Nitrite Ur Leukocyte Esterase Urine RBC Urine WBC Ur Squamous Epith Cells Urine Bacteria COVID-19 (LISHA) Negative COVID-19 Clin Com See Note Blood Type Antibody Screen 07/22/21 18:10 PT INR APTT POC Glucose Lactic Acid Magnesium Urine Color YELLOW Urine Appearance HAZY Urine pH 5.5 Ur Specific [place] 1.020 Urine Protein 2+ H Urine Glucose (UA) NEG Urine Ketones NEG Urine Blood 3+ H Urine Nitrite NEG Ur Leukocyte Esterase 2+ H Urine RBC 50-75 H Urine WBC 30-49 H Ur Squamous Epith Cells NONE Urine Bacteria 2+ COVID-19 (LISHA) COVID-19 Clin Com Blood Type Antibody Screen Imaging Radiologist's Impressions: Impressions Renal Ultrasound 07/22/21 16:16 IMPRESSION: Significant left hydroureteronephrosis. No echogenic renal or pelvic calculi seen. On recent CT A/P exam 07/16/2021 severe left hydronephrosis was noted extending to the bladder. Assessment and Plan (1) ADELA (acute kidney injury): Status: Acute (2) Pancytopenia: Status: Acute (3) Acute UTI: Status: Acute (4) Neuroendocrine tumor: Status: Acute (5) Urinary retention with incomplete bladder emptying: Status: Acute (6) Prostate cancer metastatic to intrapelvic lymph node: Status: Chronic 71-year-old male with a past medical history of hypertension, hyperlipidemia, diabetes, diabetic neuropathy, diabetic nephropathy, diabetic retinopathy, chronic kidney disease with baseline creatinine around 1.6, JUAN MANUEL, history of prostate cancer with metastasis on chemotherapy-last issue 2 weeks ago; chronic indwelling Elizabeth; transaminitis in the setting of chemotherapy; presented to the hospital with a chief complaint of lightheadedness/dizziness. Admitted for following Near syncope: Likely in the setting of hypertension as patient noted to have blood pressure of 80s over 40s at the clinic. Currently blood pressure improved. Patient symptoms improving. UTI: Patient is abnormal urinalysis. Concern for UTI. Given patient had an episode of hypotension. Blood pressure currently improved. Continue ceftriaxone empirically. Follow up cultures. History of BPH/metastatic prostate cancer/hematuria: Patient has chronic indwelling Elizabeth Patient was on chemotherapy-last received 2 weeks ago; Oncology follow-up ADELA and CKD: Baseline creatinine around 1.7-1.9. Creatinine presentation is 3.7. Likely postobstructive. Renal ultrasound showed severe left hydroureteronephrosis. Urology team was notified-recommended IR guided nephrostomy tube. IR team aware of the patient and scheduled for nephrostomy tube on 07/23/2021 known time. NPO after midnight Avoid nephrotoxins Nephrology follow-up Transaminitis: Presumed to be in the setting of chemotherapy. Monitor liver enzymes. History of hypertension: Patient on amlodipine, lisinopril, carvedilol at home. Will hold given soft blood pressure. Hold Aldactone given Adela on CKD. History of diabetes: Will reduce the Lantus to 50 units from home 80 units. Insulin sliding scale. Monitor fingerstick glucose and adjust as needed. DVT prophylaxis: SCD boots Code status: Full code Quality Stroke Does the patient have a stroke diagnosis?: No VTE Prior VTE?: No VTE Risk Level:: Medical - low VTE Device Contraindication: N/A - Device Ordered VTE Drug Contraindication: Treatment Not Indicated
[2021-07-22 22:19] VITALS: BP 110/53; PULSE 68; RESP 18; TEMP 36.8; O2SAT 95
[2021-07-23] VITALS (11 sets, daily range): BP systolic 107–163; BP diastolic 62–91; PULSE 58–82; RESP 14–69; TEMP 36.6–37.1; O2SAT 93–97
[2021-07-23] MEDS: 0.9 % Sodium Chloride 1,000 ML 100 ML IVCONT ×2 (05:42→17:44)
[2021-07-23] MEDS: Omeprazole 20 MG CAPSULE.DR PO (05:42)
[2021-07-23 07:05] LABS: Glucose, Whole Blood 170 mg/dL (60-115)
--- NOTE | 2021-07-23 08:20 | MHC.CM.PN ---
CM MET WITH PT IN ED11. PT REPORTS HE LIVES ALONE BUT HAS A MACHINE TRY OUT SETTER THAT COMES IN 4-5 TIMES PER WEEK. HE REPORTS SHE ASSISTS HIM WITH PERSONA CARE, HOUSEWORK, AND TRANSPORTATION. HE ALSO REPORTS SHE IS HIS HCP, COPY REQUESTED. PT CONFIRMS HIS PCP IS KAMALJIT PEREZ. PT DENIES USING AN ASSISTIVE DEVICE TO AMBULATE AND SAYS HE ONLY HAS A NEBULIZER AT HOME. IMM DELIVERED, ORIGINAL LEFT AT BEDSIDE, COPY SENT TO [facility]. CURRENT DC PLAN IS HOME WITH RESUMPTION OF MACHINE TRY OUT SETTER SERVICES. MACHINE TRY OUT SETTER WILL TRANSPORT
--- NOTE | 2021-07-23 09:59 | PC.NURSE ---
report given to [facility]. plan for transfer to them at 1236
--- NOTE | 2021-07-23 12:39 | HO.PM.IMPN ---
Subjective Subjective Date of Service: 07/24/21 Review of Systems follow-up ADELA on CKD, UTI, hydronephrosis Denies any pain, nausea, vomiting, diarrhea all other systems are reviewed and are negative Physical Exam Vital Signs: Vital Signs: Last Vital Signs Temp 98.5 F 07/23/21 10:56 Pulse 67 07/23/21 10:56 Resp 16 07/23/21 10:56 BP 138/69 07/23/21 10:56 Pulse Ox 96 07/23/21 10:56 BMI result Body Mass Index 31.9 Appearing in no acute distress lung sounds are clear to auscultation heart regular rate rhythm, clear S1, S2 positive bowel sounds, abdomen is soft, nontender neuro patient is alert x3, no focal deficits FC in place Objective Data Active Medications Atorvastatin Calcium (Atorvastatin Calcium 80 Mg Tablet) 80 mg PO BEDTIME [facility] Ceftriaxone Sodium 1 gm/ (Sodium Chloride) 50 mls @ 100 mls/hr IV Q24H [facility] Sodium Chloride (Ns) 1,000 mls @ 100 mls/hr IVCONT .Q10H [facility] Last Admin: 07/23/21 05:42 Dose: 100 mls/hr Documented by: DENICE Insulin Glargine (Insulin Glargine,Hum.Rec.Anlog 100 Unit/Ml 10 Ml Vial) 50 unit SUBCUT BEDTIME [facility] Omeprazole (Omeprazole 20 Mg Capsule.Dr) 20 mg PO DAILY@0630 [facility] Last Admin: 07/23/21 05:42 Dose: 20 mg Documented by: DENICE Oxybutynin Chloride (Oxybutynin Chloride Er 5 Mg Tab.Er.24) 5 mg PO DAILY PRN PRN Reason: bladder spasms Oxycodone HCl (Oxycodone Hcl Immed Release 5 Mg Tablet) 10 mg PO Q8H PRN PRN Reason: severe pain Pharmacy Consult (Consult Rx Perform Med Rec) 1 each MISCELLANE ONCE PRN PRN Reason: Consult order Sodium Chloride (0.9 % Sodium Chloride Flush 3 Ml Syringe) 3 ml IVFLUSH QSHIFT [facility] Last Admin: 07/23/21 07:27 Dose: Not Given Documented by: ZACKERY Non-Admin Reason: IV Running Labs CBC & Chem 7: 07/24/21 05:04 Labs: Laboratory Results - last 24 hr 07/22/21 07/22/21 07/22/21 15:55 17:07 17:08 PT INR APTT POC Glucose 93 Lactic Acid 1.0 Magnesium Urine Color Urine Appearance Urine pH Ur Specific [place] Urine Protein Urine Glucose (UA) Urine Ketones Urine Blood Urine Nitrite Ur Leukocyte Esterase Urine RBC Urine WBC Ur Squamous Epith Cells Urine Bacteria COVID-19 ([facility]ISHA) COVID-19 Clin Com Blood Type O Positive Antibody Screen NEGATIVE 07/22/21 07/22/21 07/22/21 17:08 17:08 18:10 PT 11.8 INR 1.0 APTT 32.0 POC Glucose Lactic Acid Magnesium 2.3 Urine Color Urine Appearance Urine pH Ur Specific [place] Urine Protein Urine Glucose (UA) Urine Ketones Urine Blood Urine Nitrite Ur Leukocyte Esterase Urine RBC Urine WBC Ur Squamous Epith Cells Urine Bacteria COVID-19 (LISHA) Negative COVID-19 Clin Com See Note Blood Type Antibody Screen 07/22/21 07/23/21 18:10 07:01 PT INR APTT POC Glucose 170 H Lactic Acid Magnesium Urine Color YELLOW Urine Appearance HAZY Urine pH 5.5 Ur Specific [place] 1.020 Urine Protein 2+ H Urine Glucose (UA) NEG Urine Ketones NEG Urine Blood 3+ H Urine Nitrite NEG Ur Leukocyte Esterase 2+ H Urine RBC 50-75 H Urine WBC 30-49 H Ur Squamous Epith Cells NONE Urine Bacteria 2+ COVID-19 ([facility]ISHA) COVID-19 Clin Com Blood Type Antibody Screen Microbiology Microbiology Results: Microbiology 07/22/21 18:17 Urine Culture - Preliminary Urine clean catch - Urine blum top Culture too young to evaluate. Assessment and Plan (1) ADELA (acute kidney injury): Status: Acute Assessment and Plan: 71-year-old male with a past medical history of hypertension, hyperlipidemia, diabetes, diabetic neuropathy, diabetic nephropathy, diabetic retinopathy, chronic kidney disease with baseline creatinine around 1.6, JUAN MANUEL, history of prostate cancer with metastasis on chemotherapy-last issue 2 weeks ago; chronic indwelling Elizabeth; transaminitis in the setting of chemotherapy; presented to the hospital with a chief complaint of lightheadedness/dizziness.? Admitted for following ADELA and CKD Baseline creatinine around 1.7-1.9.? Creatinine presentation is 3.7. Likely postobstructive. Renal ultrasound showed severe left hydroureteronephrosis. Urology team was notified-recommended IR guided nephrostomy tube.? Near syncope. Likely in the setting of hypotension as patient noted to have blood pressure of 80s over 40s at the clinic.? Currently blood pressure improved.? UTI Continue ceftriaxone empirically.? Follow up cultures. History of BPH/metastatic prostate cancer/hematuria Patient has chronic indwelling Elizabeth Patient was on chemotherapy-last received 2 weeks ago; Oncology follow-up Transaminitis Presumed to be in the setting of chemotherapy.? Monitor liver enzymes. History of hypertension Patient on amlodipine, lisinopril, carvedilol at home.? Will hold given soft blood pressure.? History of diabetes Will reduce the Lantus to 50 units from home 80 units.? Insulin sliding scale.? DVT prophylaxis: SCD boots Code status:? Full code Attending Dr. Friend Quality Stroke Does the patient have a stroke diagnosis?: No VTE Prior VTE?: No VTE Risk Level:: Medical - moderate - high VTE Device Contraindication: N/A - Device Ordered VTE Drug Contraindication: Treatment Not Indicated
--- NOTE | 2021-07-23 13:26 | PC.NURSE ---
PT TO IR
[2021-07-23 13:42] LABS: Glucose, Whole Blood 164 mg/dL (60-115)
--- NOTE | 2021-07-23 14:17 | MHC.HEMONC ---
Pt SO, Adalgisa called. She had questions about his prognosis, goals of care etc. i reassured her that he must get through this nephrostomy tube procedure today and then Dr Alvarez will make options available. She seems to be understanding that pt is tired and has no quality of life and may just want to be left to comfort care. She will call me next week.
[2021-07-23] MEDS: iohexoL 300 MG/ML 50 ML INFUS..BTL 15 ML INTRAUTERI (16:58)
[2021-07-23] MEDS: oxyCODONE HCl Immed Release 5 MG TABLET 10 MG PO (17:08)
[2021-07-23] MEDS: cefTRIAXone sodium 1 GM in 0.9 % Sodium Chloride 50 ML IV (18:01)
[2021-07-23 19:48] LABS: Glucose, Whole Blood 175 mg/dL (60-115)
[2021-07-23] MEDS: Atorvastatin Calcium 80 MG TABLET PO (20:03)
[2021-07-23] MEDS: Insulin Glargine,Hum.rec.anlog 100 UNIT/ML 10 ML VIAL 50 UNIT SUBCUT (20:03)
[2021-07-24] MEDS: oxyCODONE HCl Immed Release 5 MG TABLET 10 MG PO ×3 (02:14→14:03)
[2021-07-24 04:00] VITALS: BP 154/74; PULSE 69; RESP 18; TEMP 36.2; O2SAT 95
[2021-07-24] MEDS: 0.9 % Sodium Chloride 1,000 ML 100 ML IVCONT ×2 (04:25→14:37)
[2021-07-24 05:31] LABS: Anion Gap 13 (12-20); Blood Urea Nitrogen 36 mg/dL (9-16); Calcium 8.9 mg/dL (8.4-10.2); Carbon Dioxide 21 mmol/L (22-29); Chloride 111 mmol/L (96-108); Estimated Glomerular Filt Rate 46; Glucose Random 219 mg/dL (60-115); Potassium 5.6 mmol/L (3.3-5.1); Sodium 139 mmol/L (135-145)
[2021-07-24] MEDS: Omeprazole 20 MG CAPSULE.DR PO (05:49)
[2021-07-24 07:25] LABS: Glucose, Whole Blood 183 mg/dL (60-115)
--- NOTE | 2021-07-24 07:48 | P.CNUR_ITS ---
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 Referred to hospital from Oncology with elevated creatinine Based on solitary kidney and hydronephrosis on imaging recommendation for left PCN placement Left PCN has been placed Creatinine has fallen to 1.5 which is baseline If stable may DC Review of Systems Constitutional: Constitutional: Reports as per HPI and Reports no additional constitutional complaints Cardiovascular: Cardiovascular: Reports as per HPI and Reports no additional cardiovascular complaints Respiratory: Respiratory: Reports as per HPI and Reports no additional r espiratory complaints Gastrointestinal: Gastrointestinal: Reports as per HPI and Reports no additional gastrointestinal complaints Genitourinary: Genitourinary: Reports as per HPI Musculoskeletal: Musculoskeletal: Reports no additional musculoskeletal complaints and Reports as per HPI Neurologic: Reports system reviewed and no additional complaints, except as documented and Reports as per HPI PMFSH Past Medical History Medical History BPH (benign prostatic hyperplasia) Bunion of great toe CKD (chronic kidney disease) stage 2, GFR 60-89 ml/min Diabetes Diabetic neuropathy Diabetic retinopathy GERD (gastroesophageal reflux disease) Hematuria High cholesterol History of nephrectomy, unilateral HTN (hypertension) Kidney stone on right side Malignant neoplasm JUAN MANUEL (obstructive sleep apnea) Plantar fasciitis, bilateral Prostate CA Family History Family History Mother Breast cancer Sister Breast cancer Father Prostate cancer Heart disease Sister Diabetes Brother Heart disease Brother Heart disease Surgical History Surgical History H/O cystoscopy History of nephrectomy, left Social History Social History Household Members: None Housing: Apartment Are you a primary acute care certified nursing assistant to a significant other at home: No Do you presently have visiting nurse or other home services: No Alcohol intake: never Patient Tobacco Use Status: Never used Tobacco Second Hand Smoke Exposure: No Use of substances other than those prescribed or required for medical reasons: Yes Substance Use Type: Marijuana Substance Use Frequency: Occasionally Last Used Substance: Days (ago) Currently Displaying Signs/Symptoms of Drug Intoxication Withdrawal: No Any prior treatment program specific to substance use: No Have you been hit, kicked, punched, or otherwise hurt by someone within the past year? If so, by whom?: No Do you feel safe in your current relationship?: No Current Relationship Is there a partner from a previous relationship who is making you feel unsafe now?: No Are you made to feel afraid or neglected: No Advance Directives: Yes Advance Directives on File: Yes Advance Directives Date on File: 09/05/20 Do you have thoughts of harming others: None Do you have a plan to hurt others: No Plan Recently lost weight without trying: No Nutrition Risks: No Nutritional Risk Poor oral hygiene: No service: No Current occupational status: unemployed and disabled Meds Allergies Allergy/AdvReac Type Severity Reaction Status Date / Time enzalutamide [From andi] Allergy Severe Rash Verified 06/12/21 08:55 abiraterone Allergy Rash Verified 06/12/21 08:55 Active Medications: Current Medications Atorvastatin Calcium (Atorvastatin Calcium 80 Mg Tablet) 80 mg PO BEDTIME [facility] Last Admin: 07/23/21 20:03 Dose: 80 mg Documented by: Ceftriaxone Sodium 1 gm/ (Sodium Chloride) 50 mls @ 100 mls/hr IV Q24H [facility] Last Infusion: 07/23/21 18:31 Dose: Infused Documented by: Sodium Chloride (Ns) 1,000 mls @ 100 mls/hr IVCONT .Q10H [facility] Last Admin: 07/24/21 04:25 Dose: 100 mls/hr Documented by: Insulin Glargine (Insulin Glargine,Hum.Rec.Anlog 100 Unit/Ml 10 Ml Vial) 50 unit SUBCUT BEDTIME [facility] Last Admin: 07/23/21 20:03 Dose: 50 unit Documented by: Omeprazole (Omeprazole 20 Mg Capsule.Dr) 20 mg PO DAILY@0630 [facility] Last Admin: 07/24/21 05:49 Dose: 20 mg Documented by: Oxybutynin Chloride (Oxybutynin Chloride Er 5 Mg Tab.Er.24) 5 mg PO DAILY PRN PRN Reason: bladder spasms Last Admin: 07/23/21 20:02 Dose: 5 mg Documented by: Oxycodone HCl (Oxycodone Hcl Immed Release 5 Mg Tablet) 10 mg PO Q8H PRN PRN Reason: severe pain Last Admin: 07/24/21 02:14 Dose: 10 mg Documented by: Pharmacy Consult (Consult Rx Perform Med Rec) 1 each MISCELLANE ONCE PRN PRN Reason: Consult order Sodium Chloride (0.9 % Sodium Chloride Flush 3 Ml Syringe) 3 ml [facility] Last Admin: 07/23/21 20:05 Dose: Not Given Documented by: Home Medications Medication Instructions Recorded Confirmed Last Taken Type amlodipine 10 mg tablet 10 mg PO DAILY 04/18/20 07/22/21 07/22/21 History atorvastatin 80 mg tablet 80 mg PO BEDTIME 04/18/20 07/22/21 07/21/21 History carvedilol 25 mg tablet 25 mg PO BID 04/18/20 07/22/21 07/22/21 History omeprazole 20 mg capsule,delayed 20 mg PO DAILY@0630 04/18/20 07/22/21 07/22/21 History release pen needle, diabetic 31 gauge x #1200 ea 04/18/20 07/23/21 Unknown History 11/18 spironolactone 25 mg tablet 25 mg PO DAILY 04/18/20 07/22/21 07/22/21 History pvxfxwif-ght-zmjpi acid 300 1 tab PO DAILY 05/30/20 07/22/21 07/22/21 History mcg-lycopene 600 mcg-lutein 300 mcg tablet (Centrum Silver Men) lancets 33 gauge #100 ea 06/08/20 07/23/21 Unknown History insulin glargine 100 unit/mL (3 80 unit SUBCUT BEDTIME 08/02/20 07/22/21 07/21/21 History mL) subcutaneous pen insulin aspart U-100 100 unit/mL 40 unit SUBCUT TIDWM 07/22/21 07/22/21 07/22/21 History (3 mL) subcutaneous pen (Novolog Flexpen U-100 Insulin aspart) oxycodone 10 mg tablet 1 tab PO Q8H PRN 07/22/21 07/22/21 07/22/21 History lisinopril 40 mg tablet 1 tab PO DAILY 07/23/21 07/23/21 07/22/21 History Physical Exam Vital Signs: Vital Signs: Last Vital Signs Temp 97.2 F 07/24/21 04:00 Pulse 69 07/24/21 04:00 Resp 18 07/24/21 04:00 BP 154/74 H 07/24/21 04:00 Pulse Ox 95 07/24/21 04:00 BMI result Body Mass Index 31.9 Const: General: cooperative, healthy appearing, comfortable and no acute distress Orientation/consciousness: patient oriented x3 HENMT: Face and sinus: Yes normal facial exam Mouth: moist mucous membranes Neck: Neck: Yes normal visual inspection, Yes full ROM and Yes trachea midline Chest: Chest palpation & inspection: normal inspection of the chest Resp: Effort & Inspection: normal respiratory effort, able to speak in complete sentences and no respiratory distress GI: Inspection: Yes normal to inspection Back/Spine/Pelvis: Cervical Spine: normal cervical lordosis Thoracic/Lumbar Spine: thoracic and lumbar spine normal to inspection Skin: General skin exam: no rashes or lesions noted Neuro: General: patient oriented x3, tone normal and moves all extremities Extrem: General: Yes normal to inspection and Yes capillary refill normal Results Labs Result diagrams: 07/24/21 05:04 Labs: Abnormal lab results 07/23/21 07/23/21 07/24/21 Range/Units 13:39 19:43 05:04 Potassium 5.6 H (3.3-5.1) mmol/L Chloride 111 H (96-108) mmol/L Carbon Dioxide 21 L (22-29) mmol/L BUN 36 H (9-16) mg/dL Creatinine 1.50 H (0.5-1.4) mg/dL POC Glucose 164 H 175 H (60-115) mg/dL Random Glucose 219 H D (60-115) mg/dL 07/24/21 Range/Units 07:11 Potassium (3.3-5.1) mmol/L Chloride (96-108) mmol/L Carbon Dioxide (22-29) mmol/L BUN (9-16) mg/dL Creatinine (0.5-1.4) mg/dL POC Glucose 183 H (60-115) mg/dL Random Glucose (60-115) mg/dL BMP 07/24/21 05:04 Sodium 139 Potassium 5.6 H Chloride 111 H Carbon Dioxide 21 L BUN 36 H Creatinine 1.50 H Calcium 8.9 Urine 07/22/21 Range/Units 18:10 Urine Color YELLOW Urine Appearance HAZY Urine pH 5.5 (5.0-8.0) Ur Specific [place] 1.020 (1.005-1.025) Urine Protein 2+ H (NEG-TRACE) MG/DL Urine Glucose (UA) NEG (NEG) MG/DL All other labs normal. Assessment and Plan (1) ADELA (acute kidney injury): Status: Acute (2) Neuroendocrine tumor: Status: Acute Resolution of ADELA with PCN Metastatic disease with treatment who oncology Procedures Date of Service Date of Service: 07/24/21
[2021-07-24 07:51] VITALS: BP 162/85; PULSE 62; RESP 18; TEMP 35.8; O2SAT 94
--- NOTE | 2021-07-24 08:03 | P.PNIM_ITS ---
Subjective Subjective Date of Service: 07/24/21 Review of Systems follow-up ADELA on CKD, UTI, hydronephrosis Denies any pain, nausea, vomiting, diarrhea s/p nephrectomy tube placement all other systems are reviewed and are negativ Physical Exam Vital Signs: Vital Signs: Last Vital Signs Temp 96.4 F L 07/24/21 07:51 Pulse 62 07/24/21 07:51 Resp 18 07/24/21 07:51 BP 162/85 H 07/24/21 07:51 Pulse Ox 94 07/24/21 07:51 BMI result Body Mass Index 31.9 Appearing in no acute distress lung sounds are clear to auscultation heart regular rate rhythm, clear S1, S2 positive bowel sounds, abdomen is soft, nontender neuro patient is alert x3, no focal deficits Left nephrectomy Objective Data Active Medications Atorvastatin Calcium (Atorvastatin Calcium 80 Mg Tablet) 80 mg PO BEDTIME [facility] Last Admin: 07/23/21 20:03 Dose: 80 mg Documented by: СВЕТЛАНА Ceftriaxone Sodium 1 gm/ (Sodium Chloride) 50 mls @ 100 mls/hr IV Q24H [facility] Last Infusion: 07/23/21 18:31 Dose: 0 mls/hr Documented by: KAVITHA Sodium Chloride (Ns) 1,000 mls @ 100 mls/hr IVCONT .Q10H [facility] Last Admin: 07/24/21 04:25 Dose: 100 mls/hr Documented by: СВЕТЛАНА Insulin Glargine (Insulin Glargine,Hum.Rec.Anlog 100 Unit/Ml 10 Ml Vial) 50 unit SUBCUT BEDTIME [facility] Last Admin: 07/23/21 20:03 Dose: 50 unit Documented by: СВЕТЛАНА Omeprazole (Omeprazole 20 Mg Capsule.) 20 mg PO DAILY@0630 [facility] Last Admin: 07/24/21 05:49 Dose: 20 mg Documented by: СВЕТЛАНА Oxybutynin Chloride (Oxybutynin Chloride Er 5 Mg Tab.Er.24) 5 mg PO DAILY PRN PRN Reason: bladder spasms Last Admin: 07/23/21 20:02 Dose: 5 mg Documented by: СВЕТЛАНА Oxycodone HCl (Oxycodone Hcl Immed Release 5 Mg Tablet) 10 mg PO Q8H PRN PRN Reason: severe pain Last Admin: 07/24/21 02:14 Dose: 10 mg Documented by: СВЕТЛАНА Pharmacy Consult (Consult Rx Perform Med Rec) 1 each MISCELLANE ONCE PRN PRN Reason: Consult order Sodium Chloride (0.9 % Sodium Chloride Flush 3 Ml Syringe) 3 ml IVFLUSH QSHIFT [facility] Last Admin: 07/23/21 20:05 Dose: Not Given Documented by: СВЕТЛАНА Non-Admin Reason: IV Running Labs CBC & Chem 7: 07/24/21 05:04 Labs: Laboratory Results - last 24 hr 07/23/21 07/23/21 07/24/21 13:39 19:43 05:04 Anion Gap 13 Estim Creat Clear Calc 49.0 Estimated GFR 46 POC Glucose 164 H 175 H Random Glucose 219 H D Calcium 8.9 07/24/21 07:11 Anion Gap Estim Creat Clear Calc Estimated GFR POC Glucose 183 H Random Glucose Calcium Microbiology Microbiology Results: Microbiology 07/22/21 17:08 Blood Culture - Preliminary Blood - Venous No growth after 24 hours. 07/22/21 17:08 Blood Culture - Preliminary Blood - Venous No growth after 24 hours. 07/22/21 18:17 Urine Culture - Preliminary Urine clean catch - Urine blum top Culture too young to evaluate. Assessment and Plan (1) ADELA (acute kidney injury): Status: Acute Assessment and Plan: 71-year-old male with a past medical history of hypertension, hyperlipidemia, diabetes, diabetic neuropathy, diabetic nephropathy, diabetic retinopathy, chronic kidney disease with baseline creatinine around 1.6, JUAN MANUEL, history of prostate cancer with metastasis on chemotherapy-last issue 2 weeks ago; chronic indwelling Elizabeth; transaminitis in the setting of chemotherapy; presented to the hospital with a chief complaint of lightheadedness/dizziness.? Admitted for following Hyperkalemia Lokelma Follow BMP ADELA and CKD. significantly improved Baseline creatinine around 1.7-1.9.? Likely postobstructive. Renal ultrasound showed severe left hydroureteronephrosis. s/p left nephrostomy pain management Near syncope. Likely in the setting of hypotension? as patient noted to have blood pressure of 80s over 40s at the clinic.? Currently blood pressure improved.? UTI Continue ceftriaxone empirically.? Follow up cultures. Chronic pancytopenia d/t chemotherapy follow CBC History of BPH/metastatic prostate cancer/hematuria Patient has chronic indwelling Elizabeth Patient was on chemotherapy-last received 2 weeks ago; Oncology follow-up Transaminitis Presumed to be in the setting of chemotherapy.? Monitor liver enzymes. History of hypertension Patient on amlodipine, lisinopril, carvedilol at home.? Will hold given soft blood pressure.? History of diabetes Will reduce the Lantus to 50 units from home 80 units.? Insulin sliding scale.? DVT prophylaxis: SCD boots Code status:? Full code Attending Dr. Friend Quality Stroke Does the patient have a stroke diagnosis?: No VTE Prior VTE?: No VTE Risk Level:: Medical - moderate - high VTE Device Contraindication: N/A - Device Ordered VTE Drug Contraindication: Treatment Not Indicated
[2021-07-24 08:23] LABS: Alanine Aminotransferase 136 U/L (0-40); Albumin Level 3.2 g/dL (3.5-5.0); Alkaline Phosphatase 588 U/L (39-117); Aspartate Amino Transferase 137 U/L (5-37); Bilirubin Direct 0.5 mg/dL (0.0-0.5); Bilirubin Total 0.7 mg/dL (0.0-1.0); Total Protein 5.6 g/dL (6.5-8.0)
[2021-07-24] MEDS: Sodium Zirconium Cyclosilicate 5 GM POWD.PACK PO (08:29)
--- NOTE | 2021-07-24 10:00 | P.CDIC_ITS ---
CDI Concurrent Query Documentation Clarification: PHYSICIAN'S DOCUMENTATION REQUEST Date of Query: 07/24/21 1001 Patient Name: Chong Santa Admit Date: 07/22/21 Dear Doctor, A review of the medical record indicates additional documentation may be needed. Please review below and update the documentation accordingly. Risk Factors/Clinical Indicators/Treatments ED: Clinical impression: Pancytopenia H&P: 07/22 - Assessment/plan: Pancytopenia, acute Plt 123 Leukocytes 3.6 L hgb 8.3 Prostate cancer with mets to intrapelvic lymph nodes, chemotherapy. Based on the above, could you clarify in the Progress Notes the appropriate diagnosis, if significant, that supports the above abnormalities and additional evaluation, monitoring, and/or treatment rendered: * Pancytopenia due to chemotherapy * Pancytopenia due to other etiology * Pancytopenia due to other drug * Other (please specify) * Unable to determine Use of terms such as suspected, likely, concern for, or probable (associated with a specific diagnosis that is being evaluated, monitored, or treated as if it exists) are acceptable and can be coded in the inpatient setting, when documented at the time of discharge. Thank you, Valerie Hines [facility], CDIS Extension: [phone] Please use your independent medical judgment in providing your response. THIS QUERY IS PART OF THE PERMANENT MEDICAL RECORD
[2021-07-24 11:24] VITALS: BP 164/75; PULSE 63; RESP 18; TEMP 36.6; O2SAT 94
[2021-07-24 11:38] LABS: Glucose, Whole Blood 144 mg/dL (60-115)
--- NOTE | 2021-07-24 12:46 | MHC.CM.PN ---
PATIENT GIVES PERMISSION FOR THIS SCIENTIFIC ARTIST TO CALL [place] ([phone]) DAUGHTER IS CALLING THIS SCIENTIFIC ARTIST DAUGHTER IS CONCERNED THAT WE MAY NOT HAVE CORRECT HCP. DAUGHTER MADE AWARE THAT PATIENT SPEAKS FOR HIMSELF AND THAT CURRENTLY THIS SCIENTIFIC ARTIST HAS NO HCP DOCUMENT ACCESSIBLE CASE MANAGEMENT TO MEET WITH PATIENT TO DISCUSS DAUGHTER'S CONCERNS, AND ASK THAT HE CONTACT HIS DAUGHTER. THIS SCIENTIFIC ARTIST TO ASSIST PATIENT WITH CONVERSATION IF NEEDED.
--- NOTE | 2021-07-24 12:50 | MHC.CM.PN ---
ACCORDING TO PHYSICIAN ROUNDS, PATIENT HAD NEPHRO TUBE YESTERDAY AND STILL EXPERIENCING SIGNIFICANT PAIN NO PLANS FOR DC TODAY
--- NOTE | 2021-07-24 14:40 | MHC.CM.PN ---
PATIENT AGREEABLE TO ASSIGNING A HCP, THIS FILING WRITER IS UNABLE TO FIND ONE ON FILE. HE DOES ASK THAT THIS BE DONE ON THURSDAY, HE NEEDS SLEEP AND HIS PHONE KEEPS RINGING. HE WILL SIGN A DOCUMENT NAMING HIS SISTER DEMETRI AND HIS GIRLFRIEND YUE SECONDARY. PATIENT STATES THAT HE IS TURNING OFF HIS PHONE VOLUME SO THAT HE CAN REST. CASE MANAGEMENT TO FOLLOW UP WITH HCP COMPLETION TOMORROW
[2021-07-24 15:41] VITALS: BP 129/80; PULSE 74; RESP 16; TEMP 37.1; O2SAT 95
[2021-07-24 15:50] LABS: Glucose, Whole Blood 151 mg/dL (60-115)
--- NOTE | 2021-07-24 16:04 | PC.NURSE ---
At approx 1330 pt attempted to drain white without success. Gentle irrigated resulted in moderate amt of clots. bladder scanned for 195. white reconnected to drain bag. Dr Leiva made aware
[2021-07-24] MEDS: cefTRIAXone sodium 1 GM in 0.9 % Sodium Chloride 50 ML IV (18:14)
[2021-07-24 20:00] VITALS: BP 164/89; PULSE 79; RESP 16; TEMP 37.4; O2SAT 93
[2021-07-24 20:13] LABS: Glucose, Whole Blood 159 mg/dL (60-115)
[2021-07-24] MEDS: Atorvastatin Calcium 80 MG TABLET PO (20:28)
[2021-07-24] MEDS: Insulin Glargine,Hum.rec.anlog 100 UNIT/ML 10 ML VIAL 50 UNIT SUBCUT (20:28)
[2021-07-24 23:40] VITALS: BP 158/81; PULSE 74; RESP 18; TEMP 36.5; O2SAT 96
[2021-07-25] MEDS: 0.9 % Sodium Chloride 1,000 ML 100 ML IVCONT ×2 (00:13→10:51)
[2021-07-25 03:35] VITALS: BP 158/80; PULSE 70; RESP 18; TEMP 36.6; O2SAT 98
[2021-07-25 05:19] LABS: Anion Gap 12 (12-20); Blood Urea Nitrogen 24 mg/dL (9-16); Calcium 9.3 mg/dL (8.4-10.2); Carbon Dioxide 22 mmol/L (22-29); Chloride 113 mmol/L (96-108); Creatinine Clr Calc Pharmacy 59.8; Estimated Glomerular Filt Rate 58; Glucose Random 114 mg/dL (60-115); Potassium 5.6 mmol/L (3.3-5.1); Sodium 141 mmol/L (135-145)
[2021-07-25] MEDS: Omeprazole 20 MG CAPSULE.DR PO (05:45)
[2021-07-25 07:15] VITALS: BP 169/93; PULSE 79; RESP 20; TEMP 36.8; O2SAT 96
[2021-07-25 08:03] LABS: Glucose, Whole Blood 138 mg/dL (60-115)
[2021-07-25] MEDS: Sodium Polystyrene Sulfon/Sorb 15 GM/60 ML ORAL.SUSP PO (08:28)
[2021-07-25 11:05] LABS: Glucose, Whole Blood 168 mg/dL (60-115)
[2021-07-25 11:07] VITALS: BP 154/72; PULSE 72; RESP 18; TEMP 36.6; O2SAT 95
[2021-07-25 14:43] LABS: Potassium 5.3 mmol/L (3.3-5.1)
[2021-07-25 15:40] VITALS: BP 179/84; PULSE 73; RESP 18; TEMP 36.7; O2SAT 94
[2021-07-25 16:03] LABS: Glucose, Whole Blood 147 mg/dL (60-115)
--- NOTE | 2021-07-25 16:44 | MHC.CM.PN ---
PATIENT IS DC HOME TONIGHT HE IS AWARE THAT A REFERRAL TO [facility] IS MADE FOR NEW NEPHROSTOMY TUBE. HE IS ALSO AWARE THAT A RESPONSE IS NOT YET IN CM TO FOLLOW UP WITH REFERRAL TOMORROW IMM 07/23 MOE
--- NOTE | 2021-07-25 16:51 | P.F2F_ITS ---
Service Date Service Date: 07/25/21 Encounter Date of encounter: 07/25/21 Reasons for Services Signs and symptoms assessed: new nephrostomy tube dose of lantus decreased Reason for [facility]: monitoring of unstable blood sugar and other (nephrostomy tube management) MD Overseeing Care: Malgorzata Diallo Homebound: Leaving the home is medically contraindicated at this time without the asist of a device and/or another person due th the listed conditions above and below. Reason homebound: weakness related to hospital stay Certification: Based on the above findings, I certify that this patient is confined to the home and needs intermittent [facility] care, physical therapy and/or speech therapy, or continues to need occupational therapy. The patient is under my care, and I have initiated the establishment of the plan of care. The patient will be followed by a physician who will periodically review the plan of care.
[2021-07-25] MEDS: Sodium Zirconium Cyclosilicate 10 GM POWD.PACK PO (16:56)
--- NOTE | 2021-07-25 17:09 | P.DS_ITS ---
DS: Providers Provider Date of Service: 07/25/21 Date of admission: 07/22/21 20:16 Date of discharge: 07/25/21 Primary care physician: Malgorzata Diallo MD Consults: 07/22/21 18:33 Consult to Urology Routine Consulting Provider: Danny Leiva Reason for consultation: metastatic prostate cancer, hydronephrosis Has provider been notified: Yes 07/22/21 21:10 Consult to Hematology / Oncology Routine Consulting Provider: Ana Alvarez Reason for consultation: Prostate ca with mets Consult to Urology Routine Consulting Provider: Danny Leiva Reason for consultation: Adela; hematuria; obstruction Attending physician on discharge: Jhonny Friend Discharging clinician: Azalia Peraza DS: Diagnosis Discharge Diagnosis (1) ADELA (acute kidney injury): Status: Acute (2) Pancytopenia: Status: Acute (3) Acute UTI: Status: Acute (4) Neuroendocrine tumor: Status: Acute (5) Urinary retention with incomplete bladder emptying: Status: Acute (6) Prostate cancer metastatic to intrapelvic lymph node: Status: Chronic (7) Hyperkalemia: Status: Acute DS: Summary Hospital Course Hospital Course: From H&P on day of admission 71-year-old male with a past medical history of hypertension, hyperlipidemia, diabetes, diabetic neuropathy, diabetic nephropathy, diabetic retinopathy, chronic kidney disease with baseline creatinine around 1.6, JUAN MANUEL, history of prostate cancer with metastasis on chemotherapy-last issue 2 weeks ago; chronic indwelling White; transaminitis in the setting of chemotherapy; presented to the hospital with a chief complaint of lightheadedness/dizziness.? Patient was sent from the Oncology Clinic as the patient had near syncopal episode; denies any LOC or fall.? Blood pressure noted to be 80s over 40s and mildly tachycardic; Patient denies any abdominal discomfort, denies any urinary complaints; complains of hematuria.? Denies any chest pain or palpitations Denies any fever chills cough.? Review of all other systems is negative except mentioned above ER course:? Patient on presentation noted to have benign examination; on labs noted to have elevated creatinine; renal ultrasound showed significant left hydronephrosis; discussed with Dr. Leiva from Urology who recommended nephrostomy tube with IR in the morning.? ER team also spoke to IR who scheduled for nephrostomy tube on 07/23/2021 known time.? NPO.? Patient blood pressure fairly remained stable.? Admitted for further management. 71-year-old male with a past medical history of hypertension, hyperlipidemia, diabetes, diabetic neuropathy, diabetic nephropathy, diabetic retinopathy, chronic kidney disease with baseline creatinine around 1.6, JUAN MANUEL, history of prostate cancer with metastasis on chemotherapy-last issue 2 weeks ago; chronic indwelling White; transaminitis in the setting of chemotherapy; presented to the hospital with a chief complaint of lightheadedness/dizziness.? Admitted for following ADELA and CKD. Likely postobstructive. Renal ultrasound showed severe left hydroureteronephrosis. He was seen by urology and underwent placement of left nephrostomy tube. Creatinine improved from 3.73 to 1.23 on the day of discharge. He will be discharged home with visiting nurses to assist with care of nephrostomy tube. Hyperkalemia. was treated with Lokelma and hyperkalemia improved to 5.3. He will receive an additional dose of lokelma prior to discharge. Recommend to hold Aldactone, lisinopril until repeat labs are drawn on Thursday. Follow-up with PCP for further management. Near syncope. Likely in the setting of hypotension?as patient noted to have blood pressure of 80s over 40s at the clinic.? Blood pressure has improved. Will be discharged home to continue home blood pressure medications with the exception of Aldactone and lisinopril which will be on hold until repeat labs are drawn next week. UTI Urine culture grew Staph epidermidis. Urine grew Staph epidermidis in June as well. This was discussed with infectious disease's who recommended treatment with 10 days of doxycycline. Chronic pancytopenia d/t chemotherapy History of BPH/metastatic prostate cancer/hematuria Patient has chronic indwelling White. Patient was on chemotherapy-last received 2 weeks ago; Oncology follow-up Transaminitis. Presumed to be in the setting of chemotherapy.? Monitor liver enzymes outpatient. Time Spent with Patient Time attestation: Total time spent providing and/or coordinating discharge services: Discharge coordination time: Greater than 30 minutes Quality: Stroke Does the patient have a stroke diagnosis?: No Physical Exam Vital Signs: Vital Signs: Last Vital Signs Temp 98.0 F 07/25/21 15:40 Pulse 73 07/25/21 15:40 Resp 18 07/25/21 15:40 BP 179/84 H 07/25/21 15:40 Pulse Ox 94 07/25/21 15:40 BMI result Body Mass Index 31.9 Const: General: cooperative, comfortable, no acute distress, alert and awake Resp: Effort & Inspection: normal respiratory effort, able to speak in complete sentences and no respiratory distress GI: Inspection: No distended Palpation (GI): Soft to palpation and nontender : Other: white present; left nephrostomy tube draining clear yellow urine DS: Data Data Completed and Pending Completed studies during hospitalization [Text1]: Procedures Dilation of Left Ureter with Intraluminal Device, Via Natural or Artificial Opening Endoscopic (06/04/20) Excision of Bladder, Via Natural or Artificial Opening Endoscopic (06/04/20) Fluoroscopy of Right Kidney, Ureter and Bladder (06/04/20) Labs on day of discharge: Laboratory Results - last 24 hr 07/24/21 07/25/21 07/25/21 20:06 04:51 04:51 Sodium Cancelled 141 Potassium Cancelled 5.6 H Chloride Cancelled 113 H Carbon Dioxide Cancelled 22 Anion Gap Cancelled 12 BUN Cancelled 24 H Creatinine Cancelled 1.23 Estim Creat Clear Calc Cancelled 59.8 Estimated GFR Cancelled 58 POC Glucose 159 H Random Glucose Cancelled 114 D Calcium Cancelled 9.3 07/25/21 07/25/21 07/25/21 07:54 10:57 14:25 Sodium Potassium 5.3 H Chloride Carbon Dioxide Anion Gap BUN Creatinine Estim Creat Clear Calc Estimated GFR POC Glucose 138 H 168 H Random Glucose Calcium 07/25/21 15:43 Sodium Potassium Chloride Carbon Dioxide Anion Gap BUN Creatinine Estim Creat Clear Calc Estimated GFR POC Glucose 147 H Random Glucose Calcium Preliminary micro results at discharge 07/22/21 17:08 Blood Culture - Preliminary Blood - Venous No growth after 48 hours. 07/22/21 17:08 Blood Culture - Preliminary Blood - Venous No growth after 48 hours. Discharge Plan Discharge Patient Disposition: Home Health Service Discharge Diagnosis: ADELA hydronephrosis UTI Referrals: [facility] [Outside] - 1 Week (A REFERRAL HAS BEEN PLACED OT THIS AGENCY FOR HOME CARE VISITING NURSE NEEDS. AN OFFER OF SERVICES HAS NOT BEEN RECEIVED BY THE TIME OF YOUR HOSPITAL DISCHARGE. CASE MANAGEMENT WILL FOLLOW UP WITH YOU TOMORROW (07/26/2021) WITH RESULTS.) Malgorzata Diallo MD [Primary Care Provider] - Discharge Medications: New doxycycline monohydrate 100 mg tablet 100 mg PO BID 10 Days Qty: 20 RF: 0 Continued Centrum Silver Men 300-600-300 mcg Tablet 1 tab PO DAILY RF: 0 magnesium oxide 400 mg magnesium Tablet 400 mg PO DAILY Qty: 30 RF: 0 ondansetron HCl [Zofran] 4 mg Tablet 4 mg PO Q6H PRN (Reason: Nausea) Qty: 30 RF: 0 insulin aspart U-100 [Novolog Flexpen U-100 Insulin] 100 unit/mL (3 mL) insulin pen 40 unit subcut TIDWM RF: 0 oxycodone 10 mg tablet 1 tab PO Q8H PRN (Reason: severe pain) RF: 0 omeprazole 20 mg capsule,delayed release(DR/EC) 20 mg PO DAILY@0630 RF: 0 carvedilol 25 mg tablet 25 mg PO BID RF: 0 amlodipine 10 mg tablet 10 mg PO DAILY RF: 0 atorvastatin 80 mg tablet 80 mg PO BEDTIME RF: 0 oxybutynin chloride 5 mg tablet 5 mg PO DAILY PRN (Reason: bladder spasms) 30 Days Qty: 30 RF: 1 Changed insulin glargine 100 unit/mL (3 mL) insulin pen 50 unit subcut BEDTIME Qty: 0 RF: 0 Held lisinopril 40 mg tablet 1 tab PO DAILY RF: 0 Hold Instructions: until repeat labs and discuss with PCP spironolactone 25 mg tablet 25 mg PO DAILY RF: 0 Hold Instructions: until repeat labs and discuss with PCP No Action (DME) lancets 33 gauge misc See Rx Instructions ea Not Applicable TID Qty: 100 RF: 0 (DME) pen needle, diabetic 31 gauge x 5/16 needle See Rx Instructions ea .ROUTE QID Qty: 1200 RF: 0 Discharge Orders: Discharge Order (Routine); Ordered 07/25/21 Ordered By: Azalia Peraza Diet: advance to usual diet Activity on Discharge: As tolerated Stand Alone Forms: Patient Portal Discharge page Other Ambulatory Orders: Basic Metabolic Panel (Routine) Timeframe: [id number] Facility: [facility] - Location: Laboratory Ordered By: Azalia Peraza Care Plan Goals: see below Health Concerns: hydronephrosis ADELA UTI hyperkalemia Plan of Treatment: do not take lisinopril or aldactone until you repeat your labs on Thursday and follow up with PCP. call to schedule a follow up appointment with PCP repeat lab work on Thursday your dose of lantus has been decrease. monitor your blood sugar closely and fol low up with PCP complete course of antibiotics. call to schedule follow up appointment with oncologist you will be discharge home with visiting nursing services due to new nephrostomy tube Assessment: see discharge summary
== END 2021-07-25 18:00 | disposition home health service (06) | DRG 682 ==
LOC: HO.ED 18:38 → HO.EDOVER 07-23 02:20 → HO.S3 07-23 13:26
PROVIDERS: Nurse Practitioner Acute Care; Radiology Diagnostic Radiology; Admitting Provider Hospitalist; Emergency Provider Emergency Medicine; PCP Internal Medicine; Visit Provider Physician Assistant Medical
PROC: 0T9130Z Drainage of Left Kidney with Drainage Device, Percutaneous Approach (ICD-10-PCS; principal; 2021-07-23 13:30)
DX: N17.9 Acute kidney failure, unspecified (principal); D61.810 Antineoplastic chemotherapy induced pancytopenia; C77.5 Secondary and unspecified malignant neoplasm of intrapelvic lymph nodes; C78.7 Secondary malignant neoplasm of liver and intrahepatic bile duct; C79.51 Secondary malignant neoplasm of bone; E11.40 Type 2 diabetes mellitus with diabetic neuropathy, unspecified; N13.6 Pyonephrosis; I95.9 Hypotension, unspecified; E87.5 Hyperkalemia; T45.1X5A Adverse effect of antineoplastic and immunosuppressive drugs, initial encounter; Y92.9 Unspecified place or not applicable; I12.9 Hypertensive chronic kidney disease with stage 1 through stage 4 chronic kidney disease, or unspecified chronic kidney disease; N18.2 Chronic kidney disease, stage 2 (mild); C61 Malignant neoplasm of prostate; B95.7 Other staphylococcus as the cause of diseases classified elsewhere; E86.0 Dehydration; Z20.822 Contact with and (suspected) exposure to COVID-19; Z96.0 Presence of urogenital implants; Z90.5 Acquired absence of kidney; Z79.4 Long term (current) use of insulin; Z79.899 Other long term (current) drug therapy
CPT/HCPCS: 36415; 50432; 76775; 80048; 80076; 81001; 82947; 83605; 83735; 84132; 85610; 85730; 86850; 86900; 86901; 87040; 87086; 87088; 87186; 87635; 93005; 99152; 99153; 99284; C1729; C1894; J0696; Q9967

== ENCOUNTER 2021-07-27 21:12 | Emergency (ER) | payer OTHER, SELFPAY ==
[2021-07-27 21:21] VITALS: BP 140/65; PULSE 75; RESP 18; TEMP 36.9; O2SAT 96; BMI 31.9
[2021-07-27 21:39] LABS: MANUAL DIFF FLAG NO
[2021-07-27 21:46] LABS: Basophils Percent Auto 0.4 % (0-2); Eosinophils Percent Auto 0.2 % (0-4); Hematocrit 25.5 % (42.0-52.0); Hemoglobin 8.1 g/dl (14.0-18.0); Imm Gran Abs Auto 0.19 X10*3/uL (0.00-0.03); Lymphocytes Absolute Auto 1.4 X10*3/uL (1.2-4.9); Lymphocytes Percent Auto 28.9 % (20-40); Mean Corpuscular HGB Conc 31.8 g/dl (31.0-36.0); Mean Corpuscular Hemoglobin 31.6 pg (27.0-33.0); Mean Corpuscular Volume 99.6 fL (80.0-98.0); Mean Platelet Volume 10.3 fL (9.4-12.4); Monocytes Absolute Auto 0.9 X10*3/uL (0.1-1.2); Monocytes Percent Auto 18.3 % (2-11); Neutrophils Absolute Auto 2.3 x10*3/uL (2.0-8.3); Neutrophils Percent Auto 48.2 % (45-73); Platelet Count 178 X10*3/uL (160-400); Red Blood Count 2.56 X10*6/uL (4.60-5.80); Red Cell Distribution Width 17.8 % (11.0-16.0); White Blood Count 4.7 X10*3/uL (4.8-10.8)
[2021-07-27 21:47] LABS: NRBC Pct Auto 6.6 /100WBC (0.0-0.2)
[2021-07-27 21:57] LABS: Anion Gap 13 (12-20); Blood Urea Nitrogen 15 mg/dL (9-16); Calcium 9.2 mg/dL (8.4-10.2); Carbon Dioxide 22 mmol/L (22-29); Chloride 109 mmol/L (96-108); Creatinine Clr Calc Pharmacy 52.2; Estimated Glomerular Filt Rate 49; Glucose Random 262 mg/dL (60-115); Potassium 4.7 mmol/L (3.3-5.1); Sodium 139 mmol/L (135-145)
[2021-07-27 23:03] VITALS: BP 152/71; PULSE 70; RESP 18; TEMP 36.8; O2SAT 96
--- NOTE | 2021-07-28 02:13 | ED_ITS ---
HPI - Male Genitourinary General Chief complaint: Urogenital-Male Stated complaint: prostate cancer urinating blood Time Seen by Provider: 07/28/21 02:13 Source: patient Mode of arrival: ambulatory History of Present Illness HPI Narrative: 71-year-old male arrives from home stating that he has been experiencing excessive bleeding from the catheter a which has been place in his penis after undergoing a procedure last week by urology. Patient states that this is been ongoing for the past 5 days and called the urologist last night and was directed to follow-up at the emergency room. Patient states that originally urine was coming from the Elizabeth catheter as well as from the left nephrostomy tube which is currently draining yellow urine. Patient denies any fever chills but states he has been having bladder spasms and intermittent nausea. Patient's history is significant for prostate cancer. Related Data Home Medications Medication Instructions Recorded Confirmed amlodipine 10 mg tablet 10 mg PO DAILY 04/18/20 07/22/21 atorvastatin 80 mg tablet 80 mg PO BEDTIME 04/18/20 07/22/21 carvedilol 25 mg tablet 25 mg PO BID 04/18/20 07/22/21 omeprazole 20 mg capsule,delayed 20 mg PO DAILY@0630 04/18/20 07/22/21 release pen needle, diabetic 31 gauge x #1200 ea 04/18/20 07/23/2111/18 spironolactone 25 mg tablet 25 mg PO DAILY 04/18/20 07/22/21 escjfgfy-qop-quzkq acid 300 1 tab PO DAILY 05/30/20 07/22/21 mcg-lycopene 600 mcg-lutein 300 mcg tablet ([facility] lancets 33 gauge #100 ea 06/08/20 07/23/21 insulin aspart U-100 100 unit/mL 40 unit SUBCUT TIDWM 07/22/21 07/22/21 (3 mL) subcutaneous pen (Novolog Flexpen U-100 Insulin aspart) oxycodone 10 mg tablet 1 tab PO Q8H PRN 07/22/21 07/22/21 lisinopril 40 mg tablet 1 tab PO DAILY 07/23/21 07/23/21 Previous Rx's Medication Instructions Recorded magnesium oxide 400 mg PO DAILY #30 tab 05/27/21 ondansetron HCl 4 mg tablet 4 mg PO Q6H PRN #30 tab 07/01/21 (Zofran) oxybutynin chloride 5 mg tablet 5 mg PO DAILY PRN 30 Days #30 tab 07/11/21 doxycycline monohydrate 100 mg 100 mg PO BID 10 Days #20 tab 07/25/21 tablet insulin glargine 100 unit/mL (3 50 unit (0.5 mL) SUBCUT BEDTIME #0 07/25/21 mL) subcutaneous pen ml Allergies Allergy/AdvReac Type Severity Reaction Status Date / Time enzalutamide [From Xtandi] Allergy Severe Rash Verified 07/27/21 21:21 abiraterone Allergy Rash Verified 07/27/21 21:21 Review of Systems Review of Systems: Pertinent positives and negatives as stated in HPI 10 point review of systems is otherwise negative. [facility] Past Medical History Source: nursing notes reviewed Medical History BPH (benign prostatic hyperplasia) Bunion of great toe CKD (chronic kidney disease) stage 2, GFR 60-89 ml/min Diabetes Diabetic neuropathy Diabetic retinopathy GERD (gastroesophageal reflux disease) Hematuria High cholesterol History of nephrectomy, unilateral HTN (hypertension) Kidney stone on right side Malignant neoplasm JUAN MANUEL (obstructive sleep apnea) Plantar fasciitis, bilateral Prostate CA Surgical History H/O cystoscopy History of nephrectomy, left Family History Family History Mother Breast cancer Sister Breast cancer Father Prostate cancer Heart disease Sister Diabetes Brother Heart disease Brother Heart disease Social History Social History Household Members: None Housing: Apartment Are you a primary progressive care manager to a significant other at home: No Do you presently have visiting nurse or other home services: No Alcohol intake: never Patient Tobacco Use Status: Never used Tobacco Second Hand Smoke Exposure: No Substance Use Type: Marijuana Advance Directives: Yes Advance Directives on File: Yes Advance Directives Date on File: 09/05/20 service: No Current occupational status: unemployed and disabled Physical Exam Vital Signs: Vital Signs: Last Vital Signs Temp 98.3 F 07/28/21 07:46 Pulse 70 07/28/21 07:46 Resp 15 07/28/21 07:46 BP 152/77 H 07/28/21 07:46 Pulse Ox 94 07/28/21 07:46 BMI result Body Mass Index 31.9 VITAL SIGNS: Reviewed. GENERAL: Well developed, well nourished, in no acute distress. HEAD: Normocephalic/atraumatic EYES: PERRLA, EOMI OROPHARYNX: no oral lesions noted, posterior pharynx clear NECK: Supple, no adenopathy LUNGS: Normal breath sounds. No adventitious sounds or accessory muscle use. SpO2<96> CARDIOVASCULAR: Regular rate and rhythm without noted murmurs ABDOMEN: Soft, non-tender, non-distended with bowel sounds. : There is a catheter that has dried blood around it and when the cap is removed there is no drainage of either blood or urine. Nephrostomy is noted to be intact and draining clear yellow urine. NEUROLOGIC: Alert and oriented x 4. Strength and sensation to light touch were grossly intact x 4. Course Course Course Narrative: This is a 71-year-old male who presents with possibly occluded Elizabeth catheter, bladder scan significant for 225 cc, will attempt gentle irrigation with 100 cc of normal saline. Repeated irrigation attempts to clear the hematuria have proved to be unsuccessful. Catheter does remain patent. I discussed the case briefly with Dr Leiva who recommends catheter exchange and does not think that exchanged over wire is necessary at this time. On attempt to place regular 3 way catheter resistance was met the catheter was unable to be placed. Two attempts were made, and then contacted Dr Leiva for his expertise so that we can administer CBI. Signed out to ALE Edwards: CBI, Urology to place 3-way and then patient needs CBI +/- admission. MDM - Male Genitourinary Lab Data Result diagrams: 07/27/21 21:33 07/27/21 21:33 Labs: Lab Results 07/27/21 07/27/21 Range/Units 21:33 21:33 WBC 4.7 L (4.8-10.8) X10*3/uL RBC 2.56 L (4.60-5.80) X10*6/uL Hgb 8.1 L (14.0-18.0) g/dl Hct 25.5 L (42.0-52.0) % MCV 99.6 H (80.0-98.0) fL MCH 31.6 (27.0-33.0) pg MCHC 31.8 (31.0-36.0) g/dl RDW 17.8 H (11.0-16.0) % Plt Count 178 D (160-400) X10*3/uL MPV 10.3 (9.4-12.4) fL Immature Gran % (Auto) 4.0 H (0.0-0.4) % Neut % (Auto) 48.2 (45-73) % Lymph % (Auto) 28.9 (20-40) % [place] % (Auto) 18.3 H (2-11) % Eos % (Auto) 0.2 (0-4) % Baso % (Auto) 0.4 (0-2) % Lymph # (Auto) 1.4 (1.2-4.9) X10*3/uL [place] # (Auto) 0.9 (0.1-1.2) X10*3/uL Eos # (Auto) 0.0 (0.0-0.4) X10*3/uL Baso # (Auto) 0.0 (0.0-0.2) X10*3/uL Abs Immat Gran (auto) 0.19 H (0.00-0.03) X10*3/uL Absolute Neuts (auto) 2.3 (2.0-8.3) x10*3/uL Absolute Nucleated RBC 0.310 H (0.0-0.012) X10*3/uL Nucleated RBC % (auto) 6.6 H (0.0-0.2) /100WBC Sodium 139 (135-145) mmol/L Potassium 4.7 (3.3-5.1) mmol/L Chloride 109 H (96-108) mmol/L Carbon Dioxide 22 (22-29) mmol/L Anion Gap 13 (12-20) BUN 15 (9-16) mg/dL Creatinine 1.41 H (0.5-1.4) mg/dL Estim Creat Clear Calc 52.2 Estimated GFR 49 Random Glucose 262 H D (60-115) mg/dL Calcium 9.2 (8.4-10.2) mg/dL Discharge Plan Discharge Clinical Impression: Hematuria Patient Disposition: Still a Patient Prescriptions: No Action Centrum Silver Men 300-600-300 mcg Tablet 1 tab PO DAILY RF: 0 magnesium oxide 400 mg magnesium Tablet 400 mg PO DAILY Qty: 30 RF: 0 ondansetron HCl [Zofran] 4 mg Tablet 4 mg PO Q6H PRN (Reason: Nausea) Qty: 30 RF: 0 insulin aspart U-100 [Novolog Flexpen U-100 Insulin] 100 unit/mL (3 mL) insulin pen 40 unit subcut TIDWM RF: 0 oxycodone 10 mg tablet 1 tab PO Q8H PRN (Reason: severe pain) RF: 0 lisinopril 40 mg tablet 1 tab PO DAILY RF: 0 Hold Instructions: until repeat labs and discuss with PCP insulin glargine 100 unit/mL (3 mL) insulin pen 50 unit subcut BEDTIME Qty: 0 RF: 0 doxycycline monohydrate 100 mg tablet 100 mg PO BID 10 Days Qty: 20 RF: 0 (DME) lancets 33 gauge misc See Rx Instructions ea Not Applicable TID Qty: 100 RF: 0 (DME) pen needle, diabetic 31 gauge x 5/16 needle See Rx Instructions ea .ROUTE QID Qty: 1200 RF: 0 omeprazole 20 mg capsule,delayed release(DR/EC) 20 mg PO DAILY@0630 RF: 0 carvedilol 25 mg tablet 25 mg PO BID RF: 0 amlodipine 10 mg tablet 10 mg PO DAILY RF: 0 spironolactone 25 mg tablet 25 mg PO DAILY RF: 0 Hold Instructions: until repeat labs and discuss with PCP atorvastatin 80 mg tablet 80 mg PO BEDTIME RF: 0 oxybutynin chloride 5 mg tablet 5 mg PO DAILY PRN (Reason: bladder spasms) 30 Days Qty: 30 RF: 1
--- NOTE | 2021-07-28 04:16 | PC.NURSE ---
Urinary catheter is draining blood which is started to be more clear but still blood tinged despite gentle irrigation
[2021-07-28 05:38] VITALS: BP 153/78; PULSE 63; RESP 14; TEMP 36.6; O2SAT 94
[2021-07-28 07:46] VITALS: BP 152/77; PULSE 70; RESP 15; TEMP 36.8; O2SAT 94
[2021-07-28] MEDS: Lidocaine HCl 2 % Urojet 10 ML JEL.PF.APP TOPICAL (09:11)
[2021-07-28] MEDS: oxyCODONE HCl Immed Release 5 MG TABLET PO (09:12)
[2021-07-28 10:36] VITALS: BP 142/79; PULSE 71; RESP 14; O2SAT 96
--- NOTE | 2021-07-28 11:20 | PC.NURSE ---
cbi started, 3 way cath inserted by dr fountain, pt rosalind well.
--- NOTE | 2021-07-28 11:29 | PC.NURSE ---
dr. fountain (urologist) inserted a 3 way cath with good success.
[2021-07-28 12:02] VITALS: BP 137/68; PULSE 70; RESP 14; O2SAT 95
[2021-07-28 13:59] LABS: Hematocrit 24.9 % (42.0-52.0); Imm Gran Abs Auto 0.09 X10*3/uL (0.00-0.03); Imm Gran Pct Auto 2.1 % (0.0-0.4); Lymphocytes Absolute Auto 1.3 X10*3/uL (1.2-4.9); Lymphocytes Percent Auto 29.7 % (20-40); MANUAL DIFF FLAG SCAN; Mean Corpuscular HGB Conc 32.1 g/dl (31.0-36.0); Mean Corpuscular Hemoglobin 31.9 pg (27.0-33.0); Mean Corpuscular Volume 99.2 fL (80.0-98.0); Mean Platelet Volume 10.6 fL (9.4-12.4); Monocytes Absolute Auto 0.9 X10*3/uL (0.1-1.2); Monocytes Percent Auto 20.8 % (2-11); Neutrophils Absolute Auto 2.1 x10*3/uL (2.0-8.3); Neutrophils Percent Auto 47.4 % (45-73); Platelet Count 174 X10*3/uL (160-400); Red Blood Count 2.51 X10*6/uL (4.60-5.80); Red Cell Distribution Width 18.1 % (11.0-16.0); SCAN SMEAR FLAG 1; White Blood Count 4.4 X10*3/uL (4.8-10.8)
[2021-07-28 14:01] LABS: NRBC Pct Auto 3.9 /100WBC (0.0-0.2)
[2021-07-28 14:14] VITALS: BP 155/102; PULSE 68; RESP 15; TEMP 36.8; O2SAT 96
[2021-07-28 14:17] LABS: SLIDE REVIEW VERIFIED
[2021-07-28] MEDS: carvediloL 12.5 MG TABLET 25 MG PO (14:48)
[2021-07-28] MEDS: lisinopriL 40 MG TABLET PO (14:49)
[2021-07-28 15:27] VITALS: BP 151/73; PULSE 63; RESP 16; O2SAT 94
== END 2021-07-28 15:52 | disposition home or self-care (01) ==
PROVIDERS: Physician Assistant; Emergency Provider Student in an Organized Health Care Education/Training Program; PCP Internal Medicine
DX: R31.9 Hematuria, unspecified (principal); T83.091A Other mechanical complication of indwelling urethral catheter, initial encounter; Y82.9 Unspecified medical devices associated with adverse incidents; Y92.9 Unspecified place or not applicable; I12.9 Hypertensive chronic kidney disease with stage 1 through stage 4 chronic kidney disease, or unspecified chronic kidney disease; E11.22 Type 2 diabetes mellitus with diabetic chronic kidney disease; N18.2 Chronic kidney disease, stage 2 (mild); Z85.46 Personal history of malignant neoplasm of prostate; E78.5 Hyperlipidemia, unspecified; Z79.02 Long term (current) use of antithrombotics/antiplatelets; Z79.4 Long term (current) use of insulin; Z79.899 Other long term (current) drug therapy; Z96.0 Presence of urogenital implants
CPT/HCPCS: 36415; 51702; 51798; 80048; 85025; 99284

== ENCOUNTER → 2021-08-09 10:09 | Outpatient (BNVA) | payer OTHER, SELFPAY | PROVIDERS: PCP Internal Medicine; Visit Provider Urology | DX: Z43.5 Encounter for attention to cystostomy (principal); N40.1 Benign prostatic hyperplasia with lower urinary tract symptoms; N31.8 Other neuromuscular dysfunction of bladder | CPT/HCPCS: 51705 ==